=== PATIENT | female | born 1960 | race African-American/Black ===

== ENCOUNTER 2016-08-15 12:47 | Emergency (ER) | payer MEDICAID, OTHER ==
[~2016-08-15] VITALS: Ht 167.6 cm; Wt 50.0 kg
[~2016-08-15 12:47] MED LIST: ALBU0.086 INH; ALBU17I INH; AMLO10 PO; GLUCTAB PO; IBUP600T26 PO; LEVA500T PO; MEDR4PAK3 PO; MONT10TA2 PO; OMEP20TA39 PO; TRAM50 PO
[2016-08-15 12:48] VITALS: BP 141/88; PULSE 112; RESP 20; TEMP 97.9; O2SAT 97
--- NOTE | 2016-08-15 13:46 | PD ---
HPI Chief Complaint: Chest Pain Time Seen by Provider: 13:42 Travel History International Travel<30 days: No Contact w/Intl Traveler<30days: No Traveled to known affect area: No History of Present Illness HPI Patient is a 56-year-old female presenting to the emergency department for evaluation of chest pain. Patient states the pain started over the weekend, she states it's intermittent but wanted is there it is radiating across her chest and feels pressure-like. At its worst it is a 10 out of 10 currently it is a 4/10. Patient also reports nausea, vomiting, cough, a frontal headache and dysuria. Patient states that she didn't have a ride to come to the hospital over the weekend or she would have. 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)) Neurologic: Yes Psychiatric: Yes Reproductive: No Respiratory: Yes (ASTHMA) Migraines: No Radiation Therapy: No Seizures: No Sickle Cell Disease: No Sleep Apnea: No Ulcer: Yes Menopausal: Yes : 4 Para: 3 Miscarriage: 1 : 0 Tubal Ligation: Yes Past Surgical History Abdominal Surgery: No Cardiac Surgery: No Ear Surgery: No Endocrine Surgery: Yes (MASS IN NECK REMOVED ) Eye Surgery: No Genitourinary Surgery: No Gynecologic Surgery: No Thoracic Surgery: No Other Surgery: Yes (ORAL SURGERY) Social History Alcohol Use: Yes (social) Tobacco Use: Yes (1/2 PPD) Substance Use: No Allergies-Medications (Allergen,Severity, Reaction): Coded Allergies: Dilaudid (Verified Allergy, Severe, THROAT CLOSES, 08/15/16) *MDRO Multi-Drug Resistant Organism (Unverified Adverse Reaction, Unknown , 08/15/16) MRSA PCR Screen negative 12/02/14. Reported Meds & Prescriptions Reported Meds & Active Scripts Active Medrol Dosepak (Methylprednisolone) 4 Mg Oleg 4 Mg PO DIRECTED TAKE DIRECTED Levaquin 500 Mg Tab (Levofloxacin) 500 Mg Tab 500 Mg PO DAILY 9 Days Proventil Ud 0.083% (2.5 Mg/3 Ml) (Albuterol Sulfate) 2.5 Mg/3 Ml Inha 2.5 Mg INH Q6 PRN Ultram (Tramadol HCl) 50 Mg Tab 1-2 Tab PO Q6H PRN FOR PAIN Ibuprofen 600 Mg Tab 600 Mg PO Q8H PRN Reported Hm Omeprazole (Omeprazole) 20 Mg Tab 20 Mg PO DAILY Proventil Mdi (Albuterol Sulfate) 17 Gm Aero 2 Puff INH Q6HPRN Metformin (Metformin HCl) 500 Mg Tab 500 Mg PO BID Norvasc (Amlodipine Besylate) 10 Mg Tab 10 Mg PO DAILY Singulair (Montelukast Sodium) 10 Mg Tab 10 Mg PO HS Review of Systems Except as stated in HPI: all other systems reviewed are Neg General / Constitutional: Positive: Chills HENT: Positive: Headaches Cardiovascular: Positive: Chest Pain or Discomfort Respiratory: Positive: Cough Gastrointestinal: Positive: Nausea, Vomiting, No: Abdominal Pain Genitourinary: Positive: Dysuria Physical Exam Narrative GENERAL: Thin, well-developed, alert female. Resting comfortably in no acute distress. SKIN: Warm and dry. HEAD: Atraumatic. Normocephalic. EYES: Pupils equal and round. No scleral icterus. No injection or drainage. ENT: No nasal bleeding or discharge. Mucous membranes pink and moist. NECK: Trachea midline. No JVD. CARDIOVASCULAR: Regular rate and rhythm. No murmur appreciated. RESPIRATORY: No accessory muscle use. Expiratory wheezing noted throughout lung plunkett. No nasal flaring, no retractions, no increased work of breathing noted. GASTROINTESTINAL: Abdomen soft, non-tender, nondistended. Hepatic and splenic margins not palpable. MUSCULOSKELETAL: No obvious deformities. No clubbing. No cyanosis. No edema. NEUROLOGICAL: Awake and alert. No obvious cranial nerve deficits. Motor grossly within normal limits. Normal speech. PSYCHIATRIC: Appropriate mood and affect; insight and judgment normal. Data Data Last Documented VS Vital Signs Date Time Temp Pulse Resp B/P Pulse Ox O2 Delivery O2 Flow Rate FiO2 08/15/16 12:48 97.9 112 20 141/88 97 Room Air Orders Electrocardiogram (08/15/16 ) Ckmb (Isoenzyme) Profile (08/15/16 13:34) Complete Blood Count With Diff (08/15/16 13:34) Comprehensive Metabolic Panel (08/15/16 13:34) Magnesium (Mg) (08/15/16 13:34) Prothrombin Time / Inr (Pt) (08/15/16 13:34) Act Partial Throm Time (Ptt) (08/15/16 13:34) Troponin I (08/15/16 13:34) Chest, Single Ap (08/15/16 13:34) Ecg Monitoring (08/15/16 13:34) Bilateral Bp Monitoring (08/15/16 13:34) Iv Access Insert/Monitor (08/15/16 13:34) Oximetry (08/15/16 13:34) Oxygen Administration (08/15/16 13:34) Urinalysis - C+S If Indicated (08/15/16 13:46) CKMB (08/15/16 13:42) CKMB% (08/15/16 13:42) Potassium Chloride (Kcl) (08/15/16 14:45) Potassium Chlor 20 Meq Premix (Kcl 20 Me (08/15/16 14:45) Ct Brain W/O Iv Contrast(Rout) (08/15/16 14:52) Ketorolac Inj (Toradol Inj) (08/15/16 15:00) Labs Laboratory Tests Test 08/15/16 08/15/16 13:42 14:26 White Blood Count 2.1 TH/MM3 Red Blood Count 4.24 MIL/MM3 Hemoglobin 11.5 GM/DL Hematocrit 35.1 % Mean Corpuscular Volume 82.9 FL Mean Corpuscular Hemoglobin 27.2 PG Mean Corpuscular Hemoglobin 32.8 % Concent Red Cell Distribution Width 13.7 % Platelet Count 137 TH/MM3 Mean Platelet Volume 9.4 FL Neutrophils (%) (Auto) 37.1 % Lymphocytes (%) (Auto) 27.3 % Monocytes (%) (Auto) 33.5 % Eosinophils (%) (Auto) 0.5 % Basophils (%) (Auto) 1.6 % Neutrophils # (Auto) 0.8 TH/MM3 Lymphocytes # (Auto) 0.6 TH/MM3 Monocytes # (Auto) 0.7 TH/MM3 Eosinophils # (Auto) 0.0 TH/MM3 Basophils # (Auto) 0.0 TH/MM3 CBC Comment AUTO DIFF Differential Total Cells 100 Counted Neutrophils % (Manual) 39 % Band Neutrophils % 4 % Lymphocytes % 41 % Monocytes % 14 % Eosinophils % 1 % Basophils % 1 % Neutrophils # (Manual) 0.9 TH/MM3 Nucleated Red Blood Cells 1 /100 WBC Differential Comment FINAL DIFF MANUAL Platelet Estimate NORMAL Platelet Morphology Comment NORMAL Target Cells 2+ Prothrombin Time 13.2 SEC Prothromb Time International 1.2 RATIO Ratio Activated Partial 32.3 SEC Thromboplast Time Sodium Level 140 MEQ/L Potassium Level 2.6 MEQ/L Chloride Level 100 MEQ/L Carbon Dioxide Level 31.7 MEQ/L Anion Gap 8 MEQ/L Blood Urea Nitrogen 17 MG/DL Creatinine 0.88 MG/DL Estimat Glomerular Filtration 81 ML/MIN Rate Random Glucose 106 MG/DL Calcium Level 8.6 MG/DL Magnesium Level 1.4 MG/DL Total Bilirubin 1.2 MG/DL Aspartate Amino Transf 102 U/L (AST/SGOT) Alanine Aminotransferase 65 U/L (ALT/SGPT) Alkaline Phosphatase 96 U/L Total Creatine Kinase 119 U/L Creatine Kinase MB 2.5 NG/ML Troponin I LESS THAN 0.02 NG/ML Total Protein 8.1 GM/DL Albumin 3.8 GM/DL Urine Color YELLOW Urine Turbidity HAZY Urine pH 7.5 Urine Specific Shannon 1.012 Urine Protein TRACE mg/dL Urine Glucose (UA) NEG mg/dL Urine Ketones NEG mg/dL Urine Occult Blood NEG Urine Nitrite NEG Urine Bilirubin NEG Urine Urobilinogen 4.0 MG/DL Urine Leukocyte Esterase SMALL Urine RBC 1 /hpf Urine WBC 2 /hpf Urine Squamous Epithelial 7 /hpf Cells Urine Hyaline Casts 2 /lpf Urine Mucus FEW /lpf Microscopic Urinalysis Comment CULT NOT INDICATED MDM Medical Decision Making Medical Screen Exam Complete: Yes Emergency Medical Condition: Yes Interpretation(s) Vital Signs Date Time Temp Pulse Resp B/P Pulse Ox O2 Delivery O2 Flow Rate FiO2 08/15/16 12:48 97.9 112 20 141/88 97 Room Air Differential Diagnosis AMI versus unstable angina versus pneumonia versus bronchitis versus musculoskeletal pain versus viral syndrome versus other Narrative Course Patient is 56-year-old female presented to emergency for evaluation of chest pain, headache, cough, nausea, vomiting. Patient is wheezing on exam. Chest x- ray and labs ordered and pending. EKG shows sinus rhythm. Patient is resting in no acute distress. Care of patient be transferred to provider when medical bed available. Angelica Razo Aug 15, 2016 13:46
[2016-08-15 14:05] LABS: AUTOMATED NEUTROPHIL # 0.8 TH/MM3 (1.8-7.7); BASOPHIL % 1.6 % (0.0-2.0); EOSINOPHIL % 0.5 % (0.0-4.0); HEMATOCRIT 35.1 % (35.0-46.0); LYMPH % 27.3 % (9.0-44.0); LYMPHOCYTE # 0.6 TH/MM3 (1.0-4.8); MEAN CELL VOLUME 82.9 FL (80.0-100.0); MEAN CORPUSCULAR HEMOGLOBIN 27.2 PG (27.0-34.0); MEAN CORPUSCULAR HGB CONC 32.8 % (32.0-36.0); MONO % 33.5 % (0.0-8.0); NEUT % 37.1 % (16.0-70.0); PLATELET COUNT 137 TH/MM3 (150-450); RED BLOOD COUNT 4.24 MIL/MM3 (4.00-5.30); RED CELL DISTRIBUTION WIDTH 13.7 % (11.6-17.2); WHITE BLOOD COUNT 2.1 TH/MM3 (4.0-11.0)
[2016-08-15 14:07] LABS: HEMO FLAGS AUTO DIFF
--- NOTE | 2016-08-15 14:13 | RADRPT ---
EXAM DATE/TIME: 08/15/2016 13:46 [facility] COMPARISON: CHEST SINGLE AP, August 02, 2015, 19:16. INDICATIONS : Patient states chest pains. MEDICAL HISTORY : Asthma SURGICAL HISTORY : None. ENCOUNTER: Initial ACUITY: 1 day PAIN SCORE: 5/10 LOCATION: Bilateral chest FINDINGS: A single view of the chest demonstrates the lungs to be symmetrically aerated without evidence of mas s, infiltrate or effusion. The cardiomediastinal contours are unremarkable. Scoliotic curvature. CONCLUSION: No acute disease. Rodrigo Wahl Jr., MD on August 15, 2016 at 14:11 Board Certified Radiologist. This report was verified electronically.
[2016-08-15 14:19] LABS: PROTHROMBIN TIME - PATIENT 13.2 SEC (9.8-11.6)
[2016-08-15 14:20] LABS: APTT (PATIENT) 32.3 SEC (24.3-30.1); INTERNATIONAL NORMALIZED RATIO 1.2 RATIO
[2016-08-15 14:22] LABS: ALT (GPT) 65 U/L (10-53); ANION GAP 8 MEQ/L (5-15); AST (GOT) 102 U/L (15-37); BICARBONATE 31.7 MEQ/L (21.0-32.0); BLOOD UREA NITROGEN 17 MG/DL (7-18); CHLORIDE 100 MEQ/L (98-107); GLOMERULAR FILTRATION RATE 81 ML/MIN (>89); MAGNESIUM 1.4 MG/DL (1.5-2.5); SODIUM (NA) 140 MEQ/L (136-145)
[2016-08-15 14:27] LABS: ALKALINE PHOSPHATASE 96 U/L (45-117); CREATINE KINASE 119 U/L (26-192); TOTAL BILIRUBIN ADULT 1.2 MG/DL (0.2-1.0)
[2016-08-15 14:33] LABS: POTASSIUM 2.6 MEQ/L (3.5-5.1)
[2016-08-15] MEDS ORDERED: POTASSIUM CHLORIDE 20 MEQ CONTROLLED RELEASE TAB PO ONE (14:45)
[2016-08-15] MEDS ORDERED: POTASSIUM CHLOR 20 MEQ PREMIX 100 ML IV ONE (14:45)
[2016-08-15 14:48] LABS: BLOOD, URINE NEG (NEG); COMMENT (UR) CULT NOT INDICATED; CULTURE IF INDICATED CULT NOT INDICATED; GLUCOSE,URINE NEG (NEG); HYALINE CAST, URINE 2 /lpf (RARE); KETONE, URINE NEG (NEG); MUCUS URINE FEW /lpf (OCC); NITRITE,URINE NEG (NEG); PH, URINE 7.5 (5.0-8.5); SQUAMOUS EPITHELIAL CELL URINE 7 /hpf (0-5); URINE COLOR YELLOW (YELLW/STRAW)
[2016-08-15 14:50] LABS: CKMB 2.5 NG/ML (0.5-3.6)
--- NOTE | 2016-08-15 14:59 | PD ---
Physical Exam Narrative Patient was seen and examined with my pediatric medical assistant. Data Data Last Documented VS Vital Signs Date Time Temp Pulse Resp B/P Pulse Ox O2 Delivery O2 Flow Rate FiO2 08/15/16 12:48 97.9 112 20 141/88 97 Room Air Orders Electrocardiogram (08/15/16 ) Ckmb (Isoenzyme) Profile (08/15/16 13:34) Complete Blood Count With Diff (08/15/16 13:34) Comprehensive Metabolic Panel (08/15/16 13:34) Magnesium (Mg) (08/15/16 13:34) Prothrombin Time / Inr (Pt) (08/15/16 13:34) Act Partial Throm Time (Ptt) (08/15/16 13:34) Troponin I (08/15/16 13:34) Chest, Single Ap (08/15/16 13:34) Ecg Monitoring (08/15/16 13:34) Bilateral Bp Monitoring (08/15/16 13:34) Iv Access Insert/Monitor (08/15/16 13:34) Oximetry (08/15/16 13:34) Oxygen Administration (08/15/16 13:34) Urinalysis - C+S If Indicated (08/15/16 13:46) CKMB (08/15/16 13:42) CKMB% (08/15/16 13:42) Potassium Chloride (Kcl) (08/15/16 14:45) Potassium Chlor 20 Meq Premix (Kcl 20 Me (08/15/16 14:45) Ct Brain W/O Iv Contrast(Rout) (08/15/16 14:52) Ketorolac Inj (Toradol Inj) (08/15/16 15:00) Labs Laboratory Tests Test 08/15/16 08/15/16 13:42 14:26 White Blood Count 2.1 TH/MM3 Red Blood Count 4.24 MIL/MM3 Hemoglobin 11.5 GM/DL Hematocrit 35.1 % Mean Corpuscular Volume 82.9 FL Mean Corpuscular Hemoglobin 27.2 PG Mean Corpuscular Hemoglobin 32.8 % Concent Red Cell Distribution Width 13.7 % Platelet Count 137 TH/MM3 Mean Platelet Volume 9.4 FL Neutrophils (%) (Auto) 37.1 % Lymphocytes (%) (Auto) 27.3 % Monocytes (%) (Auto) 33.5 % Eosinophils (%) (Auto) 0.5 % Basophils (%) (Auto) 1.6 % Neutrophils # (Auto) 0.8 TH/MM3 Lymphocytes # (Auto) 0.6 TH/MM3 Monocytes # (Auto) 0.7 TH/MM3 Eosinophils # (Auto) 0.0 TH/MM3 Basophils # (Auto) 0.0 TH/MM3 CBC Comment AUTO DIFF Differential Total Cells 100 Counted Neutrophils % (Manual) 39 % Band Neutrophils % 4 % Lymphocytes % 41 % Monocytes % 14 % Eosinophils % 1 % Basophils % 1 % Neutrophils # (Manual) 0.9 TH/MM3 Nucleated Red Blood Cells 1 /100 WBC Differential Comment FINAL DIFF MANUAL Platelet Estimate NORMAL Platelet Morphology Comment NORMAL Target Cells 2+ Prothrombin Time 13.2 SEC Prothromb Time International 1.2 RATIO Ratio Activated Partial 32.3 SEC Thromboplast Time Sodium Level 140 MEQ/L Potassium Level 2.6 MEQ/L Chloride Level 100 MEQ/L Carbon Dioxide Level 31.7 MEQ/L Anion Gap 8 MEQ/L Blood Urea Nitrogen 17 MG/DL Creatinine 0.88 MG/DL Estimat Glomerular Filtration 81 ML/MIN Rate Random Glucose 106 MG/DL Calcium Level 8.6 MG/DL Magnesium Level 1.4 MG/DL Total Bilirubin 1.2 MG/DL Aspartate Amino Transf 102 U/L (AST/SGOT) Alanine Aminotransferase 65 U/L (ALT/SGPT) Alkaline Phosphatase 96 U/L Total Creatine Kinase 119 U/L Creatine Kinase MB 2.5 NG/ML Troponin I LESS THAN 0.02 NG/ML Total Protein 8.1 GM/DL Albumin 3.8 GM/DL Urine Color YELLOW Urine Turbidity HAZY Urine pH 7.5 Urine Specific Saline 1.012 Urine Protein TRACE mg/dL Urine Glucose (UA) NEG mg/dL Urine Ketones NEG mg/dL Urine Occult Blood NEG Urine Nitrite NEG Urine Bilirubin NEG Urine Urobilinogen 4.0 MG/DL Urine Leukocyte Esterase SMALL Urine RBC 1 /hpf Urine WBC 2 /hpf Urine Squamous Epithelial 7 /hpf Cells Urine Hyaline Casts 2 /lpf Urine Mucus FEW /lpf Microscopic Urinalysis Comment CULT NOT INDICATED [facility] Supervised Visit with [place]: Yes Interpretation(s) Last Impressions Chest X-Ray 08/15/16 1334 Signed Impressions: Service Date/Time: Monday, August 15, 2016 13:46 - CONCLUSION: No acute disease. Rodrigo Wahl Jr., MD 1456 PM. CBC WBC 2.1. Platelet 137. 33 mono. Potassium 2.6. Magnesium 1.4. Her bili 1.2. AST 102. ALT 65. Enzymes are normal. UA is negative. [address] scan of brain negative acute pathology. Narrative Course 56-year-old female with headache, sharp stabbing chest pain, abdominal cramping , nausea vomiting, fever chills. Toradol 30 mg IV. Diagnosis Primary Impression: Atypical chest pain Additional Impressions: Cephalgia Qualified Code: R51 - Acute nonintractable headache, unspecified headache type Gastroenteritis Patient Instructions: General Instructions Additional Instruction: Take medication as directed. Follow-up with personal physician. Return if persistent problem or worse. Med/Other Pt SpecificInfo: Prescription(s) given Scripts Ondansetron Odt (Zofran Odt)4 Mg Tab4 Mg SL Q6HR PRN (Nausea/Vomiting) #10 TAB Ref 0 Prov:Phan Coronado MD 08/15/16 Tramadol (Ultram)50 Mg Tab50 Mg PO Q6H PRN (PAIN) #20 TAB Ref 0 Prov:Phan Coronado MD 08/15/16 Potassium Chloride ER 10 Meq Cap10 Meq PO BID #14 CAP Ref 0 Prov:Phan Coronado MD 08/15/16 Disposition: 01 DISCHARGE HOME Condition: Stable Phan Coronado MD Aug 15, 2016 14:59
[2016-08-15 15:00] LABS: BANDS 4 % (0-6); BASOPHILS 1 % (0-2); CORRECTED NUCLEATED RBC 1 /100 WBC (0-0); EOSINOPHILS 1 % (0-4); NEUTROPHIL # MANUAL DIFF 0.9 TH/MM3 (1.8-7.7); POLYS (SEG NEUTROPHILS) 39 % (16-70); SCAN/DIFF FINAL DIFF MANUAL; TARGET CELLS 2+ (NORMAL); WBC DIFF SAMPLE 100
[2016-08-15] MEDS ORDERED: KETOROLAC TROMETHAMINE 30 MG/ML (IVP) VIAL IV PUSH ONE (15:00)
[2016-08-15 15:01] LABS: PLATELET ESTIMATE SMEAR NORMAL (NORMAL); PLATELET MORPHOLOGY NORMAL (NORMAL)
--- NOTE | 2016-08-15 15:13 | RADRPT ---
EXAM DATE/TIME: 08/15/2016 15:07 [facility] COMPARISON: No previous studies available for comparison. INDICATIONS : Cephalgia. RADIATION DOSE: 33.12 CTDIvol (mGy) MEDICAL HISTORY : Hypertension. Cardiovascular disease SURGICAL HISTORY : Tubal ligation. ENCOUNTER: Initial ACUITY: 1 day PAIN SCALE: 4/10 LOCATION: cranial TECHNIQUE: Multiple contiguous axial images were obtained of the head. Using automated exposure control and adj ustment of the mA and/or kV according to patient size, radiation dose was kept as low as reasonably a chievable to obtain optimal diagnostic quality images. FINDINGS: CEREBRUM: The ventricles are normal for age. No evidence of midline shift, mass lesion, hemorrhage or acute in farction. No extra-axial fluid collections are seen. POSTERIOR FOSSA: The cerebellum and brainstem are intact. The 4th ventricle is midline. The cerebellopontine angle i s unremarkable. EXTRACRANIAL: The visualized portion of the orbits is intact. SKULL: The calvaria is intact. No evidence of skull fracture. CONCLUSION: Normal examination. Flynn Durán MD on August 15, 2016 at 15:11 Board Certified Radiologist. This report was verified electronically.
[2016-08-15] MEDS ORDERED: ULTR50TA5 PO (15:29)
[2016-08-15] MEDS ORDERED: POTA10CA PO (15:29)
[2016-08-15] MEDS ORDERED: ZOFR4TAB3 SL (15:29)
--- NOTE | 2016-08-16 17:06 | EKG ---
Date Performed: 08/15/2016 Time Performed: 13:20:51 PTAGE: 56 years EKG: Sinus rhythm NONSPECIFIC T-WAVE ABNORMALITY Since previous tracing, no significant change noted BORDERLINE ECG PREVIOUS TRACING : 04/20/2016 01.16 DOCTOR: Jacob Kumari Interpretating Date/Time 08/16/2016 17:05:51
== END 2016-08-15 16:56 | disposition home or self-care (01) ==
LOC: NEPC 12:47
DX: R07.89 Other chest pain (principal); K52.9 Noninfective gastroenteritis and colitis, unspecified; R51 Headache; R30.0 Dysuria; R05 Cough; R11.2 Nausea with vomiting, unspecified; F17.200 Nicotine dependence, unspecified, uncomplicated; I10 Essential (primary) hypertension; E11.9 Type 2 diabetes mellitus without complications; Z79.84 Long term (current) use of oral hypoglycemic drugs
CPT/HCPCS: 70450; 71010; 80053; 81001; 82550; 82552; 83735; 84484; 85007; 85027; 85610; 85730; 93005; 96374; 96375; 99285; J1885; J3480

== ENCOUNTER 2016-09-13 17:38 | Inpatient (IN) | payer MEDICAID ==
[~2016-09-13] VITALS: Ht 167.6 cm; Wt 52.0 kg
[~2016-09-13 17:38] MED LIST changes: -ALBU0.086 INH; -ALBU17I INH; -AMLO10 PO; -GLUCTAB PO; -IBUP600T26 PO; -LEVA500T PO; -MEDR4PAK3 PO; -MONT10TA2 PO; -OMEP20TA39 PO; +POTA10CA PO; -TRAM50 PO; +ULTR50TA5 PO; +ZOFR4TAB3 SL
[2016-09-13 17:43] VITALS: BP 145/73; PULSE 92; RESP 26; TEMP 98.4; O2SAT 100
[2016-09-13 17:59] VITALS: O2SAT 99
[2016-09-13] MEDS ORDERED: methylPREDNISolone SOD SUCC 125 MG/2 ML VIAL IVP ONE (18:00)
[2016-09-13] MEDS: RESP: ALBUTEROL 2.5 MG/IPRATROPIUM 0.5 MG NEB (SCH) INH ×2 (18:00→18:14)
[2016-09-13] MEDS ORDERED: SODIUM CHLORIDE 0.9% FLUSH 10 ML FLUSH IVF PRN (18:00)
[2016-09-13 18:13] LABS: BLOOD GAS BASE EXCESS 5.9 mmol/L (-2-2); BLOOD GAS CARBOXYHEMOGLOBIN 0.9 % (0-4); BLOOD GAS HCO3 30 mmol/L (22-26); BLOOD GAS METHEMOGLOBIN 0.3 % (0-2); BLOOD GAS O2 HGB SATURATION 98 % (90-100); BLOOD GAS OXYGEN CONTENT 15.3 Vol % (12.0-20.0); BLOOD GAS PCO2 43 mmHg (38-42); BLOOD GAS PO2 158 mmHG (61-120); BLOOD GAS TOTAL HGB 10.9 G/DL (12.0-16.0); CRITICAL VALUE NO; DRAW SITE RT RADIAL; LITER FLOW 2 L/M; NUMBER OF ARTERIAL PUNCTURES 1; OXYGEN DEVICE NASAL CANNULA; STAT YES; TEMP CORR TO 98.6; ULNAR PULSE PRESENT
[2016-09-13 18:28] LABS: AUTOMATED NEUTROPHIL # 1.6 TH/MM3 (1.8-7.7); BASOPHIL % 0.9 % (0.0-2.0); EOSINOPHIL % 1.3 % (0.0-4.0); LYMPH % 17.4 % (9.0-44.0); LYMPHOCYTE # 0.4 TH/MM3 (1.0-4.8); MEAN CELL VOLUME 82.9 FL (80.0-100.0); MEAN CORPUSCULAR HEMOGLOBIN 27.2 PG (27.0-34.0); MEAN CORPUSCULAR HGB CONC 32.8 % (32.0-36.0); MONO % 11.4 % (0.0-8.0); PLATELET COUNT 137 TH/MM3 (150-450); RED CELL DISTRIBUTION WIDTH 13.9 % (11.6-17.2); WHITE BLOOD COUNT 2.3 TH/MM3 (4.0-11.0)
[2016-09-13 18:40] LABS: HEMO FLAGS AUTO DIFF
--- NOTE | 2016-09-13 18:48 | RADRPT ---
EXAM DATE/TIME: 09/13/2016 18:18 [facility] COMPARISON: CHEST SINGLE AP, August 15, 2016, 13:46. INDICATIONS : Short of breath. MEDICAL HISTORY : None. SURGICAL HISTORY : None. ENCOUNTER: Initial ACUITY: 3 days PAIN SCORE: 0/10 LOCATION: Bilateral chest FINDINGS: The lungs are clear without infiltrate, nodule, or mass. There is no appreciable pleural effusion fo r technique. Heart and mediastinum are unremarkable. CONCLUSION: No acute cardiopulmonary disease. Amadeo Glover MD on September 13, 2016 at 18:46 Board Certified Radiologist. This report was verified electronically.
[2016-09-13 19:10] LABS: ANION GAP 13 MEQ/L (5-15); BICARBONATE 30.1 MEQ/L (21.0-32.0); BLOOD UREA NITROGEN 8 MG/DL (7-18); CHLORIDE 95 MEQ/L (98-107); CREATINE KINASE 401 U/L (26-192); GLOMERULAR FILTRATION RATE 128 ML/MIN (>89); SODIUM (NA) 138 MEQ/L (136-145)
--- NOTE | 2016-09-13 19:12 | PD ---
HPI Chief Complaint: Respiratory Distress Time Seen by Provider: 17:54 Travel History International Travel<30 days: No Contact w/Intl Traveler<30days: No Traveled to known affect area: No History of Present Illness HPI 56yo F with PMH of COPD presents to the ED with c/o sob for 1 week, worst today. Pt was given nebs x2 by [facility]. They heard wheezing but she was not wheezing on my exam. Pt is saturating well on room air. Pt states she has right sided chest pain that goes up her neck to her head as well for 1 month. Denies any oxygen use at home. Denies any fever, abdominal pain, focal weakness or numbness. PFSH Past Medical History Arthritis: Yes Asthma: Yes Blood Disorders: No Anxiety: Yes Depression: Yes Heart Rhythm Problems: Yes Cancer: No Cardiac Catheterization: No Cardiovascular Problems: Yes High Cholesterol: No Chemotherapy: No Chest Pain: Yes Congestive Heart Failure: No COPD: Yes Cerebrovascular Accident: No Coronary Artery Disease: No Diabetes: Yes (TYPE II ) Patient Takes Glucophage: Yes (METFORMIN ) Diminished Hearing: No Endocrine: Yes Gastrointestinal Disorders: Yes GERD: No Genitourinary: No Headaches: No Hiatal Hernia: No Hypertension: Yes Musculoskeletal: Yes (LOWER SPINAL DEFECT (USES CANE)) Neurologic: Yes Psychiatric: Yes Reproductive: No Respiratory: Yes (COPD) Migraines: No Radiation Therapy: No Seizures: No Sickle Cell Disease: No Sleep Apnea: No Ulcer: Yes ?: Not Menopausal: Yes : 4 Para: 3 Miscarriage: 1 : 0 Tubal Ligation: Yes Past Surgical History Abdominal Surgery: No Cardiac Surgery: No Ear Surgery: No Endocrine Surgery: Yes (MASS IN NECK REMOVED ) Eye Surgery: No Genitourinary Surgery: No Gynecologic Surgery: No Thoracic Surgery: No Other Surgery: Yes (ORAL SURGERY) Social History Alcohol Use: Yes (social) Tobacco Use: Yes (1/2 PPD) Substance Use: No Allergies-Medications (Allergen,Severity, Reaction): Coded Allergies: Dilaudid (Verified Allergy, Severe, ANAPHYLAXIS, 09/13/16) *MDRO Multi-Drug Resistant Organism (Verified Adverse Reaction, Unknown, ) MRSA PCR Screen negative 12/02/14. Reported Meds & Prescriptions Reported Meds & Active Scripts Active Review of Systems Except as stated in HPI: all other systems reviewed are Neg Physical Exam Narrative GENERAL: 56yo F in moderate distress. SKIN: Warm and dry. HEAD: Atraumatic. Normocephalic. EYES: Pupils equal and round at 3mm bilaterally. EOMI. No scleral icterus. No injection or drainage. ENT: No nasal bleeding or discharge. Mucous membranes pink and moist. NECK: Trachea midline. No JVD. CARDIOVASCULAR: Regular rate and rhythm. No murmur appreciated. RESPIRATORY: + accessory muscle use. Clear to auscultation. Breath sounds equal bilaterally. GASTROINTESTINAL: Abdomen soft, non-tender, nondistended. Pt is breathing heavily with abdominal retractions. MUSCULOSKELETAL: No obvious deformities. No clubbing. No cyanosis. No edema. NEUROLOGICAL: Awake and alert. No obvious cranial nerve deficits. Motor grossly within normal limits. Normal speech. Data Data Last Documented VS Vital Signs Date Time Temp Pulse Resp B/P Pulse Ox O2 Delivery O2 Flow Rate FiO2 09/13/16 20:46 104 22 161/89 100 Nasal Cannula 2 09/13/16 17:43 98.4 Orders Complete Blood Count With Diff (09/13/16 17:54) Basic Metabolic Panel (Bmp) (09/13/16 17:54) Ckmb (Isoenzyme) Profile (09/13/16 17:54) Troponin I (09/13/16 17:54) Influenzae A/B Antigen (09/13/16 17:54) Blood Culture (09/13/16 17:54) Iv Access Insert/Monitor (09/13/16 17:54) Electrocardiogram (09/13/16 17:54) Ecg Monitoring (09/13/16 17:54) Oximetry (09/13/16 17:54) Oxygen Administration (09/13/16 17:54) Chest, Single Ap (09/13/16 17:54) Sodium Chloride 0.9% Flush (Ns Flush) (09/13/16 18:00) Arterial Blood Gas (Abg) (09/13/16 17:54) Methylprednisolone So Succ Inj (Solumedr (09/13/16 18:00) Albuterol-Ipratropium Neb (Duoneb Neb) (09/13/16 18:00) Lactic Acid Sepsis Protocol (09/13/16 17:54) Sodium Chlor 0.9% 1000 Ml Inj (Ns 1000 M (09/13/16 19:15) Morphine Inj (Morphine Inj) (09/13/16 19:15) Ct Brain W/O Iv Contrast(Rout) (09/13/16 ) CKMB (09/13/16 18:00) CKMB% (09/13/16 18:00) Potassium Chlor 20 Meq Premix (Kcl 20 Me (09/13/16 20:45) Potassium Chloride (Kcl) (09/13/16 20:45) Magnesium Sulfate 1 Gm Premix (Magnesium (09/13/16 20:45) Admit Order (Ed Use Only) (09/13/16 21:00) Abdomen, Single View (09/13/16 ) Labs Laboratory Tests Test 09/13/16 09/13/16 09/13/16 09/13/16 08:36 18:00 18:04 20:50 White Blood Count 2.3 TH/MM3 Red Blood Count 4.10 MIL/MM3 Hemoglobin 11.2 GM/DL Hematocrit 34.0 % Mean Corpuscular Volume 82.9 FL Mean Corpuscular Hemoglobin 27.2 PG Mean Corpuscular Hemoglobin 32.8 % Concent Red Cell Distribution Width 13.9 % Platelet Count 137 TH/MM3 Mean Platelet Volume 9.3 FL Neutrophils (%) (Auto) 69.0 % Lymphocytes (%) (Auto) 17.4 % Monocytes (%) (Auto) 11.4 % Eosinophils (%) (Auto) 1.3 % Basophils (%) (Auto) 0.9 % Neutrophils # (Auto) 1.6 TH/MM3 Lymphocytes # (Auto) 0.4 TH/MM3 Monocytes # (Auto) 0.3 TH/MM3 Eosinophils # (Auto) 0.0 TH/MM3 Basophils # (Auto) 0.0 TH/MM3 CBC Comment AUTO DIFF Differential Comment AUTO DIFF CONFIRMED Platelet Estimate LOW Platelet Morphology Comment ENLARGED Target Cells 1+ Sodium Level 138 MEQ/L Potassium Level 2.6 MEQ/L Chloride Level 95 MEQ/L Carbon Dioxide Level 30.1 MEQ/L Anion Gap 13 MEQ/L Blood Urea Nitrogen 8 MG/DL Creatinine 0.59 MG/DL Estimat Glomerular Filtration 128 ML/MIN Rate Random Glucose 107 MG/DL Lactic Acid Level 3.4 mmol/L 9.3 mmol/L Calcium Level 8.0 MG/DL Total Creatine Kinase 401 U/L Creatine Kinase MB 7.3 NG/ML Creatine Kinase MB % 1.8 % Troponin I LESS THAN 0.02 NG/ML Blood Gas Puncture Site RT RADIAL Blood Gas Patient Temperature 98.6 Blood Gas HCO3 30 mmol/L Blood Gas Base Excess 5.9 mmol/L Blood Gas Oxygen Saturation 98 % Arterial Blood pH 7.45 Arterial Blood Partial 43 mmHg Pressure CO2 Arterial Blood Partial 158 mmHG Pressure O2 Arterial Blood Oxygen Content 15.3 Vol % Arterial Blood 0.9 % Carboxyhemoglobin Arterial Blood Methemoglobin 0.3 % Blood Gas Hemoglobin 10.9 G/DL Oxygen Delivery Device NASAL CANNULA Blood Gas Liter Flow 2 L/M MDM Medical Decision Making Medical Screen Exam Complete: Yes Emergency Medical Condition: Yes Interpretation(s) EKG: Poor baseline. NSR 92bpm. TWI V2, V3. Differential Diagnosis Influenza vs. COPD exacerbation vs. migraine headache vs. anxiety Narrative Course 56yo F with COPD here with c/o sob for 1 week, worst today. Pt is tachypneic, anxious appearing but saturating well at 100% on 2L NC. Pt given nebs, methylprednisolone and reevaluated at bedside. Pt was then complaining of right sided chest pain along with right head, shoulder and neck pain. States the headache has been there for a month but intermittent. Pt given morphine 4mg IV and CT brain was ordered. No focal neurologic deficits. Labs reviewed, WBC is low at 2.3, similar to 08/15/16. H/H at baseline. K is low at 2.6, replace with 20mEq KCl IV, 60mEq KCl PO. Pt states she has been vomiting and not eating well for last few days. Abdomen is soft, pt does grimace and states she has lower abdominal pain. No rebound tenderness or guarding. Pt is passing gas. Will do xray abdomen to r/o obstruction. Xray abdomen is nonspecific. Lactic acid is elevated at 3.4. Troponin negative. Pt given NS IVF. Discussed with [facility] hospitalist Dr. Arellano and accepted to his service. Repeat lactic acid is 9.3. Pt given NS IVF x2 and covered with empiric antibiotics vancomycin and zosyn. I discussed with Dr. Arellano the possibility of mesenteric ischemia with elevated lactic acid and now some abdominal pain and he agreed with CTA abdomen/pelvis. CT did not show mesenteric ischemia but abnormal gallbladder with possibility of acute cholecystitis. I discussed with Dr. Peña who states to keep pt NPO and likely taking her to OR tomorrow. Informed Dr. Arellano. Critical Care Narrative Aggregate critical care time was 60 minutes. Time to perform other separately billable procedures was not included in the critical care time. My time did not include minutes spent treating any other patients simultaneously or on activities that did not directly contribute to the patient's treatment. The services I provided to this patient were to treat and/or prevent clinically significant deterioration that could result in: cardiovascular collapse or . I provided critical care services requiring my management, as noted below: Chart data review, documentation time, medication orders and management, vital sign assessments/reviewing monitor data, ordering and reviewing lab tests, ordering and interpreting/reviewing x-rays and diagnostic studies, care of the patient and discussion of the patient with the admitting physicians. Diagnosis Primary Impression: Sepsis Qualified Code: A41.9 - Sepsis, due to unspecified organism Additional Impressions: Acute cholecystitis Hypokalemia Admitting Information Admitting Physician Requests: Juany Carter DO Sep 13, 2016 19:12
[2016-09-13] MEDS ORDERED: SODIUM CHLOR 0.9% 1000 ML INJ 1,000 ML IV ONE ×3 (19:15→22:00)
[2016-09-13] MEDS ORDERED: MORPHINE SULFATE 4 MG/ML INJ IV PUSH ONE (19:15)
[2016-09-13 19:17] LABS: POTASSIUM 2.6 MEQ/L (3.5-5.1)
[2016-09-13 19:39] LABS: PLATELET ESTIMATE SMEAR LOW (NORMAL); PLATELET MORPHOLOGY ENLARGED (NORMAL); SCAN/DIFF AUTO DIFF CONFIRMED; TARGET CELLS 1+ (NORMAL)
--- NOTE | 2016-09-13 20:00 | RADRPT ---
EXAM DATE/TIME: 09/13/2016 19:40 [facility] COMPARISON: CT BRAIN W/O CONTRAST, August 15, 2016, 15:07. INDICATIONS : Shortness of breath with headache today. RADIATION DOSE: 33.79 CTDIvol (mGy) MEDICAL HISTORY : Cardiovascular disease. Hypertension. Diabetes SURGICAL HISTORY : Tubal ligation. ENCOUNTER: Initial ACUITY: 1 day PAIN SCALE: 10/10 LOCATION: cranial TECHNIQUE: Multiple contiguous axial images were obtained of the head. Using automated exposure control and adjustment of the mA and/or kV according to patient size, radiation dose was kept as low as reasonably achievable to obtain optimal diagnostic quality images. FINDINGS: There is no evidence for intracranial hemorrhage, mass effect, mass lesions, edema, or extra-axial fl uid collections. The visualized bony structures appear intact. The ventricles are normal size for t he patient's age. There are no signs of acute infarction for technique. CONCLUSION: Unremarkable study. Amadeo Glover MD on September 13, 2016 at 19:58 Board Certified Radiologist. This report was verified electronically.
[2016-09-13 20:20] LABS: CKMB 7.3 NG/ML (0.5-3.6)
[2016-09-13 20:34] LABS: LACTIC ACID GHOST NOT REPORTABLE
[2016-09-13] MEDS ORDERED: POTASSIUM CHLORIDE 20 MEQ CONTROLLED RELEASE TAB PO ONE (20:45)
[2016-09-13] MEDS ORDERED: MAGNESIUM SULFATE 1 GM PREMIX 100 ML IV ONE (20:45)
[2016-09-13] MEDS ORDERED: POTASSIUM CHLOR 20 MEQ PREMIX 100 ML IV ONE (20:45)
[2016-09-13 20:46] VITALS: BP 161/89; PULSE 104; RESP 22; O2SAT 100
[2016-09-13] MEDS ORDERED: PIPERACIL-TAZO 3.375 GM PREMIX 50 ML IV ONE (22:00)
[2016-09-13] MEDS ORDERED: VANCOMYCIN INJ 1,000 MG in SODIUM CHLOR 0.9% 250 ML INJ 250 ML IV ONE (22:00)
--- NOTE | 2016-09-13 22:01 | RADRPT ---
EXAM DATE/TIME: 09/13/2016 21:45 [facility] COMPARISON: No previous studies available for comparison. INDICATIONS : Abdominal pain. Evaluate for obstruction. MEDICAL HISTORY : Cardiovascular disease. Hypertension. Diabetes. SURGICAL HISTORY : Tubal ligation. ENCOUNTER: Initial ACUITY: 2 days PAIN SCORE: 6/10 LOCATION: Abdomen, all quadrants. FINDINGS: The bowel gas is nonspecific. There are no signs of obstruction or free air for technique. No defini te calcified stones are identified for technique. There is evidence for prior fallopian tube ligation . CONCLUSION: Nonspecific abdomen. Amadeo Glover MD on September 13, 2016 at 21:59 Board Certified Radiologist. This report was verified electronically.
[2016-09-13] MEDS ORDERED: ONDANSETRON HCL 4 MG/2 ML VIAL IVP PRN (22:45)
[2016-09-13] MEDS ORDERED: ACETAMINOPHEN 325 MG TAB PO PRN (22:45)
[2016-09-13] MEDS ORDERED: SODIUM CHLORIDE 0.9% FLUSH 10 ML FLUSH IV FLUSH PRN (22:45)
[2016-09-13] MEDS ORDERED: NALOXONE HCL 0.4 MG/ML AMP IV PRN (22:45)
[2016-09-13] MEDS ORDERED: Vancomycin Consult Pharmacy 1 EA OTHER SCH (23:15)
[2016-09-13 23:20] VITALS: BP 145/93; PULSE 73; RESP 18; O2SAT 95
[2016-09-13 23:43] LABS: BLOOD, URINE NEG (NEG); COMMENT (UR) CULT NOT INDICATED; CULTURE IF INDICATED CULT NOT INDICATED; GLUCOSE,URINE TRACE mg/dL (NEG); KETONE, URINE NEG (NEG); NITRITE,URINE NEG (NEG); SQUAMOUS EPITHELIAL CELL URINE 2 /hpf (0-5); URINE COLOR YELLOW (YELLW/STRAW)
[2016-09-14] VITALS (9 sets, daily range): BP systolic 118–147; BP diastolic 66–83; PULSE 73–93; RESP 16–23; TEMP 97.1–98.4; O2SAT 95–100
[2016-09-14] MEDS ORDERED: IOHEXOL 350 MG/ML 10 ML VIAL (for RAD DIAG) IV ONE (00:45)
--- NOTE | 2016-09-14 01:13 | RADRPT ---
EXAM DATE/TIME: 09/14/2016 00:44 [facility] COMPARISON: No previous studies available for comparison. INDICATIONS : Lactic acidosis,evaluate for possible occlusion. IV CONTRAST: 71 cc Omnipaque 350 (iohexol) IV ORAL CONTRAST: No oral contrast ingested. RADIATION DOSE: 8.51 CTDIvol (mGy) MEDICAL HISTORY : Diabetes mellitus type 2. Chronic obstructive pulmonary disease. Cardiovascular diseaseEmphysema SURGICAL HISTORY : Tubal ligation. ENCOUNTER: Initial ACUITY: 1 week PAIN SCALE: 4/10 LOCATION: Abdomen TECHNIQUE: Volumetric scanning was performed using a multi-row detector CT scanner. The data was post processed with a variety of visualization algorithms including full volume maximum intensity projection, multi -planar sliding thin slab reformation, curved planar reformation, and surface rendering techniques. Using automated exposure control and adjustment of the mA and/or kV according to patient size, radiat ion dose was kept as low as reasonably achievable to obtain optimal diagnostic quality images. FINDINGS: ABDOMINAL AORTA: There is scattered atherosclerotic calcifications of the aorta identified. No evidence for stenosis. There is moderate calcific plaque of the superior mesenteric artery origin with estimated 50% luminal narrowing proximally. The celiac artery origin is widely patent. Inferior mesenteric artery is widel y patent. A solitary left renal artery is noted. There is mild calcific plaquing at the origin of the right main renal artery and an accessory renal artery at the lower pole on the right with moderate s tenosis at the origin. BIFURCATION: Mild calcific plaquing without stenosis. RIGHT PELVIS: The right common iliac, internal iliac and external iliac vessels are patent without luminal irregula rity. LEFT PELVIS: The left common iliac, internal iliac and external iliac vessels are patent. There is moderate calcif ic plaquing at the bifurcation of the left internal and external iliac arteries without significant s tenosis. OTHER: Porcelain gallbladder is noted with cholelithiasis. There is serena-cholecystic fluid identified. Small hiatal hernia is present. CONCLUSION: 1. Atherosclerotic disease is noted without hemodynamically significant stenosis or occlusion. 2. Abnormal gallbladder as described above with pericholecystic fluid and cholelithiasis, porcelain g allbladder. The possibility of acute cholecystitis should be entertained given the imaging findings. Aleks Rock MD on September 14, 2016 at 1:06 Board Certified Radiologist. This report was verified electronically.
[2016-09-14] MEDS: NS + KCL 20 MEQ INJ 1,000 ML IV SCH ×2 (01:35→06:51)
[2016-09-14] MEDS: HEPARIN SODIUM - SQ 10,000 UNITS/ML VIAL SQ SCH ×2 (01:35→12:07)
[2016-09-14] MEDS: methylPREDNISolone SOD SUCC 40 MG/1 ML VIAL IV PUSH SCH ×4 (01:35→16:53)
[2016-09-14 03:37] LABS: AUTOMATED NEUTROPHIL # 0.9 TH/MM3 (1.8-7.7); EOSINOPHIL % 0.1 % (0.0-4.0); HEMATOCRIT 28.8 % (35.0-46.0); LYMPH % 15.9 % (9.0-44.0); LYMPHOCYTE # 0.2 TH/MM3 (1.0-4.8); MEAN CORPUSCULAR HEMOGLOBIN 27.9 PG (27.0-34.0); MONO % 3.4 % (0.0-8.0); NEUT % 79.6 % (16.0-70.0); PLATELET COUNT 125 TH/MM3 (150-450); RED BLOOD COUNT 3.51 MIL/MM3 (4.00-5.30); RED CELL DISTRIBUTION WIDTH 13.8 % (11.6-17.2); WHITE BLOOD COUNT 1.2 TH/MM3 (4.0-11.0)
[2016-09-14 04:26] LABS: ALKALINE PHOSPHATASE 100 U/L (45-117); ALT (GPT) 65 U/L (10-53); ANION GAP 11 MEQ/L (5-15); AST (GOT) 94 U/L (15-37); BICARBONATE 27.2 MEQ/L (21.0-32.0); BLOOD UREA NITROGEN 6 MG/DL (7-18); CHLORIDE 101 MEQ/L (98-107); CREATINE KINASE 310 U/L (26-192); GLOMERULAR FILTRATION RATE 113 ML/MIN (>89); SODIUM (NA) 139 MEQ/L (136-145)
[2016-09-14 04:30] LABS: CALCIUM-PROTEIN CORRECTED 6.9 MG/DL (8.5-10.1); POTASSIUM 2.4 MEQ/L (3.5-5.1)
[2016-09-14 04:47] LABS: HEMO FLAGS AUTO DIFF
[2016-09-14 04:48] LABS: OVALOCYTES 1+ (NORMAL); PLATELET ESTIMATE SMEAR LOW (NORMAL); PLATELET MORPHOLOGY NORMAL (NORMAL); SCAN/DIFF AUTO DIFF CONFIRMED
[2016-09-14 04:51] LABS: CKMB 5.8 NG/ML (0.5-3.6)
[2016-09-14 04:53] LABS: TARGET CELLS 1+ (NORMAL)
[2016-09-14] MEDS: PIPERACIL-TAZO 3.375 GM PREMIX 50 ML IV SCH ×3 (05:09→16:53)
[2016-09-14] MEDS ORDERED: MORPHINE SULFATE 4 MG/ML INJ IV PRN (06:30)
[2016-09-14] MEDS: MORPHINE SULFATE 4 MG/ML INJ IV PRN ×5 (06:50→20:52)
[2016-09-14] MEDS: POTASSIUM CHLOR 20 MEQ PREMIX 100 ML IV SCH ×3 (07:43→16:53)
[2016-09-14] MEDS ORDERED: CALCIUM GLUCONATE INJ 1 GM in SODIUM CHLORIDE 0.9% INJ 100 ML IV ONE (08:00)
[2016-09-14] MEDS: SODIUM CHLORIDE 0.9% FLUSH 10 ML FLUSH IV FLUSH SCH ×2 (09:00→20:53)
--- NOTE | 2016-09-14 10:23 | EKG ---
Date Performed: 09/13/2016 Time Performed: 17:53:39 PTAGE: 56 years EKG: Sinus rhythm NONSPECIFIC T-WAVE ABNORMALITY BORDERLINE ECG NO PREVIOUS TRACING DOCTOR: Speedy Orozco Interpretating Date/Time 09/14/2016 10:21:52
--- NOTE | 2016-09-14 10:29 | HHI.HP ---
[facility] Jamshid Braxton M.D. Admission Diagnosis Hypokalemia, lactic acidosis Diagnoses: Chief Complaint: abdominal pain, sob, cough, n/v (Aleida Coker) Travel History International Travel<30 Days: No Contact w/Intl Traveler <30 Da: No Traveled to Known Affected Are: No (Aleida Coker) History of Present Illness This is a pleasantly 56-year-old female with past medical history of COPD, diabetes, tobacco abuse. Patient presented to the emergency room complaining of shortness of breath for a week that was worse yesterday. She endorses increased wheezing with sputum that was white and yellow, associated with chills. Indicates she is a smoker, but has not smoked in the last 2-3 days because of the shortness of breath. Patient also complaining of right-sided chest wall pain radiating to the head and neck. She was evaluated in the emergency room, CT of the head was negative. Chest x-ray did not reveal any acute findings. Laboratory workup revealed leukopenia, WBC 2.3. She was noted severely hypokalemic with potassium of 2.6. Patient endorsed she has been having increased nausea and vomiting for the last 3 days, she hasn't been able to eat very much. Indicates vomitus is bile colored. She went to see her primary care physician was prescribed potassium pills. She complained of diffuse abdominal pain, indicates that it starts on the left abdomen and radiates to the right side. States she has not had a bowel movement in the last 3 days but is passing gas. X-ray of the abdomen did not show any significant findings. Patient was found with significant lactic acidosis of 3.4. It was repeated and it was 9.3. She was given 2 L of IV fluid and goal cover with empiric antibiotics. A CT of the abdomen was then completed showing abnormal gallbladder with pericholecystic fluid and cholelithiasis, porcelain gallbladder. With the possibility of acute cholecystitis. General surgery was consulted from the emergency room and notified of findings. At this time, patient is examined in her room. She is very restless continues to complain of pain. Patient is admitted for further evaluation and treatment. 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 Active Ordered Medications Inpatient Medications Acetaminophen (Tylenol) 650 mg Q4H PRN PO TEMP > 100.4 Last administered on 05:25; Start 09/13/16 at 22:45 Albuterol Sulfate 1.25 mg 1.25 mg Q2HR NEB PRN NEB sob; Start 09/13/16 at 23:15 Albuterol/ Ipratropium (Duoneb Neb) 1 ampule QID NEB NEB ; Start 09/14/16 at 08 :00 Albuterol/ Ipratropium 1 ampule 1 ampule Q15M INH Last administered on 18:14; Start 09/13/16 at 18:00; Stop 09/13/16 at 18:31; Status DC Calcium Gluconate 1 gm/Sodium Chloride 110 ml @ 110 mls/hr ONCE ONCE IV ; Start 09/14/16 at 08:00; Stop 09/14/16 at 08:59; Status DC Heparin Sodium (Porcine) (Heparin Inj) 5,000 units Q12H SQ Last administered on 09/14/16 01:35; Start 09/13/16 at 23:00 Magnesium Sulfate/ Dextrose 100 ml @ 100 mls/hr ONCE ONCE IV Last administered on 09/13/16 21:23; Start 09/13/16 at 20:45; Stop 09/13/16 at 21:44 ; Status DC Methylprednisolone Sodium Succinate (SoluMEDROL INJ) 40 mg Q6HR IV PUSH Last administered on 09/14/16 05:09; Start 09/14/16 at 00:00 Miscellaneous Information SPECIFIC LAB TO BE DRAWN:VANCOMYCIN TROUGH DATE TO... ONCE ONCE XX ; Start 09/15/16 at 11:45; Stop 09/15/16 at 11:46 Morphine Sulfate (Morphine Inj) 4 mg Q3H PRN IV PAIN 6-10 Last administered on 09/14/16 09:30; Start 09/14/16 at 06:30 Morphine Sulfate 2 mg 2 mg Q3H PRN IV PAIN 1-5; Start 09/14/16 at 06:30 Naloxone HCl 0.4 mg 0.4 mg UNSCH PRN IV SEE LABEL COMMENTS; Start 09/13/16 at 22:45 Ondansetron HCl (Zofran Inj) 4 mg Q6H PRN IVP NAUSEA OR VOMITING; Start at 22:45 Pharmacy Profile Note (Vancomycin Consult Pharmacy) 0 ml @ 0 mls/hr UNSCH OTHER ; Start 09/13/16 at 23:15 Piperacillin Sod/ Tazobactam Sod 50 ml @ 100 mls/hr Q6H IV Last administered on 09/14/16 05:09; Start 09/14/16 at 05:00 Piperacillin Sod/ Tazobactam Sod (Zosyn 3.375 Gm Premix) 50 ml @ 100 mls/hr ONCE ONCE IV Last administered on 09/13/16 22:50; Start 09/13/16 at 22:00; Stop 09/13/16 at 22:29; Status DC Potassium Chloride 60 meq 60 meq ONCE ONCE PO ; Start 09/13/16 at 20:45; Stop 09/13/16 at 20:46; Status DC Potassium Chloride/Sodium Chloride 1,000 ml @ 75 mls/hr [id number] IV Last administered on 09/14/16 06:51; Start 09/14/16 at 00:06 Potassium Chloride (KCl 20 Meq Premix Inj) 100 ml @ 50 mls/hr Q2H IV Last administered on 09/14/16 07:43; Start 09/14/16 at 07:00; Stop 09/14/16 at 12:59 Sennosides (Senokot) 17.2 mg Q12H PRN PO CONSTIPATION; Start 09/13/16 at 22:45 Sodium Chloride (NS 1000 ml Inj) 1,000 ml @ 999 mls/hr BOLUS ONCE IV Last administered on 09/13/16 19:35; Start 09/13/16 at 19:15; Stop 09/13/16 at 20:15 ; Status DC Sodium Chloride (NS Flush) 2 ml BID IV FLUSH Last administered on 09/14/16 09: 00; Start 09/14/16 at 09:00 Vancomycin HCl 1000 mg/Sodium Chloride 250 ml @ 250 mls/hr ONCE ONCE IV Last administered on 09/13/16 23:23; Start 09/13/16 at 22:00; Stop 09/13/16 at 22:59 ; Status DC Vancomycin HCl/ Sodium Chloride (Vancomycin Inj/ NS 250 ml Inj) 250 ml @ 250 mls/hr Q12H IV ; Start 09/14/16 at 12:00 Family History Mother and father relatively healthy. Sister has history of cardiovascular disease and diabetes. Social History Patient smokes about half a pack every 2-3 days for the last couple months, used to smoke 2 packs a day for many years. Occasionally drinks 1 beer a day. Denies any illegal drug use. Patient is disabled, has a grown son. (Aleida Coker) Physical Exam Vital Signs Vital Signs Date Time Temp Pulse Resp B/P Pulse Ox O2 Delivery O2 Flow Rate FiO2 09/14/16 08:00 98.2 83 18 147/83 100 09/14/16 06:41 97.7 93 19 135/70 95 09/14/16 04:52 90 16 118/68 97 Nasal Cannula 2 09/14/16 02:06 89 18 120/66 96 Nasal Cannula 2 09/13/16 23:20 73 18 145/93 95 Nasal Cannula 2 09/13/16 21:25 18 09/13/16 20:46 104 22 161/89 100 Nasal Cannula 2 09/13/16 17:59 99 Nasal Cannula 2.00 09/13/16 17:59 99 Nasal Cannula 2 09/13/16 17:59 99 Nasal Cannula 2 09/13/16 17:55 26 99 Nasal Cannula 2 09/13/16 17:43 98.4 92 26 145/73 100 Physical Exam GENERAL: This is a thin built female, very anxious, grimacing in pain SKIN: No rashes, ecchymoses or lesions. Cool and dry. HEAD: Atraumatic. Normocephalic. No temporal or scalp tenderness. EYES: Pupils equal round and reactive. Extraocular motions intact. No scleral icterus. No injection or drainage. ENT: Nose without bleeding, purulent drainage or septal hematoma. Throat without erythema, tonsillar hypertrophy or exudate. Uvula midline. Airway patent. NECK: Trachea midline. No JVD or lymphadenopathy. Supple, nontender, no meningeal signs. CARDIOVASCULAR: Regular rate and rhythm without murmurs, gallops, or rubs. RESPIRATORY: Diffuse expiratory wheezes GASTROINTESTINAL: Abdomen slightly distended, tenderness to left abdomen, unable to detect any organomegaly. Bowel sounds normoactive 4. MUSCULOSKELETAL: Extremities without clubbing, cyanosis, or edema. No joint tenderness, effusion, or edema noted. No calf tenderness. Negative Homans sign bilaterally. NEUROLOGICAL: Awake, alert oriented 3. No focal deficit. Anxious, restless. Laboratory Laboratory Tests Test 09/13/16 09/13/16 09/13/16 09/13/16 18:00 18:04 20:50 22:55 Sodium Level 138 Potassium Level 2.6 Chloride Level 95 Carbon Dioxide Level 30.1 Anion Gap 13 Blood Urea Nitrogen 8 Creatinine 0.59 Estimat Glomerular Filtration 128 Rate Random Glucose 107 Lactic Acid Level 3.4 9.3 Calcium Level 8.0 Total Creatine Kinase 401 Creatine Kinase MB 7.3 Creatine Kinase MB % 1.8 Troponin I LESS THAN 0.02 Blood Gas Puncture Site RT RADIAL Blood Gas Patient Temperature 98.6 Blood Gas HCO3 30 Blood Gas Base Excess 5.9 Blood Gas Oxygen Saturation 98 Arterial Blood pH 7.45 Arterial Blood Partial 43 Pressure CO2 Arterial Blood Partial 158 Pressure O2 Arterial Blood Oxygen Content 15.3 Arterial Blood 0.9 Carboxyhemoglobin Arterial Blood Methemoglobin 0.3 Blood Gas Hemoglobin 10.9 Oxygen Delivery Device NASAL CANNULA Blood Gas Liter Flow 2 Urine Color YELLOW Urine Turbidity CLEAR Urine pH 7.0 Urine Specific [place] 1.010 Urine Protein 30 Urine Glucose (UA) TRACE Urine Ketones NEG Urine Occult Blood NEG Urine Nitrite NEG Urine Bilirubin NEG Urine Urobilinogen LESS THAN 2.0 Urine Leukocyte Esterase NEG Urine RBC LESS THAN 1 Urine WBC 1 Urine Squamous Epithelial 2 Cells Microscopic Urinalysis Comment CULT NOT INDICATED Test 09/14/16 09/14/16 01:00 03:15 Lactic Acid Level 6.6 White Blood Count 1.2 Red Blood Count 3.51 Hemoglobin 9.8 Hematocrit 28.8 Mean Corpuscular Volume 82.0 Mean Corpuscular Hemoglobin 27.9 Mean Corpuscular Hemoglobin 34.0 Concent Red Cell Distribution Width 13.8 Platelet Count 125 Mean Platelet Volume 9.7 Neutrophils (%) (Auto) 79.6 Lymphocytes (%) (Auto) 15.9 Monocytes (%) (Auto) 3.4 Eosinophils (%) (Auto) 0.1 Basophils (%) (Auto) 1.0 Neutrophils # (Auto) 0.9 Lymphocytes # (Auto) 0.2 Monocytes # (Auto) 0.0 Eosinophils # (Auto) 0.0 Basophils # (Auto) 0.0 CBC Comment AUTO DIFF Differential Comment AUTO DIFF CONFIRMED Platelet Estimate LOW Platelet Morphology Comment NORMAL Target Cells 1+ Ovalocytes 1+ Sodium Level 139 Potassium Level 2.4 Chloride Level 101 Carbon Dioxide Level 27.2 Anion Gap 11 Blood Urea Nitrogen 6 Creatinine 0.66 Estimat Glomerular Filtration 113 Rate Random Glucose 185 Calcium Level 6.7 Protein Corrected Calcium 6.9 Total Bilirubin 1.0 Aspartate Amino Transf 94 (AST/SGOT) Alanine Aminotransferase 65 (ALT/SGPT) Alkaline Phosphatase 100 Total Creatine Kinase 310 Creatine Kinase MB 5.8 Creatine Kinase MB % 1.9 Troponin I LESS THAN 0.02 Total Protein 6.7 Albumin 3.1 Date/Time Procedure Status Source Growth 09/13/16 18:05 Aerobic Blood Culture Received Blood Peripheral Pending 09/13/16 18:05 Anaerobic Blood Culture Received Blood Peripheral Pending (Aleida Coker [facility]) Result Diagram: 09/14/16 0315 09/14/16 0315 Imaging Last Impressions Abdomen/Pelvis CT 09/14/16 0000 Signed Impressions: Service Date/Time: Wednesday, September 14, 2016 00:44 - CONCLUSION: 1. Atherosclerotic disease is noted without hemodynamically significant stenosis or occlusion. 2. Abnormal gallbladder as described above with pericholecystic fluid and cholelithiasis, porcelain gallbladder. The possibility of acute cholecystitis should be entertained given the imaging findings. Aleks Rock MD Chest X-Ray 09/13/16 2804 Signed Impressions: Service Date/Time: Tuesday, September 13, 2016 18:18 - CONCLUSION: No acute cardiopulmonary disease. Amadeo Glover MD Head CT 09/13/16 0000 Signed Impressions: Service Date/Time: Tuesday, September 13, 2016 19:40 - CONCLUSION: Unremarkable study. Amadeo Glover MD Abdomen X-Ray 09/13/16 0000 Signed Impressions: Service Date/Time: Tuesday, September 13, 2016 21:45 - CONCLUSION: Nonspecific abdomen. Amadeo Glover MD (Aleida Coker) Assessment and Plan Problem List: (1) Sepsis (2) Acute cholecystitis (3) Abdominal pain (4) Porcelain gallbladder (5) Hypokalemia (6) Hepatitis C (7) COPD with exacerbation (8) Pancytopenia Assessment and Plan Admit to Dr. Olsen 56-year-old female presented to the emergency room complaining of shortness of breath, abdominal pain. Emergency room, patient was examined found septic with lactic acidosis, severely hypokalemic. Complaint of abdominal pain, x-ray of the abdomen was nonspecific. CT of the abdomen completed showed abnormal gallbladder with possibility of acute cholecystitis. -Continue with IV fluids -Continue with empiric antibiotic We will change patient to NPO status Consult general surgery for evaluation -HIDA scan now -We will order appropriate pain management Hypokalemia -Replace electrolytes as needed -Follow BMP daily COPD exacerbation Duo nebs as needed Continue with oxygen at 2 L to keep sats greater than 92 Pancytopenia, etiology unclear, possibly secondary to sepsis Follow CBC daily SCDs for DVT prophylaxis Protonix for GI prophylaxis Home medications reviewed, initiated as indicated Plan of care has been discussed with the patient, attending and registered nurse. Further management of the patient will be dependent on the hospital course Patient requires inpatient admission for sepsis, acute cholecystitis, severely hypokalemic and hypomagnesemic. Patient is at risk for complications from sepsis, such as shock, possibly . Patient requires evaluation by surgery, IV antibiotics, IV fluid resuscitation. Anticipated discharge back to home with home health care when stable Patient's condition is guarded. Patient was seen by myself and Dr. Olsen, this H&P is written on his behalf ( Aleida Coker) Assessment and Plan PT IS SEEN & EXAMINED D/W PT D/W ALEIDA POSSIBLE ACUTE CHOLECYSTITIS PORCELAIN GALL BLADDER LACTIC ACIDOSIS COPD EXACERBATION SEVERE HYPOKALEMIA SEVERE HYPOMAGNESEMIA HYPOCALCEMIA LEUKOPENIA/ANEMIA / MILD THROMBOCYTOPENIA HX HEP C CH SMOKER DM2 HTN D/W RN REPLACE KCL/MAG REPLACE CALCIUM IV FLUID IV ABX ZOSYN/VANCO STEROIDS AEROSOL TX GEN SURGERY CONSULT SEE ORDERS WILL F/U (Matthew Olsen MD) Physician Certification 2 Midnight Certification Type: Admission for Inpatient Services Order for Inpatient Services The services are ordered in accordance with Medicare regulations or non- Medicare payer requirements, as applicable. In the case of services not specified as inpatient-only, they are appropriately provided as inpatient services in accordance with the 2-midnight benchmark. Estimated LOS (days): 2 2 days is the estimated time the patient will need to remain in the hospital, assuming treatment plan goals are met and no additional complications. Post-Hospital Plan: Home Health (Aleida Coker) Problem Qualifiers (1) Sepsis: Qualified Code: A41.9 - Sepsis, due to unspecified organism (2) Abdominal pain: Qualified Code: R10.9 - Abdominal pain, unspecified location (3) Hepatitis C: Qualified Code: B18.2 - Chronic hepatitis C without hepatic coma Aleida Coker Sep 14, 2016 10:29 Matthew Olsen MD Sep 14, 2016 12:05
[2016-09-14] MEDS: RESP: ALBUTEROL 2.5 MG/IPRATROPIUM 0.5 MG NEB (SCH) NEB ×3 (10:54→19:13)
[2016-09-14 11:27] LABS: ANION GAP 9 MEQ/L (5-15); BICARBONATE 31.6 MEQ/L (21.0-32.0); BLOOD UREA NITROGEN 6 MG/DL (7-18); CHLORIDE 100 MEQ/L (98-107); CREATINE KINASE 288 U/L (26-192); GLOMERULAR FILTRATION RATE 180 ML/MIN (>89); MAGNESIUM 1.2 MG/DL (1.5-2.5); SODIUM (NA) 141 MEQ/L (136-145)
[2016-09-14 11:43] LABS: CKMB 4.9 NG/ML (0.5-3.6)
[2016-09-14 11:49] LABS: POTASSIUM 2.3 MEQ/L (3.5-5.1)
[2016-09-14] MEDS ORDERED: POTASSIUM CHLOR 20 MEQ PREMIX 100 ML IV ONE (12:00)
[2016-09-14] MEDS ORDERED: POTASSIUM CHLORIDE 10 MEQ CONTROLLED RELEASE TAB PO ONE (12:00)
[2016-09-14] MEDS: VANCOMYCIN 1,000 MG/NS 250 ML IV SCH ×2 (12:07)
[2016-09-14] MEDS: MAGNESIUM SULFATE 1 GM PREMIX 100 ML IV SCH ×2 (12:56→13:00)
[2016-09-14] MEDS ORDERED: GLUCAGON 1 MG/ML VIAL OTHER PRN (17:45)
[2016-09-14] MEDS ORDERED: DEXTROSE 50% IN WATER 50 ML VIAL(D50) IV PUSH PRN (17:45)
[2016-09-14] MEDS: PANTOPRAZOLE SODIUM 40 MG VIAL IV PUSH SCH (18:00)
[2016-09-14 18:48] LABS: MAGNESIUM 1.3 MG/DL (1.5-2.5)
[2016-09-14 18:52] LABS: POTASSIUM 2.5 MEQ/L (3.5-5.1)
--- NOTE | 2016-09-14 19:44 | MB ---
cc: TIFFANY PARHAM DATE OF CONSULTATION 09/14/2016 REASON FOR CONSULTATION Acute cholecystitis. REQUESTING PHYSICIAN Matthew Olsen MD HISTORY OF PRESENT ILLNESS The patient is a 56-year-old female who presented to [facility] Emergency Department with 7 days of increasing migratory abdominal pain. The patient states she has had pain in the right upper quadrant, her left lower quadrant as well as a right shoulder for approximately one week. It has increased in severity. The patient states she has no aggravating or relieving factors and never had pain like this before. The patient denies any other associated symptoms other than some nausea and vomiting. The patient does deny any chest pain, shortness of breath, neurologic symptoms. Denies any diarrhea, constipation, recent travel or any other sick contacts. REVIEW OF SYSTEMS A 12 point review of systems was conducted with the patient and is negative except for the pertinent positives mentioned above in the history of present illness. PAST MEDICAL HISTORY 1. Asthma. 2. Anxiety. 3. Depression. 4. Chronic obstructive pulmonary disease. 5. Diabetes type 2. 6. Hypertension. PAST SURGICAL HISTORY Mass removed from her neck. ALLERGIES DILAUDID. SOCIAL HISTORY The patient admits to drinking alcohol, last three days ago last time used. Smoking one-half pack of cigarettes a day. Denies illicit drug use. FAMILY HISTORY Noncontributory. PHYSICAL EXAMINATION VITAL SIGNS: Blood pressure 134/81, heart rate 87, temperature 98.4 degrees. GENERAL: Patient is a thin, chronically ill appearing -Martiniquais female in no acute distress, she appears uncomfortable and painful. HEAD: Normocephalic, atraumatic. Pupils round and reactive to light and accommodation. Sclerae is anicteric. Mucous membranes are moist. NECK: Supple. No JVD. LUNGS: Clear to auscultation bilaterally. Nonlabored breathing pattern. HEART: Regular rate and rhythm. No murmurs. ABDOMEN: Soft. She is subjectively tender on the left side of the abdomen. No Pagan sign. No ascites. No hernias. No masses. No organomegaly. BACK: No CVA tenderness. EXTREMITIES: No clubbing, cyanosis or edema. NEUROLOGICAL: The patient is alert and oriented x4. MATOS equally, nonfocally. Cranial nerves II-XII are grossly intact. The chest wall and it was in the for this. LABORATORY DATA Significant for white blood cell count of 1.2. Sodium 141, potassium 2.3, calcium 6.9. IMAGING STUDIES A CT scan of the abdomen and pelvis shows acute cholecystitis. ASSESSMENT AND PLAN A 56-year-old female with abdominal pain likely acute cholecystitis with vomiting and metabolic acidosis. I agree with current management with IV fluid rehydration as well as electrolyte replacement. Once the patient has electrolytes repleted, we will proceed to the operating room urgently for laparoscopic cholecystectomy. I discussed risks, benefits, alternatives to laparoscopic cholecystectomy as treatment for acute cholecystitis with the patient and she agrees to undergo the procedure. We will also schedule the patient based on operating room availability. Thank you very much for this consultation. Tiffany Parham MD AWG/KK /5:04 PM /7:19 PM [id number]
[2016-09-14] MEDS: INSULIN ASPART SUPPLEMENTAL SCALE SQ SCH (20:57)
[2016-09-14] MEDS ORDERED: POTASSIUM CHLORIDE 25 MEQ EFFERVESCENT TAB PO ONE ×2 (21:30→23:30)
[2016-09-14] MEDS ORDERED: POTASSIUM CHLOR 20 MEQ PREMIX 100 ML IV SCH (21:30)
[2016-09-15] VITALS (7 sets, daily range): BP systolic 107–134; BP diastolic 63–82; PULSE 75–99; RESP 20–23; TEMP 95.3–98; O2SAT 99–100
[2016-09-15] MEDS: HEPARIN SODIUM - SQ 10,000 UNITS/ML VIAL SQ SCH ×3 (00:05→21:46)
[2016-09-15] MEDS: PIPERACIL-TAZO 3.375 GM PREMIX 50 ML IV SCH ×5 (00:06→21:46)
[2016-09-15] MEDS: methylPREDNISolone SOD SUCC 40 MG/1 ML VIAL IV PUSH SCH ×3 (00:06→21:33)
[2016-09-15] MEDS: VANCOMYCIN 1,000 MG/NS 250 ML IV SCH ×6 (00:07→21:34)
[2016-09-15] MEDS: TEMAZEPAM 15 MG CAP PO PRN ×2 (00:07→21:49)
[2016-09-15] MEDS: POTASSIUM CHLOR 20 MEQ PREMIX 100 ML IV SCH ×2 (00:07→03:15)
[2016-09-15] MEDS: MORPHINE SULFATE 4 MG/ML INJ IV PRN ×3 (00:35→18:03)
[2016-09-15] MEDS: NS + KCL 20 MEQ INJ 1,000 ML IV SCH ×2 (02:46→21:31)
[2016-09-15] MEDS ORDERED: BUPIVACAINE/EPINEPHRINE 0.25% 50 ML VIAL ONE (06:19)
[2016-09-15] MEDS ORDERED: ceFAZolin INJ 1,000 MG VIAL ONE (06:44)
[2016-09-15] MEDS ORDERED: methylPREDNISolone SOD SUCC 125 MG/2 ML VIAL ONE (06:44)
[2016-09-15] MEDS ORDERED: MIDAZOLAM HCL 2 MG/2 ML VIAL ONE (06:44)
[2016-09-15] MEDS ORDERED: ceFAZolin 2 GM PREMIX 50 ML ONE (06:44)
[2016-09-15] MEDS: INSULIN ASPART SUPPLEMENTAL SCALE SQ SCH ×4 (07:00→21:46)
[2016-09-15] MEDS ORDERED: ACETAMINOPHEN 1000 MG/100 ML VIAL IV ONE (07:02)
[2016-09-15] MEDS: RESP: ALBUTEROL 2.5 MG/IPRATROPIUM 0.5 MG NEB (SCH) NEB ×4 (08:00→20:08)
--- NOTE | 2016-09-15 08:05 | HHI.PR ---
Immediate Post Op Note Procedure Date: Sep 15, 2016 Pre Op Diagnosis: (1) Acute cholecystitis Post Op Diagnosis: (1) Acute cholecystitis Surgeon: Johnie Peña Tool Machine Setup Operator(s): staff Procedure: Laparoscopic Cholecystectomy Findings: acute cholecystitis Complications: none Specimen(s) removed: GB Estimated blood loss: 10ml Anesthesia: General, Local Drains: None IVF Patient to: PACU Patient Condition: Good Johnie Peña MD Sep 15, 2016 08:05
[2016-09-15] MEDS ORDERED: fentaNYL CITRATE 250 MCG/5 ML AMP ONE (08:20)
[2016-09-15] MEDS ORDERED: *RESP: ALBUTEROL 2.5 MG/3 ML NEB (PRN) PERIprocedural Use ONLY NEB ONE (08:30)
[2016-09-15] MEDS ORDERED: *morphine SULFATE 8 MG/ML PERIprocedure ONLY ONE (08:31)
[2016-09-15] MEDS: SODIUM CHLORIDE 0.9% FLUSH 10 ML FLUSH IV FLUSH SCH ×2 (09:00→21:00)
[2016-09-15] MEDS: ACETAMINOPHEN/HYDROcodone 325 MG/5 MG TAB PO PRN ×3 (09:33→21:41)
[2016-09-15] MEDS ORDERED: DO NOT ADM ANY ANTICOAGULANT DRUGS XX PRN (09:45)
[2016-09-15] MEDS ORDERED: POTASSIUM CHLORIDE 25 MEQ EFFERVESCENT TAB PO ONE (11:15)
--- NOTE | 2016-09-15 11:17 | HHI.PR ---
Subjective Subjective Remarks Laparoscopic Cholecystectomy 09/14 tolerated procedure well not passing gas abd. tender no n/v less sob and wheezing tolerating clears okay Review of Systems Constitutional Constitutional Remarks 12 point ROS completed, neg. except as noted above Vitals/Results Intake & Output 09/14/16 09/14/16 09/15/16 15:00 23:00 07:00 Intake Total 600 ml 800 ml Balance 600 ml 800 ml Intake Oral 600 ml 800 ml # Voids 6 1 3 # Bowel Movements 0 0 0 Vital Signs Vital Signs Date Time Temp Pulse Resp B/P Pulse Ox O2 Delivery O2 Flow Rate FiO2 09/15/16 09:09 98.4 86 20 126/82 94 Nasal Cannula 3 09/15/16 09:00 86 20 126/82 94 Nasal Cannula 3 09/15/16 08:45 93 20 141/80 94 Nasal Cannula 3 09/15/16 08:30 93 20 141/75 95 Nasal Cannula 2 09/15/16 08:13 98.4 89 20 135/82 94 Nasal Cannula 2 09/15/16 05:00 97.7 80 23 107/70 100 09/15/16 00:15 97.9 85 20 109/63 100 09/14/16 20:45 97.1 88 23 121/73 100 09/14/16 18:54 09/14/16 16:14 09/14/16 16:00 97.1 73 17 133/71 99 09/14/16 15:09 100 Nasal Cannula 2.00 09/14/16 12:00 98.4 87 17 134/81 100 09/14/16 11:25 CBC/BMP: 09/14/16 0315 09/15/16 0658 Lab Results Laboratory Tests Test 09/14/16 09/14/16 09/15/16 12:30 18:14 06:58 Lactic Acid Level 1.4 mmol/L Potassium Level 2.5 MEQ/L 3.4 MEQ/L Magnesium Level 1.3 MG/DL Physical Exam General General Appearance: Well Developed, No Acute Distress, Painful, Malnourished Eyes Eye Exam: Pupils Equal, Pupils Reactive Ears & Nose Ears & Nose Exam: Nasal Mucosa [place] Throat Throat Exam: Oral Mucosa [place] & Moist Neck Neck Exam: Neck Supple, Trachea Midline Pulmonary Resp Exam: Decreased Bases Resp Remarks exp. wheeze improved Cardiology CV Exam: Regular Gastrointestinal/Abdomen GI Exam: Bowel Sounds Hypoactive GI Remarks abd. incisions intact s/p lap joana diffuse tenderness Musculoskeletal MS Exam: Joints Intact Integumentary Skin Exam: Warm, Dry Extremeties Extremities Exam: No Edema, Pedal Pulses Palpable Neurologic Neuro Exam: Alert, Awake, Oriented, Speech Clear, Moving All Extremities, No Focal Deficits Psychiatric Psych Exam: Appropriate Responses VTE Prophylaxis VTE Prophylaxis Device: SCDs PUD Prophylasis PUD Prophylaxis: Protonix Assessment/Plan Problem List: (1) Abdominal pain (2) Porcelain gallbladder (3) Acute cholecystitis (4) Hypokalemia (5) Pancytopenia (6) Sepsis (7) COPD with exacerbation (8) Hepatitis C Assessment/Plan 56-year-old female presented to the emergency room complaining of shortness of breath, abdominal pain. Emergency room, patient was examined found septic with lactic acidosis, severely hypokalemic. Complaint of abdominal pain, x-ray of the abdomen was nonspecific. CT of the abdomen completed showed abnormal gallbladder with possibility of acute cholecystitis. S/P lab joana 09/14 -post op care -Continue with IV fluids -Continue with empiric antibiotic appreciate surgery input -Pain management -adv to heart healthy per surgery Hypokalemia -Replace electrolytes as needed -Follow BMP daily COPD exacerbation-improved -wean down steroids Duo nebs as needed Continue with oxygen at 2 L to keep sats greater than 92 Pancytopenia, etiology unclear, possibly secondary to sepsis labs pending SCDs for DVT prophylaxis Protonix for GI prophylaxis labs for today pending replace electrolytes as needed inc mobility IS Labs in am hopefully home in 1-2 days D/W RN D/W Dr. Moya D/W pt Patient was seen by myself and Dr. Moya, this note is written on his behalf Problem Qualifiers (1) Abdominal pain: Qualified Code: R10.9 - Abdominal pain, unspecified location (2) Sepsis: Qualified Code: A41.9 - Sepsis, due to unspecified organism (3) Hepatitis C: Qualified Code: B18.2 - Chronic hepatitis C without hepatic coma Aleida Coker Sep 15, 2016 11:17
[2016-09-15] MEDS ORDERED: PHARMACY ORDERED LAB XX ONE (11:45)
[2016-09-15] MEDS ORDERED: LACTATED RINGER'S 1000 ML INJ 1,000 ML IV ONE (12:00)
[2016-09-15] MEDS ORDERED: NEOSTIGMINE 3 MG/3 ML SYR IV ONE (12:00)
[2016-09-15] MEDS ORDERED: ONDANSETRON HCL 4 MG/2 ML VIAL IV PUSH ONE (12:00)
[2016-09-15] MEDS ORDERED: PROPOFOL 200 MG/20 ML AMP IV ONE (12:00)
[2016-09-15 13:23] LABS: BICARBONATE 27.8 MEQ/L (21.0-32.0); TOTAL BILIRUBIN ADULT 0.9 MG/DL (0.2-1.0)
[2016-09-15 13:30] LABS: CALCIUM-PROTEIN CORRECTED 6.9 MG/DL (8.5-10.1)
[2016-09-15 15:02] LABS: MEAN CELL VOLUME 83.5 FL (80.0-100.0); MEAN CORPUSCULAR HEMOGLOBIN 27.9 PG (27.0-34.0); MEAN CORPUSCULAR HGB CONC 33.4 % (32.0-36.0); PLATELET COUNT 142 TH/MM3 (150-450); RED BLOOD COUNT 3.59 MIL/MM3 (4.00-5.30); RED CELL DISTRIBUTION WIDTH 14.3 % (11.6-17.2); REVIEW FLAG FINAL
[2016-09-15] MEDS: SENNOSIDES 8.6 MG TAB PO PRN (16:04)
[2016-09-15] MEDS: PANTOPRAZOLE SODIUM 40 MG VIAL IV PUSH SCH (18:04)
[2016-09-16] VITALS (8 sets, daily range): BP systolic 118–151; BP diastolic 60–81; PULSE 77–89; RESP 16–19; TEMP 96.3–99.1; O2SAT 93–100
[2016-09-16] MEDS: VANCOMYCIN 1,000 MG/NS 250 ML IV SCH ×6 (03:27→20:44)
[2016-09-16] MEDS: ACETAMINOPHEN/HYDROcodone 325 MG/5 MG TAB PO PRN ×4 (03:27→20:37)
[2016-09-16] MEDS: PIPERACIL-TAZO 3.375 GM PREMIX 50 ML IV SCH ×4 (03:28→22:56)
[2016-09-16] MEDS: MORPHINE SULFATE 4 MG/ML INJ IV PRN ×4 (04:30→22:56)
[2016-09-16] MEDS: NS + KCL 20 MEQ INJ 1,000 ML IV SCH ×2 (05:26→17:28)
[2016-09-16] MEDS: INSULIN ASPART SUPPLEMENTAL SCALE SQ SCH ×4 (06:00→20:36)
[2016-09-16 07:15] LABS: HEMATOCRIT 30.2 % (35.0-46.0); MEAN CELL VOLUME 84.9 FL (80.0-100.0); MEAN CORPUSCULAR HEMOGLOBIN 27.4 PG (27.0-34.0); MEAN CORPUSCULAR HGB CONC 32.3 % (32.0-36.0); PLATELET COUNT 131 TH/MM3 (150-450); RED BLOOD COUNT 3.56 MIL/MM3 (4.00-5.30); RED CELL DISTRIBUTION WIDTH 14.1 % (11.6-17.2); REVIEW FLAG FINAL; WHITE BLOOD COUNT 8.2 TH/MM3 (4.0-11.0)
[2016-09-16 07:59] LABS: BICARBONATE 24.7 MEQ/L (21.0-32.0)
[2016-09-16] MEDS: RESP: ALBUTEROL 2.5 MG/IPRATROPIUM 0.5 MG NEB (SCH) NEB ×4 (08:02→19:31)
[2016-09-16 08:24] LABS: CALCIUM-PROTEIN CORRECTED 6.7 MG/DL (8.5-10.1); POTASSIUM 2.9 MEQ/L (3.5-5.1)
[2016-09-16] MEDS: SODIUM CHLORIDE 0.9% FLUSH 10 ML FLUSH IV FLUSH SCH ×2 (09:00→20:37)
[2016-09-16] MEDS: SENNOSIDES 8.6 MG TAB PO PRN (10:14)
[2016-09-16] MEDS: methylPREDNISolone SOD SUCC 40 MG/1 ML VIAL IV PUSH SCH ×2 (10:15→20:35)
[2016-09-16] MEDS ORDERED: POTASSIUM CHLORIDE 10 MEQ CONTROLLED RELEASE TAB PO ONE (10:30)
[2016-09-16] MEDS ORDERED: CALCIUM GLUCONATE INJ 1 GM in SODIUM CHLORIDE 0.9% INJ 100 ML IV ONE (11:00)
[2016-09-16] MEDS: POTASSIUM CHLOR 10 MEQ PREMIX 100 ML IV SCH ×3 (11:07→15:33)
--- NOTE | 2016-09-16 11:24 | HHI.PR ---
Subjective Subjective Notes Resting in bed Feeling good today Objective Vitals/I&O Vital Signs Date Time Temp Pulse Resp B/P Pulse Ox O2 Delivery O2 Flow Rate FiO2 09/16/16 08:03 96 Nasal Cannula 21 09/16/16 08:00 98.4 77 16 131/78 09/15/16 12:14 2.00 Labs Laboratory Tests Test 09/15/16 09/15/16 09/16/16 12:00 14:32 06:43 Sodium Level 141 139 Potassium Level 3.0 2.9 Chloride Level 103 104 Carbon Dioxide Level 27.8 24.7 Anion Gap 10 10 Blood Urea Nitrogen 9 10 Creatinine 0.52 0.64 Estimat Glomerular Filtration 148 117 Rate Random Glucose 149 142 Calcium Level 6.6 6.4 Protein Corrected Calcium 6.9 6.7 Total Bilirubin 0.9 Aspartate Amino Transf 103 (AST/SGOT) Alanine Aminotransferase 63 (ALT/SGPT) Alkaline Phosphatase 85 Total Protein 6.4 6.4 Albumin 3.0 Vancomycin Level Trough 8.4 White Blood Count 7.0 8.2 Red Blood Count 3.59 3.56 Hemoglobin 10.0 9.8 Hematocrit 30.0 30.2 Mean Corpuscular Volume 83.5 84.9 Mean Corpuscular Hemoglobin 27.9 27.4 Mean Corpuscular Hemoglobin 33.4 32.3 Concent Red Cell Distribution Width 14.3 14.1 Platelet Count 142 131 Mean Platelet Volume 9.6 9.6 Magnesium Level 1.0 Date/Time Procedure Status Source Growth 09/13/16 18:05 Aerobic Blood Culture - Preliminary Resulted Blood Peripheral NO GROWTH IN 3 DAYS 09/13/16 18:05 Anaerobic Blood Culture - Preliminary Resulted Blood Peripheral NO GROWTH IN 3 DAYS Cardiovascular: Regular Lungs: Clear Abdomen: Other (lap sites c/d/i; abdomen soft ) Extremities: No edema A/P Assessment and Plan 56 year old female POD1 lap joana -Tolerating heart healthy diet -Pain controlled -GS clear for DC -Follow up with Dr. Peña in about 10-14 days Attending Statement The exam, history, and the medical decision-making described in the above note were completed with the assistance of the mid-level provider. I reviewed and agree with the findings presented. I attest that I had a [id number] encounter with the patient on the same day, and personally performed and documented my assessment and findings in the medical record. abdominal exam stable, laparoscopic incisions clean, intact, no signs of postoperative complications Skylar Bryson Sep 16, 2016 11:24 Johnie Peña MD Sep 22, 2016 20:25
[2016-09-16] MEDS: HEPARIN SODIUM - SQ 10,000 UNITS/ML VIAL SQ SCH ×2 (12:36→22:21)
--- NOTE | 2016-09-16 13:11 | HHI.PR ---
Subjective Subjective Remarks Resting in bed Awake Generalized fatigue, status post laparoscopic cholecystectomy no BM X 5 days patient states (Ivory Wharton) Review of Systems Constitutional Constitutional: Fatigue (generalized), Weakness Constitutional Remarks 10 point ROS done noted some generalized weakness and fatigue, leg cramps, constipation, otherwise systems negative or unremarkable (Ivory Wharton) GI/Abdomen GI/Abdominal Exam: Constipation (patient states no BM in 5 days) (Ivory Wharton) Musculoskeletal MS: Weakness (leg cramps bilateral), Discomfort/Pain (Ivory Wharton) Psychiatric Psychiatric: Normal Mood (Ivory Wharton) Vitals/Results Intake & Output 09/15/16 09/15/16 09/16/16 15:00 23:00 07:00 Intake Total 1250 ml 900 ml 900 ml Output Total 20 ml Balance 1230 ml 900 ml 900 ml Intake Oral 900 ml 900 ml IV Total 50 ml Other 1200 ml Estimated Blood Loss 20 ml # Voids 1 2 # Bowel Movements 0 0 Vital Signs Vital Signs Date Time Temp Pulse Resp B/P Pulse Ox O2 Delivery O2 Flow Rate FiO2 09/16/16 08:03 96 Nasal Cannula 21 09/16/16 08:00 98.4 77 16 131/78 100 09/16/16 04:15 97.1 85 19 120/77 99 09/16/16 00:00 97.7 89 19 118/60 98 09/15/16 21:30 98.0 99 21 120/69 99 09/15/16 20:11 99 21 09/15/16 16:00 95.3 96 20 126/82 100 (Ivory Wharton) CBC/BMP: 09/16/16 0643 09/16/16 0643 Lab Results Laboratory Tests Test 09/15/16 09/16/16 14:32 06:43 White Blood Count 7.0 TH/MM3 8.2 TH/MM3 Red Blood Count 3.59 MIL/MM3 3.56 MIL/MM3 Hemoglobin 10.0 GM/DL 9.8 GM/DL Hematocrit 30.0 % 30.2 % Mean Corpuscular Volume 83.5 FL 84.9 FL Mean Corpuscular Hemoglobin 27.9 PG 27.4 PG Mean Corpuscular Hemoglobin 33.4 % 32.3 % Concent Red Cell Distribution Width 14.3 % 14.1 % Platelet Count 142 TH/MM3 131 TH/MM3 Mean Platelet Volume 9.6 FL 9.6 FL Sodium Level 139 MEQ/L Potassium Level 2.9 MEQ/L Chloride Level 104 MEQ/L Carbon Dioxide Level 24.7 MEQ/L Anion Gap 10 MEQ/L Blood Urea Nitrogen 10 MG/DL Creatinine 0.64 MG/DL Estimat Glomerular Filtration 117 ML/MIN Rate Random Glucose 142 MG/DL Calcium Level 6.4 MG/DL Protein Corrected Calcium 6.7 MG/DL Magnesium Level 1.0 MG/DL Total Protein 6.4 GM/DL Imaging Remarks Last Impressions Abdomen/Pelvis CT 09/14/16 0000 Signed Impressions: Service Date/Time: Wednesday, September 14, 2016 00:44 - CONCLUSION: 1. Atherosclerotic disease is noted without hemodynamically significant stenosis or occlusion. 2. Abnormal gallbladder as described above with pericholecystic fluid and cholelithiasis, porcelain gallbladder. The possibility of acute cholecystitis should be entertained given the imaging findings. Aleks Rock MD Chest X-Ray 09/13/16 1754 Signed Impressions: Service Date/Time: Tuesday, September 13, 2016 18:18 - CONCLUSION: No acute cardiopulmonary disease. Amadeo Glover MD Head CT 09/13/16 0000 Signed Impressions: Service Date/Time: Tuesday, September 13, 2016 19:40 - CONCLUSION: Unremarkable study. Amadeo Glover MD Abdomen X-Ray 09/13/16 0000 Signed Impressions: Service Date/Time: Tuesday, September 13, 2016 21:45 - CONCLUSION: Nonspecific abdomen. Amadeo Glover MD Current Medications Active Medications Calcium Gluconate/ Sodium Chloride (Calcium Gluconate Inj/NS Inj) 110 ml @ 110 mls/hr NOW ONCE IV Last administered on 09/16/16 12:37; Admin Dose 110 MLS/HR ; Start 09/16/16 at 11:00; Stop 09/16/16 at 11:59; Status DC Methylprednisolone Sodium Succinate 40 mg 40 mg BID IV PUSH Last administered on 09/16/16 10:15; Admin Dose 40 MG; Start 09/15/16 at 21:00 Miscellaneous Information SPECIFIC LAB TO BE DRAWN:VANCOMYCIN TROUGH DATE TO... ONCE ONCE XX; Start 09/17/16 at 03:45; Stop 09/17/16 at 03:46 Potassium Chloride 30 meq 30 meq NOW ONCE PO Last administered on 09/16/16 10: 33; Admin Dose 30 MEQ; Start 09/16/16 at 10:30; Stop 09/16/16 at 10:31; Status DC Potassium Chloride 100 ml @ 100 mls/hr Q1H IV Last administered on 09/16/16 11 :07; Admin Dose 100 MLS/HR; Start 09/16/16 at 10:30; Stop 09/16/16 at 13:29 Vancomycin HCl/ Sodium Chloride (Vancomycin Inj/ NS 250 ml Inj) 250 ml @ 250 mls/hr Q8H IV Last administered on 09/16/16 03:27; Admin Dose 250 MLS/HR; Start 09/15/16 at 20:00 (Ivory Wharton. EMULSIFICATION OPERATOR) Physical Exam General General Appearance: Well Developed, No Acute Distress, Painful, Malnourished ( eating small amounts of regular food this a.m., appetite fair, improving) ( Ivory Wharton. EMULSIFICATION OPERATOR) Eyes Eye Exam: Pupils Equal, Pupils Reactive (Ivory Wharton. EMULSIFICATION OPERATOR) Ears & Nose Ears & Nose Exam: Nasal Mucosa [place] (Ivory Wharton. EMULSIFICATION OPERATOR) Throat Throat Exam: Oral Mucosa [place] & Moist (Ivory Wharton M. EMULSIFICATION OPERATOR) Neck Neck Exam: Neck Supple, Trachea Midline (Ivory Wharton M. EMULSIFICATION OPERATOR) Pulmonary Resp Exam: Breath Sounds Equal, Decreased Bases, Poor Inspiratory Effort (slow improvement) (Ivory Wharton. EMULSIFICATION OPERATOR) Cardiology CV Exam: Regular (Ivory Wharton. EMULSIFICATION OPERATOR) Gastrointestinal/Abdomen GI Exam: Bowel Sounds Present, Bowel Sounds Hypoactive GI Remarks Constipation (Ivory Wharton M. EMULSIFICATION OPERATOR) Musculoskeletal MS Exam: Joints Intact (Ivory Wharton. EMULSIFICATION OPERATOR) Integumentary Skin Exam: Warm, Dry (Ivory Wharton. EMULSIFICATION OPERATOR) Extremeties Extremities Exam: No Edema, Pedal Pulses Palpable (Ivory Wharton M. EMULSIFICATION OPERATOR) Neurologic Neuro Exam: Alert, Awake, Oriented, Speech Clear, Moving All Extremities, No Focal Deficits (Ivory Wharton) Psychiatric Psych Exam: Appropriate Responses (Ivory Wharton) VTE Prophylaxis VTE Prophylaxis Device: SCDs (Ivory Wharton) PUD Prophylasis PUD Prophylaxis: Protonix (Ivory Wharton) Assessment/Plan Problem List: (1) Abdominal pain (2) Porcelain gallbladder (3) Acute cholecystitis (4) Hypokalemia (5) Pancytopenia (6) Sepsis (7) COPD with exacerbation (8) Hepatitis C Assessment/Plan /P lab joana 09/14 -post op care -Continue with IV fluids -Continue with empiric antibiotic appreciate surgery input -Pain management Diet advanced to regular food heart healthy this a.m., eating slow approximately 50%. Taking by mouth fluids well. Increased mobility PT. Will continue to eval needs for her discharge planning Hypokalemia IV and by mouth replacement today Recheck K at 1400, and a.m. Leg cramps bilateral today, improving this afternoon with potassium replaced COPD exacerbation-improved steroids taper Duo nebs as needed Continue with oxygen at 2 L to keep sats greater than 92, using when necessary today SCDs for DVT prophylaxis Protonix for GI prophylaxis Constipation, no BM 5 days according to patient. Mag citrate 1 today, we will eval further needs Bowel regimen Discharge planning working with case management. Plan 1-2 days Discussed with patient Discussed with Dr. Moya, patient seen on his behalf Discussed with nurse (Ivory Wharton) Assessment/Plan Patient seen and examined as above Labs reviewed Plan for potassium magnesium and calcium replacement Discussed with patient Appreciate surgical input Discussed with RN Plan of care discussed with EMULSIFICATION OPERATOR (Stephen Moya MD) Problem Qualifiers (1) Abdominal pain: Qualified Code: R10.9 - Abdominal pain, unspecified location (2) Sepsis: Qualified Code: A41.9 - Sepsis, due to unspecified organism (3) Hepatitis C: Qualified Code: B18.2 - Chronic hepatitis C without hepatic coma Ivory Wharton Sep 16, 2016 13:11 Stephen Moya MD Sep 16, 2016 15:45
[2016-09-16] MEDS ORDERED: MAGNESIUM CITRATE SOLN 300 ML BTL PO ONE (13:30)
[2016-09-16] MEDS: MAGNESIUM SULFATE 1 GM PREMIX 100 ML IV SCH ×2 (16:10→17:22)
[2016-09-16] MEDS: PANTOPRAZOLE SODIUM 40 MG VIAL IV PUSH SCH (16:38)
[2016-09-16 16:49] LABS: CALCIUM-PROTEIN CORRECTED 7.3 MG/DL (8.5-10.1)
[2016-09-16] MEDS ORDERED: POTASSIUM CHLOR 20 MEQ PREMIX 100 ML IV SCH (20:00)
[2016-09-16] MEDS ORDERED: POTASSIUM CHLORIDE 20 MEQ CONTROLLED RELEASE TAB PO SCH (22:15)
[2016-09-16] MEDS: TEMAZEPAM 15 MG CAP PO PRN (22:36)
[2016-09-17] VITALS (8 sets, daily range): BP systolic 124–170; BP diastolic 71–91; PULSE 77–92; RESP 16–20; TEMP 93.5–98.8; O2SAT 93–100
[2016-09-17] MEDS ORDERED: CALCIUM GLUCONATE INJ 1 GM in SODIUM CHLORIDE 0.9% INJ 100 ML IV ONE ×2
[2016-09-17] MEDS: ACETAMINOPHEN/HYDROcodone 325 MG/5 MG TAB PO PRN ×3 (03:17→14:38)
[2016-09-17] MEDS ORDERED: PHARMACY ORDERED LAB XX ONE (03:45)
[2016-09-17] MEDS: MORPHINE SULFATE 4 MG/ML INJ IV PRN ×5 (05:59→23:39)
[2016-09-17] MEDS: PIPERACIL-TAZO 3.375 GM PREMIX 50 ML IV SCH ×4 (06:00→23:31)
[2016-09-17] MEDS: VANCOMYCIN 1,000 MG/NS 250 ML IV SCH ×6 (06:03→21:01)
[2016-09-17] MEDS: INSULIN ASPART SUPPLEMENTAL SCALE SQ SCH ×4 (06:04→21:00)
[2016-09-17 07:01] LABS: BICARBONATE 24.2 MEQ/L (21.0-32.0); MAGNESIUM 1.4 MG/DL (1.5-2.5); VANCOMYCIN TROUGH 15.5 MCG/ML (5.0-10.0)
[2016-09-17 07:13] LABS: POTASSIUM 3.7 MEQ/L (3.5-5.1)
[2016-09-17 07:36] LABS: CALCIUM-PROTEIN CORRECTED 7.3 MG/DL (8.5-10.1)
[2016-09-17] MEDS: methylPREDNISolone SOD SUCC 40 MG/1 ML VIAL IV PUSH SCH ×2 (08:41→21:01)
[2016-09-17] MEDS: RESP: ALBUTEROL 2.5 MG/IPRATROPIUM 0.5 MG NEB (SCH) NEB ×4 (09:14→20:41)
[2016-09-17] MEDS: MAGNESIUM SULFATE 1 GM PREMIX 100 ML IV SCH ×2 (11:21→15:11)
[2016-09-17] MEDS: HEPARIN SODIUM - SQ 10,000 UNITS/ML VIAL SQ SCH ×2 (11:23→23:31)
[2016-09-17] MEDS ORDERED: CALCIUM GLUCONATE INJ 2 GM in SODIUM CHLORIDE 0.9% INJ 100 ML IV ONE (11:30)
[2016-09-17] MEDS: POLYETHYLENE GLYCOL 17 GM PKG PO SCH (12:00)
[2016-09-17] MEDS ORDERED: BISACODYL 10 MG SUPP RECTAL ONE (12:00)
--- NOTE | 2016-09-17 12:00 | HHI.PR ---
Subjective Subjective Remarks Resting in bed, anxiety mild Awake Generalized fatigue, status post laparoscopic cholecystectomy Constipation Continued muscular cramps (Ivory Wharton) Review of Systems Constitutional Constitutional: Fatigue (generalized), Weakness Constitutional Remarks 10 point ROS done noted some generalized weakness and fatigue, leg cramps, constipation, otherwise systems negative or unremarkable (Ivory Wharton) GI/Abdomen GI/Abdominal Exam: Constipation (patient states no BM in 5 days) (Ivory Wharton) Musculoskeletal MS: Weakness (leg cramps bilateral), Stiffness, Discomfort/Pain MS Remarks Bilateral leg cramps continue off and on (Ivory Wharton) Integumentary Skin: Wounds Skin Remarks Status post laparoscopic cholecystectomy (Ivory Wharton) Psychiatric Psychiatric: Normal Mood, Anxiety (mild) (Ivory Wharton) Vitals/Results Intake & Output 09/16/16 09/16/16 09/17/16 15:00 23:00 07:00 Intake Total 440 ml 2328 ml 1122 ml Balance 440 ml 2328 ml 1122 ml Intake Oral 440 ml IV Total 2328 ml 1122 ml # Voids 3 3 # Bowel Movements 1 Vital Signs Vital Signs Date Time Temp Pulse Resp B/P Pulse Ox O2 Delivery O2 Flow Rate FiO2 09/17/16 09:15 99 Nasal Cannula 2.00 09/17/16 08:00 97.5 77 16 124/71 100 09/17/16 06:05 20 09/17/16 04:17 20 09/17/16 04:00 96.8 86 16 148/80 100 09/17/16 04:00 93.5 86 16 148/80 100 09/17/16 00:00 97.1 77 16 153/87 93 09/16/16 20:00 97.4 83 18 138/78 93 09/16/16 16:00 96.3 87 16 140/81 98 09/16/16 15:34 100 Nasal Cannula 2.00 09/16/16 12:00 99.1 81 16 151/81 100 (Ivory Wharton) CBC/BMP: 09/16/16 0643 09/17/16 0502 Lab Results Laboratory Tests Test 09/16/16 09/17/16 15:30 05:02 Potassium Level 3.0 MEQ/L 3.7 MEQ/L Calcium Level 6.9 MG/DL 6.7 MG/DL Protein Corrected Calcium 7.3 MG/DL 7.3 MG/DL Total Protein 6.4 GM/DL 5.8 GM/DL Sodium Level 138 MEQ/L Chloride Level 101 MEQ/L Carbon Dioxide Level 24.2 MEQ/L Anion Gap 13 MEQ/L Blood Urea Nitrogen 9 MG/DL Creatinine 0.73 MG/DL Estimat Glomerular Filtration 100 ML/MIN Rate Random Glucose 219 MG/DL Magnesium Level 1.4 MG/DL Vancomycin Level Trough 15.5 MCG/ML Imaging Remarks Last Impressions Abdomen/Pelvis CT 09/14/16 0000 Signed Impressions: Service Date/Time: Wednesday, September 14, 2016 00:44 - CONCLUSION: 1. Atherosclerotic disease is noted without hemodynamically significant stenosis or occlusion. 2. Abnormal gallbladder as described above with pericholecystic fluid and cholelithiasis, porcelain gallbladder. The possibility of acute cholecystitis should be entertained given the imaging findings. Aleks Rock MD Chest X-Ray 09/13/16 1754 Signed Impressions: Service Date/Time: Tuesday, September 13, 2016 18:18 - CONCLUSION: No acute cardiopulmonary disease. Amadeo Glover MD Head CT 09/13/16 0000 Signed Impressions: Service Date/Time: Tuesday, September 13, 2016 19:40 - CONCLUSION: Unremarkable study. Amadeo Glover MD Abdomen X-Ray 09/13/16 0000 Signed Impressions: Service Date/Time: Tuesday, September 13, 2016 21:45 - CONCLUSION: Nonspecific abdomen. Amadeo Glover MD Current Medications Active Medications Calcium Gluconate/ Sodium Chloride (Calcium Gluconate Inj/NS Inj) 110 ml @ 110 mls/hr ONCE ONCE IV Last administered on 09/16/16t 22:56; Admin Dose 110 MLS/HR ; Start 09/17/16 at 00:00; Stop 09/17/16 at 00:59; Status DC Calcium Gluconate/ Sodium Chloride (Calcium Gluconate Inj/NS Inj) 120 ml @ 120 mls/hr ONCE ONCE IV; Start 09/17/16 at 11:30; Stop 09/17/16 at 12:29 Magnesium Citrate 300 ml 300 ml ONCE ONCE PO Last administered on 09/16/16 13: 36; Admin Dose 300 ML; Start 09/16/16 at 13:30; Stop 09/16/16 at 13:31; Status DC Magnesium Sulfate/ Dextrose 100 ml @ 100 mls/hr Q1H IV Last administered on 16:10; Admin Dose 100 MLS/HR; Start 09/16/16 at 16:00; Stop 09/16/16 at 17:59; Status DC Magnesium Sulfate/ Dextrose 100 ml @ 100 mls/hr Q1H IV; Start 09/17/16 at 11:00 ; Stop 09/17/16 at 12:59 Miscellaneous Information SPECIFIC LAB TO BE ALONDRA... ONCE ONCE XX; Start at 11:45; Stop 09/18/16 at 11:46 Miscellaneous Information SPECIFIC LAB TO BE DRAWN:VANCOMYCIN TROUGH DATE TO... ONCE ONCE XX Last administered on 09/17/16 05:30; Admin Dose 1; Start at 03:45; Stop 09/17/16 at 03:46; Status DC Potassium Chloride 100 ml @ 50 mls/hr Q2H IV Last administered on 09/16/16 20: 36; Admin Dose 50 MLS/HR; Start 09/16/16 at 20:00; Stop 09/16/16 at 21:56; Status DC Potassium Chloride (KCl) 40 meq ONCE PO Last administered on 09/16/16 22:21; Admin Dose 40 MEQ; Start 09/16/16 at 22:15; Stop 09/17/16 at 02:00; Status DC ( Ivory Wharton) Physical Exam General General Appearance: Well Developed, No Acute Distress, Painful, Malnourished ( eating small amounts of regular food this a.m., appetite fair, improving) ( Ivory Wharton) Eyes Eye Exam: Pupils Equal, Pupils Reactive (Ivory Wharton) Ears & Nose Ears & Nose Exam: Nasal Mucosa [place] (Ivory Wharton) Throat Throat Exam: Oral Mucosa [place] & Moist (Ivory Wharton) Neck Neck Exam: Neck Supple, Trachea Midline (Timber,Ivory M. MATERIALS BRANCH CHIEF) Pulmonary Resp Exam: Breath Sounds Equal, Decreased Bases, Poor Inspiratory Effort (slow improvement) (Timber,Susan M. MATERIALS BRANCH CHIEF) Cardiology CV Exam: Regular (AkikoIvory M. MATERIALS BRANCH CHIEF) Gastrointestinal/Abdomen GI Exam: Bowel Sounds Present, Bowel Sounds Hypoactive GI Remarks Constipation (Ivory Wharton M. MATERIALS BRANCH CHIEF) Musculoskeletal MS Exam: Joints Intact (Akiko,Susan M. MATERIALS BRANCH CHIEF) Integumentary Skin Exam: Warm, Dry (AkikoIvory galarza. MATERIALS BRANCH CHIEF) Extremeties Extremities Exam: No Edema, Pedal Pulses Palpable (Timber,Susan M. MATERIALS BRANCH CHIEF) Neurologic Neuro Exam: Alert, Awake, Oriented, Speech Clear, Moving All Extremities, No Focal Deficits (Ivory Wharton M. MATERIALS BRANCH CHIEF) Psychiatric Psych Exam: Appropriate Responses (Ivory Wharton. MATERIALS BRANCH CHIEF) VTE Prophylaxis VTE Prophylaxis Device: SCDs (AkikoIvory M. MATERIALS BRANCH CHIEF) PUD Prophylasis PUD Prophylaxis: Protonix (AkikoIvory M. MATERIALS BRANCH CHIEF) Assessment/Plan Problem List: (1) Abdominal pain (2) Porcelain gallbladder (3) Acute cholecystitis (4) Hypokalemia (5) Pancytopenia (6) Sepsis (7) COPD with exacerbation (8) Hepatitis C Assessment/Plan Assessment/Plan /P lab joana 09/14 -post op care , activity up out of bed into chair. Will make sure physical therapies involved Encourage by mouth hydration, and solid food, fair appetite appreciate surgery input -Pain management Diet advanced to regular food heart healthy this a.m., eating slow approximately 50%. Taking by mouth fluids well. Increased mobility PT. Will continue to eval needs for her discharge planning Hypokalemia Resolved today 3.7 Hypocalcemia continues. Added calcium supplement Low magnesium level, added magnesium dose today Will review labs in the morning. Patient does continue to have muscle cramps, pain management mildly ineffective per patient CMP ordered for a.m. COPD exacerbation-improved steroids taper PO. Duo nebs ordered continuous every 6 hours. Patient with coarse cough and some wheezing noted Continue with oxygen at 2 L to keep sats greater than 92, using when necessary today SCDs for DVT prophylaxis Protonix for GI prophylaxis Constipation, mag citrate effective yesterday, will maintain some as needed Bowel regimen. We'll add MiraLAX daily if needed, Dulcolax suppository if needed 1 Discharge planning working with case management. Not ready yet Discussed with patient Discussed with Dr. Moya, patient seen on his behalf Discussed with nurse (Ivory Wharton) Assessment/Plan Patient seen and examined as above has less abdominal soreness Tolerating diet Had some nausea this morning no vomiting Has some bowel movement loose type Feeling tired No other complaint Plan for electrolyte replacement magnesium and calcium Plan for PTH magnesium level calcium level and 25 hydroxy vitamin D level. And phosphorous level Plan of care discussed with RN Plan of care discussed with MATERIALS BRANCH CHIEF Discussed with patient Condition guarded Total time spent in management of this patient is more than 35 minutes (Stephen Moya MD) Problem Qualifiers (1) Abdominal pain: Qualified Code: R10.9 - Abdominal pain, unspecified location (2) Sepsis: Qualified Code: A41.9 - Sepsis, due to unspecified organism (3) Hepatitis C: Qualified Code: B18.2 - Chronic hepatitis C without hepatic coma Ivory Wharton Sep 17, 2016 12:00 Stephen Moya MD Sep 17, 2016 13:57
[2016-09-17] MEDS: PANTOPRAZOLE SODIUM 40 MG VIAL IV PUSH SCH (17:22)
[2016-09-17] MEDS ORDERED: DIATRIZOATE MEGLUM/DIATRIZOATE SOD 9 ML CUP PO ONE (19:00)
[2016-09-17] MEDS: SODIUM CHLORIDE 0.9% FLUSH 10 ML FLUSH IV FLUSH SCH (21:00)
[2016-09-17] MEDS: ACETAMINOPHEN/HYDROcodone 325 MG/10 MG TAB PO PRN (21:02)
[2016-09-17] MEDS: NS + KCL 20 MEQ INJ 1,000 ML IV SCH (21:11)
[2016-09-17] MEDS ORDERED: IOHEXOL 350 MG/ML 10 ML VIAL (for RAD DIAG) IV ONE (23:16)
[2016-09-17] MEDS: TEMAZEPAM 15 MG CAP PO PRN (23:31)
--- NOTE | 2016-09-17 23:57 | RADRPT ---
EXAM DATE/TIME: 09/17/2016 22:54 [facility] COMPARISON: No previous studies available for comparison. INDICATIONS : Upper quadrant abdominal pain. Status post-cholecystectomy. IV CONTRAST: 80 cc Omnipaque 350 (iohexol) IV ORAL CONTRAST: Prescribed oral contrast ingested. RADIATION DOSE: 7.46 CTDIvol (mGy) MEDICAL HISTORY : Hypertension. Ulcers. Diabetes mellitus type 2. SURGICAL HISTORY : Cholecystectomy. Tubal ligation. ENCOUNTER: Initial ACUITY: 1 day PAIN SCALE: 4/10 LOCATION: Bilateral upper quadrant TECHNIQUE: Volumetric scanning of the abdomen and pelvis was performed. Using automated exposure control and ad justment of the mA and/or kV according to patient size, radiation dose was kept as low as reasonably achievable to obtain optimal diagnostic quality images. FINDINGS: LOWER LUNGS: The visualized lower lungs are clear. LIVER: Homogeneous low density without lesion. There is no dilation of the biliary tree. Gallbladder is katerine gically absent. No fluid collections within the gallbladder fossa. SPLEEN: Normal size without lesion. PANCREAS: Within normal limits. KIDNEYS: Normal in size and shape. There is no mass, stone or hydronephrosis. ADRENAL GLANDS: Within normal limits. VASCULAR: There is no aortic aneurysm. BOWEL/MESENTERY: The stomach, small bowel, and colon demonstrate no acute abnormality. A significant stool burden is n oted within a normal caliber colon. There is no free intraperitoneal air. A small amount of free flui d is seen deep within the pelvis. ABDOMINAL WALL: There is a trace amount of air within the anterior abdominal wall within the right upper quadrant lik conner from the prior trocar for the cholecystectomy. RETROPERITONEUM: There is no lymphadenopathy. BLADDER: No wall thickening or mass. REPRODUCTIVE: Within normal limits. INGUINAL: There is no lymphadenopathy or hernia. MUSCULOSKELETAL: Within normal limits for patient age. CONCLUSION: 1. Prior cholecystectomy with a fluid collection involving the gallbladder fossa. No hematoma. 2. Small amount of free fluid deep within the pelvis. 3. Constipation. 4. Hepatic steatosis. Rodrigo Wahl Jr., MD on September 17, 2016 at 23:48 Board Certified Radiologist. This report was verified electronically.
[2016-09-18] VITALS (7 sets, daily range): BP systolic 93–178; BP diastolic 60–93; PULSE 71–92; RESP 17–20; TEMP 96–98.8; O2SAT 94–100
[2016-09-18] MEDS: ACETAMINOPHEN/HYDROcodone 325 MG/10 MG TAB PO PRN ×4 (03:19→23:03)
[2016-09-18] MEDS: VANCOMYCIN 1,000 MG/NS 250 ML IV SCH ×4 (04:24→11:59)
[2016-09-18] MEDS: NS + KCL 20 MEQ INJ 1,000 ML IV SCH (05:29)
[2016-09-18] MEDS: PIPERACIL-TAZO 3.375 GM PREMIX 50 ML IV SCH ×3 (05:29→23:02)
[2016-09-18] MEDS: MORPHINE SULFATE 4 MG/ML INJ IV PRN ×2 (05:46→11:35)
[2016-09-18] MEDS: SENNOSIDES 8.6 MG TAB PO PRN ×2 (05:54→21:31)
[2016-09-18 06:10] LABS: ALT (GPT) 57 U/L (10-53); ANION GAP 13 MEQ/L (5-15); AST (GOT) 41 U/L (15-37); BICARBONATE 23.5 MEQ/L (21.0-32.0); BLOOD UREA NITROGEN 9 MG/DL (7-18); CHLORIDE 99 MEQ/L (98-107); GLOMERULAR FILTRATION RATE 77 ML/MIN (>89); MAGNESIUM 1.5 MG/DL (1.5-2.5); POTASSIUM 3.1 MEQ/L (3.5-5.1); SODIUM (NA) 135 MEQ/L (136-145)
[2016-09-18 06:15] LABS: ALKALINE PHOSPHATASE 109 U/L (45-117); TOTAL BILIRUBIN ADULT 0.6 MG/DL (0.2-1.0)
[2016-09-18] MEDS: INSULIN ASPART SUPPLEMENTAL SCALE SQ SCH ×4 (06:51→21:00)
[2016-09-18] MEDS: RESP: ALBUTEROL 2.5 MG/IPRATROPIUM 0.5 MG NEB (SCH) NEB (08:00)
[2016-09-18] MEDS: SODIUM CHLORIDE 0.9% FLUSH 10 ML FLUSH IV FLUSH SCH ×2 (09:00→21:00)
[2016-09-18] MEDS: POLYETHYLENE GLYCOL 17 GM PKG PO SCH (09:50)
[2016-09-18] MEDS: methylPREDNISolone SOD SUCC 40 MG/1 ML VIAL IV PUSH SCH ×2 (09:52→21:32)
[2016-09-18] MEDS: HEPARIN SODIUM - SQ 10,000 UNITS/ML VIAL SQ SCH ×2 (09:53→23:02)
--- NOTE | 2016-09-18 10:03 | MP ---
cc: TIFFANY PARHAM DATE OF SURGERY: 09/15/2016 PREOPERATIVE DIAGNOSIS: Acute cholecystitis POSTOPERATIVE DIAGNOSIS Acute cholecystitis PROCEDURE Laparoscopic cholecystectomy. ANESTHESIA General, and local anesthetic ATTENDING SURGEON: Dr. Parham. IN CLASS SPECIAL EDUCATION TEACHER: Staff. COMPLICATIONS: None. BLOOD LOSS: Less than 10 cc FINDINGS: Acute cholecystitis with acute edema and gallstones. INDICATIONS FOR PROCEDURE: Patient is a 56-year-old female who had 1 week of severe abdominal pain. She presented to [facility]. Workup showed gallstones and acute gallbladder edema as well as calcification of the gallbladder. Risks, benefits, alternatives to laparoscopic cholecystectomy were discussed with the patient prior to the procedure. The patient agreed to undergo the procedure. Informed consent was obtained. The patient was taken to the operating room, placed in supine position, placed under general endotracheal anesthesia. The patient's abdomen was prepped and draped in sterile fashion. The abdomen was entered through a [employer] direct entry technique to the left of the umbilicus. We directly placed a 10-mm balloon trocar into the abdomen under visualization. We insufflated the abdomen and surveyed the abdomen with a 5 millimeter 30 degree camera. There was no evidence of any intra-abdominal pathology. The gallbladder initially appeared normal although enlarged. We placed a 10 millimeter port in the subxiphoid position and two 5 millimeter ports in the right upper quadrant under direct visualization with the laparoscope. Local anesthetic was used at all port sites. We were then able to grasp the gallbladder retracted upward. At this point we did notice some significant edema of the gallbladder, particularly more towards the infundibulum. We used the Cook electrocautery to take down the perineal surface over the triangle of [place]. We used the [place] dissectors to define the cystic duct and cystic artery without difficulty. We doubly clipped the cystic duct and proximal singly clipped distal and clipped the artery singly distal and proximally and divided both these with endoshears. There was a very small tiny posterior arterial branch which we also placed a clip on this as well. Critical view of safety was obtained. We removed the gallbladder from the gallbladder bed without difficulty with the hook electrocautery. The gallbladder was removed from the abdomen with the EndoCatch bag through the subxiphoid port. The abdomen was irrigated out thoroughly until all suctioning was clear as there was a small amount of blood clot in the gallbladder fossa. We had excellent hemostasis and with no bleeding or bile leak at the end of the case. We removed ports under visualization laparoscope and expressed pneumoperitoneum. We closed both 10 ports with 0 Vicryl suture at the fascia level. We closed the skin with 4-0 Monocryl and Dermabond. The patient was discontinued from anesthesia taken to the PACU in stable condition. The patient tolerated the procedure well. No apparent complications. All counts were correct. I was present and scrubbed for the entire procedure. MD BOO Lott/CHARLENE /8:10 AM /9:37 AM
--- NOTE | 2016-09-18 11:17 | HHI.PR ---
Subjective Subjective Remarks , dozing ,Resting in bed, anxiety mild Generalized fatigue, status post laparoscopic cholecystectomy bowel regimin, constipation resolved Muscular cramps better. (Ivory Wharton) Review of Systems Constitutional Constitutional: Fatigue (generalized), Weakness Constitutional Remarks 10 point ROS done noted some generalized weakness and fatigue, , constipation resolved,, otherwise systems negative or unremarkable (Ivory Wharton) GI/Abdomen GI/Abdominal Exam: Constipation (resolved) (Ivory Wharton) Musculoskeletal MS: Weakness (leg cramps bilateral), Stiffness, Discomfort/Pain MS Remarks Bilateral leg cramps continue off and on (Ivory Wharton) Integumentary Skin: Wounds Skin Remarks Status post laparoscopic cholecystectomy, No erythema (Ivory Wharton) Psychiatric Psychiatric: Normal Mood, Anxiety (mild) (Ivory Wharton) Vitals/Results Intake & Output 09/17/16 09/17/16 09/18/16 15:00 23:00 07:00 Intake Total 380 ml 420 ml Output Total 3 ml 400 ml Balance 377 ml 20 ml Intake Oral 380 ml 420 ml Output Urine Total 3 ml 400 ml # Voids 3 4 # Bowel Movements 1 0 Vital Signs Vital Signs Date Time Temp Pulse Resp B/P Pulse Ox O2 Delivery O2 Flow Rate FiO2 09/18/16 08:50 99 Nasal Cannula 21 09/18/16 08:00 96.8 71 18 154/93 100 09/18/16 05:54 18 09/18/16 04:00 98.8 92 18 142/89 99 09/18/16 00:00 97.6 88 18 150/70 100 09/17/16 20:44 100 Nasal Cannula 2.00 09/17/16 20:00 97.0 79 18 170/80 100 09/17/16 16:00 98.8 92 20 162/91 98 09/17/16 12:00 97.7 80 19 150/80 100 (Ivory Wharton) CBC/BMP: 09/16/16 0643 09/18/16 0503 Lab Results Laboratory Tests Test 09/17/16 09/18/16 17:21 05:03 Calcium Level 7.8 MG/DL 7.6 MG/DL Phosphorus Level 1.7 MG/DL 25-Hydroxy Vitamin D Total 5.2 ng/ML Parathyroid Hormone (Intact) 157.1 PG/ML Sodium Level 135 MEQ/L Potassium Level 3.1 MEQ/L Chloride Level 99 MEQ/L Carbon Dioxide Level 23.5 MEQ/L Anion Gap 13 MEQ/L Blood Urea Nitrogen 9 MG/DL Creatinine 0.92 MG/DL Estimat Glomerular Filtration 77 ML/MIN Rate Random Glucose 269 MG/DL Magnesium Level 1.5 MG/DL Total Bilirubin 0.6 MG/DL Aspartate Amino Transf 41 U/L (AST/SGOT) Alanine Aminotransferase 57 U/L (ALT/SGPT) Alkaline Phosphatase 109 U/L Total Protein 6.6 GM/DL Albumin 3.0 GM/DL Imaging Remarks Last Impressions Abdomen/Pelvis CT 09/17/16 0000 Signed Impressions: Service Date/Time: Saturday, September 17, 2016 22:54 - CONCLUSION: 1. Prior cholecystectomy with a fluid collection involving the gallbladder fossa. No hematoma. 2. Small amount of free fluid deep within the pelvis. 3. Constipation. 4. Hepatic steatosis. Rodrigo Wahl Jr., MD Chest X-Ray 09/13/16 1754 Signed Impressions: Service Date/Time: Tuesday, September 13, 2016 18:18 - CONCLUSION: No acute cardiopulmonary disease. Amadeo Glover MD Head CT 09/13/16 0000 Signed Impressions: Service Date/Time: Tuesday, September 13, 2016 19:40 - CONCLUSION: Unremarkable study. Amadeo Glover MD Abdomen X-Ray 09/13/16 0000 Signed Impressions: Service Date/Time: Tuesday, September 13, 2016 21:45 - CONCLUSION: Nonspecific abdomen. Amadeo Glover MD Current Medications Active Medications Acetaminophen/ Hydrocodone Bitart ([place] 10-325 Mg) 2 tab Q4H PRN PO Last administered on 09/18/16 09:50; Admin Dose 2 TAB; Start 09/17/16 at 18:30 Diatrizoate Meglum/ Diatrizoate Sod ( Gastroview Liq) 18 ml ONCE ONCE PO Last administered on 09/17/16 19:00; Admin Dose 18 ML; Start 09/17/16 at 19:00 ; Stop 09/17/16 at 19:01; Status DC Iohexol (Omnipaque 350 Inj) 80 ml STK-MED ONCE IV Last administered on 23:16; Admin Dose 80 ML; Start 09/17/16 at 23:16; Stop 09/17/16 at 23:17; Status DC Miscellaneous Information SPECIFIC LAB TO BE ALONDRA... ONCE ONCE XX Last administered on 09/18/16 11:45; Admin Dose 1; Start 09/18/16 at 11:45; Stop at 11:46; Status DC Potassium Chloride 40 meq 40 meq ONCE ONCE PO Last administered on 09/18/16 11 :35; Admin Dose 40 MEQ; Start 09/18/16 at 12:00; Stop 09/18/16 at 12:01; Status DC Sodium Phosphate/ Sodium Chloride (Sodium Phosphate Inj/NS 250 ml Inj) 260 ml @ 43.333 mls/ hr ONCE ONCE IV Last administered on 09/18/16 14:42; Admin Dose 43.333 MLS/HR; Start 09/18/16 at 15:00; Stop 09/18/16 at 20:59 (Ivory Wharton) Physical Exam General General Appearance: Well Developed, No Acute Distress (mild facial grimmace at times), Painful, Malnourished (eating small amounts of regular food this a.m., appetite fair, improving) (Ivory WhartonP) Eyes Eye Exam: Pupils Equal, Pupils Reactive (Ivory WhartonP) Ears & Nose Ears & Nose Exam: Nasal Mucosa [place] (Ivory WhartonP) Throat Throat Exam: Oral Mucosa [place] & Moist (Ivory WhartonP) Neck Neck Exam: Neck Supple, Trachea Midline (Ivory WhartonP) Pulmonary Resp Exam: Breath Sounds Equal, Decreased Bases, Poor Inspiratory Effort (slow improvement) (Ivory WhartonP) Cardiology CV Exam: Regular (Ivory WhartonP) Gastrointestinal/Abdomen GI Exam: Bowel Sounds Present, Bowel Sounds Hypoactive GI Remarks Constipation (Ivory WhartonP) Musculoskeletal MS Exam: Joints Intact, Atrophy (mild ) (Ivory WhartonP) Integumentary Skin Exam: Warm, Dry (Ivory Wharton. BENCH LATHE OPERATOR) Extremeties Extremities Exam: No Edema, Pedal Pulses Palpable (Akiko,Susan M. BENCH LATHE OPERATOR) Neurologic Neuro Exam: Alert, Awake, Oriented, Speech Clear (weak), Moving All Extremities , No Focal Deficits (Ivory Wharton M. BENCH LATHE OPERATOR) Psychiatric Psych Exam: Appropriate Responses (Ivory Wharton M. BENCH LATHE OPERATOR) VTE Prophylaxis VTE Prophylaxis Device: SCDs ([place] M. BENCH LATHE OPERATOR) PUD Prophylasis PUD Prophylaxis: Protonix (AkikoIvory M. BENCH LATHE OPERATOR) Assessment/Plan Problem List: (1) Abdominal pain (2) Porcelain gallbladder (3) Acute cholecystitis (4) Hypokalemia (5) Pancytopenia (6) Sepsis (7) COPD with exacerbation (8) Hepatitis C Assessment/Plan Patient seen and examined as above has less abdominal soreness Assessment/Plan /P lab joana 09/14 -post op care , activity up out of bed into chair. Will make sure physical therapies involved. Encouraging again for patient to be out of bed, in chair and in room. Encourage by mouth hydration, and solid food, fair appetite appreciate surgery input -Pain management Diet advanced to regular food heart healthy this a.m., eating slow approximately 50%. Taking by mouth fluids well. Increased mobility PT. Will continue to eval needs for her discharge planning Hypokalemia Back down again, 3.1, 40meQ K given X 1 dose Hypocalcemia resolved today. labs reviewed, Low magnesium level, resolved today. No further c/o muscular cramps. Nephrology consult per Dr. Moya , abnormal chemistry labs. CMP am. COPD exacerbation-improved steroids taper PO. Duo nebs ordered continuous every 6 hours. Patient with coarse cough and some wheezing noted randomly, low air volumes. Continue with oxygen at 2 L to keep sats greater than 92, using when necessary today SCDs for DVT prophylaxis Protonix for GI prophylaxis Constipation, resolved, continue to monitor We'll add MiraLAX daily if needed, Dulcolax suppository if needed 1 Discharge planning working with case management. Not ready yet (Ivory Wharton M. BENCH LATHE OPERATOR) Assessment/Plan Patient seen and examined as above CT report explained to the patient in detail Discussed with patient in detail about pain medication. Will discontinue morphine she is agreeing with it. Encourage ambulation Plan for nephrology consult Phosphorous replacement Discussed with RN. Patient was seen and examined with RN at bedside Plan of care discussed with BENCH LATHE OPERATOR (Stephen Moya MD) Problem Qualifiers (1) Abdominal pain: Qualified Code: R10.9 - Abdominal pain, unspecified location (2) Sepsis: Qualified Code: A41.9 - Sepsis, due to unspecified organism (3) Hepatitis C: Qualified Code: B18.2 - Chronic hepatitis C without hepatic coma Ivory Wharton Sep 18, 2016 11:17 Stephen Moya MD Sep 18, 2016 13:41
[2016-09-18] MEDS ORDERED: PHARMACY ORDERED LAB XX ONE (11:45)
[2016-09-18] MEDS ORDERED: POTASSIUM CHLORIDE 20 MEQ CONTROLLED RELEASE TAB PO ONE (12:00)
[2016-09-18] MEDS ORDERED: SODIUM PHOSPHATE INJ 30 MMOL in SODIUM CHLOR 0.9% 250 ML INJ 250 ML IV ONE (15:00)
[2016-09-18] MEDS ORDERED: MAGNESIUM SULFATE 1 GM PREMIX 100 ML IV ONE (16:30)
--- NOTE | 2016-09-18 16:45 | PD.CONS ---
HPI Service Nephrology Consult Requested By Dr. Moya Reason for Consult Hypocalcemia Primary Care Physician Jamshid Braxton M.D. History of Present Illness Patient is a 56-year-old female with history of type 2 diabetes , hypertension, who came in with the abdominal pain and some chest pain as well and doing investigation found to have cholelithiasis. She is being admitted, it was discovered that her calcium is low for this investigation revealed low vitamin D 25 levels and high PTH, patient admits to drinking alcohol and the smoking in the past, she denies any kidney stones or kidney issues in the past. She underwent cholecystectomy. Review of Systems Constitutional: COMPLAINS OF: Fatigue Gastrointestinal: COMPLAINS OF: Abdominal pain Past Family Social History Allergies: Coded Allergies: Dilaudid (Verified Allergy, Severe, ANAPHYLAXIS, 09/13/16) *MDRO Multi-Drug Resistant Organism (Verified Adverse Reaction, Unknown, ) MRSA PCR Screen negative 12/02/14. Past Medical History Bronchial asthma Hypertension Type 2 diabetes Depression Past Surgical History Tubal ligation Throat surgery benign growth Reported Medications Reported Meds & Active Scripts Active Active Ordered Medications Current Medications Medications (Trade) Dose Ordered Sig/Delia Route Start Time Stop Time Status Last Admin (NS Flush) 2 ml UNSCH PRN IV FLUSH 09/13/16 22:45 (NS Flush) 2 ml BID IV FLUSH 09/14/16 09:00 09/18/16 09:00 (Tylenol) 650 mg Q4H PRN PO 09/13/16 22:45 09/14/16 05:25 (Zofran Inj) 4 mg Q6H PRN IVP 09/13/16 22:45 (Senokot) 17.2 mg Q12H PRN PO 09/13/16 22:45 09/18/16 05:54 (Heparin Inj) 5,000 units Q12H SQ 09/13/16 23:00 09/18/16 09:53 Naloxone HCl 0.4 mg 0.4 mg UNSCH PRN IV 09/13/16 22:45 Piperacillin Sod/ Tazobactam Sod 50 ml @ 100 mls/hr Q6H IV 09/14/16 05:00 09/18/16 09:52 Pharmacy Profile Note 0 ml @ 0 mls/hr UNSCH OTHER 09/13/16 23:15 (NS + KCl 20 Meq Inj) 1,000 ml @ 75 mls/hr [id number] IV 09/14/16 00:06 09/18/16 05:29 (Protonix Inj) 40 mg Q24H IV PUSH 09/14/16 18:00 09/17/16 17:22 (D50w (Vial) Inj) 25 ml UNSCH PRN IV PUSH 09/14/16 17:45 (Glucagon Inj) 1 mg UNSCH PRN OTHER 09/14/16 17:45 (Restoril) 15 mg HS PRN PO 09/14/16 21:30 09/17/16 23:31 (SoluMEDROL INJ) 40 mg BID IV PUSH 09/15/16 21:00 09/18/16 09:52 (Miralax) 17 gm DAILY PO 09/17/16 12:00 09/18/16 09:50 Acetaminophen/ Hydrocodone Bitart 2 tab 2 tab Q4H PRN PO 09/17/16 18:30 09/18/16 09:50 (Sodium Phosphate Inj/NS 250 ml Inj) 260 ml @ 43.333 mls/ hr ONCE ONCE IV 09/18/16 15:00 09/18/16 20:59 09/18/16 14:42 Family History Noncontributory Social History Smoke cigarettes and use or drink alcohol Physical Exam Vital Signs Vital Signs Date Time Temp Pulse Resp B/P Pulse Ox O2 Delivery O2 Flow Rate FiO2 09/18/16 12:00 97.7 80 17 152/86 97 09/18/16 08:50 99 Nasal Cannula 21 09/18/16 08:00 96.8 71 18 154/93 100 09/18/16 05:54 18 09/18/16 04:00 98.8 92 18 142/89 99 09/18/16 00:00 97.6 88 18 150/70 100 09/17/16 20:44 100 Nasal Cannula 2.00 09/17/16 20:00 97.0 79 18 170/80 100 Physical Exam GENERAL: Malnourished, well-developed patient. SKIN: Warm and dry. HEAD: Normocephalic. EYES: No scleral icterus. No injection or drainage. NECK: Supple, trachea midline. No JVD or lymphadenopathy. CARDIOVASCULAR: Regular rate and rhythm without murmurs, gallops, or rubs. RESPIRATORY: Breath sounds equal bilaterally. No accessory muscle use. GASTROINTESTINAL: Abdomen soft, non-tender, nondistended. EXTREMITIES: No cyanosis, or edema. NEUROLOGICAL: Awake, alert, and oriented x 3. Non-focal. Laboratory Laboratory Tests Test 09/17/16 09/18/16 09/18/16 17:21 05:03 11:28 Calcium Level 7.8 7.6 Phosphorus Level 1.7 25-Hydroxy Vitamin D Total 5.2 Parathyroid Hormone (Intact) 157.1 Sodium Level 135 Potassium Level 3.1 Chloride Level 99 Carbon Dioxide Level 23.5 Anion Gap 13 Blood Urea Nitrogen 9 Creatinine 0.92 Estimat Glomerular Filtration 77 Rate Random Glucose 269 Magnesium Level 1.5 Total Bilirubin 0.6 Aspartate Amino Transf 41 (AST/SGOT) Alanine Aminotransferase 57 (ALT/SGPT) Alkaline Phosphatase 109 Total Protein 6.6 Albumin 3.0 Vancomycin Level Trough 30.8 Date/Time Procedure Status Source Growth 09/13/16 18:05 Aerobic Blood Culture - Final Complete Blood Peripheral NO GROWTH IN 5 DAYS 09/13/16 18:05 Anaerobic Blood Culture - Final Complete Blood Peripheral NO GROWTH IN 5 DAYS Result Diagram: 09/16/16 0643 09/18/16 0503 Imaging Last Impressions Abdomen/Pelvis CT 09/17/16 0000 Signed Impressions: Service Date/Time: Saturday, September 17, 2016 22:54 - CONCLUSION: 1. Prior cholecystectomy with a fluid collection involving the gallbladder fossa. No hematoma. 2. Small amount of free fluid deep within the pelvis. 3. Constipation. 4. Hepatic steatosis. Rodrigo Wahl Jr., MD Chest X-Ray 09/13/16 4654 Signed Impressions: Service Date/Time: Tuesday, September 13, 2016 18:18 - CONCLUSION: No acute cardiopulmonary disease. Amadeo Glover MD Head CT 09/13/16 0000 Signed Impressions: Service Date/Time: Tuesday, September 13, 2016 19:40 - CONCLUSION: Unremarkable study. Amadeo Glover MD Abdomen X-Ray 09/13/16 0000 Signed Impressions: Service Date/Time: Tuesday, September 13, 2016 21:45 - CONCLUSION: Nonspecific abdomen. Amadeo Glover MD Assessment and Plan Problem List: (1) Hypocalcemia Plan: Likely due to severe vitamin D 25 deficiency I will check a active vitamin D levels 1,25 She will be placed on vitamin D supplements continue to monitor calcium levels Primary hyperparathyroidism causes hypercalcemia in her situation calcium is low ruling out this possibility This leads to secondary hyperparathyroidism due to total deficiency of vitamin D Also hypomagnesemia cause hypocalcemia this needs to be corrected Multiple electrolyte abnormalities appears to be due to malnutrition (2) Hypokalemia Plan: This is corrected given potassium supplement (3) Hyperparathyroidism , secondary, non-renal Plan: Likely due to very low vitamin D levels indicating total body deficiency Ordered supplements K-Phos 500 mg twice a day added Abdirahman Sung MD Sep 18, 2016 16:45
[2016-09-18] MEDS: RESP: ALBUTEROL 1.25 MG/3 ML NEB (PRN) NEB (17:09)
[2016-09-18] MEDS: PANTOPRAZOLE SODIUM 40 MG VIAL IV PUSH SCH (17:18)
[2016-09-18] MEDS: POTASSIUM PHOSPHATE MONOBASIC 500 MG TAB PO SCH (21:31)
[2016-09-18] MEDS: CHOLECALCIFEROL (VIT D3) 5000 UNIT CAP PO SCH (21:31)
[2016-09-18] MEDS: TEMAZEPAM 15 MG CAP PO PRN (21:31)
[2016-09-19] VITALS (10 sets, daily range): BP systolic 120–172; BP diastolic 68–90; PULSE 64–77; RESP 17–20; TEMP 95.6–97.8; O2SAT 97–100
[2016-09-19] MEDS: NS + KCL 20 MEQ INJ 1,000 ML IV SCH ×2 (00:31→13:44)
[2016-09-19] MEDS: cloNIDine HCL 0.1 MG TAB PO PRN (01:08)
[2016-09-19] MEDS: ACETAMINOPHEN/HYDROcodone 325 MG/10 MG TAB PO PRN ×5 (03:32→22:07)
[2016-09-19] MEDS: PIPERACIL-TAZO 3.375 GM PREMIX 50 ML IV SCH ×4 (06:05→22:16)
[2016-09-19] MEDS: INSULIN ASPART SUPPLEMENTAL SCALE SQ SCH ×4 (06:27→21:00)
[2016-09-19 08:38] LABS: BICARBONATE 26.9 MEQ/L (21.0-32.0); CALCIUM-PROTEIN CORRECTED 7.7 MG/DL (8.5-10.1); MAGNESIUM 1.4 MG/DL (1.5-2.5); TOTAL BILIRUBIN ADULT 0.6 MG/DL (0.2-1.0)
[2016-09-19 08:46] LABS: POTASSIUM 2.9 MEQ/L (3.5-5.1)
[2016-09-19] MEDS: CHOLECALCIFEROL (VIT D3) 5000 UNIT CAP PO SCH ×2 (09:00→22:16)
[2016-09-19] MEDS: methylPREDNISolone SOD SUCC 40 MG/1 ML VIAL IV PUSH SCH (09:00)
[2016-09-19] MEDS: POLYETHYLENE GLYCOL 17 GM PKG PO SCH (09:00)
[2016-09-19] MEDS: SODIUM CHLORIDE 0.9% FLUSH 10 ML FLUSH IV FLUSH SCH ×2 (09:00→21:00)
[2016-09-19] MEDS: POTASSIUM PHOSPHATE MONOBASIC 500 MG TAB PO SCH ×2 (09:01→22:07)
[2016-09-19] MEDS ORDERED: POTASSIUM CHLOR 20 MEQ PREMIX 100 ML IV ONE (10:00)
[2016-09-19] MEDS ORDERED: POTASSIUM CHLORIDE 25 MEQ EFFERVESCENT TAB PO ONE (10:00)
[2016-09-19] MEDS ORDERED: CALCIUM GLUCONATE INJ 1 GM in SODIUM CHLORIDE 0.9% INJ 100 ML IV ONE (10:30)
--- NOTE | 2016-09-19 10:59 | HHI.PR ---
Subjective Subjective Remarks Laparoscopic Cholecystectomy 09/14 Back pain, has not been out of bed very much Abdominal pain stable No nausea, no vomiting Tolerating diet well Had bowel movement yesterday No fever BP 170s (Aleida Coker) Review of Systems Constitutional Constitutional Remarks 12 point ROS completed, neg. except as noted above (Aleida Coker) Integumentary Skin: Wounds (Aleida Coker) Vitals/Results Intake & Output 09/18/16 09/18/16 09/19/16 15:00 23:00 07:00 Intake Total 580 ml 400 ml 1700 ml Balance 580 ml 400 ml 1700 ml Intake Oral 580 ml 400 ml 600 ml IV Total 1100 ml # Voids 3 1 5 # Bowel Movements 0 3 Vital Signs Vital Signs Date Time Temp Pulse Resp B/P Pulse Ox O2 Delivery O2 Flow Rate FiO2 09/19/16 08:47 97 Nasal Cannula 1.00 09/19/16 08:00 97.5 70 18 100 09/19/16 04:00 95.8 64 20 172/88 100 09/19/16 00:00 95.6 77 18 162/90 100 09/18/16 20:00 96.0 74 18 178/90 100 09/18/16 16:00 97.0 84 18 149/86 96 09/18/16 12:00 97.7 80 17 152/86 97 (Aleida Coker) CBC/BMP: 09/16/16 0643 09/19/16 0736 Lab Results Laboratory Tests Test 09/18/16 09/19/16 11:28 07:36 Vancomycin Level Trough 30.8 MCG/ML Sodium Level 137 MEQ/L Potassium Level 2.9 MEQ/L Chloride Level 98 MEQ/L Carbon Dioxide Level 26.9 MEQ/L Anion Gap 12 MEQ/L Blood Urea Nitrogen 11 MG/DL Creatinine 0.76 MG/DL Estimat Glomerular Filtration 96 ML/MIN Rate Random Glucose 187 MG/DL Calcium Level 7.2 MG/DL Protein Corrected Calcium 7.7 MG/DL Phosphorus Level 3.0 MG/DL Magnesium Level 1.4 MG/DL Total Bilirubin 0.6 MG/DL Aspartate Amino Transf 38 U/L (AST/SGOT) Alanine Aminotransferase 53 U/L (ALT/SGPT) Alkaline Phosphatase 80 U/L Total Protein 6.2 GM/DL Albumin 2.8 GM/DL (Gross,Aleida G. BAGGAGE AND MAIL AGENT) Physical Exam General General Appearance: Well Developed, No Acute Distress (mild facial grimmace at times), Malnourished (GrossAleida G. BAGGAGE AND MAIL AGENT) Eyes Eye Exam: Pupils Equal, Pupils Reactive (Gross,Aleida G. BAGGAGE AND MAIL AGENT) Ears & Nose Ears & Nose Exam: Nasal Mucosa [place] (Gross,Aleida G. BAGGAGE AND MAIL AGENT) Throat Throat Exam: Oral Mucosa [place] & Moist (Gross,Aleida G. BAGGAGE AND MAIL AGENT) Neck Neck Exam: Neck Supple, Trachea Midline (Gross,Aleida G. BAGGAGE AND MAIL AGENT) Pulmonary Resp Exam: Breath Sounds Equal, Decreased Bases (Gross,Aleida G. BAGGAGE AND MAIL AGENT) Cardiology CV Exam: Regular (Gross,Aleida G. BAGGAGE AND MAIL AGENT) Gastrointestinal/Abdomen GI Exam: Soft, Bowel Sounds Present, Non-Distended GI Remarks abd. incisions intact s/p lap joana (Gross,Aleida G. BAGGAGE AND MAIL AGENT) Musculoskeletal MS Exam: Joints Intact (GrossAleida G. BAGGAGE AND MAIL AGENT) Integumentary Skin Exam: Warm, Dry (GrossAleida G. BAGGAGE AND MAIL AGENT) Extremeties Extremities Exam: No Edema, Pedal Pulses Palpable (Gross,Aleida G. BAGGAGE AND MAIL AGENT) Neurologic Neuro Exam: Alert, Awake, Oriented, Speech Clear, Moving All Extremities, No Focal Deficits (Gross,Aleida G. BAGGAGE AND MAIL AGENT) Psychiatric Psych Exam: Appropriate Responses (GrossAleida G. BAGGAGE AND MAIL AGENT) VTE Prophylaxis VTE Prophylaxis Device: SCDs (Gross,Aleida G. BAGGAGE AND MAIL AGENT) PUD Prophylasis PUD Prophylaxis: Protonix (GrossAleida G. BAGGAGE AND MAIL AGENT) Assessment/Plan Problem List: (1) Abdominal pain (2) Porcelain gallbladder (3) Acute cholecystitis (4) Hypokalemia (5) Pancytopenia (6) Sepsis (7) COPD with exacerbation (8) Hepatitis C Assessment/Plan Patient seen and examined as above has less abdominal soreness 56-year-old female presented to the emergency room complaining of shortness of breath, abdominal pain. Emergency room, patient was examined found septic with lactic acidosis, severely hypokalemic. Complaint of abdominal pain, x-ray of the abdomen was nonspecific. CT of the abdomen completed showed abnormal gallbladder with possibility of acute cholecystitis. S/P lab joana 09/14 -post op care -Continue her present diet, tolerating well -Continue with empiric antibiotic appreciate surgery input -Pain management -Stable from postoperative status Hypokalemia and hypomagnesemia -Replace electrolytes as needed -Follow BMP daily Hypoglycemia -Add Tums daily Calcium gluconate 1 g IV 1 -Appreciate nephrology input, notes reviewed. Vitamin D level pending COPD exacerbation-improved -Discontinue steroids Duo nebs as needed -Continue with oxygen as needed Pancytopenia, etiology unclear, possibly secondary to sepsis -Platelets stable Elevated blood pressure, not on medications at home Continue with clonidine when necessary We will add Norvasc milligrams by mouth daily SCDs for DVT prophylaxis Protonix for GI prophylaxis Physical therapy for evaluation, patient needs out of bed to ambulate, Discussed with patient and nurse Overall clinically improving Replace electrolytes as noted above Possible discharge tomorrow if stable. D/W RN D/W Dr. Moya D/W pt D/W CM Patient was seen by myself and Dr. Moya, this note is written on his behalf ( Aleida Coker) Assessment/Plan Patient seen and examined and is unable Labs reviewed Radiological data reviewed Medications reviewed Some previous notes reviewed Discussed with RN Discussed with BAGGAGE AND MAIL AGENT about plan of care Discussed with patient (Stephen Moya MD) Problem Qualifiers (1) Abdominal pain: Qualified Code: R10.9 - Abdominal pain, unspecified location (2) Sepsis: Qualified Code: A41.9 - Sepsis, due to unspecified organism (3) Hepatitis C: Qualified Code: B18.2 - Chronic hepatitis C without hepatic coma Aleida Coker Sep 19, 2016 10:59 Stephen Moya MD Sep 19, 2016 15:33
[2016-09-19] MEDS ORDERED: amLODIPine BESYLATE 5 MG TAB PO ONE (11:00)
[2016-09-19] MEDS: CALCIUM CARBONATE 500 MG CHEWABLE TAB CHEW SCH ×2 (11:25→22:07)
[2016-09-19] MEDS: MAGNESIUM SULFATE 1 GM PREMIX 100 ML IV SCH ×2 (11:26→12:33)
[2016-09-19] MEDS: HEPARIN SODIUM - SQ 10,000 UNITS/ML VIAL SQ SCH ×2 (11:27→22:16)
[2016-09-19] MEDS ORDERED: RESP: ALBUTEROL 2.5 MG/IPRATROPIUM 0.5 MG NEB (PRN) NEB (15:45)
[2016-09-19] MEDS: PANTOPRAZOLE SODIUM 40 MG VIAL IV PUSH SCH (17:13)
[2016-09-19] MEDS: RESP: ALBUTEROL 1.25 MG/3 ML NEB (PRN) NEB (17:39)
[2016-09-19] MEDS: TEMAZEPAM 15 MG CAP PO PRN (22:16)
[2016-09-20 00:36] VITALS: BP 132/86; PULSE 63; RESP 17; TEMP 98; O2SAT 100
[2016-09-20] MEDS: NS + KCL 20 MEQ INJ 1,000 ML IV SCH (02:46)
[2016-09-20] MEDS: PIPERACIL-TAZO 3.375 GM PREMIX 50 ML IV SCH ×2 (03:53→13:10)
[2016-09-20] MEDS: ACETAMINOPHEN/HYDROcodone 325 MG/10 MG TAB PO PRN ×3 (03:53→13:20)
[2016-09-20 04:00] VITALS: BP 128/62; PULSE 60; RESP 20; TEMP 98.2; O2SAT 100
[2016-09-20] MEDS: INSULIN ASPART SUPPLEMENTAL SCALE SQ SCH ×2 (07:00→11:00)
[2016-09-20 07:48] LABS: ALKALINE PHOSPHATASE 95 U/L (45-117); ALT (GPT) 53 U/L (10-53); ANION GAP 11 MEQ/L (5-15); AST (GOT) 46 U/L (15-37); BICARBONATE 28.9 MEQ/L (21.0-32.0); BLOOD UREA NITROGEN 12 MG/DL (7-18); CHLORIDE 100 MEQ/L (98-107); GLOMERULAR FILTRATION RATE 93 ML/MIN (>89); SODIUM (NA) 140 MEQ/L (136-145); TOTAL BILIRUBIN ADULT 0.5 MG/DL (0.2-1.0)
[2016-09-20 08:28] VITALS: BP 191/100; PULSE 70; RESP 20; TEMP 97.7; O2SAT 99
[2016-09-20] MEDS ORDERED: amLODIPine BESYLATE 5 MG TAB PO SCH (09:00)
[2016-09-20] MEDS: SODIUM CHLORIDE 0.9% FLUSH 10 ML FLUSH IV FLUSH SCH (09:00)
[2016-09-20] MEDS: POLYETHYLENE GLYCOL 17 GM PKG PO SCH (09:00)
[2016-09-20] MEDS: cloNIDine HCL 0.1 MG TAB PO PRN (09:30)
[2016-09-20] MEDS: CHOLECALCIFEROL (VIT D3) 5000 UNIT CAP PO SCH (09:30)
[2016-09-20] MEDS: POTASSIUM PHOSPHATE MONOBASIC 500 MG TAB PO SCH (09:30)
[2016-09-20] MEDS: CALCIUM CARBONATE 500 MG CHEWABLE TAB CHEW SCH (09:30)
[2016-09-20 09:32] VITALS: O2SAT 97
[2016-09-20] MEDS ORDERED: VANCOMYCIN 1,000 MG/NS 250 ML IV SCH ×2 (10:00)
[2016-09-20] MEDS: HEPARIN SODIUM - SQ 10,000 UNITS/ML VIAL SQ SCH (11:00)
--- NOTE | 2016-09-20 11:43 | HHI.FF ---
Face to Face Verification Diagnosis: (1) Hyperparathyroidism , secondary, non-renal (2) Hypocalcemia (3) COPD with exacerbation (4) Porcelain gallbladder (5) Hepatitis C (6) Abdominal pain (7) Sepsis (8) Hypokalemia (9) Pancytopenia (10) Acute cholecystitis Physical Therapy Order: Evaluate and Treat Home Health Nursing Order: Medical education Nursing assessment with vital signs I have seen patient Gertrudis Griggs on 09/20/16. My clinical findings support the need for the requested home health care services because: Deconditioned w/ increased weakness Limited ability to care for self Need for psychosocial assistance I certify that my clinical findings support that this patient is homebound because: Post-op weakness Need for psychosocial assistance Aleida Coker Sep 20, 2016 11:43
--- NOTE | 2016-09-20 11:44 | HHI.PR ---
Subjective Subjective Remarks Laparoscopic Cholecystectomy 09/14 feels better today was out of bed, ambulated no cp sob improved, no wheezing no fever eating okay no n/v minimal abd pain wants to go home, has 2 friends who will help Review of Systems Constitutional Constitutional Remarks 12 point ROS completed, neg. except as noted above Integumentary Skin: Wounds Vitals/Results Intake & Output 09/19/16 09/19/16 09/20/16 15:00 23:00 07:00 Intake Total 1040 ml Balance 1040 ml Intake Oral 1040 ml # Voids 2 4 # Bowel Movements 5 1 Vital Signs Vital Signs Date Time Temp Pulse Resp B/P Pulse Ox O2 Delivery O2 Flow Rate FiO2 09/20/16 09:32 97 Nasal Cannula 1.00 09/20/16 08:28 97.7 70 20 191/100 99 09/20/16 04:00 98.2 60 20 128/62 100 09/20/16 00:36 98.0 63 17 132/86 100 09/19/16 21:18 97.4 72 17 120/68 100 09/19/16 20:55 97 Nasal Cannula 1.00 09/19/16 18:45 140/74 09/19/16 16:13 97.2 76 18 100 09/19/16 13:45 140/70 09/19/16 12:19 97.8 73 18 97 CBC/BMP: 09/16/16 0643 09/20/16 0653 Lab Results Laboratory Tests Test 09/20/16 06:53 Sodium Level 140 MEQ/L Potassium Level 3.0 MEQ/L Chloride Level 100 MEQ/L Carbon Dioxide Level 28.9 MEQ/L Anion Gap 11 MEQ/L Blood Urea Nitrogen 12 MG/DL Creatinine 0.78 MG/DL Estimat Glomerular Filtration 93 ML/MIN Rate Random Glucose 106 MG/DL Calcium Level 7.5 MG/DL Total Bilirubin 0.5 MG/DL Aspartate Amino Transf 46 U/L (AST/SGOT) Alanine Aminotransferase 53 U/L (ALT/SGPT) Alkaline Phosphatase 95 U/L Total Protein 5.9 GM/DL Albumin 2.6 GM/DL Random Vancomycin Level 7.7 COMMENT Physical Exam General General Appearance: Well Developed, No Acute Distress, Malnourished Eyes Eye Exam: Pupils Equal, Pupils Reactive Ears & Nose Ears & Nose Exam: Nasal Mucosa [place] Throat Throat Exam: Oral Mucosa [place] & Moist Neck Neck Exam: Neck Supple, Trachea Midline Pulmonary Resp Exam: Breath Sounds Equal, Decreased Bases Cardiology CV Exam: Regular Gastrointestinal/Abdomen GI Exam: Soft, Bowel Sounds Present, Non-Distended GI Remarks abd. incisions intact s/p lap joana Musculoskeletal MS Exam: Joints Intact Integumentary Skin Exam: Warm, Dry Extremeties Extremities Exam: No Edema, Pedal Pulses Palpable Neurologic Neuro Exam: Alert, Awake, Oriented, Speech Clear, Moving All Extremities, No Focal Deficits Psychiatric Psych Exam: Appropriate Responses VTE Prophylaxis VTE Prophylaxis Device: SCDs PUD Prophylasis PUD Prophylaxis: Protonix Assessment/Plan Problem List: (1) Abdominal pain (2) Porcelain gallbladder (3) Acute cholecystitis (4) Hypokalemia (5) Pancytopenia (6) Sepsis (7) COPD with exacerbation (8) Hepatitis C Assessment/Plan 56-year-old female presented to the emergency room complaining of shortness of breath, abdominal pain. Emergency room, patient was examined found septic with lactic acidosis, severely hypokalemic. Complaint of abdominal pain, x-ray of the abdomen was nonspecific. CT of the abdomen completed showed abnormal gallbladder with possibility of acute cholecystitis. S/P lab joana 09/14 -post op care -Continue her present diet, tolerating well -Continue with empiric antibiotic appreciate surgery input -Pain management -Stable from postoperative status Hypokalemia and hypomagnesemia -Replace electrolytes as needed Hypocalcemia -continue Tums daily -Appreciate nephrology input, notes reviewed. Vitamin D level pending COPD exacerbation-improved Duo nebs as needed -dc oxygen, check sats on RA Pancytopenia, etiology unclear, possibly secondary to sepsis -Platelets stable Elevated blood pressure, not on medications at home Continue with clonidine when necessary Continue Norvasc milligrams by mouth daily SCDs for DVT prophylaxis Protonix for GI prophylaxis Physical therapy for evaluation, ambulated okay CM for HHC if her insurance can cover plan to discharge today, 2 friends will be helping if HHC not able to be arranged. F/U Dr. Peña 10 days F/U Dr. Sung 10 days Diet-heart healthy Stop smoking Activity-no heavy lifting, pushing, avoid straining. D/W RN D/W Dr. Moya D/W pt D/W CM Patient was seen by myself and Dr. Moya, this note is written on his behalf Discharge Minutes: 45 Problem Qualifiers (1) Abdominal pain: Qualified Code: R10.9 - Abdominal pain, unspecified location (2) Sepsis: Qualified Code: A41.9 - Sepsis, due to unspecified organism (3) Hepatitis C: Qualified Code: B18.2 - Chronic hepatitis C without hepatic coma Aleida Coker Sep 20, 2016 11:44
[2016-09-20] MEDS ORDERED: POTASSIUM CHLORIDE 25 MEQ EFFERVESCENT TAB PO ONE (11:45)
[2016-09-20] MEDS ORDERED: CALC500C16 CHEW (11:46)
[2016-09-20] MEDS ORDERED: CHOL5000 PO (11:46)
[2016-09-20] MEDS ORDERED: ALBUAER3 INH (11:46)
[2016-09-20] MEDS ORDERED: AMLO5 PO (11:46)
--- NOTE | 2016-09-20 11:47 | HHI.DCPOC ---
Discharge Care Plan Diagnosis: (1) Sepsis (2) Abdominal pain (3) Hepatitis C (4) Porcelain gallbladder (5) COPD with exacerbation (6) Hypocalcemia (7) Hyperparathyroidism , secondary, non-renal Your Health Problems Are: Irregular Bowel Function Chest Pain Cough Shortness of Breath Goals to Promote Your Health * To prevent worsening of your condition and complications * To maintain your health at the optimal level Directions to Meet Your Goals Take your medications as prescribed Follow your dietary instruction Follow activity as directed Keep your appointments as scheduled Take your immunizations and boosters as scheduled If your symptoms worsen call your PCP, if no PCP go to Urgent Care Center or Emergency Room Smoking is Dangerous to Your Health. Avoid second hand smoke Call the 24-hour hour crisis hotline for domestic abuse at Aleida Coker [facility] Sep 20, 2016 11:47
[2016-09-20 12:46] VITALS: BP 121/68; PULSE 69; RESP 20; TEMP 97.1; O2SAT 100
[2016-09-20] MEDS ORDERED: K-PHTAB PO (12:55)
[2016-09-20] MEDS ORDERED: HYDR-3583 PO (13:15)
--- NOTE | 2016-09-20 13:18 | HHI.DS ---
Discharge Summary Admission Date Sep 13, 2016 at 21:03 Discharge Date: Sep 20, 2016 Admitting Diagnosis Hypokalemia, lactic acidosis (1) Sepsis (2) Acute cholecystitis (3) Abdominal pain (4) Porcelain gallbladder (5) Hypokalemia (6) Hepatitis C (7) COPD with exacerbation (8) Pancytopenia (9) Hypocalcemia (10) Hyperparathyroidism , secondary, non-renal Procedures S/P lab joana 09/14 CBC/BMP: 09/16/16 0643 09/20/16 0653 Significant Findings Laboratory Tests Test 09/17/16 09/18/16 09/18/16 09/19/16 17:21 05:03 11:28 07:36 Calcium Level 7.8 MG/DL 7.6 MG/DL 7.2 MG/DL (8.5-10.1) (8.5-10.1) (8.5-10.1) Phosphorus Level 1.7 MG/DL (2.5-4.9) 25-Hydroxy Vitamin D Total 5.2 ng/ML (30-100) Parathyroid Hormone (Intact) 157.1 PG/ML (12.4-76.8) Sodium Level 135 MEQ/L (136-145) Potassium Level 3.1 MEQ/L 2.9 MEQ/L (3.5-5.1) (3.5-5.1) Estimat Glomerular Filtration 77 ML/MIN (>89) Rate Random Glucose 269 MG/DL 187 MG/DL (74-106) (74-106) Aspartate Amino Transf 41 U/L (15-37) 38 U/L (15-37) (AST/SGOT) Alanine Aminotransferase 57 U/L (10-53) (ALT/SGPT) Albumin 3.0 GM/DL 2.8 GM/DL (3.4-5.0) (3.4-5.0) Vancomycin Level Trough 30.8 MCG/ML (5.0-10.0) Protein Corrected Calcium 7.7 MG/DL (8.5-10.1) Magnesium Level 1.4 MG/DL (1.5-2.5) Total Protein 6.2 GM/DL (6.4-8.2) Test 09/20/16 06:53 Potassium Level 3.0 MEQ/L (3.5-5.1) Calcium Level 7.5 MG/DL (8.5-10.1) Aspartate Amino Transf 46 U/L (15-37) (AST/SGOT) Total Protein 5.9 GM/DL (6.4-8.2) Albumin 2.6 GM/DL (3.4-5.0) Imaging Last Impressions Abdomen/Pelvis CT 09/17/16 0000 Signed Impressions: Service Date/Time: Saturday, September 17, 2016 22:54 - CONCLUSION: 1. Prior cholecystectomy with a fluid collection involving the gallbladder fossa. No hematoma. 2. Small amount of free fluid deep within the pelvis. 3. Constipation. 4. Hepatic steatosis. Rodrigo Wahl Jr., MD Chest X-Ray 09/13/16 1754 Signed Impressions: Service Date/Time: Tuesday, September 13, 2016 18:18 - CONCLUSION: No acute cardiopulmonary disease. Amadeo Glover MD Head CT 09/13/16 0000 Signed Impressions: Service Date/Time: Tuesday, September 13, 2016 19:40 - CONCLUSION: Unremarkable study. Amadeo Glover MD Abdomen X-Ray 09/13/16 0000 Signed Impressions: Service Date/Time: Tuesday, September 13, 2016 21:45 - CONCLUSION: Nonspecific abdomen. Amadeo Glover MD Hospital Course This is a pleasantly 56-year-old female with past medical history of COPD, diabetes, tobacco abuse. Patient presented to the emergency room complaining of shortness of breath for a week that was worse yesterday. She endorses increased wheezing with sputum that was white and yellow, associated with chills. Indicates she is a smoker, but has not smoked in the last 2-3 days because of the shortness of breath. Patient also complaining of right-sided chest wall pain radiating to the head and neck. She was evaluated in the emergency room, CT of the head was negative. Chest x-ray did not reveal any acute findings. Laboratory workup revealed leukopenia, WBC 2.3. She was noted severely hypokalemic with potassium of 2.6. Patient endorsed she has been having increased nausea and vomiting for the last 3 days, she hadn't been able to eat very much. Indicated vomitus is bile colored. She went to see her primary care physician was prescribed potassium pills. She complained of diffuse abdominal pain, indicated that it starts on the left abdomen and radiates to the right side. Stated she has not had a bowel movement in the last 3 days but was passing gas. X-ray of the abdomen did not show any significant findings. Patient was found with significant lactic acidosis of 3.4. It was repeated and it was 9.3. She was given 2 L of IV fluid and covered with empiric antibiotics. A CT of the abdomen was then completed showing abnormal gallbladder with pericholecystic fluid and cholelithiasis, porcelain gallbladder. With the possibility of acute cholecystitis. General surgery was consulted from the emergency room and notified of findings. Patient was admitted for further evaluation and treatment for: (1) Abdominal pain (2) Porcelain gallbladder (3) Acute cholecystitis (4) Hypokalemia (5) Pancytopenia (6) Sepsis (7) COPD with exacerbation (8) Hepatitis C (9) Elevated blood pressure During the course of the hospitalization, the following took place: 56-year-old female presented to the emergency room complaining of shortness of breath, abdominal pain. Emergency room, patient was examined found septic with lactic acidosis, severely hypokalemic. Complaint of abdominal pain, x-ray of the abdomen was nonspecific. CT of the abdomen completed showed abnormal gallbladder with possibility of acute cholecystitis. Patient admitted with acute cholecystitis and sepsis. -Patient put on IV fluids, empiric antibiotics, surgery consulted. -S/P lab joana 09/14. -post op care instituted. -Diet advanced slowly, tolerated well. Patient had bowel movements. -Pain management was ordered. -Stable from postoperative status, cleared for discharge. During hospitalization, patient developed electrolyte imbalance. Was found with Hypokalemia and hypomagnesemia -Replaced electrolytes as needed -Followed BMP daily Hypocalcemia, was evaluated by nephrology. -Patient was started on Tums daily -Required calcium gluconate when necessary. -Add Tums daily Nephrology was consulted for evaluation. Per their recommendation, hypocalcemia likely due to severe vitamin D 25 deficiency. Checke a active vitamin D levels 1 ,25 (was pending). She was placed on vitamin D supplements, continued to monitor calcium levels Primary hyperparathyroidism causes hypercalcemia in her situation calcium is low ruling out this possibility This leads to secondary hyperparathyroidism due to total deficiency of vitamin D Also hypomagnesemia cause hypocalcemia this needs to be corrected and it was completed. Multiple electrolyte abnormalities appears to be due to malnutrition Also found with hyperparathyroidism , secondary, non-renal. Per renal, likely due to very low vitamin D levels indicating total body deficiency. Ordered supplements. K-Phos 500 mg twice a day added COPD exacerbation-improved -Initially put on IV steroids, which were weaned off. Duo nebs as needed -Weaned off oxygen, sats on room air 96%. -Tobacco abuse counseling completed Pancytopenia, etiology unclear, possibly secondary to sepsis -Platelets stable, no active bleeding Elevated blood pressure, not on medications at home Continued with clonidine when necessary Added Norvasc 5 milligrams by mouth daily, BP improved. Instructed to continue at home Was put on appropriate SCDs for DVT prophylaxis and Protonix for GI prophylaxis Physical therapy for evaluation, pt. encouraged and assisted out of bed Case management consulted to arrange home health care. It was unclear whether her insurance will cover home health, patient indicated she had friends who will help out Patient clinically improved, was having bowel movements and tolerating diet. COPD exacerbation symptoms improved. There was no hypoxia. Electrolytes were corrected. Patient was clinically stable for discharge. Discharged home in stable condition with instructions to: F/U Dr. Peña 10 days F/U Dr. Sung 10 days Diet-heart healthy Stop smoking Activity-no heavy lifting, pushing, avoid straining. Pt Condition on Discharge: Good Discharge Disposition: Discharge Home Discharge Instructions DIET: Follow Instructions for: As Tolerated, No Restrictions Activities you can perform: Weight Bearing as Melissa Follow up Referrals: Nephrology - 2 Weeks with DIANA PCP Follow-up - 1 Week Surgical - 10 Days with Johnie Peña MD New Medications: Albuterol 8.5 GM Inh (Proair Hfa 8.5 GM Inh) 90 Mcg/Act Aer 2 PUFF INH Q4-6H 108 mcg/actuation PRN SHORTNESS OF BREATH #1 Ref 0 INHALER Amlodipine (Norvasc) 5 Mg Tab 5 MG PO DAILY Blood Pressure Management #30 Ref 1 TAB Calcium Carbonate (Antacid) (Calcium Carbonate (Antacid)) 500 Mg Chew 500 MG CHEW Q12HR HYPOCALCEMIA #60 EA Cholecalciferol (Vitamin D3) 5,000 Unit Cap 5000 UNITS PO BID HYPOCALCEMIA #60 Ref 0 CAP Hydrocodone-Acetaminophen (Hydrocodone-Acetaminophen) 10-325 mg Tab 1 TAB PO Q4H PRN PAIN 5-7 IF TAKING PO #25 TAB Potassium Phosphate Monobasic (K-Phos) 500 Mg Tab 500 MG PO Q12HR electrolyte replacement #60 Ref 0 TAB Aleida Coker Sep 20, 2016 13:18
[2016-09-23] MEDS ORDERED: PHARMACY ORDERED LAB XX ONE (09:45)
== END 2016-09-20 14:40 | disposition home health service (06) | DRG 854 ==
LOC: NEPA 17:38 → NEDA 21:03 → N05A 09-14 06:14
PROVIDERS: ADMIT Specialist; ATTEND Specialist
PROC: 0FT44ZZ Resection of Gallbladder, Percutaneous Endoscopic Approach (ICD-10-PCS; principal; 2016-09-15 07:06)
DX: A41.9 Sepsis, unspecified organism (principal); D61.818 Other pancytopenia; E87.2 Acidosis; K80.00 Calculus of gallbladder with acute cholecystitis without obstruction; E11.649 Type 2 diabetes mellitus with hypoglycemia without coma; J44.1 Chronic obstructive pulmonary disease with (acute) exacerbation; I10 Essential (primary) hypertension; E87.6 Hypokalemia; K82.8 Other specified diseases of gallbladder; M54.9 Dorsalgia, unspecified; G89.29 Other chronic pain; K21.9 Gastro-esophageal reflux disease without esophagitis; E83.42 Hypomagnesemia; E83.51 Hypocalcemia; B18.2 Chronic viral hepatitis C; E55.9 Vitamin D deficiency, unspecified; K59.00 Constipation, unspecified; J45.909 Unspecified asthma, uncomplicated; M19.90 Unspecified osteoarthritis, unspecified site; F32.9 Major depressive disorder, single episode, unspecified; F17.210 Nicotine dependence, cigarettes, uncomplicated; F41.9 Anxiety disorder, unspecified; Z79.84 Long term (current) use of oral hypoglycemic drugs; Z88.5 Allergy status to narcotic agent
CPT/HCPCS: 36600; 70450; 71010; 74000; 74174; 74177; 80048; 80053; 80202; 81001; 82306; 82310; 82550; 82552; 82652; 82805; 82948; 83605; 83735; 83970; 84100; 84132; 84155; 84484; 85025; 85027; 87040; 88304; 93005; 94640; 94664; 96361; 96374; 96375; C9113; J0131; J0610; J0690; J1644; J1815; J2250; J2270; J2405; J2543; J2710; J2920; J2930; J3010; J3370; J3475; J3480; J7030; J7050; J7120; J7613; Q9963; Q9967

== ENCOUNTER 2017-04-20 14:17 | Emergency (ER) | payer MEDICAID ==
[~2017-04-20] VITALS: Ht 167.6 cm; Wt 44.5 kg
[~2017-04-20 14:17] MED LIST changes: +ALBUAER3 INH; +AMLO5 PO; +CALC500C16 CHEW; +CHOL5000 PO; +HYDR-3583 PO; +K-PHTAB PO; -POTA10CA PO; -ULTR50TA5 PO; -ZOFR4TAB3 SL
[2017-04-20 14:23] VITALS: BP 146/91; PULSE 108; RESP 16; TEMP 98.5; O2SAT 98
[2017-04-20] MEDS ORDERED: OMEP10CA PO ×2 (14:45)
--- NOTE | 2017-04-20 15:11 | PD ---
HPI Chief Complaint: Injury Time Seen by Provider: 14:53 Travel History International Travel<30 days: No Contact w/Intl Traveler<30days: No Traveled to known affect area: No History of Present Illness HPI The patient was seen and examined in the presence of the nurse. Yesterday this patient was engaged in some horseplay and was pushed forward and fell and hit her head and face on the pavement. No LOC. She does complain of right sided headache and right sided facial pain. Her dentures punctured her upper lip and it is swollen and painful. No fever or active drainage. Severity is moderate. Duration 24 hours. No alleviating factors. There are no exacerbating factors. PFSH Past Medical History Arthritis: Yes Asthma: Yes Blood Disorders: No Anxiety: Yes Depression: Yes Heart Rhythm Problems: Yes Cancer: No Cardiac Catheterization: No Cardiovascular Problems: Yes High Cholesterol: No Chemotherapy: No Chest Pain: Yes Congestive Heart Failure: No COPD: Yes Cerebrovascular Accident: No Coronary Artery Disease: No Diabetes: Yes Patient Takes Glucophage: Yes Diminished Hearing: No Endocrine: Yes Gastrointestinal Disorders: Yes GERD: No Genitourinary: No Headaches: No Hiatal Hernia: No Hypertension: Yes Immune Disorder: No Musculoskeletal: Yes Neurologic: No Psychiatric: No Reproductive: No Respiratory: Yes Migraines: No Radiation Therapy: No Seizures: No Sickle Cell Disease: No Sleep Apnea: No Ulcer: Yes ?: Not Menopausal: Yes : 4 Para: 3 Miscarriage: 1 : 0 Tubal Ligation: Yes Past Surgical History Abdominal Surgery: No Cardiac Surgery: No Ear Surgery: No Endocrine Surgery: Yes (removed mass from throat) Eye Surgery: No Genitourinary Surgery: No Gynecologic Surgery: No Thoracic Surgery: No Other Surgery: Yes (ORAL SURGERY) Social History Alcohol Use: Yes (social) Tobacco Use: Yes (/2 PPD) Substance Use: Yes (crack cocaine, seven years ago THC CURRENTLY) Allergies-Medications (Allergen,Severity, Reaction): Coded Allergies: hydromorphone (Unverified Allergy, Severe, ANAPHYLAXIS, 04/20/17) *MDRO Multi-Drug Resistant Organism (Verified Adverse Reaction, Unknown, ) MRSA PCR Screen negative 12/02/14. Reported Meds & Prescriptions Reported Meds & Active Scripts Active K-Phos (Potassium Phosphate Monobasic) 500 Mg Tab 500 Mg PO Q12HR Proair Hfa 8.5 GM Inh (Albuterol Sulfate) 90 Mcg/Act Aer 2 Puff INH Q4-6H PRN 108 mcg/actuation Calcium Carbonate (Antacid) 500 Mg Chew 500 Mg CHEW Q12HR Norvasc (Amlodipine Besylate) 5 Mg Tab 5 Mg PO DAILY Reported Omeprazole 10 Mg Cap 10 Mg PO DAILY Review of Systems General / Constitutional: No: Fever Eyes: No: Visual changes HENT: Positive: Headaches Cardiovascular: No: Chest Pain or Discomfort Respiratory: No: Shortness of Breath Gastrointestinal: No: Abdominal Pain Genitourinary: No: Dysuria Musculoskeletal: Positive: Pain Skin: No Rash Neurologic: Positive: Headache, No: Weakness Psychiatric: No: Depression Endocrine: No: Polydipsia Hematologic/Lymphatic: No: Easy Bruising Physical Exam Narrative GENERAL: Well-nourished, well-developed patient in no apparent distress. SKIN: Focused skin assessment reveals no rash and nodules. Skin is Warm and dry. HEAD: Has tenderness and abrasion of the right forehead. Normocephalic. EYES: Pupils equal and round. No scleral icterus. No injection or drainage. Extraocular muscles are intact. Reports baseline vision. ENT: No nasal bleeding or discharge. Mucous membranes pink and moist. Has tender right orbit with some swelling. Upper lip is significantly swollen with a puncture wound in it. No laceration. The puncture wound is essentially scabbed over already. NECK: Trachea midline. No JVD. No midline tenderness CARDIOVASCULAR: Regular rate and rhythm. No murmur appreciated. RESPIRATORY: No accessory muscle use. Clear to auscultation. Breath sounds equal bilaterally. GASTROINTESTINAL: Abdomen soft, non-tender, nondistended. Hepatic and splenic margins not palpable. MUSCULOSKELETAL: No obvious deformities. No clubbing. No cyanosis. No edema. NEUROLOGICAL: Awake and alert. No obvious cranial nerve deficits. Motor grossly within normal limits. Normal speech. PSYCHIATRIC: Appropriate mood and affect; insight and judgment normal. Data Data Last Documented VS Vital Signs Date Time Temp Pulse Resp B/P (MAP) Pulse Ox O2 Delivery O2 Flow Rate FiO2 04/20/17 14:23 98.5 108 16 146/91 (109) [address] Brain W/O Iv Contrast(Rout) (04/20/17 ) Ct Facial Bones W/O Iv Cont (04/20/17 ) Oxycodone-Acetamin 5-325 Mg (Percocet (04/20/17 16:30) MDM Medical Decision Making Medical Screen Exam Complete: Yes Emergency Medical Condition: Yes Medical Record Reviewed: Yes Differential Diagnosis Intracranial hemorrhage, skull fracture, concussion, orbit fracture, lip infection Narrative Course I have reviewed the patient's electronic medical record. Patient is neurologically intact. Brain CT is normal Facial bone CT is negative for fracture, some soft tissue swelling is noted around the lip Patient in our he has starting infection in her upper lip from puncture wound. I prescribed her a course of Augmentin and something for discomfort. Diagnosis Primary Impression: Head injury due to trauma Qualified Codes: S09.90XA - Unspecified injury of head, initial encounter Additional Impressions: Facial contusion Qualified Codes: S00.83XA - Contusion of other part of head, initial encounter Infection of lip Additional Instructions: The patient was warned about potential sedation for the medications they will receive on prescription. The patient was advised to follow up with their physician and return if they worsen. Med/Other Pt SpecificInfo: Prescription(s) given Disposition: 01 DISCHARGE HOME Condition: Stable Stevan Mariano MD Apr 20, 2017 15:11
--- NOTE | 2017-04-20 15:56 | RADRPT ---
EXAM DATE/TIME: 04/20/2017 15:33 [facility] COMPARISON: CT ABDOMEN & PELVIS W CONTRAST, September 17, 2016, 22:54. INDICATIONS : Fall yesterday. Lip swelling and abrasion. RADIATION DOSE: 31.57 CTDIvol (mGy) MEDICAL HISTORY : Myocardial infarction. Cardiovascular disease Chronic obstructive pulmonary disease.Hypertension. Felicitas betes. SURGICAL HISTORY : Tubal ligation. ENCOUNTER: Initial ACUITY: 1 day PAIN SCALE: 4/10 LOCATION: cranial TECHNIQUE: Multiple contiguous axial images were obtained of the head. Using automated exposure control and adj ustment of the mA and/or kV according to patient size, radiation dose was kept as low as reasonably a chievable to obtain optimal diagnostic quality images. DICOM format image data is available electro nically for review and comparison. FINDINGS: CEREBRUM: The ventricles are normal for age. No evidence of midline shift, mass lesion, hemorrhage or acute in farction. No extra-axial fluid collections are seen. POSTERIOR FOSSA: The cerebellum and brainstem are intact. The 4th ventricle is midline. The cerebellopontine angle i s unremarkable. EXTRACRANIAL: The visualized portion of the orbits is intact. SKULL: The calvaria is intact. No evidence of skull fracture. CONCLUSION: 1. No acute intracranial abnormality identified. Miah Bolton MD on April 20, 2017 at 15:51 Board Certified Radiologist. This report was verified electronically.
--- NOTE | 2017-04-20 16:05 | RADRPT ---
EXAM DATE/TIME: 04/20/2017 15:37 [facility] COMPARISON: CT BRAIN W/O CONTRAST, April 20, 2017, 15:33. INDICATIONS : Fall yesterday. Lip swelling and abrasion. RADIATION DOSE: 40.53 CTDIvol (mGy) MEDICAL HISTORY : Myocardial infarction. Chronic obstructive pulmonary disease. Cardiovascular diseaseHyperension. Diab etes. SURGICAL HISTORY : Tubal ligation. ENCOUNTER: Initial ACUITY: 1 day PAIN SCORE: 4/10 LOCATION: Left facial TECHNIQUE: Volumetric scanning of the facial bones was performed. Using automated exposure control and adjustme nt of the mA and/or kV according to patient size, radiation dose was kept as low as reasonably achiev able to obtain optimal diagnostic quality images. DICOM format image data is available [email or web address] y for review and comparison. FINDINGS: ORBITS: The orbital and infraorbital osseous structures are intact. The retroconal structures have a normal configuration. No radiopaque foreign bodies are seen. NASAL BONE: The nasal bone and maxillary spine are intact ZYGOMATIC ARCHES: Symmetric without evidence of fracture. SINUSES: The maxillary, ethmoid and frontal sinuses are intact. No air-fluid levels seen. NASAL CAVITY: The nasal septum is intact and midline. The lacrimal ducts are intact. SOFT TISSUES: No radiopaque foreign bodies seen. The examination demonstrates soft tissue swelling of the lower lip centrally. INTRACRANIAL: No intracranial air seen. CRIBIFORM PLATE: Grossly intact. CONCLUSION: 1. There is soft tissue swelling of the lower lip. The teeth appear to have been previously removed. There is a small tooth fragment just to the left of midline centrally. There is no evidence of mandib ular fracture. The osseous structures are otherwise intact. Miah Bolton MD on April 20, 2017 at 16:00 Board Certified Radiologist. This report was verified electronically.
[2017-04-20] MEDS ORDERED: AUGM875T3 PO ×2 (16:25)
[2017-04-20] MEDS ORDERED: TRAM50TA PO ×2 (16:25)
[2017-04-20] MEDS ORDERED: oxyCODONE/ACETAMINOPHEN 5 MG/325 MG TAB PO ONE ×2 (16:30)
== END 2017-04-20 16:53 | disposition home or self-care (01) ==
LOC: NEPD 14:17
DX: S00.83XA Contusion of other part of head, initial encounter (principal); S01.531A Puncture wound without foreign body of lip, initial encounter; L08.9 Local infection of the skin and subcutaneous tissue, unspecified; W03.XXXA Other fall on same level due to collision with another person, initial encounter; Y93.83 Activity, rough housing and horseplay
CPT/HCPCS: 70450; 70486; 99285

== ENCOUNTER 2017-07-31 07:21 | Inpatient (IN) | payer MEDICAID ==
[2017-07-31] VITALS (13 sets, daily range): BP systolic 114–145; BP diastolic 63–81; PULSE 96–117; RESP 23–37; TEMP 98.4–98.6; O2SAT 45–100
[~2017-07-31] VITALS: Ht 157.5 cm; Wt 49.8 kg
[~2017-07-31 07:21] MED LIST changes: +AUGM875T3 PO; -CHOL5000 PO; -HYDR-3583 PO; +OMEP10CA PO; +TRAM50TA PO
[2017-07-31] MEDS ORDERED: SODIUM CHLOR 0.9% 1000 ML INJ 1,000 ML IV SCH (07:28)
[2017-07-31] MEDS ORDERED: SODIUM CHLORIDE 0.9% FLUSH 10 ML FLUSH IVF PRN (07:30)
[2017-07-31] MEDS ORDERED: MAGNESIUM SULFATE 1 GM PREMIX 100 ML IV ONE (07:30)
[2017-07-31] MEDS ORDERED: methylPREDNISolone SOD SUCC 125 MG/2 ML VIAL IV PUSH ONE (07:30)
--- NOTE | 2017-07-31 07:39 | PD ---
HPI Chief Complaint: Respiratory Distress Time Seen by Provider: 07:27 Travel History International Travel<30 days: No Contact w/Intl Traveler<30days: No Traveled to known affect area: No History of Present Illness HPI LOCATION:sob QUALITY:pressure, trouble breathing SEVERITY:severe TIMING: onset since last night, worsened this am about 1 hr ago DURATION:1 day CONTACTS:denies sick contacts MODIFYING FACTORS:was improving with her albuterol but she ran out of ASSOCIATED TIME AND SYMPTOMS:currently denies fever/cough/cp/backpain/abdpain/n/ v/d/runny nose pcp is dr reyes [facility] Social History Tobacco Use: Yes Allergies-Medications (Allergen,Severity, Reaction): Coded Allergies: No Known Allergies (Unverified , 07/31/17) Reported Meds & Prescriptions Reported Meds & Active Scripts Active Reported Albuterol Neb (Albuterol Sulfate) 2.5 Mg/3 Ml Neb 2.5 Mg NEB Q4HR NEB PRN Ventolin Hfa 18 GM Inh (Albuterol Sulfate) 90 Mcg/Act Aer 2 Puff INH Q4-6H PRN Metformin (Metformin HCl) 500 Mg Tab 500 Mg PO BIDPC Review of Systems General / Constitutional: No: Fever Eyes: No: Visual changes HENT: No: Headaches Cardiovascular: No: Chest Pain or Discomfort Respiratory: Positive: Shortness of Breath, Wheezing Gastrointestinal: No: Abdominal Pain Genitourinary: No: Dysuria Musculoskeletal: No: Pain Skin: No Rash Neurologic: No: Weakness Psychiatric: No: Depression Endocrine: No: Polydipsia Hematologic/Lymphatic: No: Easy Bruising Physical Exam Narrative GENERAL: thin female in moderate to severe resp distress SKIN: Warm and dry. HEAD: Atraumatic. Normocephalic. EYES: Pupils equal and round. No scleral icterus. No injection or drainage. ENT: No nasal bleeding or discharge. Mucous membranes pink and moist. NECK: Trachea midline. No JVD. CARDIOVASCULAR: tachycardic rate and regular rhythm. RESPIRATORY: suprasternal accessory muscle use. diffuse wheezing and severe decrease in tidal volume.... GASTROINTESTINAL: Abdomen soft, non-tender, nondistended. Hepatic and splenic margins not palpable. MUSCULOSKELETAL: Extremities without clubbing, cyanosis, or edema. No obvious deformities. NEUROLOGICAL: Awake and alert. No obvious cranial nerve deficits. Motor grossly within normal limits. Five out of 5 muscle strength in the arms and legs. Normal speech. PSYCHIATRIC: Appropriate mood and affect; insight and judgment normal. Data Data Last Documented VS Vital Signs Date Time Temp Pulse Resp B/P (MAP) Pulse Ox O2 Delivery O2 Flow Rate FiO2 07/31/17 10:21 105 30 129/69 (89) 99 Non-Rebreather 15.00 07/31/17 07:22 98.6 Orders Orders Complete Blood Count With Diff (07/31/17 07:28) Comprehensive Metabolic Panel (07/31/17 07:28) B-Type Natriuretic Peptide (07/31/17 07:28) D-Dimer (07/31/17 07:28) Act Partial Throm Time (Ptt) (07/31/17:28) Prothrombin Time / Inr (Pt) (07/31/17:28) Ckmb (Isoenzyme) Profile (07/31/17 07:28) Troponin I (07/31/17 07:28) Influenzae A/B Antigen (07/31/17 07:28) Iv Access Insert/Monitor (07/31/17 07:28) Electrocardiogram (07/31/17 07:28) Ecg Monitoring (07/31/17 07:28) Oximetry (07/31/17 07:28) Oxygen Administration (07/31/17 07:28) Chest, Single Ap (07/31/17 07:28) Sodium Chloride 0.9% Flush (Ns Flush) (07/31/17 07:30) Methylprednisolone So Succ Inj (Solumedr (07/31/17 07:30) Albuterol Neb (Albuterol Neb) (07/31/17 07:30) Magnesium Sulfate 1 Gm Premix (Magnesium (07/31/17 07:30) Sodium Chlor 0.9% 1000 Ml Inj (Ns 1000 M (07/31/17 07:28) Arterial Blood Gas (Abg) (07/31/17 07:28) CKMB (07/31/17 07:30) CKMB% (07/31/17 07:30) Ct Pulmonary Angiogram (07/31/17 08:35) Ketorolac Inj (Toradol Inj) (07/31/17 08:45) Iohexol 350 Inj (Omnipaque 350 Inj) (07/31/17 09:48) Admit Order (Ed Use Only) (07/31/17 10:27) Labs Laboratory Tests Test 07/31/17 07:30 07/31/17 07:35 07/31/17 08:45 White Blood Count 8.2 TH/MM3 Red Blood Count 4.20 MIL/MM3 Hemoglobin 12.1 GM/DL Hematocrit 35.7 % Mean Corpuscular Volume 85.1 FL Mean Corpuscular Hemoglobin 28.8 PG Mean Corpuscular Hemoglobin Concent 33.8 % Red Cell Distribution Width 12.6 % Platelet Count 177 TH/MM3 Mean Platelet Volume 9.5 FL Neutrophils (%) (Auto) 76.7 % Lymphocytes (%) (Auto) 8.4 % Monocytes (%) (Auto) 13.9 % Eosinophils (%) (Auto) 0.4 % Basophils (%) (Auto) 0.6 % Neutrophils # (Auto) 6.3 TH/MM3 Lymphocytes # (Auto) 0.7 TH/MM3 Monocytes # (Auto) 1.1 TH/MM3 Eosinophils # (Auto) 0.0 TH/MM3 Basophils # (Auto) 0.1 TH/MM3 CBC Comment DIFF FINAL Differential Comment Prothrombin Time 11.9 SEC Prothromb Time International Ratio 1.2 RATIO Activated Partial Thromboplast Time 27.9 SEC D-Dimer Quantitative (PE/DVT) 0.89 MG/L FEU Blood Urea Nitrogen 9 MG/DL Creatinine 0.88 MG/DL Random Glucose 107 MG/DL Total Protein 8.7 GM/DL Albumin 3.2 GM/DL Calcium Level 8.1 MG/DL Alkaline Phosphatase 104 U/L Aspartate Amino Transf (AST/SGOT) 150 U/L Alanine Aminotransferase (ALT/SGPT) 81 U/L Total Bilirubin 1.4 MG/DL Sodium Level 135 MEQ/L Potassium Level 3.9 MEQ/L Chloride Level 103 MEQ/L Carbon Dioxide Level 22.1 MEQ/L Anion Gap 10 MEQ/L Estimat Glomerular Filtration Rate 80 ML/MIN Total Creatine Kinase 342 U/L Creatine Kinase MB 3.2 NG/ML Creatine Kinase MB % 0.9 % Troponin I LESS THAN 0.02 NG/ML B-Type Natriuretic Peptide 38 PG/ML Blood Gas Puncture Site RT RADIAL Blood Gas Patient Temperature 98.6 Blood Gas HCO3 22 mmol/L Blood Gas Base Excess -1.4 mmol/L Blood Gas Oxygen Saturation 86 % Arterial Blood pH 7.48 Arterial Blood Partial Pressure CO2 29 mmHg Arterial Blood Partial Pressure O2 52 mmHG Arterial Blood Oxygen Content 13.6 Vol % Arterial Blood Carboxyhemoglobin 1.7 % Arterial Blood Methemoglobin 0.7 % Blood Gas Hemoglobin 11.2 G/DL Oxygen Delivery Device MASK Blood Gas Liter Flow 8 L/M Urine Color YELLOW Urine Turbidity CLEAR Urine pH 7.0 Urine Specific Tal[place] 1.019 Urine Protein 30 mg/dL Urine Glucose (UA) NEG mg/dL Urine Ketones NEG mg/dL Urine Occult Blood NEG Urine Nitrite NEG Urine Bilirubin NEG Urine Urobilinogen GREATER THAN 12.0 MG/DL Urine Leukocyte Esterase NEG Urine RBC LESS THAN 1 /hpf Urine WBC LESS THAN 1 /hpf Urine Squamous Epithelial Cells <1 /hpf Microscopic Urinalysis Comment CULT NOT INDICATED Urine Opiates Screen NEG Urine Barbiturates Screen NEG Urine Amphetamines Screen NEG Urine Benzodiazepines Screen NEG Urine Cocaine Screen NEG Urine Cannabinoids Screen POS MDM Medical Decision Making Medical Screen Exam Complete: Yes Emergency Medical Condition: Yes Medical Record Reviewed: Yes Interpretation(s) EKG: Sinus tachycardia, 108 bpm, normal intervals, nonspecific ST-T wave changes , no STEMI pattern. pulse ox: excellent pleth wave, reading 52 on ra which severely hypoxemic and abnormal ABG interpretation: Mild respiratory alkalosis with pH of 7.48, PCO2 29.1, PaO2 51.9, and this was during breathing treatment on 8 L of oxygen. This patient is showing signs of hypoxemic respiratory failure Differential Diagnosis asthma exac v pna v pe v atypical stemi v nonstemi v pulm edema Narrative Course Initial CBC did not show any evidence of anemia or leukocytosis. Electrolytes minor changes no major signs kidney failure., Mild elevation of LFTs. Negative first set of troponin. UA negative for any evidence of UTI. Due to the severe hypoxemia CT chest performed to rule out PE, the results as per radiologist no evidence of PE but some groundglass findings on CAT scan. Of note the patient's beta natruretic peptide was negative so this groundglass finding is not consistent with pulmonary edema, however may still be related to ARDS. patient has severe hypoxemia initially on nasal cannula improved when changed to a nonrebreather, patient did not show any signs of fatigue or ventilatory failure at this time with any evidence of hypercarbia. Currently no evidence for emergent intubation Critical Care Narrative CRITICAL CARE NOTE: With evaluation of the patient, labs, EKG, receipt of radiologic studies, administration of medications, reevaluation the patient and discussion of the patient with the admitting physicians, the total critical care time was [60] minutes. Time to perform other separately billable procedures was not included in the critical care time. Diagnosis Primary Impression: Acute hypoxemic respiratory failure Admitting Information Admitting Physician Requests: Admit Glenn Emerson MD Jul 31, 2017 07:39
[2017-07-31 07:40] LABS: AUTOMATED NEUTROPHIL # 6.3 TH/MM3 (1.8-7.7); BASOPHIL # 0.1 TH/MM3 (0-0.2); BASOPHIL % 0.6 % (0.0-2.0); EOSINOPHIL % 0.4 % (0.0-4.0); HEMATOCRIT 35.7 % (35.0-46.0); HEMOGLOBIN 12.1 GM/DL (11.6-15.3); LYMPH % 8.4 % (9.0-44.0); LYMPHOCYTE # 0.7 TH/MM3 (1.0-4.8); MEAN CELL VOLUME 85.1 FL (80.0-100.0); MEAN CORPUSCULAR HEMOGLOBIN 28.8 PG (27.0-34.0); MEAN CORPUSCULAR HGB CONC 33.8 % (32.0-36.0); MEAN PLATELET VOLUME 9.5 FL (7.0-11.0); MONO % 13.9 % (0.0-8.0); MONOCYTE # 1.1 TH/MM3 (0-0.9); NEUT % 76.7 % (16.0-70.0); PLATELET COUNT 177 TH/MM3 (150-450); RED CELL DISTRIBUTION WIDTH 12.6 % (11.6-17.2); WHITE BLOOD COUNT 8.2 TH/MM3 (4.0-11.0)
[2017-07-31] MEDS ORDERED: VENTAER INH (07:46)
[2017-07-31] MEDS ORDERED: ALBU0.08 NEB (07:46)
[2017-07-31] MEDS ORDERED: METF500T PO (07:46)
--- NOTE | 2017-07-31 07:49 | RADRPT ---
EXAM DATE/TIME: 07/31/2017 07:33 [facility] COMPARISON: No previous studies available for comparison. INDICATIONS : Shortness of breath and chest pain for 3 days. MEDICAL HISTORY : Chronic obstructive pulmonary disease. Diabetes mellitus type II. Asthma. SURGICAL HISTORY : Cholecystectomy. ENCOUNTER: Initial ACUITY: 3 days PAIN SCORE: 10/10 LOCATION: Bilateral chest FINDINGS: A single view of the chest demonstrates the lungs to be symmetrically aerated without evidence of mas s, infiltrate or effusion. The cardiomediastinal contours are unremarkable. Osseous structures are intact. CONCLUSION: No acute disease. Tramaine Do MD on July 31, 2017 at 7:47 Board Certified Radiologist. This report was verified electronically.
[2017-07-31 07:55] LABS: D-DIMER 0.89 MG/L FEU (0.00-0.50); INTERNATIONAL NORMALIZED RATIO 1.2 RATIO; PROTHROMBIN TIME - PATIENT 11.9 SEC (9.8-11.6)
[2017-07-31] MEDS: RESP: ALBUTEROL 2.5 MG/3 ML NEB (SCH) INH (07:58)
[2017-07-31 08:12] LABS: ALBUMIN 3.2 GM/DL (3.4-5.0); ALKALINE PHOSPHATASE 104 U/L (45-117); ALT (GPT) 81 U/L (10-53); AST (GOT) 150 U/L (15-37); BICARBONATE 22.1 MEQ/L (21.0-32.0); BLOOD UREA NITROGEN 9 MG/DL (7-18); CALCIUM 8.1 MG/DL (8.5-10.1); CHLORIDE 103 MEQ/L (98-107); CREATININE 0.88 MG/DL (0.50-1.00); GLOMERULAR FILTRATION RATE 80 ML/MIN (>89); GLUCOSE,RANDOM 107 MG/DL (74-106); SODIUM (NA) 135 MEQ/L (136-145); TOTAL BILIRUBIN ADULT 1.4 MG/DL (0.2-1.0); TOTAL PROTEIN 8.7 GM/DL (6.4-8.2); TROPONIN I LESS THAN 0.02 NG/ML (0.02-0.05)
[2017-07-31] MEDS ORDERED: KETOROLAC TROMETHAMINE 30 MG/ML (IVP) VIAL IV PUSH ONE (08:45)
[2017-07-31] MEDS ORDERED: IOHEXOL 350 MG/ML 10 ML VIAL (for RAD DIAG) IVCONTRAST ONE (09:48)
--- NOTE | 2017-07-31 09:55 | RADRPT ---
EXAM DATE/TIME: 07/31/2017 09:30 [facility] COMPARISON: No previous studies available for comparison. INDICATIONS : Dyspnea IV CONTRAST: 72 cc Omnipaque 350 (iohexol) IV RADIATION DOSE: 7.04 CTDIvol (mGy) MEDICAL HISTORY : Chronic obstructive pulmonary disease. Diabetes mellitus type 2. SURGICAL HISTORY : Cholecystectomy. ENCOUNTER: Initial ACUITY: 1 day PAIN SCALE: 0/10 LOCATION: chest TECHNIQUE: Volumetric scanning of the chest was performed using a pulmonary embolism protocol MIP images were re constructed. Using automated exposure control and adjustment of the mA and/or kV according to patien t size, radiation dose was kept as low as reasonably achievable to obtain optimal diagnostic quality images. DICOM format image data is available electronically for review and comparison. Follow-up recommendations for detected pulmonary nodules are based at a minimum on nodule size and pa tient risk factors according to Fleischner Society Guidelines. FINDINGS: PULMONARY ARTERIES: No filling defects are seen in the pulmonary arteries through the segmental level. LUNGS: There is extensive bilateral primarily basilar and peripheral ground glass parenchymal opacity. PLEURAE: There is no pleural thickening or pleural effusion. MEDIASTINUM: There is good visualization of the great vessels of the middle mediastinum. No evidence of mediastin al or hilar adenopathy/mass. Left vertebral artery arises directly from the aortic arch as a variant of normal MUSCULOSKELETAL: Within normal limits for patient age. MISCELLANEOUS: The visualized upper abdominal organs demonstrate no acute abnormality. CONCLUSION: No evidence of pulmonary embolism. Extensive bilateral groundglass infiltrates. Jamshid Means MD on July 31, 2017 at 9:49 Board Certified Radiologist. This report was verified electronically.
[2017-07-31] MEDS ORDERED: SODIUM CHLORIDE 0.9% FLUSH 10 ML FLUSH IV FLUSH PRN (10:30)
[2017-07-31] MEDS: AZITHROMYCIN INJ 500 MG in SODIUM CHLOR 0.9% 250 ML INJ 250 ML IV SCH (10:39)
[2017-07-31] MEDS: RESP: ALBUTEROL 2.5 MG/IPRATROPIUM 0.5 MG NEB (SCH) INH ×4 (11:42→23:47)
[2017-07-31] MEDS ORDERED: ENOXAPARIN SODIUM 40 MG/0.4 ML SYRINGE SQ SCH (12:00)
[2017-07-31] MEDS ORDERED: INSULIN ASPART SUPPLEMENTAL SCALE SQ SCH (12:00)
[2017-07-31] MEDS: RESP: ALBUTEROL 2.5 MG/3 ML NEB (PRN) INH (12:55)
[2017-07-31] MEDS: methylPREDNISolone SOD SUCC 125 MG/2 ML VIAL IV PUSH SCH ×2 (13:41→20:08)
--- NOTE | 2017-07-31 14:08 | HHI.HP ---
[facility] Service [facility] Primary Care Physician Jamshid Braxton M.D. Admission Diagnosis HYPOXEMIC RESPIRATORY FAILURE, COPD EXACERBATION Diagnoses: Travel History International Travel<30 Days: No Contact w/Intl Traveler <30 Da: No Traveled to Known Affected Are: No History of Present Illness 57-year-old female with a history of COPD, diabetes mellitus, chronic smoker, who presents with a three-day history of worsening shortness of breath, cough productive intermittently of green sputum. denies Chest pain. History is limited by dyspnea. She says she ran out of her albuterol inhaler several days ago. She denies any fevers or chills. She does report nausea but no vomiting. Denies any abdominal pain. She reports chronic back pain, for which she takes [place] as needed, and is requesting here. Denies any dysuria. Review of Systems Except as stated in HPI: all other systems reviewed are Neg Past Family Social History Past Medical History COPD Asthma Diabetes mellitus Past Surgical History Cholecystectomy Bilateral tubal ligation Bilateral leg surgeries. Reported Medications Reported Meds & Active Scripts Active Reported Albuterol Neb (Albuterol Sulfate) 2.5 Mg/3 Ml Neb 2.5 Mg NEB Q4HR NEB PRN Ventolin Hfa 18 GM Inh (Albuterol Sulfate) 90 Mcg/Act Aer 2 Puff INH Q4-6H PRN Metformin (Metformin HCl) 500 Mg Tab 500 Mg PO BIDPC Allergies: Coded Allergies: No Known Allergies (Unverified , 07/31/17) Family History Mother is estranged. Father with hypertension. Social History Patient is smoked one pack per day for past 20 years. She says she quit one week ago. Drinks alcohol occasionally. Denies any illicit drugs. Physical Exam Vital Signs Vital Signs Date Time Temp Pulse Resp B/P (MAP) Pulse Ox O2 Delivery O2 Flow Rate FiO2 07/31/17 12:34 106 24 136/67 (90) 99 Non-Rebreather 15.00 07/31/17 12:34 07/31/17 10:21 105 30 129/69 (89) 99 Non-Rebreather 15.00 07/31/17 07:58 100 Non-Rebreather 15.00 07/31/17 07:33 95 Aerosol Mask 8.00 07/31/17 07:27 109 32 91 Nasal Cannula 8.00 07/31/17 07:25 110 33 145/81 (102) 45 07/31/17 07:22 98.6 117 23 114/65 (81) 73 Physical Exam GENERAL: This is a well-nourished, well-developed patient, appears dyspneic. She answers questions appropriately, however refuses to answer orientation questions. SKIN: No rashes, ecchymoses or lesions. Cool and dry. HEAD: Atraumatic. Normocephalic. No temporal or scalp tenderness. EYES: Pupils equal round and reactive. Extraocular motions intact. No scleral icterus. No injection or drainage. ENT: Nose without bleeding, purulent drainage or septal hematoma. Throat without erythema, tonsillar hypertrophy or exudate. Uvula midline. Airway patent. NECK: Trachea midline. No JVD or lymphadenopathy. Supple, nontender, no meningeal signs. CARDIOVASCULAR: Regular rate and rhythm without murmurs, gallops, or rubs. RESPIRATORY: Dry crackles bilaterally. Patient is dyspneic. Wheezes bilaterally. No rhonchi. GASTROINTESTINAL: Abdomen soft, non-tender, nondistended. No hepato-splenomegaly , or palpable masses. No guarding. MUSCULOSKELETAL: Extremities without clubbing, cyanosis, or edema. No joint tenderness, effusion, or edema noted. No calf tenderness. Negative Homans sign bilaterally. NEUROLOGICAL: Awake and alert. Cranial nerves II through XII intact. Motor and sensory grossly within normal limits. Five out of 5 muscle strength in all muscle groups. Normal speech. Laboratory Laboratory Tests Test 07/31/17 07:30 07/31/17 07:35 White Blood Count 8.2 Red Blood Count 4.20 Hemoglobin 12.1 Hematocrit 35.7 Mean Corpuscular Volume 85.1 Mean Corpuscular Hemoglobin 28.8 Mean Corpuscular Hemoglobin Concent 33.8 Red Cell Distribution Width 12.6 Platelet Count 177 Mean Platelet Volume 9.5 Neutrophils (%) (Auto) 76.7 Lymphocytes (%) (Auto) 8.4 Monocytes (%) (Auto) 13.9 Eosinophils (%) (Auto) 0.4 Basophils (%) (Auto) 0.6 Neutrophils # (Auto) 6.3 Lymphocytes # (Auto) 0.7 Monocytes # (Auto) 1.1 Eosinophils # (Auto) 0.0 Basophils # (Auto) 0.1 CBC Comment DIFF FINAL Differential Comment Prothrombin Time 11.9 Prothromb Time International Ratio 1.2 Activated Partial Thromboplast Time 27.9 D-Dimer Quantitative (PE/DVT) 0.89 Blood Urea Nitrogen 9 Creatinine 0.88 Random Glucose 107 Total Protein 8.7 Albumin 3.2 Calcium Level 8.1 Alkaline Phosphatase 104 Aspartate Amino Transf (AST/SGOT) 150 Alanine Aminotransferase (ALT/SGPT) 81 Total Bilirubin 1.4 Sodium Level 135 Potassium Level 3.9 Chloride Level 103 Carbon Dioxide Level 22.1 Anion Gap 10 Estimat Glomerular Filtration Rate 80 Total Creatine Kinase 342 Creatine Kinase MB 3.2 Creatine Kinase MB % 0.9 Troponin I LESS THAN 0.02 B-Type Natriuretic Peptide 38 Blood Gas Puncture Site RT RADIAL Blood Gas Patient Temperature 98.6 Blood Gas HCO3 22 Blood Gas Base Excess -1.4 Blood Gas Oxygen Saturation 86 Arterial Blood pH 7.48 Arterial Blood Partial Pressure CO2 29 Arterial Blood Partial Pressure O2 52 Arterial Blood Oxygen Content 13.6 Arterial Blood Carboxyhemoglobin 1.7 Arterial Blood Methemoglobin 0.7 Blood Gas Hemoglobin 11.2 Oxygen Delivery Device MASK Blood Gas Liter Flow 8 Date/Time Source Procedure Growth Status 07/31/17 07:45 Nasal Washing Influenza Types A,B Antigen (SHAWN) - Final NEGATIVE FOR FLU A AND B ANTIGEN.... Complete Result Diagram: 07/31/1772907/31/[address] Angiography 07/31/17 0835 Signed Impressions: Service Date/Time: Monday, July 31, 2017 09:30 - CONCLUSION: No evidence of pulmonary embolism. Extensive bilateral groundglass infiltrates. Jamshid Means MD Chest X-Ray 07/31/17727 Signed Impressions: Service Date/Time: Monday, July 31, 2017 07:33 - CONCLUSION: No acute disease. MD Kristine Heard VTE Risk Assessment Kristine VTE Risk Assessment: No/Low Risk (score <= 1) Montyrini Risk Assessment Model Point Value = 1 Point Value = 2 Point Value = 3 Point Value = 5 Age 41-60 Minor surgery BMI > 25 kg/m2 Swollen legs Varicose veins or History of unexplained or recurrent spontaneous Oral contraceptives or hormone replacement Sepsis (< 1 month) Serious lung disease, including pneumonia (< 1 month) Abnormal pulmonary function Acute myocardial infarction Congestive heart failure (< 1 month) History of inflammatory bowel disease Medical patient at bed rest Age 61-74 Arthroscopic surgery Major open surgery (> 45 min) Laparoscopic surgery (> 45 min) Malignancy Confined to bed (> 72 hours) Immobilizing plaster cast Central venous access Age >= 75 History of VTE Family history of VTE Factor V Leiden Prothrombin [id number] Lupus anticoagulant Anticardiolipin antibodies Elevated serum homocysteine Heparin-induced thrombocytopenia Other congenital or acquired thrombophilia Stroke (< 1 month) Elective arthroplasty Hip, pelvis, or leg fracture Acute spinal cord injury (< 1 month) Prophylaxis Regimen Total Risk Factor Score Risk Level Prophylaxis Regimen 0-1 Low Early ambulation 2 Moderate Order ONE of the following: *Sequential Compression Device (SCD) *Heparin 5000 units SQ BID 3-4 Higher Order ONE of the following medications: *Heparin 5000 units SQ TID *Enoxaparin/Lovenox 40 mg SQ daily (WT < 150 kg, CrCl > 30 mL/min) *Enoxaparin/Lovenox 30 mg SQ daily (WT < 150 kg, CrCl > 10-29 mL/min) *Enoxaparin/Lovenox 30 mg SQ BID (WT < 150 kg, CrCl > 30 mL/min) AND/OR *Sequential Compression Device (SCD) 5 or more Highest Order ONE of the following medications: *Heparin 5000 units SQ TID (Preferred with Epidurals) *Enoxaparin/Lovenox 40 mg SQ daily (WT < 150 kg, CrCl > 30 mL/min) *Enoxaparin/Lovenox 30 mg SQ daily (WT < 150 kg, CrCl > 10-29 mL/min) *Enoxaparin/Lovenox 30 mg SQ BID (WT < 150 kg, CrCl > 30 mL/min) AND *Sequential Compression Device (SCD) Assessment and Plan Assessment and Plan //COPD exacerbation //Hypoxemic respiratory failure -ABG reviewed with po2 52 on 8 L oxygen mask. -CT pulmonary angiogram without pulmonary embolism. Ground glass opacities bilaterally. -IV steroids, azithromycin, duo nebs. Consult pulmonology. //Diabetes mellitus. -Diabetic diet. Insulin sliding scale. Continue to monitor closely on steroids. //Transaminitis //Hyperbilirubinemia. = Bilirubin elevated 1.4. AST 150, ALT 81. Liver ultrasound, hepatitis profile ordered and pending. //Tobacco abuse. Cessation counseling provided //Chronic narcotic use. Patient uses [place] at home. We'll continue oxycodone as needed here. Prophylaxis scd Discussed Condition With Patient, nurse, ED physician. Physician Certification 2 Midnight Certification Type: Admission for Inpatient Services Order for Inpatient Services The services are ordered in accordance with Medicare regulations or non- Medicare payer requirements, as applicable. In the case of services not specified as inpatient-only, they are appropriately provided as inpatient services in accordance with the 2-midnight benchmark. Estimated LOS (days): 3 days is the estimated time the patient will need to remain in the hospital, assuming treatment plan goals are met and no additional complications. Post-Hospital Plan: [place] Pedro Bahena MD Jul 31, 2017 14:08
[2017-07-31 15:32] LABS: DIRECT BILIRUBIN ADULT 0.6 MG/DL (0.0-0.2); INDIRECT BILIRUBIN 0.3 MG/DL (0.0-0.8); TOTAL BILIRUBIN ADULT 0.9 MG/DL (0.2-1.0)
[2017-07-31 16:14] LABS: BLOOD, URINE NEG (NEG); GLUCOSE,URINE NEG (NEG); KETONE, URINE NEG (NEG); NITRITE,URINE NEG (NEG); SQUAMOUS EPITHELIAL CELL URINE <1 /hpf (0-5); URINE COLOR YELLOW (YELLW/STRAW); URINE LEUKOCYTE ESTERASE NEG (NEG)
[2017-07-31] MEDS ORDERED: DEXTROSE 50% IN WATER 50 ML VIAL(D50) IV PUSH PRN (16:15)
[2017-07-31] MEDS: RESP: BUDESONIDE 0.25 MG/2 ML NEB NEB SCH ×2 (16:15→19:58)
[2017-07-31] MEDS ORDERED: GLUCAGON 1 MG/ML VIAL OTHER PRN (16:15)
[2017-07-31 16:23] LABS: BILIRUBIN, URINE NEG (NEG)
[2017-07-31] MEDS: SODIUM CHLOR 0.9% 1000 ML INJ 1,000 ML IV SCH (16:39)
[2017-07-31] MEDS: VANCOMYCIN INJ 1,000 MG in SODIUM CHLOR 0.9% 250 ML INJ 250 ML IV SCH (16:39)
[2017-07-31] MEDS: PIPERACIL-TAZO 4.5 GM PREMIX 100 ML IV SCH ×2 (16:40→23:37)
[2017-07-31] MEDS: FAMOTIDINE 20 MG/2 ML VIAL IV PUSH SCH (16:40)
[2017-07-31] MEDS: INSULIN NovoLIN REGULAR SUPPLEMENTAL SCALE SQ SCH ×2 (16:43→23:00)
[2017-07-31 18:13] LABS: AUTOMATED NEUTROPHIL # 7.7 TH/MM3 (1.8-7.7); BASOPHIL % 0.1 % (0.0-2.0); HEMATOCRIT 29.5 % (35.0-46.0); HEMOGLOBIN 9.8 GM/DL (11.6-15.3); LYMPHOCYTE # 0.2 TH/MM3 (1.0-4.8); MEAN CELL VOLUME 86.8 FL (80.0-100.0); MEAN CORPUSCULAR HEMOGLOBIN 28.8 PG (27.0-34.0); MEAN CORPUSCULAR HGB CONC 33.1 % (32.0-36.0); MEAN PLATELET VOLUME 9.2 FL (7.0-11.0); MONO % 2.4 % (0.0-8.0); MONOCYTE # 0.2 TH/MM3 (0-0.9); NEUT % 95.5 % (16.0-70.0); PLATELET COUNT 128 TH/MM3 (150-450); RED CELL DISTRIBUTION WIDTH 12.7 % (11.6-17.2); WHITE BLOOD COUNT 8.1 TH/MM3 (4.0-11.0)
--- NOTE | 2017-07-31 18:40 | RADRPT ---
EXAM DATE/TIME: 07/31/2017 17:48 [facility] COMPARISON: No previous studies available for comparison. INDICATIONS : Increased lab values. MEDICAL HISTORY : Chronic obstructive pulmonary disease. Asthma. Diabetes. Tobacco use. SURGICAL HISTORY : Cholecystectomy. ENCOUNTER: Initial ACUITY: 1 day PAIN SCORE: 5/10 LOCATION: Bilateral upper quadrant MEASUREMENTS: LIVER: 15.6 cm length COMMON DUCT: 9 mm RIGHT KIDNEY: 10.7 x 4.0 x 4.0 cm SPLEEN: 7.6 cm length FINDINGS: LIVER: Normal echotexture without focal lesion or ductal dilatation. The portal system is Patent. There is n o ascites. COMMON DUCT: No intraluminal mass or stone visualized. GALLBLADDER: Surgically removed. PANCREAS: The visualized portions are within normal limits. The pancreatic duct measures approximately 2-3 mm. RIGHT KIDNEY: No hydronephrosis. A few tiny calcifications are seen associated with the right kidney. The largest m easures 3 mm in the midpole. SPLEEN: No focal lesion. CONCLUSION: 1. Cholecystectomy. 2. A few tiny calcifications are seen a cyst of the right kidney. The largest measures 3 mm in the mi dpole suggestive of nonobstructing stone. Wayne Harkins MD on July 31, 2017 at 18:35 Board Certified Radiologist. This report was verified electronically.
[2017-07-31 18:43] LABS: BICARBONATE 18.4 MEQ/L (21.0-32.0); CALCIUM 7.5 MG/DL (8.5-10.1); CREATININE 0.83 MG/DL (0.50-1.00); MAGNESIUM 1.6 MG/DL (1.5-2.5); PHOSPHORUS 2.2 MG/DL (2.5-4.9)
[2017-07-31] MEDS: HEPARIN SODIUM - SQ 10,000 UNITS/ML VIAL SQ SCH (20:08)
[2017-07-31] MEDS: SODIUM CHLORIDE 0.9% FLUSH 10 ML FLUSH IV FLUSH SCH (20:09)
[2017-07-31] MEDS ORDERED: POTASSIUM PHOSPHATE MONOBASIC 500 MG TAB PO/TUBE PRN (21:00)
[2017-07-31] MEDS ORDERED: SODIUM PHOSPHATE INJ 30 MMOL in SODIUM CHLOR 0.9% 250 ML INJ 240 ML IV PRN (21:00)
[2017-07-31] MEDS ORDERED: POTASSIUM CHLORIDE 25 MEQ EFFERVESCENT TAB PO PRN (21:00)
[2017-07-31] MEDS ORDERED: MAGNESIUM OXIDE 400 MG TAB PO PRN (21:00)
[2017-07-31] MEDS ORDERED: POTASSIUM PHOSPHATE MONOBASIC 500 MG TAB PO PRN (21:00)
[2017-07-31] MEDS ORDERED: POTASSIUM CHLOR 40 MEQ PREMIX 100 ML IV PRN ×2 (21:00)
[2017-07-31] MEDS ORDERED: MAGNESIUM SULFATE INJ 4 GM in SODIUM CHLORIDE 0.9% INJ 92 ML IV PRN (21:00)
[2017-07-31] MEDS ORDERED: MAGNESIUM SULFATE INJ 2 GM in SODIUM CHLORIDE 0.9% INJ 96 ML IV PRN (21:00)
[2017-07-31] MEDS ORDERED: POTASSIUM CHLOR 20 MEQ PREMIX 100 ML IV PRN (21:00)
--- NOTE | 2017-07-31 22:00 | EKG ---
Date Performed: 07/31/2017 Time Performed: 07:29:24 PTAGE: 57 years EKG: SINUS TACHYCARDIA NONSPECIFIC T-WAVE ABNORMALITY ABNORMAL RHYTHM ECG NO PREVIOUS TRACING DOCTOR: Sulaiman Menon Interpretating Date/Time 07/31/2017 21:57:05
[2017-07-31] MEDS: POTASSIUM PHOSPHATE INJ 30 MMOL in SODIUM CHLOR 0.9% 250 ML INJ 250 ML IV PRN (22:52)
[2017-08-01] VITALS (21 sets, daily range): BP systolic 92–175; BP diastolic 60–99; PULSE 60–144; RESP 18–39; TEMP 97.4–98.7; O2SAT 92–100
[2017-08-01] MEDS: methylPREDNISolone SOD SUCC 125 MG/2 ML VIAL IV PUSH SCH ×4 (01:02→20:46)
[2017-08-01] MEDS: RESP: ALBUTEROL 2.5 MG/IPRATROPIUM 0.5 MG NEB (SCH) INH ×6 (03:15→23:11)
[2017-08-01] MEDS: VANCOMYCIN INJ 1,000 MG in SODIUM CHLOR 0.9% 250 ML INJ 250 ML IV SCH ×2 (04:01→17:38)
[2017-08-01] MEDS: INSULIN NovoLIN REGULAR SUPPLEMENTAL SCALE SQ SCH ×4 (05:00→22:36)
--- NOTE | 2017-08-01 05:19 | MB ---
cc: JACQUELYN CM M.D. DATE OF CONSULTATION 07/31/2017 DATE OF 1960 HISTORY OF PRESENT ILLNESS The patient is a 57-year-old female with past medical history of bronchial asthma, active smoker, diabetes mellitus, who presented to [facility] ED with a three day history of worsening shortness of breath. She also reports a productive cough with green, thick phlegm and subjective fever and chills. She denies any exposure to sick contacts. In addition she denies any hemoptysis. On arrival to the ED she was tachypneic, tachycardiac and placed on a non-rebreather mask. ABGs on 8 liters simple mask from early this morning showed a pH of 7.48, CO2 29, pAO2 52, bicarb 22 and sats of 86%. Chest x-ray in the ED showed no acute disease. The patient subsequently underwent CT angiogram of the chest which showed no evidence of pulmonary embolism; however, it showed extensive bilateral ground-glass infiltrates. Her laboratory data is significant for elevated liver enzymes. No history of any fever or leukocytosis. She was initially admitted to [facility] under Dr. Bahena. The patient had worsening respiratory distress and Critical Care medicine was consulted for critical care management. She remains on a non-rebreather mask with a saturation of 95%. Repeat ABGs showed a pH of 7.40, CO2 25, pAO2 79, bicarb 16 and saturation of 94%. The patient was given bronchodilators and steroids. PAST MEDICAL HISTORY 1. Bronchial asthma. 2. Diabetes mellitus. PAST SURGICAL HISTORY 1. Previous cholecystectomy. 2. Previous bilateral leg surgeries. 3. Bilateral tubal ligation. ALLERGIES DILAUDID. SOCIAL HISTORY Active smoker, occasional drinker. FAMILY HISTORY Coronary artery disease runs in the family. MEDICATIONS 1. Ventolin. 2. Metformin. 3. Albuterol nebs. REVIEW OF SYSTEMS As per HPI. The rest of review of systems unremarkable. PHYSICAL EXAMINATION GENERAL: On physical exam a 57-year-old female lying in bed in mild to moderate respiratory distress. VITAL SIGNS: Temperature 98.4, pulse of 106, blood pressure 142/75, sats 92-94% on a non-rebreather. HEENT: Atraumatic, normocephalic. Pupils equal, round, reactive to light and accommodation. Extraocular muscles intact. Conjunctivae pink. Nonicteric sclerae. Oral mucosa within normal. NECK: Supple. No JVD, adenopathy or thyromegaly. Trachea in the midline. CARDIOVASCULAR EXAM: Tachycardiac. Normal S1-S2. No murmurs, rubs or gallops noted. PULMONARY EXAM: Bilateral equal air entry with coarse breath sounds and scattered wheezing. ABDOMEN: Soft, nontender, no distension. Positive bowel sounds. EXTREMITIES: No cyanosis, clubbing or edema. NEURO: No focal or sensory deficit. LABORATORY DATA WBC 8.2, hemoglobin 12, hematocrit 35, platelet count of 177. Sodium 135, potassium 3.9, chloride 103, CO2 22, BUN 9, creatinine 0.88, glucose 107, bilirubin 0.9, direct bilirubin 0.6, AST 150, ALT 81, total CK 342. Troponin less than 0.02, BNP 38, INR 1.2, PT 11.9, PTT 27.9. Urinalysis pending. Urine drug screen is pending. RADIOGRAPHIC STUDIES CT angiogram of the chest showed no evidence of PE; however, extensive bilateral ground-glass infiltrates. IMPRESSION 1. Acute hypoxemic respiratory failure. 2. Bilateral extensive ground-glass infiltrates. Differential diagnosis infectious process versus inflammatory process, fluid overload doubt. 3. Bronchial asthma exacerbation. 4. Elevated liver enzymes. 5. Diabetes mellitus. RECOMMENDATIONS 1. Monitor neuro status closely and avoid any sedatives. 2. Her urine drug screen in the ED was positive for cannabinoids. 3. Continue with oxygen. Maintain sats above 92%. 4. Bronchodilators in the form of DuoNeb q. 4 + q. 2 p.r.n. for shortness of breath. In addition will place on Pulmicort nebs 0.25 mg q. 12 and agree with IV steroids. She is on Solu-Medrol 60 mg IV q. 6 hours. 5. If there is any worsening in respiratory status or clinical condition, we will proceed with intubation and mechanical ventilation. In addition the patient might benefit from fiberoptic bronchoscopy with bronchial washing if gets intubated. However she is at high risk for bronchoscopy at this time. 6. Monitor heart rate and blood pressure closely and maintain MAP greater 65 mmHg. 7. Monitor renal function, I's and O's and electrolyte replacement per protocol. We will place on IV fluids in the form of NS 5 ml/hour. 8. Keep n.p.o. for now until respiratory status improves and place on Pepcid 20 mg q. 12 for GI prophylaxis. 9. Place on broad-spectrum antibiotics in the form of vancomycin, Zosyn and will continue with azithromycin. Monitor for signs infections which include fever and WBC. Her nasal washing is negative for influenza in the ED. We will obtain a sputum culture with Gram's stain. In addition we will check Strep pneumoniae and Legionella urinary antigen. 10. We will place on sliding scale insulin with Accu-Cheks for glycemic control as the patient is on IV steroids. 11. Monitor CBC. 12. Monitor liver enzymes and we will obtain an ultrasound of the liver. Follow up on hepatitis profile. 13. GI prophylaxis with Pepcid and DVT prophylaxis with SCDs and heparin subcu. 14. Further recommendations will be based on hospital course. MD NURIA Hu/DOUGLAS /4:20 PM /4:58 AM
[2017-08-01 06:23] LABS: AUTOMATED NEUTROPHIL # 12.3 TH/MM3 (1.8-7.7); BASOPHIL % 0.1 % (0.0-2.0); HEMATOCRIT 30.7 % (35.0-46.0); HEMOGLOBIN 10.1 GM/DL (11.6-15.3); LYMPH % 2.4 % (9.0-44.0); LYMPHOCYTE # 0.3 TH/MM3 (1.0-4.8); MEAN CELL VOLUME 86.6 FL (80.0-100.0); MEAN CORPUSCULAR HEMOGLOBIN 28.4 PG (27.0-34.0); MEAN CORPUSCULAR HGB CONC 32.8 % (32.0-36.0); MONO % 4.7 % (0.0-8.0); MONOCYTE # 0.6 TH/MM3 (0-0.9); NEUT % 92.8 % (16.0-70.0); PLATELET COUNT 139 TH/MM3 (150-450); RED BLOOD COUNT 3.55 MIL/MM3 (4.00-5.30); RED CELL DISTRIBUTION WIDTH 12.6 % (11.6-17.2); WHITE BLOOD COUNT 13.3 TH/MM3 (4.0-11.0)
[2017-08-01] MEDS: FAMOTIDINE 20 MG/2 ML VIAL IV PUSH SCH ×2 (06:23→17:40)
[2017-08-01] MEDS: SODIUM CHLOR 0.9% 1000 ML INJ 1,000 ML IV SCH (06:24)
[2017-08-01] MEDS: PIPERACIL-TAZO 4.5 GM PREMIX 100 ML IV SCH ×4 (06:24→23:08)
[2017-08-01 07:05] LABS: BICARBONATE 19.5 MEQ/L (21.0-32.0); CALCIUM 7.5 MG/DL (8.5-10.1); CREATININE 0.65 MG/DL (0.50-1.00)
[2017-08-01] MEDS: RESP: BUDESONIDE 0.25 MG/2 ML NEB NEB SCH ×2 (07:29→19:35)
[2017-08-01] MEDS ORDERED: ETOMIDATE 40 MG/20 ML VIAL ONE (07:42)
--- NOTE | 2017-08-01 08:03 | HHI.CCPN ---
Subjective Remarks/Hospital Course Patient is a 57-year-old female with past medical history of bronchial asthma, active smoker, diabetes mellitus, who presented to [facility] ED with a three day history of worsening shortness of breath. She also reports a productive cough with green, thick phlegm and subjective fever and chills. She denies any exposure to sick contacts. In addition she denies any hemoptysis. On arrival to the ED she was tachypneic, tachycardiac and placed on a non- rebreather mask. ABGs on 8 liters simple mask from early this morning showed a pH of 7.48, CO2 29, pAO2 52, bicarb 22 and sats of 86%. Chest x-ray in the ED showed no acute disease. The patient subsequently underwent CT angiogram of the chest which showed no evidence of pulmonary embolism; however, it showed extensive bilateral ground-glass infiltrates. Her laboratory data is significant for elevated liver enzymes. No history of any fever or leukocytosis. She was initially admitted to [facility] under Dr. Bahena. The patient had worsening respiratory distress and Critical Care medicine was consulted for critical care management. She remains on a non-rebreather mask with a saturation of 95%. Repeat ABGs showed a pH of 7.40, CO2 25, pAO2 79, bicarb 16 and saturation of 94%. The patient was given bronchodilators and steroids. 08/01 Patient was intubated this morning by myself for worsening resp status. Now intubated and sedated. Afebrile. Objective Vital Signs Date Time Temp Pulse Resp B/P (MAP) Pulse Ox O2 Delivery O2 Flow Rate FiO2 08/01/17 07:29 99 Non-Rebreather 15.00 08/01/17 06:00 101 08/01/17 04:00 98.3 37 145/71 (95) 07/31/17 20:00 100 Intake and Output 08/01/17 08/01/17 08/02/17 08:00 16:00 00:00 Intake Total 1612 ml Output Total 900 ml Balance 712 ml Result Diagram: 08/01/17 0523 08/01/17 0523 Other Results Laboratory Tests Test 07/31/17 08:45 07/31/17 13:00 07/31/17 14:42 07/31/17 15:55 Urine Color YELLOW Urine Turbidity CLEAR Urine pH 7.0 Urine Specific [place] 1.019 Urine Protein 30 mg/dL Urine Glucose (UA) NEG mg/dL Urine Ketones NEG mg/dL Urine Occult Blood NEG Urine Nitrite NEG Urine Bilirubin NEG Urine Urobilinogen GREATER THAN 12.0 MG/DL Urine Leukocyte Esterase NEG Urine RBC LESS THAN 1 /hpf Urine WBC LESS THAN 1 /hpf Urine Squamous Epithelial Cells <1 /hpf Microscopic Urinalysis Comment CULT NOT INDICATED Urine Opiates Screen NEG Urine Barbiturates Screen NEG Urine Amphetamines Screen NEG Urine Benzodiazepines Screen NEG Urine Cocaine Screen NEG Urine Cannabinoids Screen POS Nasal Screen MRSA (PCR) MRSA NOT DETECTED Total Bilirubin 0.9 MG/DL Direct Bilirubin 0.6 MG/DL Indirect Bilirubin 0.3 MG/DL Blood Gas Puncture Site LT RADIAL Blood Gas Patient Temperature 98.6 Blood Gas HCO3 16 mmol/L Blood Gas Base Excess -8.0 mmol/L Blood Gas Oxygen Saturation 94 % Arterial Blood pH 7.41 Arterial Blood Partial Pressure CO2 26 mmHg Arterial Blood Partial Pressure O2 80 mmHg Arterial Blood Oxygen Content 13.6 Vol % Arterial Blood Carboxyhemoglobin 0.7 % Arterial Blood Methemoglobin 1.1 % Blood Gas Hemoglobin 10.2 G/DL Oxygen Delivery Device Non-Rebreathing Mask Blood Gas Inspired Oxygen 100 % Test 07/31/17 17:35 07/31/17 17:46 08/01/17 05:23 Blood Urea Nitrogen 9 MG/DL 11 MG/DL Creatinine 0.83 MG/DL 0.65 MG/DL Random Glucose 159 MG/DL 111 MG/DL Calcium Level 7.5 MG/DL 7.5 MG/DL Phosphorus Level 2.2 MG/DL Magnesium Level 1.6 MG/DL Sodium Level 141 MEQ/L 140 MEQ/L Potassium Level 2.4 MEQ/L 2.8 MEQ/L Chloride Level 107 MEQ/L 108 MEQ/L Carbon Dioxide Level 18.4 MEQ/L 19.5 MEQ/L Anion Gap 16 MEQ/L 13 MEQ/L Estimat Glomerular Filtration Rate 86 ML/MIN 114 ML/MIN White Blood Count 8.1 TH/MM3 13.3 TH/MM3 Red Blood Count 3.40 MIL/MM3 3.55 MIL/MM3 Hemoglobin 9.8 GM/DL 10.1 GM/DL Hematocrit 29.5 % 30.7 % Mean Corpuscular Volume 86.8 FL 86.6 FL Mean Corpuscular Hemoglobin 28.8 PG 28.4 PG Mean Corpuscular Hemoglobin Concent 33.1 % 32.8 % Red Cell Distribution Width 12.7 % 12.6 % Platelet Count 128 TH/MM3 139 TH/MM3 Mean Platelet Volume 9.2 FL 9.0 FL Neutrophils (%) (Auto) 95.5 % 92.8 % Lymphocytes (%) (Auto) 2.0 % 2.4 % Monocytes (%) (Auto) 2.4 % 4.7 % Eosinophils (%) (Auto) 0.0 % 0.0 % Basophils (%) (Auto) 0.1 % 0.1 % Neutrophils # (Auto) 7.7 TH/MM3 12.3 TH/MM3 Lymphocytes # (Auto) 0.2 TH/MM3 0.3 TH/MM3 Monocytes # (Auto) 0.2 TH/MM3 0.6 TH/MM3 Eosinophils # (Auto) 0.0 TH/MM3 0.0 TH/MM3 Basophils # (Auto) 0.0 TH/MM3 0.0 TH/MM3 CBC Comment DIFF FINAL DIFF FINAL Differential Comment Imaging Last Impressions CT Angiography 07/31/17 0835 Signed Impressions: Service Date/Time: Monday, July 31, 2017 09:30 - CONCLUSION: No evidence of pulmonary embolism. Extensive bilateral groundglass infiltrates. Jamshid Means MD Chest X-Ray 07/31/17 0728 Signed Impressions: Service Date/Time: Monday, July 31, 2017 07:33 - CONCLUSION: No acute disease. Tramaine Do MD Liver Ultrasound 07/31/17 0000 Signed Impressions: Service Date/Time: Monday, July 31, 2017 17:48 - CONCLUSION: 1. Cholecystectomy. 2. A few tiny calcifications are seen a cyst of the right kidney. The largest measures 3 mm in the midpole suggestive of nonobstructing stone. Wayne Harkins MD Objective Remarks GENERAL: Patient is 57 yo intubated for resp failure SKIN: Warm and dry. HEAD: Normocephalic. EYES: No scleral icterus. No injection or drainage. NECK: Supple, trachea midline. No JVD or lymphadenopathy. CARDIOVASCULAR: Regular rate and rhythm without murmurs, gallops, or rubs. RESPIRATORY: Breath sounds equal bilaterally. No accessory muscle use. GASTROINTESTINAL: Abdomen soft, non-tender, nondistended. MUSCULOSKELETAL: No cyanosis, or edema. Neuro: sedated, intubated A/P Assessment and Plan 1. Acute hypoxemic respiratory failure... intubated 08/01 2. Bilateral extensive ground-glass infiltrates. Differential diagnosis infectious process versus inflammatory process, fluid overload doubt. 3. Bronchial asthma exacerbation. 4. Elevated liver enzymes. 5. Diabetes mellitus. Plan Neuro: Diprivan and Fentnayl infusion for sedation and vent synchrony. Monitor neuro status . Daily sedation vacation when appropriate. UDS in ED positive for cannabinoids. Pulm: Continue with vent support keep sat> 92%. Bronchodilators- DuoNeb, Pulmicort nebs Solu-Medrol 125 mg IV q. 6 hours. Pulm is following Will likely need bronch with BAL when stable. Check CXR/ABG post intubation. CV: Monitor HR and BP and maintain MAP> 65mmHg. Check echo to eval LV function GI: On Pepcid 20 mg q. 12 for GI prophylaxis. Start tube feeds- Glucerna 1.5 with goal rate 45ml/hr Monitor LFT's, US liver: Cholecystectomy. A few tiny calcifications are seen a cyst of the right kidney. The largest measures 3 mm in the midpole suggestive of nonobstructing stone Follow up on Hepatitis profile : Monitor renal function, electrolytes replacement per protocol. Will need K replacement today. d/c IVF ID: Continue with abx (vancomycin, Zosyn and azithromycin) Monitor for signs infection( fever and WBC). nasal washing is negative for influenza in the ED. Strep pneumoniae and Legionella urinary antigen pendin Check sputum cx. Follow up on HIV test . Endo:SSI with Accu-Cheks for glycemic Heme: Monitor CBC. Check EVAN GI prophylaxis with Pepcid and DVT prophylaxis with SCDs and heparin subcu. Level 3 Kristen Knowles MD Aug 01, 2017 08:03
--- NOTE | 2017-08-01 08:31 | MB ---
cc: SEBASTIAN FLEMING DATE OF CONSULTATION 07/31/[address] Bahena REASON FOR CONSULTATION Shortness of breath. HISTORY OF PRESENT ILLNESS Ms. Griggs is a 57-year-old female with a longstanding history of asthma. She has a history of smoking and continues to smoke until recently. She has not been feeling well for the last three days or so. She has an increasing shortness of breath, had low grade fever and had nausea. She complains of chronic back pain. She does not have any fevers or chills. Does not have any headache. With these symptoms, she came to the hospital. She was found to be hypoxic. She had a blood gas done which showed a pH 7.41, pCO2 26, pO2 80 on 100% non-rebreather. CBC showed a WBC count of 8.1, hemoglobin 9.8, hematocrit 29.5, MCV 36.8, platelet count 128. Sodium 141, potassium 2.4, chloride 107, CO2 18, BUN 9, creatinine 0.83. She had a CT of the chest that shows no pulmonary embolism, but shows extensive bilateral ground-glass infiltrate. PAST MEDICAL HISTORY Significant for a history of: 1. Bronchial asthma and COPD 2. Hypertension 3. Diabetes mellitus 4. Cholecystectomy 5. Tubal ligation MEDICATIONS She is currently takin. Heparin 5000 q.12 h. 2. Zosyn IV 3. Vancomycin IV 4. Famotidine 20 mg x89-cfyp 5. Solu-Medrol 60 mg q6 6. Albuterol nebulizer treatment 7. Atrovent nebulizer treatment 8. Zithromax 500 mg a day ALLERGIES NO KNOWN DRUG ALLERGIES. SOCIAL HISTORY She is single. She has a history of smoking and used to drink socially. She is disabled. FAMILY HISTORY She has no children. She lives alone. REVIEW OF SYSTEMS The patient says normally she is up, around and active. No history of DVT or pulmonary embolism. No seizure or epilepsy. PHYSICAL EXAM This is a thinly built female mild to moderately short of breath. VITAL SIGNS: Blood pressure 141/68, heart rate 102, respirations 13, temperature 98.6. HEENT: Pupils are equal and reactive to light. Oral mucosa and nasal mucosa normal. NECK: Supple. JVP not raised. CHEST: He has expiratory rhonchi. CARDIOVASCULAR: S1 and S2 normal. ABDOMEN: Soft, nondistended, nontender. Bowel sounds present. EXTREMITIES: No edema. IMPRESSION 1. COPD with exacerbation 2. Hypoxia, no pulmonary embolism. 3. Bilateral extensive ground-glass infiltrate possible Infection, possibility of hypoxia due to infectious or inflammatory process. 4. Hypertension 5. Diabetes mellitus PLAN We will give her Solu-Medrol 125 mg q. 6-hour. Supplement her oxygen. Continue antibiotic Zosyn, vancomycin and Zithromax. He is on subcu heparin. Supplement oxygen to keep the saturation greater than 90%. If she is not able to maintain saturation, she will need a BiPap or even intubation which she agrees at this point. Further treatment will depend upon the course in the hospital. Thank you, Dr. Bahena for this consult. MD JAYNE Mohan/CLARICE /8:17 PM /8:10 AM VANDANA
[2017-08-01] MEDS: POTASSIUM CHLOR 20 MEQ PREMIX 100 ML IV PRN ×4 (08:34→14:40)
[2017-08-01] MEDS: SODIUM CHLORIDE 0.9% FLUSH 10 ML FLUSH IV FLUSH SCH ×2 (08:35→20:47)
[2017-08-01 08:37] LABS: ALBUMIN 2.8 GM/DL (3.4-5.0); DIRECT BILIRUBIN ADULT 0.4 MG/DL (0.0-0.2); MAGNESIUM 1.4 MG/DL (1.5-2.5)
[2017-08-01 08:40] LABS: INDIRECT BILIRUBIN 0.3 MG/DL (0.0-0.8); TOTAL BILIRUBIN ADULT 0.7 MG/DL (0.2-1.0); TOTAL PROTEIN 7.2 GM/DL (6.4-8.2)
[2017-08-01] MEDS: HEPARIN SODIUM - SQ 10,000 UNITS/ML VIAL SQ SCH ×2 (08:43→20:47)
[2017-08-01] MEDS: CHLORHEXIDINE 0.12% (ORAL KIT) 15 ML CUP MT SCH ×2 (08:44→20:47)
[2017-08-01] MEDS ORDERED: NICOTINE 21 MG/24 HR PATCH TD SCH (09:00)
--- NOTE | 2017-08-01 09:00 | RADRPT ---
EXAM DATE/TIME: 08/01/2017 08:07 [place] COMPARISON: CT PULMONARY ANGIOGRAM, July 31, 2017, 9:30. CHEST SINGLE AP, July 31, 2017, 7:33. INDICATIONS : Post intubation. MEDICAL HISTORY : Chronic obstructive pulmonary disease. Asthma. Diabetes. Tobacco use. SURGICAL HISTORY : Cholecystectomy. ENCOUNTER: Subsequent ACUITY: 1 day PAIN SCORE: Non-responsive. LOCATION: Bilateral chest FINDINGS: There is an ETT with tip approximately 1 sinus above the jeromy. NGT courses beyond the GE junction w ith tip omitted from the image. Diffuse interstitial and bibasilar opacities in the mid to lower lung zones. Cardiomediastinal contours are stable. Remainder of the exam is unchanged. CONCLUSION: 1. ETT 1 cm is above the jeromy. NGT beyond the GE junction. 2. Diffuse interstitial and ground glass opacities in the mid to lower lung zones bilaterally. Differ ential considerations include pulmonary edema versus developing ARDS versus atypical infection. Moose Armijo MD on August 01, 2017 at 8:54 Board Certified Radiologist. This report was verified electronically.
--- NOTE | 2017-08-01 09:01 | PD.ID.CON ---
History of Present Illness Service ID Consult Requested By Reason for Consult Evaluation and management of pneumonia with ground glass of opacities possible PCP Primary Care Physician Jamshid Braxton M.D. Diagnoses: History of Present Illness Most of the history was obtained by review of medical records. Ms. Griggs is a 57-year-old female with history significant for asthma was also an active smoker, diabetes mellitus. With this background patient presents to [facility] emergency department with a three-day history of shortness of breath that was reportedly worsening. She also reported a productive cough with green thick phlegm and subjective fever and chills. No reported history of hemoptysis prior to admission. On arrival to the ED she was tachypneic, tachycardiac and placed on a non- rebreather mask. ABGs on 8 liters simple mask showed a pH of 7.48, CO2 29, pAO2 52, bicarb 22 and sats of 86%. Chest x-ray in the ED showed no acute disease. The patient subsequently underwent CT angiogram of the chest which showed no evidence of pulmonary embolism but showed extensive bilateral ground- glass infiltrates. WBC on admission was normal and she had no fevers so far during this admission. Influenza antigen test was done which is negative. Legionella and pneumococcal antigen is negative. No blood cultures in [facility]. She was initially admitted to [facility] under Dr. Bahena. The patient had worsening respiratory distress and Critical Care medicine was consulted for critical care management. She was on a non-rebreather mask with a saturation of 95%. Repeat ABGs showed a pH of 7.40, CO2 25, pAO2 79, bicarb 16 and saturation of 94%. The patient was given bronchodilators and steroids. Due to worsening respiratory status patient was intubated this am. At the time of my evaluation patient is in the ICU currently intubated on 75% FiO2 with PEEP of 5, secretions not much is reported to me by nurse taking care of the patient. Currently not on any pressors has not received any fluid boluses. Urine output is good. No rash no diarrhea. Infectious disease is consulted for evaluation and management of pneumonia in patient groundglass opacities possible PCP pneumonia Review of Systems ROS Limitations: Intubated Past Family Social History Allergies: Coded Allergies: No Known Allergies (Unverified , 07/31/17) Past Medical History COPD Asthma Diabetes mellitus Past Surgical History Cholecystectomy Bilateral tubal ligation Bilateral leg surgeries. Reported Medications Reported Meds & Active Scripts Active Reported Albuterol Neb (Albuterol Sulfate) 2.5 Mg/3 Ml Neb 2.5 Mg NEB Q4HR NEB PRN Ventolin Hfa 18 GM Inh (Albuterol Sulfate) 90 Mcg/Act Aer 2 Puff INH Q4-6H PRN Metformin (Metformin HCl) 500 Mg Tab 500 Mg PO BIDPC Active Ordered Medications Current Medications Medications (Trade) Dose Ordered Sig/Delia Route Start Time Stop Time Status Last Admin (NS Flush) 2 ml UNSCH PRN IVF 07/31/17 07:30 Azithromycin 500 mg/Sodium Chloride 250 ml @ 250 mls/hr Q24H IV 07/31/17 11:00 07/31/17 10:39 (NS Flush) 2 ml BID IV FLUSH 07/31/17 21:00 08/01/17 08:35 (NS Flush) 2 ml UNSCH PRN IV FLUSH 07/31/17 10:30 (Duoneb Neb) 1 ampule Q4HR NEB INH 07/31/17 12:00 08/01/17 07:29 (Albuterol Neb) 2.5 mg Q2HR NEB PRN INH 07/31/17 10:30 07/31/17 12:55 (Roxicodone) 5 mg Q6H PRN PO 07/31/17 13:45 08/01/17 07:03 Piperacillin Sod/ Tazobactam Sod 100 ml @ 200 mls/hr Q6H IV 07/31/17 18:00 08/01/17 06:24 Vancomycin HCl 1000 mg/Sodium Chloride 250 ml @ 250 mls/hr Q12H IV 07/31/17 17:00 08/01/17 04:01 (Pepcid Inj) 20 mg Q12H IV PUSH 07/31/17 18:00 08/01/17 06:23 (Heparin Inj) 5,000 units Q12HR SQ 07/31/17 21:00 08/01/17 08:43 (D50w (Vial) Inj) 50 ml UNSCH PRN IV PUSH 07/31/17 16:15 (Glucagon Inj) 1 mg UNSCH PRN OTHER 07/31/17 16:15 (NovoLIN R SUPPLEMENTAL SCALE) 1 Q6H SQ 07/31/17 17:00 07/31/17 23:00 (Pulmicort Respule Neb) 0.25 mg Q12HR NEB NEB 07/31/17 16:15 08/01/17 07:29 (SoluMEDROL INJ) 125 mg Q6H IV PUSH 08/01/17 02:00 08/01/17 07:27 Potassium Chloride 100 ml @ 50 mls/hr Q2H PRN IV 07/31/17 21:00 Potassium Chloride 100 ml @ 50 mls/hr Q2H PRN IV 07/31/17 21:00 08/01/17 08:34 (K-Lyte Cl Eff) 50 meq UNSCH PRN PO 07/31/17 21:00 Potassium Chloride 100 ml @ 25 mls/hr UNSCH PRN IV 07/31/17 21:00 Potassium Chloride 100 ml @ 50 mls/hr Q2H PRN IV 07/31/17 21:00 Magnesium Sulfate 4 gm/Sodium Chloride 100 ml @ 50 mls/hr UNSCH PRN IV 07/31/17 21:00 (Mag-Ox) 800 mg UNSCH PRN PO 07/31/17 21:00 Magnesium Sulfate 2 gm/Sodium Chloride 100 ml @ 50 mls/hr UNSCH PRN IV 07/31/17 21:00 (K-Phos) 2,000 mg Q4H PRN PO 07/31/17 21:00 Sodium Phosphate 30 mmol/Sodium Chloride 250 ml @ 42 mls/hr UNSCH PRN IV 07/31/17 21:00 (K-Phos) 2,000 mg UNSCH PRN PO/TUBE 07/31/17 21:00 Potassium Phosphate 30 mmol/ Sodium Chloride 260 ml @ 42 mls/hr UNSCH PRN IV 07/31/17 21:00 07/31/17 22:52 (Zofran Inj) 4 mg Q6HR PRN IV PUSH 08/01/17 05:30 (Peridex 0.12% Liq) 15 ml BID@08,20 MT 08/01/17 08:00 08/01/17 08:44 Propofol 100 ml @ 1.5 mls/hr TITRATE PRN IV 08/01/17 08:00 Fentanyl Citrate 250 ml @ 5 mls/hr TITRATE PRN IV 08/01/17 08:00 Pharmacy Profile Note 0 ml @ 0 mls/hr UNSCH OTHER 08/01/17 09:15 Family History Could not be obtained. Social History Per review of notes: Patient smoked one pack per day for past 20 years. She says she quit one week ago. Drinks alcohol occasionally. Denies any illicit drugs. Lives alone. Niece as next of kin on file. Physical Exam Vital Signs Vital Signs Date Time Temp Pulse Resp B/P (MAP) Pulse Ox O2 Delivery O2 Flow Rate FiO2 08/01/17 08:45 75 08/01/17 07:29 99 Non-Rebreather 15.00 08/01/17 06:00 101 08/01/17 04:00 98.3 109 37 145/71 (95) 93 08/01/17 04:00 109 08/01/17 02:02 29 08/01/17 02:00 98 08/01/17 00:00 103 08/01/17 00:00 97.7 103 39 134/71 (92) 95 07/31/17 22:00 98 07/31/17 20:00 99 Non-Rebreather 15.00 100 07/31/17 20:00 97 07/31/17 20:00 98.4 97 34 141/72 (95) 94 07/31/17 19:58 96 Non-Rebreather 07/31/17 18:00 96 07/31/17 16:00 98.6 102 37 141/68 (92) 94 07/31/17 16:00 102 07/31/17 14:00 107 07/31/17 12:52 98.4 106 34 136/63 (87) 98 07/31/17 12:51 106 07/31/17 12:51 98 Non-Rebreather 15.00 100 07/31/17 12:34 106 24 136/67 (90) 99 Non-Rebreather 15.00 07/31/17 12:34 07/31/17 10:21 105 30 129/69 (89) 99 Non-Rebreather 15.00 Physical Exam GENERAL: Thin built poorly nourished patient, in no apparent distress. SKIN: No rashes. Old track landin noted. HEAD: Atraumatic. Normocephalic. No temporal or scalp tenderness. EYES: Pupils equal round and reactive. Extraocular motions intact. No scleral icterus. No injection or drainage. ENT: Intubated. NECK: Trachea midline. Supple, nontender, no meningeal signs. CARDIOVASCULAR: HS audible. RESPIRATORY: Clear to auscultation. Breath sounds equal bilaterally. GASTROINTESTINAL: Abdomen soft, non-tender, nondistended. MUSCULOSKELETAL: Extremities without clubbing, cyanosis, or edema. No joint tenderness, effusion, or edema noted. NEUROLOGICAL: Sedated. Non focal exam. Psych cooperative IV line sites with no e.o infection. Laboratory Laboratory Tests Test 07/31/17 13:00 07/31/17 14:42 07/31/17 15:55 07/31/17 17:35 Nasal Screen MRSA (PCR) MRSA NOT DETECTED Total Bilirubin 0.9 Direct Bilirubin 0.6 Indirect Bilirubin 0.3 Blood Gas Puncture Site LT RADIAL Blood Gas Patient Temperature 98.6 Blood Gas HCO3 16 Blood Gas Base Excess -8.0 Blood Gas Oxygen Saturation 94 Arterial Blood pH 7.41 Arterial Blood Partial Pressure CO2 26 Arterial Blood Partial Pressure O2 80 Arterial Blood Oxygen Content 13.6 Arterial Blood Carboxyhemoglobin 0.7 Arterial Blood Methemoglobin 1.1 Blood Gas Hemoglobin 10.2 Oxygen Delivery Device Non-Rebreathing Mask Blood Gas Inspired Oxygen 100 Blood Urea Nitrogen 9 Creatinine 0.83 Random Glucose 159 Calcium Level 7.5 Phosphorus Level 2.2 Magnesium Level 1.6 Sodium Level 141 Potassium Level 2.4 Chloride Level 107 Carbon Dioxide Level 18.4 Anion Gap 16 Estimat Glomerular Filtration Rate 86 Test 07/31/17 17:46 08/01/17 05:23 White Blood Count 8.1 13.3 Red Blood Count 3.40 3.55 Hemoglobin 9.8 10.1 Hematocrit 29.5 30.7 Mean Corpuscular Volume 86.8 86.6 Mean Corpuscular Hemoglobin 28.8 28.4 Mean Corpuscular Hemoglobin Concent 33.1 32.8 Red Cell Distribution Width 12.7 12.6 Platelet Count 128 139 Mean Platelet Volume 9.2 9.0 Neutrophils (%) (Auto) 95.5 92.8 Lymphocytes (%) (Auto) 2.0 2.4 Monocytes (%) (Auto) 2.4 4.7 Eosinophils (%) (Auto) 0.0 0.0 Basophils (%) (Auto) 0.1 0.1 Neutrophils # (Auto) 7.7 12.3 Lymphocytes # (Auto) 0.2 0.3 Monocytes # (Auto) 0.2 0.6 Eosinophils # (Auto) 0.0 0.0 Basophils # (Auto) 0.0 0.0 CBC Comment DIFF FINAL DIFF FINAL Differential Comment Blood Urea Nitrogen 11 Creatinine 0.65 Random Glucose 111 Calcium Level 7.5 Sodium Level 140 Potassium Level 2.8 Chloride Level 108 Carbon Dioxide Level 19.5 Anion Gap 13 Estimat Glomerular Filtration Rate 114 Phosphorus Level 4.0 Magnesium Level 1.4 Total Bilirubin 0.7 Direct Bilirubin 0.4 Indirect Bilirubin 0.3 Aspartate Amino Transf (AST/SGOT) 77 Alanine Aminotransferase (ALT/SGPT) 61 Alkaline Phosphatase 88 Total Protein 7.2 Albumin 2.8 Date/Time Source Procedure Growth Status 07/31/17 07:45 Nasal Washing Influenza Types A,B Antigen (SHAWN) - Final NEGATIVE FOR FLU A AND B ANTIGEN.... Complete 07/31/17 08:45 Urine Catheterized Urine Legionella Antigen - Final PRESUMPTIVE NEGATIVE FOR LEGIONELLA P... Complete 07/31/17 08:45 Urine Catheterized Urine Streptococcus pneumoniae Antigen (M - Final PRESUMPTIVE NEGATIVE FOR STREPTOCOCCU... Complete Result Diagram: 08/01/17 0523 08/01/17 0523 Imaging Last Impressions Chest X-Ray 08/01/17 0000 Signed Impressions: Service Date/Time: Tuesday, August 01, 2017 08:07 - CONCLUSION: 1. ETT 1 cm is above the jeromy. NGT beyond the GE junction. 2. Diffuse interstitial and ground glass opacities in the mid to lower lung zones bilaterally. Differential considerations include pulmonary edema versus developing ARDS versus atypical infection. Moose Armijo MD CT Angiography 07/31/17 0835 Signed Impressions: Service Date/Time: Monday, July 31, 2017 09:30 - CONCLUSION: No evidence of pulmonary embolism. Extensive bilateral groundglass infiltrates. Jamshid Means MD Liver Ultrasound 07/31/17 0000 Signed Impressions: Service Date/Time: Monday, July 31, 2017 17:48 - CONCLUSION: 1. Cholecystectomy. 2. A few tiny calcifications are seen a cyst of the right kidney. The largest measures 3 mm in the midpole suggestive of nonobstructing stone. Wayne Harkins MD Assessment and Plan Assessment and Plan Pneumonia with Ground glass opacities DDX: Atypical pneumonia, PCP, Fungal, Hypersensitivity pneumonitis( Aspergillus) Acute resp failure on vent. Asthma acute exacerbation. Abnormal liver function tests: sepsis, r/o Hepatitis C DM2 uncontrolled. Recs: Continue Zosyn IV Continue Vanco IV (changed target 15-20) Continue Azithro IV Sputum cultures and gram stain Sputum Fungal culture and stain Check Resp panel adult (includes influenza PCR) Blood cultures x 2 Bronchoscopy when stable. Please send routine cultures for bacterial, fungal and AFB cultures. In addition please send virus culture and GMS stain. For GMS stain please place an order on paper chart "GMS stain for PCP" and have community health advisor fax to pathology issues. Check LDH. Check Cryptococcal antigen Check Fungal Abs. Check CD4 count. Follow HIV antigen. Follow cultures Follow clinically. Critically ill. Sherry Begum MD Aug 01, 2017 09:01
[2017-08-01] MEDS ORDERED: Vancomycin Consult Pharmacy 1 EA OTHER SCH (09:15)
[2017-08-01] MEDS: PROPOFOL 1000 MG/100 ML INJ 100 ML IV PRN ×3 (10:26→23:08)
[2017-08-01] MEDS: AZITHROMYCIN INJ 500 MG in SODIUM CHLOR 0.9% 250 ML INJ 250 ML IV SCH (10:43)
[2017-08-01] MEDS: fentaNYL DRIP 250 ML IV PRN ×2 (12:00→18:12)
[2017-08-01] MEDS ORDERED: RASS Change Order XX ONE (12:15)
[2017-08-01 12:52] LABS: HEPATITIS A AB IGM NEGATIVE (NEGATIVE); HEPATITIS B CORE AB IGM NEGATIVE (NEGATIVE); HEPATITIS B SURFACE ANTIGEN NEGATIVE (NEGATIVE); HEPATITIS C AB IgG REACTIVE (NEGATIVE)
[2017-08-01] MEDS: MIDAZOLAM 100 MG/NS 100 ML DRIP Premix IV PRN (13:00)
--- NOTE | 2017-08-01 19:39 | HHI.PR ---
Subjective Remarks 57 YOAA female with VDRF, Bilat infilt, DM Intubated today Sedated no fever No pressors Objective Vital Signs Vital Signs Date Time Temp Pulse Resp B/P (MAP) Pulse Ox O2 Delivery O2 Flow Rate FiO2 08/01/17 18:00 68 08/01/17 16:48 96 65 08/01/17 16:00 65 08/01/17 16:00 98.7 75 18 96/66 (76) 08/01/17 16:00 75 08/01/17 14:48 100 55 08/01/17 14:00 75 08/01/17 13:12 95 65 08/01/17 12:00 65 08/01/17 12:00 98.6 83 18 92/60 (71) 92 08/01/17 12:00 83 08/01/17 11:24 93 50 08/01/17 10:00 109 08/01/17 09:44 100 50 08/01/17 08:45 75 08/01/17 08:06 100 75 08/01/17 08:00 144 08/01/17 08:00 98.4 144 23 175/99 (124) 99 08/01/17 07:29 99 Non-Rebreather 15.00 08/01/17 07:00 Mechanical Ventilator 75 08/01/17 06:00 101 08/01/17 04:00 98.3 109 37 145/71 (95) 93 08/01/17 04:00 109 08/01/17 02:02 29 08/01/17 02:00 98 08/01/17 00:00 103 08/01/17 00:00 97.7 103 39 134/71 (92) 95 07/31/17 22:00 98 07/31/17 20:00 99 Non-Rebreather 15.00 100 07/31/17 20:00 97 07/31/17 20:00 98.4 97 34 141/72 (95) 94 07/31/17 19:58 96 Non-Rebreather I/O 07/31/17 07/31/17 07/31/17 08/01/17 08/01/17 08/01/17 07:00 15:00 23:00 07:00 15:00 23:00 Intake Total 1350 ml 468 ml 1512 ml 100 ml 0 ml Output Total 100 ml 900 ml 400 ml Balance 1250 ml 468 ml 612 ml 100 ml -400 ml Intake Oral 50 ml 0 ml IV Total 1350 ml 418 ml 1512 ml 100 ml Output Urine Total 100 ml 900 ml 400 ml # Voids 1 2 # Bowel Movements 0 Result Diagram: 08/01/1752208/01/17522 Objective Remarks GENERAL: MBMN AA female, on vent, sedated SKIN: Warm and dry. HEAD: Normocephalic. EYES: No scleral icterus. No injection or drainage. NECK: Supple, trachea midline. No JVD or lymphadenopathy. CARDIOVASCULAR: Regular rate and rhythm without murmurs, gallops, or rubs. RESPIRATORY: Breath sounds equal bilaterally. No accessory muscle use. GASTROINTESTINAL: Abdomen soft, non-tender, nondistended. MUSCULOSKELETAL: No cyanosis, or edema. BACK: Nontender without obvious deformity. No CVA tenderness. A/P Assessment and Plan VDRF Bilat Ground glass infilt, inf, hypersensitivity or fungal pn COPD DM PLAN: Cont vent support Abx vanco, Zithro, Zosyn Aerosol fatoumata johnson, Halle following, bronch in AM Miguel,Alex Gonsalves MD Aug 01, 2017 19:39
[2017-08-01] MEDS ORDERED: REMOVE OLD NICODERM (NICOTINE) PATCH T-DERMAL SCH (21:00)
[2017-08-02] VITALS (36 sets, daily range): BP systolic 102–149; BP diastolic 63–80; PULSE 55–101; RESP 19–46; TEMP 97.5–99.4; O2SAT 88–100
[2017-08-02] MEDS: methylPREDNISolone SOD SUCC 125 MG/2 ML VIAL IV PUSH SCH ×4 (02:19→20:25)
[2017-08-02] MEDS: RESP: ALBUTEROL 2.5 MG/IPRATROPIUM 0.5 MG NEB (SCH) INH ×6 (03:14→23:16)
[2017-08-02] MEDS: fentaNYL DRIP 250 ML IV PRN ×2 (04:41→17:59)
[2017-08-02] MEDS: VANCOMYCIN INJ 1,000 MG in SODIUM CHLOR 0.9% 250 ML INJ 250 ML IV SCH ×2 (04:44→16:20)
[2017-08-02] MEDS ORDERED: PHARMACY ORDERED LAB ONE (04:45)
[2017-08-02] MEDS: PIPERACIL-TAZO 4.5 GM PREMIX 100 ML IV SCH ×4 (04:58→23:19)
[2017-08-02] MEDS: FAMOTIDINE 20 MG/2 ML VIAL IV PUSH SCH ×2 (04:58→17:19)
[2017-08-02] MEDS: INSULIN NovoLIN REGULAR SUPPLEMENTAL SCALE SQ SCH ×4 (05:00→23:00)
[2017-08-02 05:21] LABS: AUTOMATED NEUTROPHIL # 11.8 TH/MM3 (1.8-7.7); BASOPHIL % 0.2 % (0.0-2.0); HEMATOCRIT 29.9 % (35.0-46.0); HEMOGLOBIN 9.9 GM/DL (11.6-15.3); LYMPH % 1.6 % (9.0-44.0); LYMPHOCYTE # 0.2 TH/MM3 (1.0-4.8); MEAN CELL VOLUME 87.1 FL (80.0-100.0); MEAN CORPUSCULAR HEMOGLOBIN 28.9 PG (27.0-34.0); MEAN CORPUSCULAR HGB CONC 33.2 % (32.0-36.0); MEAN PLATELET VOLUME 9.2 FL (7.0-11.0); MONO % 4.4 % (0.0-8.0); MONOCYTE # 0.5 TH/MM3 (0-0.9); NEUT % 93.8 % (16.0-70.0); PLATELET COUNT 153 TH/MM3 (150-450); RED BLOOD COUNT 3.43 MIL/MM3 (4.00-5.30); RED CELL DISTRIBUTION WIDTH 12.7 % (11.6-17.2); WHITE BLOOD COUNT 12.6 TH/MM3 (4.0-11.0)
[2017-08-02 05:48] LABS: ALBUMIN 2.5 GM/DL (3.4-5.0); BICARBONATE 20.3 MEQ/L (21.0-32.0); CALCIUM 7.4 MG/DL (8.5-10.1); CALCIUM-PROTEIN CORRECTED 7.7 MG/DL (8.5-10.1); CREATININE 0.7 MG/DL (0.50-1.00); TOTAL BILIRUBIN ADULT 0.9 MG/DL (0.2-1.0); TOTAL PROTEIN 6.5 GM/DL (6.4-8.2)
[2017-08-02] MEDS: RESP: BUDESONIDE 0.25 MG/2 ML NEB NEB SCH ×2 (07:47→20:08)
[2017-08-02] MEDS: CHLORHEXIDINE 0.12% (ORAL KIT) 15 ML CUP MT SCH ×2 (08:00→20:25)
--- NOTE | 2017-08-02 08:57 | HHI.CCPN ---
Subjective Remarks/Hospital Course Patient is a 57-year-old female with past medical history of bronchial asthma, active smoker, diabetes mellitus, who presented to [facility] ED with a three day history of worsening shortness of breath. She also reports a productive cough with green, thick phlegm and subjective fever and chills. She denies any exposure to sick contacts. In addition she denies any hemoptysis. On arrival to the ED she was tachypneic, tachycardiac and placed on a non- rebreather mask. ABGs on 8 liters simple mask from early this morning showed a pH of 7.48, CO2 29, pAO2 52, bicarb 22 and sats of 86%. Chest x-ray in the ED showed no acute disease. The patient subsequently underwent CT angiogram of the chest which showed no evidence of pulmonary embolism; however, it showed extensive bilateral ground-glass infiltrates. Her laboratory data is significant for elevated liver enzymes. No history of any fever or leukocytosis. She was initially admitted to [facility] under Dr. Bahena. The patient had worsening respiratory distress and Critical Care medicine was consulted for critical care management. She remains on a non-rebreather mask with a saturation of 95%. Repeat ABGs showed a pH of 7.40, CO2 25, pAO2 79, bicarb 16 and saturation of 94%. The patient was given bronchodilators and steroids. 08/01 Patient was intubated this morning by myself for worsening resp status. Now intubated and sedated. Afebrile. 08/02 No events overnight. Sedated and intubated. Afebrile. Objective Vital Signs Date Time Temp Pulse Resp B/P (MAP) Pulse Ox O2 Delivery O2 Flow Rate FiO2 08/02/17 07:40 94 40 08/02/17 06:00 65 08/02/17 04:00 97.6 20 102/63 (76) 08/01/17 20:00 Mechanical Ventilator 08/01/17 07:29 15.00 Intake and Output 08/02/17 08/02/17 08/03/17 08:00 16:00 00:00 Intake Total 929 ml Output Total 200 ml Balance 729 ml Result Diagram: 08/02/17 0425 08/02/17 0425 Other Results Laboratory Tests Test 08/01/17 09:30 08/01/17 11:25 08/01/17 12:57 08/01/17 20:40 Blood Gas Puncture Site RT RADIAL LT RADIAL Blood Gas Patient Temperature 98.6 98.6 Blood Gas HCO3 21 mmol/L 20 mmol/L Blood Gas Base Excess -6.7 mmol/L -6.4 mmol/L Blood Gas Oxygen Saturation 97 % 85 % Arterial Blood pH 7.17 7.25 Arterial Blood Partial Pressure CO2 58 mmHg 47 mmHg Arterial Blood Partial Pressure O2 190 mmHg 65 mmHg Arterial Blood Oxygen Content 16.0 Vol % 11.7 Vol % Arterial Blood Carboxyhemoglobin 0.1 % 0.6 % Arterial Blood Methemoglobin 1.2 % 1.4 % Blood Gas Hemoglobin 11.4 G/DL 9.8 G/DL Oxygen Delivery Device VENTILATOR VENTILATOR Blood Gas Ventilator Setting PRVC/AC PRVC/AC Blood Gas Inspired Oxygen 75 % 50 % Lactate Dehydrogenase 523 U/L Potassium Level 3.8 MEQ/L Test 08/02/17 04:25 White Blood Count 12.6 TH/MM3 Red Blood Count 3.43 MIL/MM3 Hemoglobin 9.9 GM/DL Hematocrit 29.9 % Mean Corpuscular Volume 87.1 FL Mean Corpuscular Hemoglobin 28.9 PG Mean Corpuscular Hemoglobin Concent 33.2 % Red Cell Distribution Width 12.7 % Platelet Count 153 TH/MM3 Mean Platelet Volume 9.2 FL Neutrophils (%) (Auto) 93.8 % Lymphocytes (%) (Auto) 1.6 % Monocytes (%) (Auto) 4.4 % Eosinophils (%) (Auto) 0.0 % Basophils (%) (Auto) 0.2 % Neutrophils # (Auto) 11.8 TH/MM3 Lymphocytes # (Auto) 0.2 TH/MM3 Monocytes # (Auto) 0.5 TH/MM3 Eosinophils # (Auto) 0.0 TH/MM3 Basophils # (Auto) 0.0 TH/MM3 CBC Comment DIFF FINAL Differential Comment Blood Urea Nitrogen 18 MG/DL Creatinine 0.70 MG/DL Random Glucose 149 MG/DL Total Protein 6.5 GM/DL Albumin 2.5 GM/DL Calcium Level 7.4 MG/DL Alkaline Phosphatase 99 U/L Aspartate Amino Transf (AST/SGOT) 153 U/L Alanine Aminotransferase (ALT/SGPT) 85 U/L Total Bilirubin 0.9 MG/DL Sodium Level 142 MEQ/L Potassium Level 3.8 MEQ/L Chloride Level 112 MEQ/L Carbon Dioxide Level 20.3 MEQ/L Anion Gap 10 MEQ/L Estimat Glomerular Filtration Rate 105 ML/MIN Protein Corrected Calcium 7.7 MG/DL Vancomycin Level Trough 15.0 MCG/ML Imaging Last Impressions Chest X-Ray 08/01/17 0000 Signed Impressions: Service Date/Time: Tuesday, August 01, 2017 08:07 - CONCLUSION: 1. ETT 1 cm is above the jeromy. NGT beyond the GE junction. 2. Diffuse interstitial and ground glass opacities in the mid to lower lung zones bilaterally. Differential considerations include pulmonary edema versus developing ARDS versus atypical infection. Moose Armijo MD CT Angiography 07/31/17 0835 Signed Impressions: Service Date/Time: Monday, July 31, 2017 09:30 - CONCLUSION: No evidence of pulmonary embolism. Extensive bilateral groundglass infiltrates. Jamshid Means MD Liver Ultrasound 07/31/17 0000 Signed Impressions: Service Date/Time: Monday, July 31, 2017 17:48 - CONCLUSION: 1. Cholecystectomy. 2. A few tiny calcifications are seen a cyst of the right kidney. The largest measures 3 mm in the midpole suggestive of nonobstructing stone. Wayne Harkins MD Objective Remarks GENERAL: Patient is 57 yo intubated for resp failure SKIN: Warm and dry. HEAD: Normocephalic. EYES: No scleral icterus. No injection or drainage. NECK: Supple, trachea midline. No JVD or lymphadenopathy. CARDIOVASCULAR: Regular rate and rhythm without murmurs, gallops, or rubs. RESPIRATORY: Breath sounds equal bilaterally. No accessory muscle use. GASTROINTESTINAL: Abdomen soft, non-tender, nondistended. MUSCULOSKELETAL: No cyanosis, or edema. Neuro: sedated, intubated A/P Assessment and Plan 1. Acute hypoxemic respiratory failure... intubated 08/01 2. Bilateral extensive ground-glass infiltrates. Differential diagnosis infectious process versus inflammatory process, fluid overload doubt. 3. Bronchial asthma exacerbation. 4. Elevated liver enzymes. 5. Diabetes mellitus. Plan Neuro: On Diprivan, versed and Fentanyl infusion for sedation and vent synchrony. Monitor neuro status . Daily sedation vacation when appropriate. UDS in ED positive for cannabinoids. Pulm: Continue with vent support keep sat> 92%. Bronchodilators- DuoNeb, Pulmicort nebs Solu-Medrol 125 mg IV q. 6 hours. Pulm is following s/p bronch today showed minimal secretions b/l suctioned to clear. No evidence of EBL or bleeding. Bronch washing performed RLL. BAL specimen sent for culture, fungal, viral, AFB, cell count and GMS stain for PCP. CV: Monitor HR and BP and maintain MAP> 65mmHg. Check echo to eval LV function GI: On Pepcid 20 mg q. 12 for GI prophylaxis. Keep NPO for bronch today (Glucerna 1.5 with goal rate 45ml/hr) Monitor LFT's, US liver: Cholecystectomy. A few tiny calcifications are seen a cyst of the right kidney. The largest measures 3 mm in the midpole suggestive of nonobstructing stone. Hepatitis profile- Hep C ab reactive : Monitor renal function, electrolytes replacement per protocol. Diurese with Lasix 40mg iv x1 ID: Continue with abx (vancomycin, Zosyn and azithromycin) Monitor for signs infection( fever and WBC). nasal washing is negative for influenza in the ED. Strep pneumoniae and Legionella urinary antigen negative Check sputum cx. HIV test negative . Endo:SSI with Accu-Cheks for glycemic Heme: Monitor CBC. follow up EVAN GI prophylaxis with Pepcid and DVT prophylaxis with SCDs and heparin subcu. Level 3 Kristen Knowles MD Aug 02, 2017 08:57
[2017-08-02] MEDS ORDERED: FUROSEMIDE 40 MG/4 ML VIAL IV PUSH ONE (09:00)
[2017-08-02] MEDS: HEPARIN SODIUM - SQ 10,000 UNITS/ML VIAL SQ SCH ×2 (09:44→20:25)
[2017-08-02] MEDS: SODIUM CHLORIDE 0.9% FLUSH 10 ML FLUSH IV FLUSH SCH ×2 (09:52→20:25)
[2017-08-02 10:10] LABS: RPR SCREEN FOR REFLEX NON-REACTIVE (NON-REACTVE)
[2017-08-02] MEDS: AZITHROMYCIN INJ 500 MG in SODIUM CHLOR 0.9% 250 ML INJ 250 ML IV SCH (11:06)
[2017-08-02] MEDS: PROPOFOL 1000 MG/100 ML INJ 100 ML IV PRN ×3 (11:11→23:20)
--- NOTE | 2017-08-02 11:16 | HHI.IDPN ---
Subjective Subjective Remarks Ms. Griggs is a 57-year-old female with history significant for asthma was also an active smoker, diabetes mellitus. With this background patient presents to [facility] emergency department with a three-day history of shortness of breath that was reportedly worsening. She also reported a productive cough with green thick phlegm and subjective fever and chills. No reported history of hemoptysis prior to admission. On arrival to the ED she was tachypneic, tachycardiac and placed on a non- rebreather mask. ABGs on 8 liters simple mask showed a pH of 7.48, CO2 29, pAO2 52, bicarb 22 and sats of 86%. Chest x-ray in the ED showed no acute disease. The patient subsequently underwent CT angiogram of the chest which showed no evidence of pulmonary embolism but showed extensive bilateral ground- glass infiltrates. WBC on admission was normal and she had no fevers so far during this admission. Influenza antigen test was done which is negative. Legionella and pneumococcal antigen is negative. No blood cultures in [facility]. She was initially admitted to [facility] under Dr. Bahena. The patient had worsening respiratory distress and Critical Care medicine was consulted for critical care management. She was on a non-rebreather mask with a saturation of 95%. Repeat ABGs showed a pH of 7.40, CO2 25, pAO2 79, bicarb 16 and saturation of 94%. The patient was given bronchodilators and steroids. Due to worsening respiratory status patient was intubated this am. At the time of my evaluation patient is in the ICU currently intubated on 75% FiO2 with PEEP of 5, secretions not much is reported to me by nurse taking care of the patient. Currently not on any pressors has not received any fluid boluses. Urine output is good. No rash no diarrhea. Infectious disease is consulted for evaluation and management of pneumonia in patient groundglass opacities possible PCP pneumonia Overnight events reviewed. Remains intubated Not much respiratory secretions thin and clear Not on any pressors No fevers No rash No diarrhea Antibiotics Azithromycin IV Zosyn IV Vancomycin IV Lines Line sites with no evidence of infection. Past Medical History Reviewed. Allergies: Coded Allergies: No Known Allergies (Unverified , 07/31/17) Objective . Vital Signs Date Time Temp Pulse Resp B/P (MAP) Pulse Ox O2 Delivery O2 Flow Rate FiO2 08/02/17 09:00 40 08/02/17 08:00 40 08/02/17 07:40 94 40 08/02/17 06:00 65 08/02/17 04:43 100 40 08/02/17 04:00 57 08/02/17 04:00 97.6 57 20 102/63 (76) 99 08/02/17 04:00 40 08/02/17 02:00 55 08/02/17 01:12 99 40 08/02/17 00:00 45 08/02/17 00:00 55 08/02/17 00:00 97.5 55 20 105/68 (80) 100 08/01/17 22:15 100 45 08/01/17 22:00 60 08/01/17 20:00 45 08/01/17 20:00 97.4 63 20 111/68 (82) 100 08/01/17 20:00 100 Mechanical Ventilator 45 08/01/17 20:00 63 08/01/17 19:30 100 45 08/01/17 18:00 68 08/01/17 16:48 96 65 08/01/17 16:00 65 08/01/17 16:00 98.7 75 18 96/66 (76) 08/01/17 16:00 75 08/01/17 14:48 100 55 08/01/17 14:00 75 08/01/17 13:12 95 65 08/01/17 12:00 65 08/01/17 12:00 98.6 83 18 92/60 (71) 92 08/01/17 12:00 83 08/01/17 11:24 93 50 . Laboratory Tests Test 07/31/17 17:46 08/01/17 05:23 08/02/17 04:25 White Blood Count 8.1 TH/MM3 13.3 TH/MM3 12.6 TH/MM3 Red Blood Count 3.40 MIL/MM3 3.55 MIL/MM3 3.43 MIL/MM3 Hemoglobin 9.8 GM/DL 10.1 GM/DL 9.9 GM/DL Hematocrit 29.5 % 30.7 % 29.9 % Mean Corpuscular Volume 86.8 FL 86.6 FL 87.1 FL Mean Corpuscular Hemoglobin 28.8 PG 28.4 PG 28.9 PG Mean Corpuscular Hemoglobin Concent 33.1 % 32.8 % 33.2 % Red Cell Distribution Width 12.7 % 12.6 % 12.7 % Platelet Count 128 TH/MM3 139 TH/MM3 153 TH/MM3 Mean Platelet Volume 9.2 FL 9.0 FL 9.2 FL Neutrophils (%) (Auto) 95.5 % 92.8 % 93.8 % Lymphocytes (%) (Auto) 2.0 % 2.4 % 1.6 % Monocytes (%) (Auto) 2.4 % 4.7 % 4.4 % Eosinophils (%) (Auto) 0.0 % 0.0 % 0.0 % Basophils (%) (Auto) 0.1 % 0.1 % 0.2 % Neutrophils # (Auto) 7.7 TH/MM3 12.3 TH/MM3 11.8 TH/MM3 Lymphocytes # (Auto) 0.2 TH/MM3 0.3 TH/MM3 0.2 TH/MM3 Monocytes # (Auto) 0.2 TH/MM3 0.6 TH/MM3 0.5 TH/MM3 Eosinophils # (Auto) 0.0 TH/MM3 0.0 TH/MM3 0.0 TH/MM3 Basophils # (Auto) 0.0 TH/MM3 0.0 TH/MM3 0.0 TH/MM3 CBC Comment DIFF FINAL DIFF FINAL DIFF FINAL Differential Comment Laboratory Tests Test 07/31/17 14:42 07/31/17 17:35 08/01/17 05:23 08/01/17 11:25 Total Bilirubin 0.9 MG/DL 0.7 MG/DL Direct Bilirubin 0.6 MG/DL 0.4 MG/DL Indirect Bilirubin 0.3 MG/DL 0.3 MG/DL Blood Urea Nitrogen 9 MG/DL 11 MG/DL Creatinine 0.83 MG/DL 0.65 MG/DL Random Glucose 159 MG/DL 111 MG/DL Calcium Level 7.5 MG/DL 7.5 MG/DL Phosphorus Level 2.2 MG/DL 4.0 MG/DL Magnesium Level 1.6 MG/DL 1.4 MG/DL Sodium Level 141 MEQ/L 140 MEQ/L Potassium Level 2.4 MEQ/L 2.8 MEQ/L Chloride Level 107 MEQ/L 108 MEQ/L Carbon Dioxide Level 18.4 MEQ/L 19.5 MEQ/L Anion Gap 16 MEQ/L 13 MEQ/L Estimat Glomerular Filtration Rate 86 ML/MIN 114 ML/MIN Aspartate Amino Transf (AST/SGOT) 77 U/L Alanine Aminotransferase (ALT/SGPT) 61 U/L Alkaline Phosphatase 88 U/L Total Protein 7.2 GM/DL Albumin 2.8 GM/DL Lactate Dehydrogenase 523 U/L Test 08/01/17 20:40 08/02/17 04:25 Potassium Level 3.8 MEQ/L 3.8 MEQ/L Blood Urea Nitrogen 18 MG/DL Creatinine 0.70 MG/DL Random Glucose 149 MG/DL Total Protein 6.5 GM/DL Albumin 2.5 GM/DL Calcium Level 7.4 MG/DL Alkaline Phosphatase 99 U/L Aspartate Amino Transf (AST/SGOT) 153 U/L Alanine Aminotransferase (ALT/SGPT) 85 U/L Total Bilirubin 0.9 MG/DL Sodium Level 142 MEQ/L Chloride Level 112 MEQ/L Carbon Dioxide Level 20.3 MEQ/L Anion Gap 10 MEQ/L Estimat Glomerular Filtration Rate 105 ML/MIN Protein Corrected Calcium 7.7 MG/DL Microbiology Date/Time Source Procedure Growth Status 08/01/17 11:30 Blood Peripheral Aerobic Blood Culture - Preliminary NO GROWTH IN 1 DAY Resulted 08/01/17 11:30 Blood Peripheral Anaerobic Blood Culture - Preliminary NO GROWTH IN 1 DAY Resulted 08/01/17 11:25 Blood Peripheral Aerobic Blood Culture - Preliminary NO GROWTH IN 1 DAY Resulted 08/01/17 11:25 Blood Peripheral Anaerobic Blood Culture - Preliminary NO GROWTH IN 1 DAY Resulted 08/01/17 11:00 Sputum Endotracheal Fungal Smear - Final NO FUNGAL ELEMENTS SEEN. Resulted 08/01/17 11:00 Sputum Endotracheal Fungal Culture Pending Resulted 08/01/17 11:00 Sputum Endotracheal Gram Stain - Final Resulted 08/01/17 11:00 Sputum Endotracheal Sputum Culture Pending Resulted 07/31/17 07:45 Nasal Washing Influenza Types A,B Antigen (SHAWN) - Final NEGATIVE FOR FLU A AND B ANTIGEN.... Complete 07/31/17 08:45 Urine Catheterized Urine Legionella Antigen - Final PRESUMPTIVE NEGATIVE FOR LEGIONELLA P... Complete 07/31/17 08:45 Urine Catheterized Urine Streptococcus pneumoniae Antigen (M - Final PRESUMPTIVE NEGATIVE FOR STREPTOCOCCU... Complete Imaging Last Impressions Chest X-Ray 08/01/17 0000 Signed Impressions: Service Date/Time: Tuesday, August 01, 2017 08:07 - CONCLUSION: 1. ETT 1 cm is above the jeromy. NGT beyond the GE junction. 2. Diffuse interstitial and ground glass opacities in the mid to lower lung zones bilaterally. Differential considerations include pulmonary edema versus developing ARDS versus atypical infection. Moose Armijo MD CT Angiography 07/31/17 0835 Signed Impressions: Service Date/Time: Monday, July 31, 2017 09:30 - CONCLUSION: No evidence of pulmonary embolism. Extensive bilateral groundglass infiltrates. Jamshid Means MD Liver Ultrasound 07/31/17 0000 Signed Impressions: Service Date/Time: Monday, July 31, 2017 17:48 - CONCLUSION: 1. Cholecystectomy. 2. A few tiny calcifications are seen a cyst of the right kidney. The largest measures 3 mm in the midpole suggestive of nonobstructing stone. Wayne Harkins MD Physical Exam GENERAL: Thin built poorly nourished patient, in no apparent distress. SKIN: No rashes. Old track landin noted. HEAD: Atraumatic. Normocephalic. No temporal or scalp tenderness. EYES: Pupils equal round and reactive. Extraocular motions intact. No scleral icterus. No injection or drainage. ENT: Intubated. NECK: Trachea midline. Supple, nontender, no meningeal signs. CARDIOVASCULAR: HS audible. RESPIRATORY: Clear to auscultation. Breath sounds equal bilaterally. GASTROINTESTINAL: Abdomen soft, non-tender, nondistended. MUSCULOSKELETAL: Extremities without clubbing, cyanosis, or edema. No joint tenderness, effusion, or edema noted. NEUROLOGICAL: Sedated. Non focal exam. Psych cooperative IV line sites with no e.o infection. Assessment & Plan Remarks Pneumonia with Ground glass opacities DDX: Atypical pneumonia, PCP, Fungal, Hypersensitivity pneumonitis( Aspergillus) Acute resp failure on vent. Asthma acute exacerbation. Abnormal liver function tests: sepsis, Hepatitis C Hepatitis C positive DM2 uncontrolled. Recs: Continue Zosyn IV Continue Vanco IV (changed target 15-20) Continue Azithro IV Follow cultures Check Resp panel adult (includes influenza PCR) Plan for bronchoscopy today. Orders entered for routine cultures for bacterial, fungal and AFB cultures. In addition please send a viral respiratory panel and GMS stain. For GMS stain placed an order on paper chart "GMS stain for PCP". Check LDH. Check Cryptococcal antigen Check Fungal Abs. Check CD4 count. HIV negative Hepatitis C positive Follow cultures Follow clinically. Critically ill. Sherry Begum MD Aug 02, 2017 11:16
--- NOTE | 2017-08-02 20:35 | HHI.PR ---
Subjective Remarks 57 YOAA female with VDRF, Bilat infilt, DM Intubated today Sedated no fever No pressors Had bronch, minimal secretions Objective Vital Signs Vital Signs Date Time Temp Pulse Resp B/P (MAP) Pulse Ox O2 Delivery O2 Flow Rate FiO2 08/02/17 18:00 68 08/02/17 17:00 69 20 122/73 (89) 95 08/02/17 16:30 68 20 120/73 (89) 94 08/02/17 16:15 50 08/02/17 16:04 95 50 08/02/17 16:00 66 08/02/17 16:00 100 08/02/17 16:00 99.4 66 20 124/73 (90) 95 08/02/17 15:30 68 20 127/76 (93) 100 08/02/17 15:00 64 20 122/76 (91) 100 08/02/17 14:30 63 20 116/70 (85) 100 08/02/17 14:00 67 20 116/71 (86) 100 08/02/17 14:00 67 08/02/17 13:30 74 20 111/68 (82) 100 08/02/17 13:00 101 46 149/80 (103) 99 08/02/17 12:30 100 100 08/02/17 12:00 40 08/02/17 12:00 85 08/02/17 12:00 99.3 85 20 108/68 (81) 94 08/02/17 11:30 84 20 106/68 (81) 92 08/02/17 11:21 92 40 08/02/17 11:00 78 20 109/67 (81) 89 08/02/17 10:30 85 20 106/63 (77) 92 08/02/17 10:00 72 08/02/17 10:00 72 19 110/67 (81) 88 08/02/17 09:30 72 20 107/69 (82) 90 08/02/17 09:00 72 20 109/66 (80) 94 08/02/17 09:00 40 08/02/17 08:30 72 20 105/68 (80) 96 08/02/17 08:00 98.9 65 20 107/67 (80) 97 08/02/17 08:00 40 08/02/17 08:00 65 08/02/17 07:40 94 40 08/02/17 07:30 65 20 106/67 (80) 94 08/02/17 07:00 95 Mechanical Ventilator 40 08/02/17 07:00 66 20 103/66 (78) 95 08/02/17 06:00 65 08/02/17 04:43 100 40 08/02/17 04:00 57 08/02/17 04:00 97.6 57 20 102/63 (76) 99 08/02/17 04:00 40 08/02/17 02:00 55 08/02/17 01:12 99 40 08/02/17 00:00 45 08/02/17 00:00 55 08/02/17 00:00 97.5 55 20 105/68 (80) 100 08/01/17 22:15 100 45 08/01/17 22:00 60 I/O 08/01/17 08/01/17 08/01/17 08/02/17 08/02/17 08/02/17 07:00 15:00 23:00 07:00 15:00 23:00 Intake Total 1512 ml 100 ml 900 ml 1117 ml 450 ml 1102 ml Output Total 900 ml 400 ml 200 ml 900 ml Balance 612 ml 100 ml 500 ml 917 ml 450 ml 202 ml Intake Oral 0 ml IV Total 1512 ml 100 ml 900 ml 806 ml 450 ml 745 ml Tube Feeding 311 ml 297 ml Tube Irrigant 60 ml Output Urine Total 900 ml 400 ml 200 ml 900 ml Result Diagram: 08/02/175 08/02/17424 Objective Remarks GENERAL: MBMN AA female, on vent, sedated SKIN: Warm and dry. HEAD: Normocephalic. EYES: No scleral icterus. No injection or drainage. NECK: Supple, trachea midline. No JVD or lymphadenopathy. CARDIOVASCULAR: Regular rate and rhythm without murmurs, gallops, or rubs. RESPIRATORY: Breath sounds equal bilaterally. No accessory muscle use. GASTROINTESTINAL: Abdomen soft, non-tender, nondistended. MUSCULOSKELETAL: No cyanosis, or edema. BACK: Nontender without obvious deformity. No CVA tenderness. A/P Assessment and Plan VDRF Bilat Ground glass infilt, inf, hypersensitivity or fungal pn COPD DM PLAN: Cont vent support Abx vanco, Zithro, Zosyn Aerosol nebs Check bronch results Aneja,Alex Dev MD Aug 02, 2017 20:35
[2017-08-02] MEDS: MIDAZOLAM 100 MG/NS 100 ML DRIP Premix IV PRN (23:20)
[2017-08-03] VITALS (19 sets, daily range): BP systolic 140–174; BP diastolic 77–101; PULSE 57–117; RESP 16–38; TEMP 97.9–99.9; O2SAT 87–100
[2017-08-03] MEDS: methylPREDNISolone SOD SUCC 125 MG/2 ML VIAL IV PUSH SCH ×4 (02:06→20:59)
[2017-08-03] MEDS: RESP: ALBUTEROL 2.5 MG/IPRATROPIUM 0.5 MG NEB (SCH) INH ×6 (03:43→23:07)
[2017-08-03 03:51] LABS: CD3-/CD16+CD56+ PERCENT 2 % (4-25); CD3-CD16+CD56+ (ABSOLUTE) LESS THAN 20 (70-760); LYMPHOCYTES, ABSOLUTE 292 (850-3900)
[2017-08-03] MEDS: INSULIN NovoLIN REGULAR SUPPLEMENTAL SCALE SQ SCH ×4 (04:21→23:00)
[2017-08-03] MEDS: VANCOMYCIN INJ 1,000 MG in SODIUM CHLOR 0.9% 250 ML INJ 250 ML IV SCH ×2 (04:21→17:24)
[2017-08-03] MEDS: PROPOFOL 1000 MG/100 ML INJ 100 ML IV PRN (04:26)
[2017-08-03] MEDS: PIPERACIL-TAZO 4.5 GM PREMIX 100 ML IV SCH ×3 (05:20→17:26)
[2017-08-03] MEDS: FAMOTIDINE 20 MG/2 ML VIAL IV PUSH SCH ×2 (05:20→17:26)
[2017-08-03] MEDS: fentaNYL DRIP 250 ML IV PRN ×2 (05:22→21:00)
[2017-08-03 05:37] LABS: AUTOMATED NEUTROPHIL # 13.5 TH/MM3 (1.8-7.7); BASOPHIL % 0.1 % (0.0-2.0); HEMATOCRIT 32.4 % (35.0-46.0); HEMOGLOBIN 10.5 GM/DL (11.6-15.3); LYMPH % 1.4 % (9.0-44.0); LYMPHOCYTE # 0.2 TH/MM3 (1.0-4.8); MEAN CELL VOLUME 86.3 FL (80.0-100.0); MEAN CORPUSCULAR HEMOGLOBIN 27.9 PG (27.0-34.0); MEAN CORPUSCULAR HGB CONC 32.3 % (32.0-36.0); MEAN PLATELET VOLUME 9.2 FL (7.0-11.0); MONO % 5.7 % (0.0-8.0); MONOCYTE # 0.8 TH/MM3 (0-0.9); NEUT % 92.8 % (16.0-70.0); PLATELET COUNT 185 TH/MM3 (150-450); RED BLOOD COUNT 3.75 MIL/MM3 (4.00-5.30); RED CELL DISTRIBUTION WIDTH 12.5 % (11.6-17.2); WHITE BLOOD COUNT 14.6 TH/MM3 (4.0-11.0)
[2017-08-03 05:44] LABS: ALBUMIN 2.5 GM/DL (3.4-5.0); BICARBONATE 21.5 MEQ/L (21.0-32.0); CALCIUM 7.4 MG/DL (8.5-10.1); CALCIUM-PROTEIN CORRECTED 7.7 MG/DL (8.5-10.1); CREATININE 0.96 MG/DL (0.50-1.00); TOTAL BILIRUBIN ADULT 0.6 MG/DL (0.2-1.0); TOTAL PROTEIN 6.6 GM/DL (6.4-8.2)
--- NOTE | 2017-08-03 07:55 | HHI.CCPN ---
Subjective Remarks/Hospital Course Patient is a 57-year-old female with past medical history of bronchial asthma, active smoker, diabetes mellitus, who presented to [facility] ED with a three day history of worsening shortness of breath. She also reports a productive cough with green, thick phlegm and subjective fever and chills. She denies any exposure to sick contacts. In addition she denies any hemoptysis. On arrival to the ED she was tachypneic, tachycardiac and placed on a non- rebreather mask. ABGs on 8 liters simple mask from early this morning showed a pH of 7.48, CO2 29, pAO2 52, bicarb 22 and sats of 86%. Chest x-ray in the ED showed no acute disease. The patient subsequently underwent CT angiogram of the chest which showed no evidence of pulmonary embolism; however, it showed extensive bilateral ground-glass infiltrates. Her laboratory data is significant for elevated liver enzymes. No history of any fever or leukocytosis. She was initially admitted to [facility] under Dr. Bahena. The patient had worsening respiratory distress and Critical Care medicine was consulted for critical care management. She remains on a non-rebreather mask with a saturation of 95%. Repeat ABGs showed a pH of 7.40, CO2 25, pAO2 79, bicarb 16 and saturation of 94%. The patient was given bronchodilators and steroids. 08/01 Patient was intubated this morning by myself for worsening resp status. Now intubated and sedated. Afebrile. 08/02 No events overnight. Sedated and intubated. Afebrile. 08/03 Patient remains intubated and sedated. s/p bronch with BAL yesterday. T: 99.9 last night. Sputum x + MRSA Objective Vital Signs Date Time Temp Pulse Resp B/P (MAP) Pulse Ox O2 Delivery O2 Flow Rate FiO2 08/03/17 06:00 60 08/03/17 04:34 98 Ventilator 45 08/03/17 04:00 99.9 20 148/78 (101) 08/01/17 07:29 15.00 Intake and Output 08/03/17 08/03/17 08/04/17 08:00 16:00 00:00 Intake Total 1079 ml Output Total 1100 ml Balance -21 ml Result Diagram: 2/8/18 0440 2/8/18 0440 Other Results Laboratory Tests Test 08/02/17 13:20 08/03/17 04:40 Bronchoalveolar Lavage WBC 90 /MM3 Bronchoalveolar Lavage RBC 879 /MM3 Bronchoalveolar Lavage Neutrophils 25 % Bronchoalveolar Lavage Lymphocytes 65 % Bronchoalveolar Lavage Plasma Cells 2 % Bronchoalveolar Lavage Histiocytes 8 % Bronchoalveolar Lavage Diff Comment Lavage Fluid Total Volume 21.0 ML Lavage Fluid Total WBC Count 1.890 MILLION White Blood Count 14.6 TH/MM3 Red Blood Count 3.75 MIL/MM3 Hemoglobin 10.5 GM/DL Hematocrit 32.4 % Mean Corpuscular Volume 86.3 FL Mean Corpuscular Hemoglobin 27.9 PG Mean Corpuscular Hemoglobin Concent 32.3 % Red Cell Distribution Width 12.5 % Platelet Count 185 TH/MM3 Mean Platelet Volume 9.2 FL Neutrophils (%) (Auto) 92.8 % Lymphocytes (%) (Auto) 1.4 % Monocytes (%) (Auto) 5.7 % Eosinophils (%) (Auto) 0.0 % Basophils (%) (Auto) 0.1 % Neutrophils # (Auto) 13.5 TH/MM3 Lymphocytes # (Auto) 0.2 TH/MM3 Monocytes # (Auto) 0.8 TH/MM3 Eosinophils # (Auto) 0.0 TH/MM3 Basophils # (Auto) 0.0 TH/MM3 CBC Comment DIFF FINAL Differential Comment Blood Urea Nitrogen 26 MG/DL Creatinine 0.96 MG/DL Random Glucose 125 MG/DL Total Protein 6.6 GM/DL Albumin 2.5 GM/DL Calcium Level 7.4 MG/DL Alkaline Phosphatase 128 U/L Aspartate Amino Transf (AST/SGOT) 109 U/L Alanine Aminotransferase (ALT/SGPT) 96 U/L Total Bilirubin 0.6 MG/DL Sodium Level 147 MEQ/L Potassium Level 3.4 MEQ/L Chloride Level 117 MEQ/L Carbon Dioxide Level 21.5 MEQ/L Anion Gap 9 MEQ/L Estimat Glomerular Filtration Rate 73 ML/MIN Protein Corrected Calcium 7.7 MG/DL Imaging Last Impressions Chest X-Ray 08/01/17 0000 Signed Impressions: Service Date/Time: Tuesday, August 01, 2017 08:07 - CONCLUSION: 1. ETT 1 cm is above the jeromy. NGT beyond the GE junction. 2. Diffuse interstitial and ground glass opacities in the mid to lower lung zones bilaterally. Differential considerations include pulmonary edema versus developing ARDS versus atypical infection. Moose Armijo MD CT Angiography 07/31/17 0835 Signed Impressions: Service Date/Time: Monday, July 31, 2017 09:30 - CONCLUSION: No evidence of pulmonary embolism. Extensive bilateral groundglass infiltrates. Jamshid Means MD Liver Ultrasound 07/31/17 0000 Signed Impressions: Service Date/Time: Monday, July 31, 2017 17:48 - CONCLUSION: 1. Cholecystectomy. 2. A few tiny calcifications are seen a cyst of the right kidney. The largest measures 3 mm in the midpole suggestive of nonobstructing stone. Wayne Harkins MD Objective Remarks GENERAL: Patient is 57 yo intubated for resp failure SKIN: Warm and dry. HEAD: Normocephalic. EYES: No scleral icterus. No injection or drainage. NECK: Supple, trachea midline. No JVD or lymphadenopathy. CARDIOVASCULAR: Regular rate and rhythm without murmurs, gallops, or rubs. RESPIRATORY: Breath sounds equal bilaterally. No accessory muscle use. GASTROINTESTINAL: Abdomen soft, non-tender, nondistended. MUSCULOSKELETAL: No cyanosis, or edema. Neuro: sedated, intubated A/P Assessment and Plan 1. Acute hypoxemic respiratory failure... intubated 08/01 2. Bilateral extensive ground-glass infiltrates. Differential diagnosis infectious process versus inflammatory process, fluid overload doubt. 3. Bronchial asthma exacerbation. 4. Elevated liver enzymes. 5. Diabetes mellitus. Plan Neuro: On Diprivan, versed and Fentanyl infusion for sedation and vent synchrony. Monitor neuro status . Daily sedation vacation when appropriate. UDS in ED positive for cannabinoids. Pulm: Continue with vent support keep sat> 92%. Bronchodilators- DuoNeb, Pulmicort nebs Solu-Medrol 125 mg IV q. 6 hours. Pulm is following start SBT daily as javier s/p bronch 08/02 showed minimal secretions b/l suctioned to clear. No evidence of EBL or bleeding. Bronch washing performed RLL. BAL specimen sent for culture, fungal, viral, AFB, cell count and GMS stain for PCP- follow up on BAL results CV: Monitor HR and BP and maintain MAP> 65mmHg. Check echo to eval LV function GI: On Pepcid 20 mg q. 12 for GI prophylaxis. On Glucerna 1.5 with goal rate 45ml/hr Monitor LFT's, US liver: Cholecystectomy. A few tiny calcifications are seen a cyst of the right kidney. The largest measures 3 mm in the midpole suggestive of nonobstructing stone. Hepatitis profile- Hep C ab reactive : Monitor renal function, electrolytes replacement per protocol. Diurese with Lasix 40mg iv x1 ID: Continue with abx (vancomycin, Zosyn and azithromycin) Monitor for signs infection( fever and WBC). nasal washing is negative for influenza in the ED. Strep pneumoniae and Legionella urinary antigen negative HIV test negative. Abs CD4 count 179. ID is following 2/6 sputum cx: MRSA . Endo:SSI with Accu-Cheks for glycemic Heme: Monitor CBC. follow up EVAN GI prophylaxis with Pepcid and DVT prophylaxis with SCDs and heparin subcu. Level 3 Kristen Knowles MD Aug 03, 2017 07:54
[2017-08-03] MEDS: FREE WATER G-TUBE SCH ×2 (08:00→16:00)
[2017-08-03] MEDS: RESP: BUDESONIDE 0.25 MG/2 ML NEB NEB SCH ×2 (08:07→19:39)
[2017-08-03] MEDS ORDERED: FUROSEMIDE 40 MG/4 ML VIAL IV PUSH ONE (09:00)
[2017-08-03 09:33] LABS: PHOSPHORUS 1.8 MG/DL (2.5-4.9)
[2017-08-03] MEDS: SODIUM CHLORIDE 0.9% FLUSH 10 ML FLUSH IV FLUSH SCH ×2 (10:00→20:59)
[2017-08-03] MEDS: HEPARIN SODIUM - SQ 10,000 UNITS/ML VIAL SQ SCH ×2 (10:02→20:59)
--- NOTE | 2017-08-03 10:04 | HHI.IDPN ---
Subjective Subjective Remarks Ms. Griggs is a 57-year-old female with history significant for asthma was also an active smoker, diabetes mellitus. With this background patient presents to [facility] emergency department with a three-day history of shortness of breath that was reportedly worsening. She also reported a productive cough with green thick phlegm and subjective fever and chills. No reported history of hemoptysis prior to admission. On arrival to the ED she was tachypneic, tachycardiac and placed on a non- rebreather mask. ABGs on 8 liters simple mask showed a pH of 7.48, CO2 29, pAO2 52, bicarb 22 and sats of 86%. Chest x-ray in the ED showed no acute disease. The patient subsequently underwent CT angiogram of the chest which showed no evidence of pulmonary embolism but showed extensive bilateral ground- glass infiltrates. WBC on admission was normal and she had no fevers so far during this admission. Influenza antigen test was done which is negative. Legionella and pneumococcal antigen is negative. No blood cultures in [facility]. She was initially admitted to [facility] under Dr. Bahena. The patient had worsening respiratory distress and Critical Care medicine was consulted for critical care management. She was on a non-rebreather mask with a saturation of 95%. Repeat ABGs showed a pH of 7.40, CO2 25, pAO2 79, bicarb 16 and saturation of 94%. The patient was given bronchodilators and steroids. Due to worsening respiratory status patient was intubated this am. At the time of my evaluation patient is in the ICU currently intubated on 75% FiO2 with PEEP of 5, secretions not much is reported to me by nurse taking care of the patient. Currently not on any pressors has not received any fluid boluses. Urine output is good. No rash no diarrhea. Infectious disease is consulted for evaluation and management of pneumonia in patient groundglass opacities possible PCP pneumonia Overnight events reviewed. Remains intubated Not much respiratory secretions thin and clear Not on any pressors No fevers No rash No diarrhea Antibiotics Azithromycin IV Zosyn IV Vancomycin IV Lines Line sites with no evidence of infection. Past Medical History Reviewed. Allergies: Coded Allergies: No Known Allergies (Unverified , 07/31/17) Objective . Vital Signs Date Time Temp Pulse Resp B/P (MAP) Pulse Ox O2 Delivery O2 Flow Rate FiO2 08/03/17 08:10 97 40 08/03/17 08:10 98 Ventilator 40 08/03/17 06:00 60 08/03/17 04:34 98 Ventilator 45 08/03/17 04:34 98 45 08/03/17 04:00 99.9 66 20 148/78 (101) 99 08/03/17 04:00 66 08/03/17 04:00 45 08/03/17 02:41 98 45 08/03/17 02:00 69 08/03/17 00:00 45 08/03/17 00:00 71 08/03/17 00:00 99.3 71 20 141/77 (98) 97 08/02/17 23:41 97 45 08/02/17 22:04 97 45 08/02/17 22:00 68 08/02/17 20:07 94 50 08/02/17 20:00 50 08/02/17 20:00 99.4 69 20 130/78 (95) 93 08/02/17 20:00 67 08/02/17 18:00 68 08/02/17 17:00 69 20 122/73 (89) 95 08/02/17 16:30 68 20 120/73 (89) 94 08/02/17 16:15 50 08/02/17 16:04 95 50 08/02/17 16:00 66 08/02/17 16:00 100 08/02/17 16:00 99.4 66 20 124/73 (90) 95 08/02/17 15:30 68 20 127/76 (93) 100 08/02/17 15:00 64 20 122/76 (91) 100 08/02/17 14:30 63 20 116/70 (85) 100 08/02/17 14:00 67 20 116/71 (86) 100 08/02/17 14:00 67 08/02/17 13:30 74 20 111/68 (82) 100 08/02/17 13:00 101 46 149/80 (103) 99 08/02/17 12:30 100 100 08/02/17 12:00 40 08/02/17 12:00 85 08/02/17 12:00 99.3 85 20 108/68 (81) 94 08/02/17 11:30 84 20 106/68 (81) 92 2/7/18 11:21 92 40 08/02/17 11:00 78 20 109/67 (81) 89 08/02/17 10:30 85 20 106/63 (77) 92 . Laboratory Tests Test 08/02/17 04:25 08/03/17 04:40 White Blood Count 12.6 TH/MM3 14.6 TH/MM3 Red Blood Count 3.43 MIL/MM3 3.75 MIL/MM3 Hemoglobin 9.9 GM/DL 10.5 GM/DL Hematocrit 29.9 % 32.4 % Mean Corpuscular Volume 87.1 FL 86.3 FL Mean Corpuscular Hemoglobin 28.9 PG 27.9 PG Mean Corpuscular Hemoglobin Concent 33.2 % 32.3 % Red Cell Distribution Width 12.7 % 12.5 % Platelet Count 153 TH/MM3 185 TH/MM3 Mean Platelet Volume 9.2 FL 9.2 FL Neutrophils (%) (Auto) 93.8 % 92.8 % Lymphocytes (%) (Auto) 1.6 % 1.4 % Monocytes (%) (Auto) 4.4 % 5.7 % Eosinophils (%) (Auto) 0.0 % 0.0 % Basophils (%) (Auto) 0.2 % 0.1 % Neutrophils # (Auto) 11.8 TH/MM3 13.5 TH/MM3 Lymphocytes # (Auto) 0.2 TH/MM3 0.2 TH/MM3 Monocytes # (Auto) 0.5 TH/MM3 0.8 TH/MM3 Eosinophils # (Auto) 0.0 TH/MM3 0.0 TH/MM3 Basophils # (Auto) 0.0 TH/MM3 0.0 TH/MM3 CBC Comment DIFF FINAL DIFF FINAL Differential Comment Laboratory Tests Test 08/01/17 11:25 08/01/17 20:40 08/02/17 04:25 08/03/17 04:40 Lactate Dehydrogenase 523 U/L Potassium Level 3.8 MEQ/L 3.8 MEQ/L 3.4 MEQ/L Blood Urea Nitrogen 18 MG/DL 26 MG/DL Creatinine 0.70 MG/DL 0.96 MG/DL Random Glucose 149 MG/DL 125 MG/DL Total Protein 6.5 GM/DL 6.6 GM/DL Albumin 2.5 GM/DL 2.5 GM/DL Calcium Level 7.4 MG/DL 7.4 MG/DL Alkaline Phosphatase 99 U/L 128 U/L Aspartate Amino Transf (AST/SGOT) 153 U/L 109 U/L Alanine Aminotransferase (ALT/SGPT) 85 U/L 96 U/L Total Bilirubin 0.9 MG/DL 0.6 MG/DL Sodium Level 142 MEQ/L 147 MEQ/L Chloride Level 112 MEQ/L 117 MEQ/L Carbon Dioxide Level 20.3 MEQ/L 21.5 MEQ/L Anion Gap 10 MEQ/L 9 MEQ/L Estimat Glomerular Filtration Rate 105 ML/MIN 73 ML/MIN Protein Corrected Calcium 7.7 MG/DL 7.7 MG/DL Test 08/03/17 08:42 Phosphorus Level 1.8 MG/DL Magnesium Level 2.0 MG/DL Microbiology Date/Time Source Procedure Growth Status 08/01/17 11:30 Blood Peripheral Aerobic Blood Culture - Preliminary NO GROWTH IN 1 DAY Resulted 08/01/17 11:30 Blood Peripheral Anaerobic Blood Culture - Preliminary NO GROWTH IN 1 DAY Resulted 08/01/17 11:25 Blood Peripheral Aerobic Blood Culture - Preliminary NO GROWTH IN 1 DAY Resulted 08/01/17 11:25 Blood Peripheral Anaerobic Blood Culture - Preliminary NO GROWTH IN 1 DAY Resulted 08/02/17 13:20 Bronchial Washings Right Lower Lobe Fungal Smear Pending Received 08/02/17 13:20 Bronchial Washings Right Lower Lobe Fungal Culture Pending Received 08/02/17 13:20 Bronchial Washings Right Lower Lobe Acid Fast Stain Pending Received 08/02/17 13:20 Bronchial Washings Right Lower Lobe Mycobacterial Culture Pending Received 08/01/17 11:00 Sputum Endotracheal Fungal Smear - Final NO FUNGAL ELEMENTS SEEN. Resulted 08/01/17 11:00 Sputum Endotracheal Fungal Culture Pending Resulted 08/01/17 11:00 Sputum Endotracheal Gram Stain - Final Resulted 08/01/17 11:00 Sputum Culture - Preliminary S. Aureus Mrsa Resulted Imaging Last Impressions Chest X-Ray 08/01/17 0000 Signed Impressions: Service Date/Time: Tuesday, August 01, 2017 08:07 - CONCLUSION: 1. ETT 1 cm is above the jeromy. NGT beyond the GE junction. 2. Diffuse interstitial and ground glass opacities in the mid to lower lung zones bilaterally. Differential considerations include pulmonary edema versus developing ARDS versus atypical infection. Moose Armijo MD CT Angiography 07/31/17 0835 Signed Impressions: Service Date/Time: Monday, July 31, 2017 09:30 - CONCLUSION: No evidence of pulmonary embolism. Extensive bilateral groundglass infiltrates. Jamshid Means MD Liver Ultrasound 07/31/17 0000 Signed Impressions: Service Date/Time: Monday, July 31, 2017 17:48 - CONCLUSION: 1. Cholecystectomy. 2. A few tiny calcifications are seen a cyst of the right kidney. The largest measures 3 mm in the midpole suggestive of nonobstructing stone. Wayne Harkins MD Physical Exam GENERAL: Thin built poorly nourished patient, in no apparent distress. SKIN: No rashes. Old track landin noted. HEAD: Atraumatic. Normocephalic. No temporal or scalp tenderness. EYES: Pupils equal round and reactive. Extraocular motions intact. No scleral icterus. No injection or drainage. ENT: Intubated. NECK: Trachea midline. Supple, nontender, no meningeal signs. CARDIOVASCULAR: HS audible. RESPIRATORY: Clear to auscultation. Breath sounds equal bilaterally. GASTROINTESTINAL: Abdomen soft, non-tender, nondistended. MUSCULOSKELETAL: Extremities without clubbing, cyanosis, or edema. No joint tenderness, effusion, or edema noted. NEUROLOGICAL: Sedated. Non focal exam. Psych cooperative IV line sites with no e.o infection. Assessment & Plan Remarks Pneumonia with Ground glass opacities DDX: Atypical pneumonia, PCP, Fungal, Hypersensitivity pneumonitis( Aspergillus) MRSA pneumonia CD4 lymphocytopenia: ? HIV/acute retroviral vs Isolated CD4 Lymphocytopenia. Acute resp failure on vent. Asthma acute exacerbation. Abnormal liver function tests: sepsis, Hepatitis C Hepatitis C positive DM2 uncontrolled. Recs: Continue Zosyn IV Continue Vanco IV (changed target 15-20) Continue Azithro IV Low CD4 count r.o acute HIV/retroviral syndrome. Follow cultures Negative Cryptococcal antigen Follow Aspergillus studies. Hepatitis C positive Follow cultures Follow clinically. Critically ill. Sherry Begum MD Aug 03, 2017 10:04
[2017-08-03] MEDS: CHLORHEXIDINE 0.12% (ORAL KIT) 15 ML CUP MT SCH ×2 (12:26→20:59)
[2017-08-03] MEDS: AZITHROMYCIN INJ 500 MG in SODIUM CHLOR 0.9% 250 ML INJ 250 ML IV SCH (12:26)
--- NOTE | 2017-08-03 17:41 | ECHRPT ---
Indication: CONCLUSIONS The left ventricular systolic function is normal with an estimated ejection fraction in the range of 55-60%. Normal left ventricular size. Wall thickness is normal. The aortic root and proximal ascending aorta are not well visualized. Trace mitral valve regurgitation. The aortic valve is not well visualized. No aortic valve regurgitation. There is trace tricuspid valve regurgitation. The pulmonary valve is not well visualized. BP: / HR: Rhythm: MEASUREMENTS (Male / Female) Normal Values Technical Quality:Technically difficult study 2D ECHO LV Diastolic Diameter PLAX 3.6 cm 4.2 - 5.9 / 3.9 - 5.3 cm LV Systolic Diameter PLAX 2.7 cm IVS Diastolic Thickness 1.3 cm 0.6 - 1.0 / 0.6 - 0.9 cm LVPW Diastolic Thickness 1.1 cm 0.6 - 1.0 / 0.6 - 0.9 cm LV Relative Wall Thickness 0.7 M-MODE Aortic Root Diameter MM 2.9 cm LA Systolic Diameter MM 3.6 cm LA Ao Ratio MM 1.2 AV Cusp Separation MM 1.3 cm FINDINGS LEFT VENTRICLE The left ventricular systolic function is normal with an estimated ejection fraction in the range of 55-60%. Normal left ventricular size. Wall thickness is normal. RIGHT VENTRICLE Normal right ventricular size and systolic function. LEFT ATRIUM The left atrial size is normal. RIGHT ATRIUM The right atrial size is normal. ATRIAL SEPTUM Normal atrial septal thickness without atrial level shunting by limited color doppler interrogation. AORTA The aortic root and proximal ascending aorta are not well visualized. MITRAL VALVE Structurally normal mitral valve. Trace mitral valve regurgitation. AORTIC VALVE The aortic valve is not well visualized. No aortic valve regurgitation. TRICUSPID VALVE There is trace tricuspid valve regurgitation. PULMONARY VALVE The pulmonary valve is not well visualized. No pulmonary valve regurgitation or stenosis. VESSELS The inferior vena cava is normal in size. PERICARDIUM No pericardial effusion. Speedy Orozco MD, FACC (Electronically Signed) Final Date:03 August 2017 17:40
[2017-08-03 18:21] LABS: HISTOPLASMA ANTIGEN UR RESULT Negative (Negative)
--- NOTE | 2017-08-03 20:03 | HHI.PR ---
Subjective Remarks 57 YOAA female with VDRF, Bilat infilt, DM Intubated today Sedated no fever No pressors Had bronch, minimal secretions Weaned to CPAP Objective Vital Signs Vital Signs Date Time Temp Pulse Resp B/P (MAP) Pulse Ox O2 Delivery O2 Flow Rate FiO2 08/03/17 18:00 57 08/03/17 16:00 99.2 88 20 174/101 (125) 100 08/03/17 16:00 69 08/03/17 16:00 40 08/03/17 15:55 99 40 08/03/17 15:55 40 08/03/17 14:00 65 08/03/17 12:00 45 08/03/17 12:00 69 08/03/17 12:00 98.9 69 20 140/79 (99) 96 08/03/17 11:25 97 40 08/03/17 10:00 117 08/03/17 08:10 97 40 08/03/17 08:10 98 Ventilator 40 08/03/17 08:00 117 08/03/17 08:00 99.1 117 38 170/95 (120) 87 08/03/17 08:00 45 08/03/17 06:00 60 08/03/17 04:34 98 Ventilator 45 08/03/17 04:34 98 45 08/03/17 04:00 99.9 66 20 148/78 (101) 99 08/03/17 04:00 66 08/03/17 04:00 45 08/03/17 02:41 98 45 08/03/17 02:00 69 08/03/17 00:00 45 08/03/17 00:00 71 08/03/17 00:00 99.3 71 20 141/77 (98) 97 08/02/17 23:41 97 45 08/02/17 22:04 97 45 08/02/17 22:00 68 08/02/17 20:07 94 50 I/O 08/02/17 08/02/17 08/02/17 08/03/17 08/03/17 08/03/17 07:00 15:00 23:00 07:00 15:00 23:00 Intake Total 1117 ml 450 ml 1102 ml 1311 ml 679 ml Output Total 200 ml 900 ml 1100 ml 1000 ml Balance 917 ml 450 ml 202 ml 211 ml -321 ml IV Total 806 ml 450 ml 745 ml 621 ml Tube Feeding 311 ml 297 ml 540 ml 479 ml Tube Irrigant 60 ml 150 ml Other 200 ml Output Urine Total 200 ml 900 ml 1100 ml 1000 ml Result Diagram: 08/03/1743908/03/17439 Objective Remarks GENERAL: MBMN AA female, on vent, sedated SKIN: Warm and dry. HEAD: Normocephalic. EYES: No scleral icterus. No injection or drainage. NECK: Supple, trachea midline. No JVD or lymphadenopathy. CARDIOVASCULAR: Regular rate and rhythm without murmurs, gallops, or rubs. RESPIRATORY: Breath sounds equal bilaterally. No accessory muscle use. GASTROINTESTINAL: Abdomen soft, non-tender, nondistended. MUSCULOSKELETAL: No cyanosis, or edema. BACK: Nontender without obvious deformity. No CVA tenderness. A/P Assessment and Plan VDRF Bilat Ground glass infilt, inf, hypersensitivity or fungal pn COPD DM PLAN: Cont vent support Abx vanco, Zithro, Zosyn Aerosol nebs Check bronch results CPAP trial Alex Rivera MD Aug 03, 2017 20:03
[2017-08-04] VITALS (19 sets, daily range): BP systolic 154–203; BP diastolic 77–97; PULSE 61–81; RESP 17–21; TEMP 97.9–99.4; O2SAT 95–100
[2017-08-04] MEDS: PIPERACIL-TAZO 4.5 GM PREMIX 100 ML IV SCH ×2 (00:21→05:09)
[2017-08-04] MEDS: methylPREDNISolone SOD SUCC 125 MG/2 ML VIAL IV PUSH SCH ×4 (00:22→21:09)
[2017-08-04] MEDS: PROPOFOL 1000 MG/100 ML INJ 100 ML IV PRN ×2 (02:35→10:33)
[2017-08-04] MEDS: RESP: ALBUTEROL 2.5 MG/IPRATROPIUM 0.5 MG NEB (SCH) INH ×4 (03:35→10:47)
[2017-08-04 03:59] LABS: AUTOMATED NEUTROPHIL # 13.1 TH/MM3 (1.8-7.7); BASOPHIL # 0.1 TH/MM3 (0-0.2); HEMATOCRIT 34.3 % (35.0-46.0); HEMOGLOBIN 11.4 GM/DL (11.6-15.3); LYMPH % 2.1 % (9.0-44.0); LYMPHOCYTE # 0.3 TH/MM3 (1.0-4.8); MEAN CELL VOLUME 86.2 FL (80.0-100.0); MEAN CORPUSCULAR HEMOGLOBIN 28.6 PG (27.0-34.0); MEAN CORPUSCULAR HGB CONC 33.2 % (32.0-36.0); MEAN PLATELET VOLUME 9.2 FL (7.0-11.0); MONOCYTE # 0.6 TH/MM3 (0-0.9); NEUT % 92.9 % (16.0-70.0); PLATELET COUNT 207 TH/MM3 (150-450); RED BLOOD COUNT 3.97 MIL/MM3 (4.00-5.30); RED CELL DISTRIBUTION WIDTH 12.9 % (11.6-17.2); WHITE BLOOD COUNT 14.1 TH/MM3 (4.0-11.0)
[2017-08-04] MEDS: MIDAZOLAM 100 MG/NS 100 ML DRIP Premix IV PRN (04:11)
[2017-08-04] MEDS: VANCOMYCIN INJ 1,000 MG in SODIUM CHLOR 0.9% 250 ML INJ 250 ML IV SCH (04:11)
[2017-08-04 04:25] LABS: ALBUMIN 2.5 GM/DL (3.4-5.0); BICARBONATE 21.9 MEQ/L (21.0-32.0); CALCIUM 7.2 MG/DL (8.5-10.1); CREATININE 0.85 MG/DL (0.50-1.00); MAGNESIUM 1.8 MG/DL (1.5-2.5); PHOSPHORUS 1.9 MG/DL (2.5-4.9); TOTAL BILIRUBIN ADULT 0.7 MG/DL (0.2-1.0); TOTAL PROTEIN 6.9 GM/DL (6.4-8.2)
[2017-08-04 04:28] LABS: CALCIUM-PROTEIN CORRECTED 7.3 MG/DL (8.5-10.1)
[2017-08-04] MEDS ORDERED: PHARMACY ORDERED LAB ONE (04:45)
[2017-08-04] MEDS: INSULIN NovoLIN REGULAR SUPPLEMENTAL SCALE SQ SCH ×4 (05:00→22:23)
[2017-08-04] MEDS: FAMOTIDINE 20 MG/2 ML VIAL IV PUSH SCH ×2 (05:09→17:31)
[2017-08-04] MEDS: POTASSIUM PHOSPHATE INJ 30 MMOL in SODIUM CHLOR 0.9% 250 ML INJ 250 ML IV PRN (05:13)
[2017-08-04] MEDS: RESP: BUDESONIDE 0.25 MG/2 ML NEB NEB SCH ×2 (07:38→19:43)
[2017-08-04] MEDS: FREE WATER G-TUBE SCH ×4 (08:00→23:50)
[2017-08-04] MEDS: SODIUM CHLORIDE 0.9% FLUSH 10 ML FLUSH IV FLUSH SCH ×2 (08:17→21:00)
[2017-08-04] MEDS: CHLORHEXIDINE 0.12% (ORAL KIT) 15 ML CUP MT SCH ×2 (08:17→21:09)
[2017-08-04] MEDS: HEPARIN SODIUM - SQ 10,000 UNITS/ML VIAL SQ SCH ×2 (08:17→21:08)
--- NOTE | 2017-08-04 09:10 | HHI.IDPN ---
Subjective Subjective Remarks Ms. Griggs is a 57-year-old female with history significant for asthma was also an active smoker, diabetes mellitus. With this background patient presents to [facility] emergency department with a three-day history of shortness of breath that was reportedly worsening. She also reported a productive cough with green thick phlegm and subjective fever and chills. No reported history of hemoptysis prior to admission. On arrival to the ED she was tachypneic, tachycardiac and placed on a non- rebreather mask. ABGs on 8 liters simple mask showed a pH of 7.48, CO2 29, pAO2 52, bicarb 22 and sats of 86%. Chest x-ray in the ED showed no acute disease. The patient subsequently underwent CT angiogram of the chest which showed no evidence of pulmonary embolism but showed extensive bilateral ground- glass infiltrates. WBC on admission was normal and she had no fevers so far during this admission. Influenza antigen test was done which is negative. Legionella and pneumococcal antigen is negative. No blood cultures in [facility]. She was initially admitted to [facility] under Dr. Bahena. The patient had worsening respiratory distress and Critical Care medicine was consulted for critical care management. She was on a non-rebreather mask with a saturation of 95%. Repeat ABGs showed a pH of 7.40, CO2 25, pAO2 79, bicarb 16 and saturation of 94%. The patient was given bronchodilators and steroids. Due to worsening respiratory status patient was intubated this am. At the time of my evaluation patient is in the ICU currently intubated on 75% FiO2 with PEEP of 5, secretions not much is reported to me by nurse taking care of the patient. Currently not on any pressors has not received any fluid boluses. Urine output is good. No rash no diarrhea. Infectious disease is consulted for evaluation and management of pneumonia in patient groundglass opacities possible PCP pneumonia Overnight events reviewed. Remains intubated Not much respiratory secretions thin and clear Not on any pressors No fevers No rash No diarrhea Antibiotics Azithromycin IV Zosyn IV Vancomycin IV Lines Line sites with no evidence of infection. Past Medical History Reviewed. Allergies: Coded Allergies: No Known Allergies (Unverified , 07/31/17) Objective . Vital Signs Date Time Temp Pulse Resp B/P (MAP) Pulse Ox O2 Delivery O2 Flow Rate FiO2 08/04/17 07:33 100 35 08/04/17 06:00 66 08/04/17 04:42 98 40 08/04/17 04:00 97.9 63 20 167/80 (109) 98 08/04/17 04:00 40 08/04/17 04:00 63 08/04/17 02:00 67 08/04/17 01:35 100 40 08/04/17 00:00 97.9 67 20 203/91 (128) 98 08/04/17 00:00 67 08/04/17 00:00 40 08/03/17 22:18 40 08/03/17 22:06 99 40 08/03/17 22:00 98 08/03/17 20:00 40 08/03/17 20:00 97.9 79 16 164/84 (110) 97 08/03/17 20:00 79 08/03/17 19:43 100 40 08/03/17 18:00 57 08/03/17 16:00 99.2 88 20 174/101 (125) 100 08/03/17 16:00 69 08/03/17 16:00 40 08/03/17 15:55 99 40 08/03/17 15:55 40 08/03/17 14:00 65 08/03/17 12:00 45 08/03/17 12:00 69 08/03/17 12:00 98.9 69 20 140/79 (99) 96 08/03/17 11:25 97 40 08/03/17 10:00 117 08/04/17 08/04/17 08/05/17 15:00 23:00 07:00 Intake Total 316 ml Balance 316 ml IV Total 316 ml . Laboratory Tests Test 08/03/17 04:40 08/04/17 03:33 White Blood Count 14.6 TH/MM3 14.1 TH/MM3 Red Blood Count 3.75 MIL/MM3 3.97 MIL/MM3 Hemoglobin 10.5 GM/DL 11.4 GM/DL Hematocrit 32.4 % 34.3 % Mean Corpuscular Volume 86.3 FL 86.2 FL Mean Corpuscular Hemoglobin 27.9 PG 28.6 PG Mean Corpuscular Hemoglobin Concent 32.3 % 33.2 % Red Cell Distribution Width 12.5 % 12.9 % Platelet Count 185 TH/MM3 207 TH/MM3 Mean Platelet Volume 9.2 FL 9.2 FL Neutrophils (%) (Auto) 92.8 % 92.9 % Lymphocytes (%) (Auto) 1.4 % 2.1 % Monocytes (%) (Auto) 5.7 % 4.0 % Eosinophils (%) (Auto) 0.0 % 0.0 % Basophils (%) (Auto) 0.1 % 1.0 % Neutrophils # (Auto) 13.5 TH/MM3 13.1 TH/MM3 Lymphocytes # (Auto) 0.2 TH/MM3 0.3 TH/MM3 Monocytes # (Auto) 0.8 TH/MM3 0.6 TH/MM3 Eosinophils # (Auto) 0.0 TH/MM3 0.0 TH/MM3 Basophils # (Auto) 0.0 TH/MM3 0.1 TH/MM3 CBC Comment DIFF FINAL AUTO DIFF Differential Comment AUTO DIFF CONFIRMED Laboratory Tests Test 08/03/17 04:40 08/03/17 08:42 08/04/17 03:33 Blood Urea Nitrogen 26 MG/DL 25 MG/DL Creatinine 0.96 MG/DL 0.85 MG/DL Random Glucose 125 MG/DL 225 MG/DL Total Protein 6.6 GM/DL 6.9 GM/DL Albumin 2.5 GM/DL 2.5 GM/DL Calcium Level 7.4 MG/DL 7.2 MG/DL Alkaline Phosphatase 128 U/L 138 U/L Aspartate Amino Transf (AST/SGOT) 109 U/L 86 U/L Alanine Aminotransferase (ALT/SGPT) 96 U/L 100 U/L Total Bilirubin 0.6 MG/DL 0.7 MG/DL Sodium Level 147 MEQ/L 145 MEQ/L Potassium Level 3.4 MEQ/L 3.1 MEQ/L Chloride Level 117 MEQ/L 111 MEQ/L Carbon Dioxide Level 21.5 MEQ/L 21.9 MEQ/L Anion Gap 9 MEQ/L 12 MEQ/L Estimat Glomerular Filtration Rate 73 ML/MIN 84 ML/MIN Protein Corrected Calcium 7.7 MG/DL 7.3 MG/DL Phosphorus Level 1.8 MG/DL 1.9 MG/DL Magnesium Level 2.0 MG/DL 1.8 MG/DL Microbiology Date/Time Source Procedure Growth Status 08/01/17 11:30 Blood Peripheral Aerobic Blood Culture - Preliminary NO GROWTH IN 2 DAYS Resulted 08/01/17 11:30 Blood Peripheral Anaerobic Blood Culture - Preliminary NO GROWTH IN 2 DAYS Resulted 08/01/17 11:25 Blood Peripheral Aerobic Blood Culture - Preliminary NO GROWTH IN 2 DAYS Resulted 08/01/17 11:25 Blood Peripheral Anaerobic Blood Culture - Preliminary NO GROWTH IN 2 DAYS Resulted 08/02/17 13:20 Bronchial Washings Right Lower Lobe Acid Fast Stain - Final NO ACID FAST BACILLI SEEN Resulted 08/02/17 13:20 Bronchial Washings Right Lower Lobe Mycobacterial Culture Pending Resulted 08/01/17 11:00 Sputum Endotracheal Fungal Smear - Final NO FUNGAL ELEMENTS SEEN. Resulted 08/01/17 11:00 Sputum Endotracheal Fungal Culture Pending Resulted 08/01/17 11:00 Sputum Endotracheal Gram Stain - Final Complete 08/01/17 11:00 Sputum Culture - Final S. Aureus Mrsa Complete Imaging Last Impressions Chest X-Ray 08/01/17 0000 Signed Impressions: Service Date/Time: Tuesday, August 01, 2017 08:07 - CONCLUSION: 1. ETT 1 cm is above the jeromy. NGT beyond the GE junction. 2. Diffuse interstitial and ground glass opacities in the mid to lower lung zones bilaterally. Differential considerations include pulmonary edema versus developing ARDS versus atypical infection. Moose Armijo MD CT Angiography 07/31/17 0835 Signed Impressions: Service Date/Time: Monday, July 31, 2017 09:30 - CONCLUSION: No evidence of pulmonary embolism. Extensive bilateral groundglass infiltrates. Jamshid Means MD Liver Ultrasound 07/31/17 0000 Signed Impressions: Service Date/Time: Monday, July 31, 2017 17:48 - CONCLUSION: 1. Cholecystectomy. 2. A few tiny calcifications are seen a cyst of the right kidney. The largest measures 3 mm in the midpole suggestive of nonobstructing stone. Wayne Harkins MD Physical Exam GENERAL: Thin built poorly nourished patient, in no apparent distress. SKIN: No rashes. Old track landin noted. HEAD: Atraumatic. Normocephalic. No temporal or scalp tenderness. EYES: Pupils equal round and reactive. Extraocular motions intact. No scleral icterus. No injection or drainage. ENT: Intubated. NECK: Trachea midline. Supple, nontender, no meningeal signs. CARDIOVASCULAR: HS audible. RESPIRATORY: Clear to auscultation. Breath sounds equal bilaterally. GASTROINTESTINAL: Abdomen soft, non-tender, nondistended. MUSCULOSKELETAL: Extremities without clubbing, cyanosis, or edema. No joint tenderness, effusion, or edema noted. NEUROLOGICAL: Sedated. Non focal exam. Psych cooperative IV line sites with no e.o infection. Assessment & Plan Remarks Pneumonia with Ground glass opacities DDX: Atypical pneumonia, PCP, Fungal, Hypersensitivity pneumonitis( Aspergillus) MRSA pneumonia CD4 lymphocytopenia: ? HIV/acute retroviral vs Isolated CD4 Lymphocytopenia. Acute resp failure on vent. Asthma acute exacerbation. Abnormal liver function tests: sepsis, Hepatitis C Hepatitis C positive DM2 uncontrolled. Recs: DC Zosyn IV DC Vanco IV (changed target 15-20) DC Azithro IV Start Augmentin oral. Start Zyvox oral. Low CD4 count r.o acute HIV/retroviral syndrome. Follow cultures Negative Cryptococcal antigen Follow Aspergillus studies. Hepatitis C positive Follow cultures Follow clinically. Critically ill. jones Calles: concern for fluid positive status s/p lasix today. Sherry Begum MD Aug 04, 2017 09:10
--- NOTE | 2017-08-04 09:36 | HHI.CCPN ---
Subjective Remarks/Hospital Course Patient is a 57-year-old female with past medical history of bronchial asthma, active smoker, diabetes mellitus, who presented to [facility] ED with a three day history of worsening shortness of breath. She also reports a productive cough with green, thick phlegm and subjective fever and chills. She denies any exposure to sick contacts. In addition she denies any hemoptysis. On arrival to the ED she was tachypneic, tachycardiac and placed on a non- rebreather mask. ABGs on 8 liters simple mask from early this morning showed a pH of 7.48, CO2 29, pAO2 52, bicarb 22 and sats of 86%. Chest x-ray in the ED showed no acute disease. The patient subsequently underwent CT angiogram of the chest which showed no evidence of pulmonary embolism; however, it showed extensive bilateral ground-glass infiltrates. Her laboratory data is significant for elevated liver enzymes. No history of any fever or leukocytosis. She was initially admitted to [facility] under Dr. Bahena. The patient had worsening respiratory distress and Critical Care medicine was consulted for critical care management. She remains on a non-rebreather mask with a saturation of 95%. Repeat ABGs showed a pH of 7.40, CO2 25, pAO2 79, bicarb 16 and saturation of 94%. The patient was given bronchodilators and steroids. 08/01 Patient was intubated this morning by myself for worsening resp status. Now intubated and sedated. Afebrile. 08/02 No events overnight. Sedated and intubated. Afebrile. 08/03 Patient remains intubated and sedated. s/p bronch with BAL yesterday. T: 99.9 last night. Sputum x + MRSA 08/04 No events overnight. Remains intubated and sedated. Tolerated CPAP for several hrs yesterday. Afebrile. Objective Vital Signs Date Time Temp Pulse Resp B/P (MAP) Pulse Ox O2 Delivery O2 Flow Rate FiO2 08/04/17 07:33 100 35 08/04/17 06:00 66 08/04/17 04:00 97.9 20 167/80 (109) 08/03/17 08:10 Ventilator 08/01/17 07:29 15.00 Intake and Output 08/04/17 08/04/17 08/05/17 08:00 16:00 00:00 Intake Total 1529 ml 316 ml Output Total 1100 ml Balance 429 ml 316 ml Result Diagram: 08/04/17 0333 08/04/17 0333 Other Results Laboratory Tests Test 08/03/17 12:05 08/04/17 03:33 White Blood Count 14.1 TH/MM3 Red Blood Count 3.97 MIL/MM3 Hemoglobin 11.4 GM/DL Hematocrit 34.3 % Mean Corpuscular Volume 86.2 FL Mean Corpuscular Hemoglobin 28.6 PG Mean Corpuscular Hemoglobin Concent 33.2 % Red Cell Distribution Width 12.9 % Platelet Count 207 TH/MM3 Mean Platelet Volume 9.2 FL Neutrophils (%) (Auto) 92.9 % Lymphocytes (%) (Auto) 2.1 % Monocytes (%) (Auto) 4.0 % Eosinophils (%) (Auto) 0.0 % Basophils (%) (Auto) 1.0 % Neutrophils # (Auto) 13.1 TH/MM3 Lymphocytes # (Auto) 0.3 TH/MM3 Monocytes # (Auto) 0.6 TH/MM3 Eosinophils # (Auto) 0.0 TH/MM3 Basophils # (Auto) 0.1 TH/MM3 CBC Comment AUTO DIFF Differential Comment AUTO DIFF CONFIRMED Blood Urea Nitrogen 25 MG/DL Creatinine 0.85 MG/DL Random Glucose 225 MG/DL Total Protein 6.9 GM/DL Albumin 2.5 GM/DL Calcium Level 7.2 MG/DL Phosphorus Level 1.9 MG/DL Magnesium Level 1.8 MG/DL Alkaline Phosphatase 138 U/L Aspartate Amino Transf (AST/SGOT) 86 U/L Alanine Aminotransferase (ALT/SGPT) 100 U/L Total Bilirubin 0.7 MG/DL Sodium Level 145 MEQ/L Potassium Level 3.1 MEQ/L Chloride Level 111 MEQ/L Carbon Dioxide Level 21.9 MEQ/L Anion Gap 12 MEQ/L Estimat Glomerular Filtration Rate 84 ML/MIN Protein Corrected Calcium 7.3 MG/DL Vancomycin Level Trough 11.5 MCG/ML Imaging Last Impressions Chest X-Ray 08/01/17 0000 Signed Impressions: Service Date/Time: Tuesday, August 01, 2017 08:07 - CONCLUSION: 1. ETT 1 cm is above the jeromy. NGT beyond the GE junction. 2. Diffuse interstitial and ground glass opacities in the mid to lower lung zones bilaterally. Differential considerations include pulmonary edema versus developing ARDS versus atypical infection. Moose Armijo MD CT Angiography 07/31/17 0835 Signed Impressions: Service Date/Time: Monday, July 31, 2017 09:30 - CONCLUSION: No evidence of pulmonary embolism. Extensive bilateral groundglass infiltrates. Jamshid Means MD Liver Ultrasound 07/31/17 0000 Signed Impressions: Service Date/Time: Monday, July 31, 2017 17:48 - CONCLUSION: 1. Cholecystectomy. 2. A few tiny calcifications are seen a cyst of the right kidney. The largest measures 3 mm in the midpole suggestive of nonobstructing stone. Wayne Harkins MD Objective Remarks GENERAL: Patient is 57 yo intubated for resp failure SKIN: Warm and dry. HEAD: Normocephalic. EYES: No scleral icterus. No injection or drainage. NECK: Supple, trachea midline. No JVD or lymphadenopathy. CARDIOVASCULAR: Regular rate and rhythm without murmurs, gallops, or rubs. RESPIRATORY: Breath sounds equal bilaterally. No accessory muscle use. GASTROINTESTINAL: Abdomen soft, non-tender, nondistended. MUSCULOSKELETAL: No cyanosis, or edema. Neuro: sedated, intubated A/P Assessment and Plan 1. Acute hypoxemic respiratory failure... intubated 08/01 2. Bilateral extensive ground-glass infiltrates. Differential diagnosis infectious process versus inflammatory process, fluid overload doubt. 3. Bronchial asthma exacerbation. 4. Elevated liver enzymes. 5. Diabetes mellitus. 6 HTN Plan Neuro: On Diprivan, versed and Fentanyl infusion for sedation and vent synchrony. Monitor neuro status . Daily sedation vacation UDS in ED positive for cannabinoids. Pulm: Continue with vent support keep sat> 92%. Bronchodilators- DuoNeb, Pulmicort nebs Decrease Solu-Medrol 80 mg IV q. 6 hours. Pulm is following SBT daily as javier s/p bronch 08/02 showed minimal secretions b/l suctioned to clear. No evidence of EBL or bleeding. Bronch washing performed RLL. BAL specimen sent for culture, fungal, viral, AFB, cell count and GMS stain for PCP- follow up on BAL results Check CXR CV: Place on Hydralazine 50mg Q8-Monitor HR and BP and maintain MAP> 65mmHg. Echo showed EF 55-60% GI: On Pepcid 20 mg q. 12 for GI prophylaxis. On Glucerna 1.5 with goal rate 45ml/hr Monitor LFT's, US liver: Cholecystectomy. A few tiny calcifications are seen a cyst of the right kidney. The largest measures 3 mm in the midpole suggestive of nonobstructing stone. Hepatitis profile- Hep C ab reactive : Monitor renal function, electrolytes replacement per protocol. Will need K, Phos replacement today On Free water 250ml Q8 ID: Continue with abx per ID (abx changed to Zyvox, Augmentin today) Monitor for signs infection( fever and WBC). nasal washing is negative for influenza in the ED. Strep pneumoniae and Legionella urinary antigen negative HIV test negative. Abs CD4 count 179. ID is following 2/6 sputum cx: MRSA Check C-diff PCR( patient is having liquid stools) . Endo:SSI with Accu-Cheks for glycemic Heme: Monitor CBC. follow up EVAN GI prophylaxis with Pepcid and DVT prophylaxis with SCDs and heparin subcu. Level 3 Kristen Knowles MD Aug 04, 2017 09:36
[2017-08-04] MEDS: fentaNYL DRIP 250 ML IV PRN (10:33)
[2017-08-04] MEDS: AMOXICILLIN/CLAVULANATE K 875 MG TAB PO SCH ×2 (10:33→21:09)
[2017-08-04] MEDS: LINEZOLID 600 MG TAB PO SCH ×2 (10:33→21:09)
[2017-08-04] MEDS: POTASSIUM CHLOR 20 MEQ PREMIX 100 ML IV PRN ×2 (10:56→12:56)
[2017-08-04] MEDS ORDERED: CALCIUM GLUCONATE INJ 1 GM in SODIUM CHLORIDE 0.9% INJ 100 ML IV ONE (11:00)
--- NOTE | 2017-08-04 11:33 | RADRPT ---
EXAM DATE/TIME: 08/04/2017 09:32 [facility] COMPARISON: CHEST SINGLE AP, August 01, 2017, 8:07. INDICATIONS : Respiratory failure. MEDICAL HISTORY : Chronic obstructive pulmonary disease. Asthma. Diabetes. Tobacco use. SURGICAL HISTORY : Cholecystectomy. ENCOUNTER: Subsequent ACUITY: 3 days PAIN SCORE: Non-responsive. LOCATION: Bilateral chest FINDINGS: Tracheal tube is present with tip just above the jeromy. Nasogastric tube coils in the stomach. There has been improvement in aeration with clearance of infiltrates. No significant effusion present. Car diac contours are satisfactory. CONCLUSION: Improved chest appearance Jamshid Means MD on August 04, 2017 at 11:30 Board Certified Radiologist. This report was verified electronically.
[2017-08-04] MEDS ORDERED: DEXMEDETOMIDINE INJ 200 MCG in SODIUM CHLORIDE 0.9% INJ 50 ML IV PRN (13:00)
[2017-08-04] MEDS: hydrALAZINE HCL 50 MG TAB PO SCH ×2 (13:09→21:07)
[2017-08-04] MEDS ORDERED: DEXMEDETOMIDINE INJ 1,000 MCG in SODIUM CHLOR 0.9% 250 ML INJ 240 ML IV PRN (15:45)
[2017-08-04] MEDS: hydrALAZINE HCL 20 MG/ML VIAL IV PUSH PRN (17:32)
--- NOTE | 2017-08-04 22:04 | HHI.PR ---
Subjective Remarks 57 YOAA female with VDRF, Bilat infilt, DM Intubated today Sedated no fever No pressors Weaned to CPAP Objective Vital Signs Vital Signs Date Time Temp Pulse Resp B/P (MAP) Pulse Ox O2 Delivery O2 Flow Rate FiO2 08/04/17 20:00 98.9 68 21 154/77 (102) 98 08/04/17 20:00 81 08/04/17 20:00 40 08/04/17 19:40 97 35 08/04/17 18:00 80 08/04/17 16:00 70 08/04/17 16:00 40 08/04/17 16:00 99.1 70 20 201/97 (131) 95 08/04/17 15:20 96 35 08/04/17 14:23 40 08/04/17 14:00 70 08/04/17 12:00 61 08/04/17 12:00 99.4 61 17 195/95 (128) 95 08/04/17 10:44 97 35 08/04/17 10:00 66 08/04/17 08:00 74 08/04/17 08:00 99.1 74 19 156/84 (108) 98 08/04/17 08:00 40 08/04/17 07:33 100 35 08/04/17 06:00 66 08/04/17 04:42 98 40 08/04/17 04:00 97.9 63 20 167/80 (109) 98 08/04/17 04:00 40 08/04/17 04:00 63 08/04/17 02:00 67 08/04/17 01:35 100 40 08/04/17 00:00 97.9 67 20 203/91 (128) 98 08/04/17 00:00 67 08/04/17 00:00 40 08/03/17 22:18 40 08/03/17 22:06 99 40 I/O 08/03/17 08/03/17 08/03/17 08/04/17 08/04/17 08/04/17 07:00 15:00 23:00 07:00 15:00 23:00 Intake Total 1311 ml 1279 ml 1529 ml 316 ml 992 ml Output Total 1100 ml 1000 ml 1100 ml 900 ml Balance 211 ml 279 ml 429 ml 316 ml 92 ml IV Total 621 ml 600 ml 679 ml 316 ml 680 ml Tube Feeding 540 ml 479 ml 500 ml 312 ml Tube Irrigant 150 ml 350 ml Other 200 ml Output Urine Total 1100 ml 1000 ml 1100 ml 900 ml # Bowel Movements 2 2 Result Diagram: 08/04/1733208/04/17332 Objective Remarks GENERAL: MBMN AA female, on vent, sedated SKIN: Warm and dry. HEAD: Normocephalic. EYES: No scleral icterus. No injection or drainage. NECK: Supple, trachea midline. No JVD or lymphadenopathy. CARDIOVASCULAR: Regular rate and rhythm without murmurs, gallops, or rubs. RESPIRATORY: Breath sounds equal bilaterally. No accessory muscle use. GASTROINTESTINAL: Abdomen soft, non-tender, nondistended. MUSCULOSKELETAL: No cyanosis, or edema. BACK: Nontender without obvious deformity. No CVA tenderness. A/P Assessment and Plan VDRF Bilat Ground glass infilt, inf, hypersensitivity or fungal pn COPD DM PLAN: Cont vent support Abx vanco, Zithro, Zosyn Aerosol nebs CPAP trial Alex Rivera MD Aug 04, 2017 22:04
[2017-08-05] VITALS (22 sets, daily range): BP systolic 108–145; BP diastolic 63–82; PULSE 65–106; RESP 14–25; TEMP 97.9–98.6; O2SAT 95–100
[2017-08-05] MEDS: hydrALAZINE HCL 20 MG/ML VIAL IV PUSH PRN ×4 (00:31→23:46)
[2017-08-05] MEDS: methylPREDNISolone SOD SUCC 125 MG/2 ML VIAL IV PUSH SCH ×4 (01:55→20:59)
[2017-08-05] MEDS: hydrALAZINE HCL 50 MG TAB PO SCH ×3 (05:46→21:00)
[2017-08-05] MEDS: FAMOTIDINE 20 MG/2 ML VIAL IV PUSH SCH ×2 (05:46→17:45)
[2017-08-05] MEDS: fentaNYL DRIP 250 ML IV PRN (05:47)
[2017-08-05] MEDS: INSULIN NovoLIN REGULAR SUPPLEMENTAL SCALE SQ SCH ×4 (05:47→23:00)
[2017-08-05 06:00] LABS: AUTOMATED NEUTROPHIL # 7.6 TH/MM3 (1.8-7.7); BASOPHIL % 0.3 % (0.0-2.0); EOSINOPHIL % 0.4 % (0.0-4.0); HEMATOCRIT 35.1 % (35.0-46.0); HEMOGLOBIN 11.9 GM/DL (11.6-15.3); LYMPH % 8.3 % (9.0-44.0); LYMPHOCYTE # 0.7 TH/MM3 (1.0-4.8); MEAN CELL VOLUME 84.7 FL (80.0-100.0); MEAN CORPUSCULAR HEMOGLOBIN 28.8 PG (27.0-34.0); MEAN PLATELET VOLUME 9.6 FL (7.0-11.0); MONO % 5.4 % (0.0-8.0); MONOCYTE # 0.5 TH/MM3 (0-0.9); NEUT % 85.6 % (16.0-70.0); PLATELET COUNT 214 TH/MM3 (150-450); RED BLOOD COUNT 4.15 MIL/MM3 (4.00-5.30); RED CELL DISTRIBUTION WIDTH 12.7 % (11.6-17.2); WHITE BLOOD COUNT 8.9 TH/MM3 (4.0-11.0)
--- NOTE | 2017-08-05 06:10 | RADRPT ---
EXAM DATE/TIME: 08/05/2017 04:18 [facility] COMPARISON: CHEST SINGLE AP, August 04, 2017, 9:32. INDICATIONS : Shortness of breath, possible pulmonary disease. MEDICAL HISTORY : Chronic obstructive pulmonary disease. Diabetes mellitus type II. Asthma SURGICAL HISTORY : Cholecystectomy. ENCOUNTER: Subsequent ACUITY: 4 - 6 days PAIN SCORE: Non-responsive. LOCATION: Bilateral chest FINDINGS: A single view of the chest demonstrates endotracheal tube in good position. NG coiled in stomach. Torsten ateral mostly basilar subsegmental air space disease. No effusion. No pneumothorax. CONCLUSION: 1. Endotracheal tube and nasogastric tube in good position. Mild bilateral mostly basilar and depende nt airspace disease in the lungs similar to August 04. Amadeo Hooks MD on August 05, 2017 at 6:08 Board Certified Radiologist. This report was verified electronically.
[2017-08-05 06:34] LABS: ALBUMIN 2.4 GM/DL (3.4-5.0); BICARBONATE 24.2 MEQ/L (21.0-32.0); CALCIUM 7.4 MG/DL (8.5-10.1); CALCIUM-PROTEIN CORRECTED 7.7 MG/DL (8.5-10.1); CREATININE 0.7 MG/DL (0.50-1.00); MAGNESIUM 1.8 MG/DL (1.5-2.5); PHOSPHORUS 2.7 MG/DL (2.5-4.9); TOTAL BILIRUBIN ADULT 0.4 MG/DL (0.2-1.0); TOTAL PROTEIN 6.6 GM/DL (6.4-8.2)
[2017-08-05] MEDS: RESP: BUDESONIDE 0.25 MG/2 ML NEB NEB SCH ×2 (07:30→19:41)
[2017-08-05] MEDS: SODIUM CHLORIDE 0.9% FLUSH 10 ML FLUSH IV FLUSH SCH ×2 (07:44→21:00)
[2017-08-05] MEDS: FREE WATER G-TUBE SCH ×2 (07:44→16:00)
[2017-08-05] MEDS: LINEZOLID 600 MG TAB PO SCH ×2 (07:44→21:00)
[2017-08-05] MEDS: CHLORHEXIDINE 0.12% (ORAL KIT) 15 ML CUP MT SCH ×2 (07:44→21:00)
[2017-08-05] MEDS: HEPARIN SODIUM - SQ 10,000 UNITS/ML VIAL SQ SCH ×2 (07:45→21:00)
[2017-08-05] MEDS: AMOXICILLIN/CLAVULANATE K 875 MG TAB PO SCH ×2 (07:45→21:00)
--- NOTE | 2017-08-05 10:54 | HHI.IDPN ---
Subjective Subjective Remarks Ms. Griggs is a 57-year-old female with history significant for asthma was also an active smoker, diabetes mellitus. With this background patient presents to [facility] emergency department with a three-day history of shortness of breath that was reportedly worsening. She also reported a productive cough with green thick phlegm and subjective fever and chills. No reported history of hemoptysis prior to admission. On arrival to the ED she was tachypneic, tachycardiac and placed on a non- rebreather mask. ABGs on 8 liters simple mask showed a pH of 7.48, CO2 29, pAO2 52, bicarb 22 and sats of 86%. Chest x-ray in the ED showed no acute disease. The patient subsequently underwent CT angiogram of the chest which showed no evidence of pulmonary embolism but showed extensive bilateral ground- glass infiltrates. WBC on admission was normal and she had no fevers so far during this admission. Influenza antigen test was done which is negative. Legionella and pneumococcal antigen is negative. No blood cultures in [facility]. She was initially admitted to [facility] under Dr. Bahena. The patient had worsening respiratory distress and Critical Care medicine was consulted for critical care management. She was on a non-rebreather mask with a saturation of 95%. Repeat ABGs showed a pH of 7.40, CO2 25, pAO2 79, bicarb 16 and saturation of 94%. The patient was given bronchodilators and steroids. Due to worsening respiratory status patient was intubated this am. At the time of my evaluation patient is in the ICU currently intubated on 75% FiO2 with PEEP of 5, secretions not much is reported to me by nurse taking care of the patient. Currently not on any pressors has not received any fluid boluses. Urine output is good. No rash no diarrhea. Infectious disease is consulted for evaluation and management of pneumonia in patient groundglass opacities possible PCP pneumonia Overnight events reviewed. Remains intubated Not much respiratory secretions thin and clear Not on any pressors No fevers No rash No diarrhea Antibiotics Zyvox oral Augmentin oral. Lines Line sites with no evidence of infection. Past Medical History Reviewed. Allergies: Coded Allergies: No Known Allergies (Unverified , 07/31/17) Objective . Vital Signs Date Time Temp Pulse Resp B/P (MAP) Pulse Ox O2 Delivery O2 Flow Rate FiO2 08/05/17 10:09 99 35 08/05/17 10:00 72 08/05/17 08:48 99 35 08/05/17 08:48 35 08/05/17 08:00 40 08/05/17 08:00 77 08/05/17 08:00 98.2 77 22 108/63 (78) 99 08/05/17 07:30 98 35 08/05/17 06:00 67 08/05/17 04:35 98 35 08/05/17 04:00 106 08/05/17 04:00 40 08/05/17 04:00 98.6 106 25 139/76 (97) 98 08/05/17 02:00 100 08/05/17 01:15 97 35 08/05/17 00:00 40 08/05/17 00:00 97.9 65 14 145/75 (98) 98 08/05/17 00:00 80 08/04/17 22:11 98 35 08/04/17 22:00 78 08/04/17 20:00 98.9 68 21 154/77 (102) 98 08/04/17 20:00 81 08/04/17 20:00 40 08/04/17 19:40 97 35 08/04/17 18:00 80 08/04/17 16:00 70 08/04/17 16:00 40 08/04/17 16:00 99.1 70 20 201/97 (131) 95 08/04/17 15:20 96 35 08/04/17 14:23 40 08/04/17 14:00 70 08/04/17 12:00 61 08/04/17 12:00 99.4 61 17 195/95 (128) 95 . Laboratory Tests Test 08/04/17 03:33 08/05/17 05:09 White Blood Count 14.1 TH/MM3 8.9 TH/MM3 Red Blood Count 3.97 MIL/MM3 4.15 MIL/MM3 Hemoglobin 11.4 GM/DL 11.9 GM/DL Hematocrit 34.3 % 35.1 % Mean Corpuscular Volume 86.2 FL 84.7 FL Mean Corpuscular Hemoglobin 28.6 PG 28.8 PG Mean Corpuscular Hemoglobin Concent 33.2 % 34.0 % Red Cell Distribution Width 12.9 % 12.7 % Platelet Count 207 TH/MM3 214 TH/MM3 Mean Platelet Volume 9.2 FL 9.6 FL Neutrophils (%) (Auto) 92.9 % 85.6 % Lymphocytes (%) (Auto) 2.1 % 8.3 % Monocytes (%) (Auto) 4.0 % 5.4 % Eosinophils (%) (Auto) 0.0 % 0.4 % Basophils (%) (Auto) 1.0 % 0.3 % Neutrophils # (Auto) 13.1 TH/MM3 7.6 TH/MM3 Lymphocytes # (Auto) 0.3 TH/MM3 0.7 TH/MM3 Monocytes # (Auto) 0.6 TH/MM3 0.5 TH/MM3 Eosinophils # (Auto) 0.0 TH/MM3 0.0 TH/MM3 Basophils # (Auto) 0.1 TH/MM3 0.0 TH/MM3 CBC Comment AUTO DIFF DIFF FINAL Differential Comment AUTO DIFF CONFIRMED Laboratory Tests Test 08/04/17 03:33 08/05/17 05:09 Blood Urea Nitrogen 25 MG/DL 28 MG/DL Creatinine 0.85 MG/DL 0.70 MG/DL Random Glucose 225 MG/DL 175 MG/DL Total Protein 6.9 GM/DL 6.6 GM/DL Albumin 2.5 GM/DL 2.4 GM/DL Calcium Level 7.2 MG/DL 7.4 MG/DL Phosphorus Level 1.9 MG/DL 2.7 MG/DL Magnesium Level 1.8 MG/DL 1.8 MG/DL Alkaline Phosphatase 138 U/L 137 U/L Aspartate Amino Transf (AST/SGOT) 86 U/L 56 U/L Alanine Aminotransferase (ALT/SGPT) 100 U/L 89 U/L Total Bilirubin 0.7 MG/DL 0.4 MG/DL Sodium Level 145 MEQ/L 145 MEQ/L Potassium Level 3.1 MEQ/L 3.6 MEQ/L Chloride Level 111 MEQ/L 111 MEQ/L Carbon Dioxide Level 21.9 MEQ/L 24.2 MEQ/L Anion Gap 12 MEQ/L 10 MEQ/L Estimat Glomerular Filtration Rate 84 ML/MIN 105 ML/MIN Protein Corrected Calcium 7.3 MG/DL 7.7 MG/DL Microbiology Date/Time Source Procedure Growth Status 08/02/17 13:20 Bronchial Washings Right Lower Lobe Acid Fast Stain - Final NO ACID FAST BACILLI SEEN Resulted 08/02/17 13:20 Bronchial Washings Right Lower Lobe Mycobacterial Culture Pending Resulted Imaging Last Impressions Chest X-Ray 08/01/17 0000 Signed Impressions: Service Date/Time: Tuesday, August 01, 2017 08:07 - CONCLUSION: 1. ETT 1 cm is above the jeromy. NGT beyond the GE junction. 2. Diffuse interstitial and ground glass opacities in the mid to lower lung zones bilaterally. Differential considerations include pulmonary edema versus developing ARDS versus atypical infection. Moose Armijo MD CT Angiography 07/31/17 0835 Signed Impressions: Service Date/Time: Monday, July 31, 2017 09:30 - CONCLUSION: No evidence of pulmonary embolism. Extensive bilateral groundglass infiltrates. Jamshid Means MD Liver Ultrasound 07/31/17 0000 Signed Impressions: Service Date/Time: Monday, July 31, 2017 17:48 - CONCLUSION: 1. Cholecystectomy. 2. A few tiny calcifications are seen a cyst of the right kidney. The largest measures 3 mm in the midpole suggestive of nonobstructing stone. Wayne Harkins MD Physical Exam GENERAL: Thin built poorly nourished patient, in no apparent distress. SKIN: No rashes. Old track landin noted. HEAD: Atraumatic. Normocephalic. No temporal or scalp tenderness. EYES: Pupils equal round and reactive. Extraocular motions intact. No scleral icterus. No injection or drainage. ENT: Intubated. NECK: Trachea midline. Supple, nontender, no meningeal signs. CARDIOVASCULAR: HS audible. RESPIRATORY: Clear to auscultation. Breath sounds equal bilaterally. GASTROINTESTINAL: Abdomen soft, non-tender, nondistended. MUSCULOSKELETAL: Extremities without clubbing, cyanosis, or edema. No joint tenderness, effusion, or edema noted. NEUROLOGICAL: Sedated. Non focal exam. Psych cooperative IV line sites with no e.o infection. Assessment & Plan Remarks Pneumonia with Ground glass opacities DDX: Atypical pneumonia, PCP, Fungal, Hypersensitivity pneumonitis( Aspergillus) MRSA pneumonia CD4 lymphocytopenia: ? HIV/acute retroviral vs Isolated CD4 Lymphocytopenia. Acute resp failure on vent. Asthma acute exacerbation. Abnormal liver function tests: sepsis, Hepatitis C Hepatitis C positive DM2 uncontrolled. Recs: Continue Augmentin oral. Continue Zyvox oral. Low CD4 count r.o acute HIV/retroviral syndrome. Follow cultures Negative Cryptococcal antigen Follow Aspergillus studies. Hepatitis C positive Follow cultures Follow clinically. Sherry Begum MD Aug 05, 2017 10:54
[2017-08-05] MEDS: RESP: ALBUTEROL 2.5 MG/IPRATROPIUM 0.5 MG NEB (SCH) INH ×2 (13:25→19:40)
[2017-08-05] MEDS ORDERED: CALCIUM GLUCONATE INJ 2 GM in SODIUM CHLORIDE 0.9% INJ 100 ML IV ONE (14:00)
--- NOTE | 2017-08-05 14:01 | HHI.CCPN ---
Subjective Remarks/Hospital Course Patient is a 57-year-old female with past medical history of bronchial asthma, active smoker, diabetes mellitus, who presented to [facility] ED with a three day history of worsening shortness of breath. She also reports a productive cough with green, thick phlegm and subjective fever and chills. She denies any exposure to sick contacts. In addition she denies any hemoptysis. On arrival to the ED she was tachypneic, tachycardiac and placed on a non- rebreather mask. ABGs on 8 liters simple mask from early this morning showed a pH of 7.48, CO2 29, pAO2 52, bicarb 22 and sats of 86%. Chest x-ray in the ED showed no acute disease. The patient subsequently underwent CT angiogram of the chest which showed no evidence of pulmonary embolism; however, it showed extensive bilateral ground-glass infiltrates. Her laboratory data is significant for elevated liver enzymes. No history of any fever or leukocytosis. She was initially admitted to [facility] under Dr. Bahena. The patient had worsening respiratory distress and Critical Care medicine was consulted for critical care management. She remains on a non-rebreather mask with a saturation of 95%. Repeat ABGs showed a pH of 7.40, CO2 25, pAO2 79, bicarb 16 and saturation of 94%. The patient was given bronchodilators and steroids. 08/01 Patient was intubated this morning by myself for worsening resp status. Now intubated and sedated. Afebrile. 08/02 No events overnight. Sedated and intubated. Afebrile. 08/03 Patient remains intubated and sedated. s/p bronch with BAL yesterday. T: 99.9 last night. Sputum x + MRSA 08/04 No events overnight. Remains intubated and sedated. Tolerated CPAP for several hrs yesterday. Afebrile. 08/05: Patient tolerated CPAP for approximately 8 hours, patient continues on CPAP trials greater than 8 hours today. Patient tolerating tube feeds. Objective Vital Signs Date Time Temp Pulse Resp B/P (MAP) Pulse Ox O2 Delivery O2 Flow Rate FiO2 08/05/17 13:25 99 35 08/05/17 12:00 74 08/05/17 12:00 98.0 25 139/76 (97) 08/03/17 08:10 Ventilator 08/01/17 07:29 15.00 Intake and Output 08/05/17 08/05/17 08/05/17 07:59 15:59 23:59 Intake Total 1043 ml Output Total 600 ml Balance 443 ml Result Diagram: 08/05/17 0509 08/05/17 0509 Other Results Laboratory Tests Test 08/04/17 14:00 Blood Gas Puncture Site RT RADIAL Blood Gas Patient Temperature 98.6 Blood Gas HCO3 22 mmol/L (22-26) Blood Gas Base Excess -2.4 mmol/L (-2-2) Blood Gas Oxygen Saturation 82 % (90-100) Arterial Blood pH 7.36 (7.380-7.420) Arterial Blood Partial Pressure CO2 40 mmHg (38-42) Arterial Blood Partial Pressure O2 56 mmHg (61-120) Arterial Blood Oxygen Content 14.0 Vol % (12.0-20.0) Arterial Blood Carboxyhemoglobin 0.5 % (0-4) Arterial Blood Methemoglobin 1.2 % (0-2) Blood Gas Hemoglobin 12.2 G/DL (12.0-16.0) Oxygen Delivery Device VENTILATOR Blood Gas Ventilator Setting CPAP/10/+11/22 Blood Gas Inspired Oxygen 30 % Imaging Last Impressions Chest X-Ray 08/05/17 0000 Signed Impressions: Service Date/Time: Saturday, August 05, 2017 04:18 - CONCLUSION: 1. Endotracheal tube and nasogastric tube in good position. Mild bilateral mostly basilar and dependent airspace disease in the lungs similar to August 04. Amadeo Hooks MD CT Angiography 07/31/17 0835 Signed Impressions: Service Date/Time: Monday, July 31, 2017 09:30 - CONCLUSION: No evidence of pulmonary embolism. Extensive bilateral groundglass infiltrates. Jamshid Means MD Liver Ultrasound 07/31/17 0000 Signed Impressions: Service Date/Time: Monday, July 31, 2017 17:48 - CONCLUSION: 1. Cholecystectomy. 2. A few tiny calcifications are seen a cyst of the right kidney. The largest measures 3 mm in the midpole suggestive of nonobstructing stone. Wayne Harkins MD Last Impressions Chest X-Ray 08/01/17 0000 Signed Impressions: Service Date/Time: Tuesday, August 01, 2017 08:07 - CONCLUSION: 1. ETT 1 cm is above the jeromy. NGT beyond the GE junction. 2. Diffuse interstitial and ground glass opacities in the mid to lower lung zones bilaterally. Differential considerations include pulmonary edema versus developing ARDS versus atypical infection. Moose Armijo MD CT Angiography 07/31/17 0835 Signed Impressions: Service Date/Time: Monday, July 31, 2017 09:30 - CONCLUSION: No evidence of pulmonary embolism. Extensive bilateral groundglass infiltrates. Jamshid Means MD Liver Ultrasound 07/31/17 0000 Signed Impressions: Service Date/Time: Monday, July 31, 2017 17:48 - CONCLUSION: 1. Cholecystectomy. 2. A few tiny calcifications are seen a cyst of the right kidney. The largest measures 3 mm in the midpole suggestive of nonobstructing stone. Wayne Harkins MD Objective Remarks GENERAL: Patient is 57 yo emaciated female intubated for resp failure SKIN: Warm and dry. HEAD: Normocephalic. EYES: No scleral icterus. No injection or drainage. NECK: Supple, trachea midline. No JVD or lymphadenopathy. CARDIOVASCULAR: Regular rate and rhythm without murmurs, gallops, or rubs. RESPIRATORY: Breath sounds equal bilaterally. No accessory muscle use. GASTROINTESTINAL: Abdomen soft, non-tender, nondistended. MUSCULOSKELETAL: No cyanosis, or edema. Neuro: RASS -2. Moves extremities 4 upon commands A/P Assessment and Plan 1. Acute hypoxemic respiratory failure... intubated 08/01 2. Bilateral extensive ground-glass infiltrates. Differential diagnosis infectious process versus inflammatory process, fluid overload doubt. 3. Bronchial asthma exacerbation. 4. Elevated liver enzymes. 5. Diabetes mellitus. 6 HTN 7 electrolyte derangement Plan Neuro: On Diprivan, versed and Fentanyl infusion for sedation and vent synchrony. Monitor neuro status . Daily sedation vacation UDS in ED positive for cannabinoids. Pulm: Continue with vent support keep sat> 92%. Bronchodilators- DuoNeb, Pulmicort nebs Decrease Solu-Medrol 80 mg IV q. 6 hours. Pulm is following SBT daily as javier s/p bronch 08/02 showed minimal secretions b/l suctioned to clear. No evidence of EBL or bleeding. Bronch washing performed RLL. BAL specimen sent for culture, fungal, viral, AFB, cell count and GMS stain for PCP- follow up on BAL results 08/05 CXR-airspace disease unchanged CV: Place on Hydralazine 50mg Q8-Monitor HR and BP and maintain MAP> 65mmHg. Echo showed EF 55-60% GI: On Pepcid 20 mg q. 12 for GI prophylaxis. On Glucerna 1.5 with goal rate 45ml/hr, minimal residuals Monitor LFT's, US liver: Cholecystectomy. A few tiny calcifications are seen a cyst of the right kidney. The largest measures 3 mm in the midpole suggestive of nonobstructing stone. Hepatitis profile- Hep C ab reactive : Monitor renal function, electrolytes replacement per protocol. On Free water 250ml Q8 Calcium gluconate 2 g IV, now ID: Continue with abx per ID (abx changed to Zyvox, Augmentin today) Monitor for signs infection( fever and WBC). nasal washing is negative for influenza in the ED. Strep pneumoniae and Legionella urinary antigen negative HIV test negative. Abs CD4 count 179. ID is following 08/01 sputum cx: MRSA C-diff PCR( patient is having liquid stools) - neg . Endo:SSI with Accu-Cheks for glycemic Heme: Monitor CBC. follow up EVAN GI prophylaxis with Pepcid and DVT prophylaxis with SCDs and heparin subcu. Level 3 Physician Romy Denney MD Aug 05, 2017 14:01
[2017-08-05] MEDS: PROPOFOL 1000 MG/100 ML IV PRN (19:30)
[2017-08-05 19:53] LABS: ASPERGILLUS FLAVUS AB NEGATIVE (NEGATIVE); ASPERGILLUS FUMIGATUS AB NEGATIVE (NEGATIVE); ASPERGILLUS NIGER AB NEGATIVE (NEGATIVE)
[2017-08-06] VITALS (21 sets, daily range): BP systolic 135–152; BP diastolic 71–85; PULSE 70–109; RESP 16–31; TEMP 97.7–98.2; O2SAT 98–100
[2017-08-06] MEDS: fentaNYL DRIP 250 ML IV PRN ×2 (01:23→17:40)
[2017-08-06] MEDS: methylPREDNISolone SOD SUCC 125 MG/2 ML VIAL IV PUSH SCH ×4 (01:24→20:00)
[2017-08-06] MEDS: PROPOFOL 1000 MG/100 ML IV PRN ×2 (02:22→12:49)
[2017-08-06 04:02] LABS: HEMATOCRIT 34.4 % (35.0-46.0); HEMOGLOBIN 11.6 GM/DL (11.6-15.3); MEAN CORPUSCULAR HEMOGLOBIN 28.3 PG (27.0-34.0); MEAN CORPUSCULAR HGB CONC 33.6 % (32.0-36.0); MEAN PLATELET VOLUME 9.7 FL (7.0-11.0); PLATELET COUNT 222 TH/MM3 (150-450); RED BLOOD COUNT 4.09 MIL/MM3 (4.00-5.30); RED CELL DISTRIBUTION WIDTH 12.8 % (11.6-17.2); WHITE BLOOD COUNT 8.1 TH/MM3 (4.0-11.0)
[2017-08-06] MEDS: RESP: ALBUTEROL 2.5 MG/3 ML NEB (PRN) INH (04:21)
[2017-08-06 04:25] LABS: BICARBONATE 21.4 MEQ/L (21.0-32.0); CREATININE 0.7 MG/DL (0.50-1.00); MAGNESIUM 1.9 MG/DL (1.5-2.5)
[2017-08-06] MEDS: INSULIN NovoLIN REGULAR SUPPLEMENTAL SCALE SQ SCH ×4 (05:00→23:00)
--- NOTE | 2017-08-06 05:24 | RADRPT ---
EXAM DATE/TIME: 08/06/2017 03:35 [place] COMPARISON: CHEST SINGLE AP, August 05, 2017, 4:18. INDICATIONS : Evaluate for pneumonia- Respiratory failure MEDICAL HISTORY : Chronic obstructive pulmonary disease. Diabetes mellitus type II. Asthma SURGICAL HISTORY : Cholecystectomy. ENCOUNTER: Subsequent ACUITY: 1 week PAIN SCORE: Non-responsive. LOCATION: Bilateral chest FINDINGS: A single view of the chest demonstrates endotracheal tube in good position. NG coiled in stomach. Mil d basilar dependent opacity in the lungs. No effusion or pneumothorax. CONCLUSION: 1. Mild basilar and dependent opacity in the lungs. No effusion. No pneumothorax. Endotracheal tube a nd nasogastric tube unchanged. Amadeo Hooks MD on August 06, 2017 at 5:20 Board Certified Radiologist. This report was verified electronically.
[2017-08-06] MEDS: FAMOTIDINE 20 MG/2 ML VIAL IV PUSH SCH ×2 (06:16→17:39)
[2017-08-06] MEDS: hydrALAZINE HCL 50 MG TAB PO SCH ×3 (06:16→22:00)
[2017-08-06] MEDS: RESP: ALBUTEROL 2.5 MG/IPRATROPIUM 0.5 MG NEB (SCH) INH ×3 (07:35→19:55)
[2017-08-06] MEDS: RESP: BUDESONIDE 0.25 MG/2 ML NEB NEB SCH ×2 (07:36→19:55)
[2017-08-06] MEDS: CHLORHEXIDINE 0.12% (ORAL KIT) 15 ML CUP MT SCH ×2 (08:24→20:00)
[2017-08-06] MEDS: SODIUM CHLORIDE 0.9% FLUSH 10 ML FLUSH IV FLUSH SCH ×2 (08:24→21:00)
[2017-08-06] MEDS: AMOXICILLIN/CLAVULANATE K 875 MG TAB PO SCH ×2 (08:25→21:00)
[2017-08-06] MEDS: LINEZOLID 600 MG TAB PO SCH ×2 (08:25→21:00)
[2017-08-06] MEDS: HEPARIN SODIUM - SQ 10,000 UNITS/ML VIAL SQ SCH ×2 (08:25→21:00)
[2017-08-06] MEDS: FREE WATER G-TUBE SCH ×3 (08:26→17:16)
--- NOTE | 2017-08-06 16:40 | HHI.CCPN ---
Subjective Remarks/Hospital Course Patient is a 57-year-old female with past medical history of bronchial asthma, active smoker, diabetes mellitus, who presented to [facility] ED with a three day history of worsening shortness of breath. She also reports a productive cough with green, thick phlegm and subjective fever and chills. She denies any exposure to sick contacts. In addition she denies any hemoptysis. On arrival to the ED she was tachypneic, tachycardiac and placed on a non- rebreather mask. ABGs on 8 liters simple mask from early this morning showed a pH of 7.48, CO2 29, pAO2 52, bicarb 22 and sats of 86%. Chest x-ray in the ED showed no acute disease. The patient subsequently underwent CT angiogram of the chest which showed no evidence of pulmonary embolism; however, it showed extensive bilateral ground-glass infiltrates. Her laboratory data is significant for elevated liver enzymes. No history of any fever or leukocytosis. She was initially admitted to [facility] under Dr. Bahena. The patient had worsening respiratory distress and Critical Care medicine was consulted for critical care management. She remains on a non-rebreather mask with a saturation of 95%. Repeat ABGs showed a pH of 7.40, CO2 25, pAO2 79, bicarb 16 and saturation of 94%. The patient was given bronchodilators and steroids. 08/01 Patient was intubated this morning by myself for worsening resp status. Now intubated and sedated. Afebrile. 08/02 No events overnight. Sedated and intubated. Afebrile. 08/03 Patient remains intubated and sedated. s/p bronch with BAL yesterday. T: 99.9 last night. Sputum x + MRSA 08/04 No events overnight. Remains intubated and sedated. Tolerated CPAP for several hrs yesterday. Afebrile. 08/05: Patient tolerated CPAP for approximately 8 hours, patient continues on CPAP trials greater than 8 hours today. Patient tolerating tube feeds. 08/06: Overnight the patient became very agitated, and combative. Propofol added to medication regimen, Precedex discontinued. Objective Vital Signs Date Time Temp Pulse Resp B/P (MAP) Pulse Ox O2 Delivery O2 Flow Rate FiO2 08/06/17 13:34 100 35 08/06/17 12:00 86 08/06/17 12:00 98.0 19 144/75 (98) 08/03/17 08:10 Ventilator Intake and Output 08/06/17 08/06/17 08/06/17 07:59 15:59 23:59 Intake Total 949 ml Output Total 750 ml Balance 199 ml Result Diagram: 08/06/17 0311 08/06/17 0311 Other Results Laboratory Tests Test 08/06/17 14:10 Blood Gas Puncture Site RT RADIAL Blood Gas Patient Temperature 98.6 Blood Gas HCO3 23 mmol/L (22-26) Blood Gas Base Excess -0.9 mmol/L (-2-2) Blood Gas Oxygen Saturation 96 % (90-100) Arterial Blood pH 7.43 (7.380-7.420) Arterial Blood Partial Pressure CO2 35 mmHg (38-42) Arterial Blood Partial Pressure O2 107 mmHg (61-120) Arterial Blood Oxygen Content 15.9 Vol % (12.0-20.0) Arterial Blood Carboxyhemoglobin 0.4 % (0-4) Arterial Blood Methemoglobin 1.3 % (0-2) Blood Gas Hemoglobin 11.7 G/DL (12.0-16.0) Oxygen Delivery Device VENTILATOR Blood Gas Ventilator Setting Blood Gas Inspired Oxygen 35 % Imaging Last Impressions Chest X-Ray 08/05/17 0000 Signed Impressions: Service Date/Time: Saturday, August 05, 2017 04:18 - CONCLUSION: 1. Endotracheal tube and nasogastric tube in good position. Mild bilateral mostly basilar and dependent airspace disease in the lungs similar to August 04. Amadeo Hooks MD CT Angiography 07/31/17 0835 Signed Impressions: Service Date/Time: Monday, July 31, 2017 09:30 - CONCLUSION: No evidence of pulmonary embolism. Extensive bilateral groundglass infiltrates. Jamshid Means MD Liver Ultrasound 07/31/17 0000 Signed Impressions: Service Date/Time: Monday, July 31, 2017 17:48 - CONCLUSION: 1. Cholecystectomy. 2. A few tiny calcifications are seen a cyst of the right kidney. The largest measures 3 mm in the midpole suggestive of nonobstructing stone. Wayne Harkins MD Last Impressions Chest X-Ray 08/01/17 0000 Signed Impressions: Service Date/Time: Tuesday, August 01, 2017 08:07 - CONCLUSION: 1. ETT 1 cm is above the jeromy. NGT beyond the GE junction. 2. Diffuse interstitial and ground glass opacities in the mid to lower lung zones bilaterally. Differential considerations include pulmonary edema versus developing ARDS versus atypical infection. Moose Armijo MD CT Angiography 07/31/17 0835 Signed Impressions: Service Date/Time: Monday, July 31, 2017 09:30 - CONCLUSION: No evidence of pulmonary embolism. Extensive bilateral groundglass infiltrates. Jamshid Means MD Liver Ultrasound 07/31/17 0000 Signed Impressions: Service Date/Time: Monday, July 31, 2017 17:48 - CONCLUSION: 1. Cholecystectomy. 2. A few tiny calcifications are seen a cyst of the right kidney. The largest measures 3 mm in the midpole suggestive of nonobstructing stone. Wayne Harkins MD Objective Remarks GENERAL: Patient is 57 yo emaciated female intubated for resp failure sedated and intubated SKIN: Warm and dry. HEAD: Normocephalic. EYES: No scleral icterus. No injection or drainage. NECK: Supple, trachea midline. No JVD or lymphadenopathy. CARDIOVASCULAR: Regular rate and rhythm without murmurs, gallops, or rubs. RESPIRATORY: Breath sounds equal bilaterally. No accessory muscle use. GASTROINTESTINAL: Abdomen soft, non-tender, nondistended. MUSCULOSKELETAL: No cyanosis, or edema. Neuro: RASS -2. Moves extremities 4 upon commands A/P Assessment and Plan 1. Acute hypoxemic respiratory failure... intubated 08/01 2. Bilateral extensive ground-glass infiltrates. Differential diagnosis infectious process versus inflammatory process, fluid overload doubt. 3. Bronchial asthma exacerbation. 4. Elevated liver enzymes. 5. Diabetes mellitus. 6 HTN 7 electrolyte derangement Plan Neuro: On Diprivan, and Fentanyl infusion for sedation and vent synchrony. Monitor neuro status . Daily sedation vacation UDS in ED positive for cannabinoids. Pulm: Continue with vent support keep sat> 92%. Bronchodilators- DuoNeb, Pulmicort nebs Decrease Solu-Medrol 80 mg IV q. 6 hours. Pulm is following SBT daily as javier s/p bronch 08/02 showed minimal secretions b/l suctioned to clear. No evidence of EBL or bleeding. Bronch washing performed RLL. BAL specimen sent for culture, fungal, viral, AFB, cell count and GMS stain for PCP- follow up on BAL results 08/05 CXR-airspace disease unchanged CPAP trials continued- approximately 6-8 hours tolerated CV: Place on Hydralazine 50mg Q8-Monitor HR and BP and maintain MAP> 65mmHg. Echo showed EF 55-60% GI: On Pepcid 20 mg q. 12 for GI prophylaxis. On Glucerna 1.5 with goal rate 45ml/hr, minimal residuals Monitor LFT's, US liver: Cholecystectomy. A few tiny calcifications are seen a cyst of the right kidney. The largest measures 3 mm in the midpole suggestive of nonobstructing stone. Hepatitis profile- Hep C ab reactive : Monitor renal function, electrolytes replacement per protocol. On Free water 250ml Q8 Calcium gluconate 2 g IV, now ID: Continue with abx per ID (abx changed to Zyvox, Augmentin today) Monitor for signs infection( fever and WBC). nasal washing is negative for influenza in the ED. Strep pneumoniae and Legionella urinary antigen negative HIV test negative. Abs CD4 count 179. ID is following / sputum cx: MRSA C-diff PCR( patient is having liquid stools) - neg . Endo:SSI with Accu-Cheks for glycemic Heme: Monitor CBC. EVAN- neg GI prophylaxis with Pepcid and DVT prophylaxis with SCDs and heparin subcu. Level 3 Physician Romy Denney MD Aug 06, 2017 16:40
[2017-08-06] MEDS ORDERED: HYOSCYAMINE 0.125 MG TAB SL PRN (23:00)
[2017-08-07] VITALS (14 sets, daily range): BP systolic 146–184; BP diastolic 68–99; PULSE 81–121; RESP 20–41; TEMP 97.2–98.2; O2SAT 90–97
[2017-08-07] MEDS: FREE WATER G-TUBE SCH
[2017-08-07] MEDS: methylPREDNISolone SOD SUCC 125 MG/2 ML VIAL IV PUSH SCH (02:00)
[2017-08-07] MEDS: INSULIN NovoLIN REGULAR SUPPLEMENTAL SCALE SQ SCH ×4 (05:00→23:00)
[2017-08-07] MEDS: hydrALAZINE HCL 50 MG TAB PO SCH ×3 (06:00→21:08)
[2017-08-07] MEDS: FAMOTIDINE 20 MG/2 ML VIAL IV PUSH SCH ×2 (06:00→18:00)
[2017-08-07] MEDS: RESP: ALBUTEROL 2.5 MG/IPRATROPIUM 0.5 MG NEB (SCH) INH ×3 (07:59→21:28)
[2017-08-07] MEDS: RESP: BUDESONIDE 0.25 MG/2 ML NEB NEB SCH ×2 (07:59→21:27)
[2017-08-07] MEDS: CHLORHEXIDINE 0.12% (ORAL KIT) 15 ML CUP MT SCH ×2 (08:00→20:00)
--- NOTE | 2017-08-07 08:35 | HHI.CCPN ---
Subjective Remarks/Hospital Course Patient is a 57-year-old female with past medical history of bronchial asthma, active smoker, diabetes mellitus, who presented to [facility] ED with a three day history of worsening shortness of breath. She also reports a productive cough with green, thick phlegm and subjective fever and chills. She denies any exposure to sick contacts. In addition she denies any hemoptysis. On arrival to the ED she was tachypneic, tachycardiac and placed on a non- rebreather mask. ABGs on 8 liters simple mask from early this morning showed a pH of 7.48, CO2 29, pAO2 52, bicarb 22 and sats of 86%. Chest x-ray in the ED showed no acute disease. The patient subsequently underwent CT angiogram of the chest which showed no evidence of pulmonary embolism; however, it showed extensive bilateral ground-glass infiltrates. Her laboratory data is significant for elevated liver enzymes. No history of any fever or leukocytosis. She was initially admitted to [facility] under Dr. Bahena. The patient had worsening respiratory distress and Critical Care medicine was consulted for critical care management. She remains on a non-rebreather mask with a saturation of 95%. Repeat ABGs showed a pH of 7.40, CO2 25, pAO2 79, bicarb 16 and saturation of 94%. The patient was given bronchodilators and steroids. 08/01 Patient was intubated this morning by myself for worsening resp status. Now intubated and sedated. Afebrile. 08/02 No events overnight. Sedated and intubated. Afebrile. 08/03 Patient remains intubated and sedated. s/p bronch with BAL yesterday. T: 99.9 last night. Sputum x + MRSA 08/04 No events overnight. Remains intubated and sedated. Tolerated CPAP for several hrs yesterday. Afebrile. 08/05: Patient tolerated CPAP for approximately 8 hours, patient continues on CPAP trials greater than 8 hours today. Patient tolerating tube feeds. 08/06: Overnight the patient became very agitated, and combative. Propofol added to medication regimen, Precedex discontinued. 08/07 Patient was extubated last night. Awake and alert on room air oxygen . Afebrile. Objective Vital Signs Date Time Temp Pulse Resp B/P (MAP) Pulse Ox O2 Delivery O2 Flow Rate FiO2 08/07/17 08:02 97 08/07/17 06:00 82 08/07/17 04:00 98.0 20 180/93 (122) 08/06/17 21:20 Nasal Cannula 2 08/06/17 20:20 35 Intake and Output 08/07/17 08/07/17 08/08/17 08:00 16:00 00:00 Output Total 1600 ml Balance -1600 ml Result Diagram: 08/06/17 0311 08/06/17 0311 Other Results Laboratory Tests Test 08/06/17 14:10 Blood Gas Puncture Site RT RADIAL Blood Gas Patient Temperature 98.6 Blood Gas HCO3 23 mmol/L Blood Gas Base Excess -0.9 mmol/L Blood Gas Oxygen Saturation 96 % Arterial Blood pH 7.43 Arterial Blood Partial Pressure CO2 35 mmHg Arterial Blood Partial Pressure O2 107 mmHg Arterial Blood Oxygen Content 15.9 Vol % Arterial Blood Carboxyhemoglobin 0.4 % Arterial Blood Methemoglobin 1.3 % Blood Gas Hemoglobin 11.7 G/DL Oxygen Delivery Device VENTILATOR Blood Gas Ventilator Setting Blood Gas Inspired Oxygen 35 % Imaging Last Impressions Chest X-Ray 08/06/17 0600 Signed Impressions: Service Date/Time: Sunday, August 06, 2017 03:35 - CONCLUSION: 1. Mild basilar and dependent opacity in the lungs. No effusion. No pneumothorax. Endotracheal tube and nasogastric tube unchanged. Amadeo Hooks MD CT Angiography 07/31/17 0835 Signed Impressions: Service Date/Time: Monday, July 31, 2017 09:30 - CONCLUSION: No evidence of pulmonary embolism. Extensive bilateral groundglass infiltrates. Jamshid Means MD Liver Ultrasound 07/31/17 0000 Signed Impressions: Service Date/Time: Monday, July 31, 2017 17:48 - CONCLUSION: 1. Cholecystectomy. 2. A few tiny calcifications are seen a cyst of the right kidney. The largest measures 3 mm in the midpole suggestive of nonobstructing stone. Wayne Harkins MD Objective Remarks GENERAL: Patient is 57 yo extubated awake and alert SKIN: Warm and dry. HEAD: Normocephalic. EYES: No scleral icterus. No injection or drainage. NECK: Supple, trachea midline. No JVD or lymphadenopathy. CARDIOVASCULAR: Regular rate and rhythm without murmurs, gallops, or rubs. RESPIRATORY: Breath sounds equal bilaterally. No accessory muscle use. GASTROINTESTINAL: Abdomen soft, non-tender, nondistended. MUSCULOSKELETAL: No cyanosis, or edema. Neuro: Awake A/P Assessment and Plan 1. Acute hypoxemic respiratory failure... intubated 08/01, extubated 08/06 2. Bilateral extensive ground-glass infiltrates. Differential diagnosis infectious process versus inflammatory process, fluid overload doubt. 3. Bronchial asthma exacerbation. 4. Elevated liver enzymes. 5. Diabetes mellitus. 6 HTN 7 electrolyte derangement Plan Neuro: Awake and alert Monitor neuro status . UDS in ED positive for cannabinoids. Pulm: Oxygen PRN keep sat> 92%. Bronchodilators- DuoNeb, Pulmicort nebs Decrease Solu-Medrol 40 mg IV q. 12 hours. Pulm is following s/p bronch 08/02 showed minimal secretions b/l suctioned to clear. No evidence of EBL or bleeding. Bronch washing performed RLL. 08/06 CXR-Mild basilar opacity CV: On Hydralazine 50mg Q8-Monitor HR and BP and maintain MAP> 65mmHg. Echo showed EF 55-60% GI: On Pepcid 20 mg q. 12 for GI prophylaxis. Speech eval, diet per speech Monitor LFT's, US liver: Cholecystectomy. A few tiny calcifications are seen a cyst of the right kidney. The largest measures 3 mm in the midpole suggestive of nonobstructing stone. Hepatitis profile- Hep C ab reactive : Monitor renal function, electrolytes replacement per protocol. ID: Continue with abx per ID (Zyvox, Augmentin ) Monitor for signs infection( fever and WBC). nasal washing is negative for influenza in the ED. Strep pneumoniae and Legionella urinary antigen negative HIV test negative. Abs CD4 count 179. ID is following. GMS stain negative for PCP 08/01 sputum cx: MRSA C-diff PCR neg, Aspergillus Ab negative . Endo:SSI with Accu-Cheks for glycemic Heme: Monitor CBC. EVAN- neg GI prophylaxis with Pepcid and DVT prophylaxis with SCDs and heparin subcu. Will sign off and transfer care to [facility] Level 2 Kristen Knowles MD Aug 07, 2017 08:35
[2017-08-07] MEDS: AMOXICILLIN/CLAVULANATE K 875 MG TAB PO SCH (09:00)
[2017-08-07] MEDS: SODIUM CHLORIDE 0.9% FLUSH 10 ML FLUSH IV FLUSH SCH ×2 (09:00→21:00)
[2017-08-07] MEDS: HEPARIN SODIUM - SQ 10,000 UNITS/ML VIAL SQ SCH ×2 (09:00→21:00)
[2017-08-07] MEDS: LINEZOLID 600 MG TAB PO SCH ×2 (09:00→21:00)
[2017-08-07 09:11] LABS: HEMATOCRIT 36.4 % (35.0-46.0); HEMOGLOBIN 11.7 GM/DL (11.6-15.3); MEAN CELL VOLUME 87.3 FL (80.0-100.0); MEAN CORPUSCULAR HEMOGLOBIN 28.2 PG (27.0-34.0); MEAN CORPUSCULAR HGB CONC 32.3 % (32.0-36.0); MEAN PLATELET VOLUME 9.9 FL (7.0-11.0); PLATELET COUNT 228 TH/MM3 (150-450); RED BLOOD COUNT 4.17 MIL/MM3 (4.00-5.30); RED CELL DISTRIBUTION WIDTH 12.8 % (11.6-17.2); WHITE BLOOD COUNT 12.1 TH/MM3 (4.0-11.0)
[2017-08-07 09:44] LABS: BICARBONATE 24.3 MEQ/L (21.0-32.0); BLOOD UREA NITROGEN 33 MG/DL (7-18); CALCIUM 8.8 MG/DL (8.5-10.1); CHLORIDE 108 MEQ/L (98-107); CREATININE 0.79 MG/DL (0.50-1.00); GLOMERULAR FILTRATION RATE 91 ML/MIN (>89); GLUCOSE,RANDOM 168 MG/DL (74-106); MAGNESIUM 2.2 MG/DL (1.5-2.5); PHOSPHORUS 3.6 MG/DL (2.5-4.9); SODIUM (NA) 142 MEQ/L (136-145)
[2017-08-07 12:09] LABS: BANDS 6 % (0-6); LYMPHOCYTES 4 % (9-44); MONOCYTES 5 % (0-8); POLYS (SEG NEUTROPHILS) 85 % (16-70); TOXIC VACUOLATION PRESENT (NONE SEEN)
[2017-08-07 12:14] LABS: ALBUMIN 2.9 GM/DL (3.4-5.0); ALKALINE PHOSPHATASE 107 U/L (45-117); ALT (GPT) 100 U/L (10-53); AST (GOT) 70 U/L (15-37); TOTAL BILIRUBIN ADULT 0.5 MG/DL (0.2-1.0); TOTAL PROTEIN 7.2 GM/DL (6.4-8.2)
--- NOTE | 2017-08-07 14:38 | HHI.IDPN ---
Subjective Subjective Remarks Ms. Griggs is a 57-year-old female with history significant for asthma was also an active smoker, diabetes mellitus. With this background patient presents to [facility] emergency department with a three-day history of shortness of breath that was reportedly worsening. She also reported a productive cough with green thick phlegm and subjective fever and chills. No reported history of hemoptysis prior to admission. On arrival to the ED she was tachypneic, tachycardiac and placed on a non- rebreather mask. ABGs on 8 liters simple mask showed a pH of 7.48, CO2 29, pAO2 52, bicarb 22 and sats of 86%. Chest x-ray in the ED showed no acute disease. The patient subsequently underwent CT angiogram of the chest which showed no evidence of pulmonary embolism but showed extensive bilateral ground- glass infiltrates. WBC on admission was normal and she had no fevers so far during this admission. Influenza antigen test was done which is negative. Legionella and pneumococcal antigen is negative. No blood cultures in [facility]. She was initially admitted to [facility] under Dr. Bahena. The patient had worsening respiratory distress and Critical Care medicine was consulted for critical care management. She was on a non-rebreather mask with a saturation of 95%. Repeat ABGs showed a pH of 7.40, CO2 25, pAO2 79, bicarb 16 and saturation of 94%. The patient was given bronchodilators and steroids. Due to worsening respiratory status patient was intubated this am. At the time of my evaluation patient is in the ICU currently intubated on 75% FiO2 with PEEP of 5, secretions not much is reported to me by nurse taking care of the patient. Currently not on any pressors has not received any fluid boluses. Urine output is good. No rash no diarrhea. Infectious disease is consulted for evaluation and management of pneumonia in patient groundglass opacities possible PCP pneumonia Overnight events reviewed. Remains intubated Not much respiratory secretions thin and clear Not on any pressors No fevers No rash No diarrhea Antibiotics Zyvox oral Augmentin oral. Lines Line sites with no evidence of infection. Past Medical History Reviewed. Allergies: Coded Allergies: No Known Allergies (Unverified , 07/31/17) Objective . Vital Signs Date Time Temp Pulse Resp B/P (MAP) Pulse Ox O2 Delivery O2 Flow Rate FiO2 08/07/17 12:00 98.2 81 25 152/77 (102) 96 08/07/17 12:00 85 08/07/17 10:00 87 08/07/17 08:02 97 08/07/17 08:00 97.9 86 26 184/99 (127) 95 08/07/17 08:00 86 08/07/17 06:00 82 08/07/17 04:00 98.0 82 20 180/93 (122) 96 08/07/17 04:00 90 08/07/17 02:00 90 08/07/17 00:00 97.8 98 27 146/68 (94) 93 08/07/17 00:00 98 08/06/17 22:00 109 08/06/17 21:20 100 Nasal Cannula 2 08/06/17 20:20 99 35 08/06/17 20:00 86 08/06/17 20:00 97.9 86 20 152/85 (107) 98 08/06/17 20:00 35 08/06/17 19:55 98 35 08/06/17 18:00 75 08/06/17 17:31 99 35 08/06/17 16:00 98.1 74 16 144/77 (99) 100 08/06/17 16:00 35 08/06/17 16:00 74 . Laboratory Tests Test 08/06/17 03:11 08/07/17 07:55 White Blood Count 8.1 TH/MM3 12.1 TH/MM3 Red Blood Count 4.09 MIL/MM3 4.17 MIL/MM3 Hemoglobin 11.6 GM/DL 11.7 GM/DL Hematocrit 34.4 % 36.4 % Mean Corpuscular Volume 84.0 FL 87.3 FL Mean Corpuscular Hemoglobin 28.3 PG 28.2 PG Mean Corpuscular Hemoglobin Concent 33.6 % 32.3 % Red Cell Distribution Width 12.8 % 12.8 % Platelet Count 222 TH/MM3 228 TH/MM3 Mean Platelet Volume 9.7 FL 9.9 FL Differential Total Cells Counted 100 Neutrophils % (Manual) 85 % Band Neutrophils % 6 % Lymphocytes % 4 % Monocytes % 5 % Neutrophils # (Manual) 11.0 TH/MM3 Differential Comment FINAL DIFF MANUAL Toxic Vacuolation PRESENT Platelet Estimate NORMAL Platelet Morphology Comment ENLARGED Laboratory Tests Test 08/06/17 03:11 08/07/17 07:55 Blood Urea Nitrogen 31 MG/DL 33 MG/DL Creatinine 0.70 MG/DL 0.79 MG/DL Random Glucose 216 MG/DL 168 MG/DL Calcium Level 8.0 MG/DL 8.8 MG/DL Phosphorus Level 3.0 MG/DL 3.6 MG/DL Magnesium Level 1.9 MG/DL 2.2 MG/DL Sodium Level 143 MEQ/L 142 MEQ/L Potassium Level 3.7 MEQ/L 3.9 MEQ/L Chloride Level 110 MEQ/L 108 MEQ/L Carbon Dioxide Level 21.4 MEQ/L 24.3 MEQ/L Anion Gap 12 MEQ/L 10 MEQ/L Estimat Glomerular Filtration Rate 105 ML/MIN 91 ML/MIN Total Protein 7.2 GM/DL Albumin 2.9 GM/DL Alkaline Phosphatase 107 U/L Aspartate Amino Transf (AST/SGOT) 70 U/L Alanine Aminotransferase (ALT/SGPT) 100 U/L Total Bilirubin 0.5 MG/DL B-Type Natriuretic Peptide 118 PG/ML Imaging Last Impressions Chest X-Ray 08/01/17 0000 Signed Impressions: Service Date/Time: Tuesday, August 01, 2017 08:07 - CONCLUSION: 1. ETT 1 cm is above the jeromy. NGT beyond the GE junction. 2. Diffuse interstitial and ground glass opacities in the mid to lower lung zones bilaterally. Differential considerations include pulmonary edema versus developing ARDS versus atypical infection. Moose Armijo MD CT Angiography 07/31/17 0835 Signed Impressions: Service Date/Time: Monday, July 31, 2017 09:30 - CONCLUSION: No evidence of pulmonary embolism. Extensive bilateral groundglass infiltrates. Jamshid Means MD Liver Ultrasound 07/31/17 0000 Signed Impressions: Service Date/Time: Monday, July 31, 2017 17:48 - CONCLUSION: 1. Cholecystectomy. 2. A few tiny calcifications are seen a cyst of the right kidney. The largest measures 3 mm in the midpole suggestive of nonobstructing stone. Wyane Harkins MD Physical Exam GENERAL: Thin built poorly nourished patient, in no apparent distress. SKIN: No rashes. Old track landin noted. HEAD: Atraumatic. Normocephalic. No temporal or scalp tenderness. EYES: Pupils equal round and reactive. Extraocular motions intact. No scleral icterus. No injection or drainage. ENT: Intubated. NECK: Trachea midline. Supple, nontender, no meningeal signs. CARDIOVASCULAR: HS audible. RESPIRATORY: Clear to auscultation. Breath sounds equal bilaterally. GASTROINTESTINAL: Abdomen soft, non-tender, nondistended. MUSCULOSKELETAL: Extremities without clubbing, cyanosis, or edema. No joint tenderness, effusion, or edema noted. NEUROLOGICAL: Sedated. Non focal exam. Psych cooperative IV line sites with no e.o infection. Assessment & Plan Remarks Pneumonia with Ground glass opacities DDX: Atypical pneumonia, PCP, Fungal, Hypersensitivity pneumonitis( Aspergillus) MRSA pneumonia CD4 lymphocytopenia: ? HIV/acute retroviral vs Isolated CD4 Lymphocytopenia. Acute resp failure on vent. Asthma acute exacerbation. Abnormal liver function tests: sepsis, Hepatitis C Hepatitis C positive DM2 uncontrolled. Recs: DC Augmentin oral. Continue Zyvox oral. Low CD4 count r.o acute HIV/retroviral syndrome. Follow cultures Negative Cryptococcal antigen Follow Aspergillus studies. Hepatitis C positive Follow cultures Follow clinically. Sherry Begum MD Aug 07, 2017 14:38
[2017-08-07 17:15] LABS: HEMOGLOBIN A1C 6.3 % (4.3-6.0)
[2017-08-07] MEDS: ONDANSETRON HCL 4 MG/2 ML VIAL IV PUSH PRN (18:07)
[2017-08-07] MEDS: hydrALAZINE HCL 20 MG/ML VIAL IV PUSH PRN (18:07)
--- NOTE | 2017-08-07 18:50 | HHI.PR ---
Subjective Remarks 57 YOAA female with VDRF, Bilat infilt, DM Extubated 08/06 no fever No pressors Weaned to NC Objective Vital Signs Vital Signs Date Time Temp Pulse Resp B/P (MAP) Pulse Ox O2 Delivery O2 Flow Rate FiO2 08/07/17 18:00 92 08/07/17 16:17 21 08/07/17 16:00 101 08/07/17 16:00 98.0 101 41 150/79 (102) 96 08/07/17 14:00 85 08/07/17 12:00 98.2 81 25 152/77 (102) 96 08/07/17 12:00 85 08/07/17 10:00 87 08/07/17 08:02 97 08/07/17 08:00 97.9 86 26 184/99 (127) 95 08/07/17 08:00 86 08/07/17 06:00 82 08/07/17 04:00 98.0 82 20 180/93 (122) 96 08/07/17 04:00 90 08/07/17 02:00 90 08/07/17 00:00 97.8 98 27 146/68 (94) 93 08/07/17 00:00 98 08/06/17 22:00 109 08/06/17 21:20 100 Nasal Cannula 2 08/06/17 20:20 99 35 08/06/17 20:00 86 08/06/17 20:00 97.9 86 20 152/85 (107) 98 08/06/17 20:00 35 08/06/17 19:55 98 35 I/O 08/06/17 08/06/17 08/06/17 08/07/17 08/07/17 08/07/17 07:00 15:00 23:00 07:00 15:00 23:00 Intake Total 949 ml 997.5 ml 480 ml Output Total 750 ml 400 ml 1600 ml Balance 199 ml 597.5 ml -1600 ml 480 ml Intake Oral 480 ml IV Total 178 ml 510.5 ml Tube Feeding 421 ml 487 ml Tube Irrigant 100 ml Other 250 ml Output Urine Total 450 ml 400 ml 1000 ml Stool Total 300 ml 600 ml # Voids 3 # Bowel Movements 0 1 1 Result Diagram: 08/07/17 0755 08/07/17 0755 Objective Remarks GENERAL: MBMN AA female, on vent, sedated SKIN: Warm and dry. HEAD: Normocephalic. EYES: No scleral icterus. No injection or drainage. NECK: Supple, trachea midline. No JVD or lymphadenopathy. CARDIOVASCULAR: Regular rate and rhythm without murmurs, gallops, or rubs. RESPIRATORY: Breath sounds equal bilaterally. No accessory muscle use. GASTROINTESTINAL: Abdomen soft, non-tender, nondistended. MUSCULOSKELETAL: No cyanosis, or edema. BACK: Nontender without obvious deformity. No CVA tenderness. A/P Assessment and Plan VDRF, s/p extubation 08/06 Bilat Ground glass infilt, inf, hypersensitivity or fungal pn COPD DM PLAN: PO Zyvox Aerosol nebs Encourage po Supplement 02 Alex Rivera MD Aug 07, 2017 18:50
[2017-08-07] MEDS: methylPREDNISolone SOD SUCC 40 MG/1 ML VIAL IV PUSH SCH (20:00)
[2017-08-08] VITALS (15 sets, daily range): BP systolic 142–171; BP diastolic 74–92; PULSE 83–106; RESP 24–43; TEMP 98.1–99.4; O2SAT 92–100
[2017-08-08] MEDS: INSULIN NovoLIN REGULAR SUPPLEMENTAL SCALE SQ SCH ×4 (05:00→23:00)
[2017-08-08] MEDS: FAMOTIDINE 20 MG/2 ML VIAL IV PUSH SCH ×2 (05:06→18:00)
[2017-08-08] MEDS: hydrALAZINE HCL 50 MG TAB PO SCH ×3 (05:07→22:00)
[2017-08-08 06:47] LABS: AUTOMATED NEUTROPHIL # 7.4 TH/MM3 (1.8-7.7); BASOPHIL % 0.4 % (0.0-2.0); HEMATOCRIT 33.1 % (35.0-46.0); HEMOGLOBIN 10.9 GM/DL (11.6-15.3); LYMPH % 6.5 % (9.0-44.0); LYMPHOCYTE # 0.6 TH/MM3 (1.0-4.8); MEAN CELL VOLUME 86.5 FL (80.0-100.0); MEAN CORPUSCULAR HEMOGLOBIN 28.4 PG (27.0-34.0); MEAN CORPUSCULAR HGB CONC 32.9 % (32.0-36.0); MONO % 7.5 % (0.0-8.0); MONOCYTE # 0.7 TH/MM3 (0-0.9); NEUT % 85.6 % (16.0-70.0); PLATELET COUNT 196 TH/MM3 (150-450); RED BLOOD COUNT 3.83 MIL/MM3 (4.00-5.30); WHITE BLOOD COUNT 8.6 TH/MM3 (4.0-11.0)
[2017-08-08 07:05] LABS: ALBUMIN 2.7 GM/DL (3.4-5.0); ALKALINE PHOSPHATASE 80 U/L (45-117); ALT (GPT) 119 U/L (10-53); AST (GOT) 90 U/L (15-37); BICARBONATE 23.3 MEQ/L (21.0-32.0); BLOOD UREA NITROGEN 21 MG/DL (7-18); CHLORIDE 108 MEQ/L (98-107); GLOMERULAR FILTRATION RATE 90 ML/MIN (>89); GLUCOSE,RANDOM 156 MG/DL (74-106); SODIUM (NA) 142 MEQ/L (136-145); TOTAL BILIRUBIN ADULT 0.4 MG/DL (0.2-1.0); TOTAL PROTEIN 6.4 GM/DL (6.4-8.2)
[2017-08-08] MEDS: CHLORHEXIDINE 0.12% (ORAL KIT) 15 ML CUP MT SCH ×2 (08:00→20:00)
[2017-08-08] MEDS: RESP: BUDESONIDE 0.25 MG/2 ML NEB NEB SCH ×2 (08:00→19:47)
[2017-08-08] MEDS: RESP: ALBUTEROL 2.5 MG/IPRATROPIUM 0.5 MG NEB (SCH) INH ×3 (08:00→19:47)
[2017-08-08] MEDS: methylPREDNISolone SOD SUCC 40 MG/1 ML VIAL IV PUSH SCH ×2 (08:00→20:27)
[2017-08-08] MEDS: LINEZOLID 600 MG TAB PO SCH ×2 (08:24→20:27)
[2017-08-08] MEDS: SODIUM CHLORIDE 0.9% FLUSH 10 ML FLUSH IV FLUSH SCH ×2 (08:24→20:27)
[2017-08-08] MEDS: HEPARIN SODIUM - SQ 10,000 UNITS/ML VIAL SQ SCH ×2 (08:24→20:27)
--- NOTE | 2017-08-08 09:52 | HHI.PR ---
Addendum to Inpatient Note Addendum Reason: Additional Documentation Additional Information CD4 normal. HIV negative. Fungal serologies coming back negative. Complete a course for Zyvox oral for 7 additional days (stop date: 08/15/2017) Will sign off please call back if any change in clinical condition or questions. Sherry Begum MD Aug 08, 2017 09:52
--- NOTE | 2017-08-08 15:38 | HHI.PR ---
Subjective Remarks Extubated 08/06 Denies cp/sob much better. Denies fevers or chills. Objective Vitals Vital Signs Date Time Temp Pulse Resp B/P (MAP) Pulse Ox O2 Delivery O2 Flow Rate FiO2 08/08/17 14:00 106 08/08/17 12:00 84 08/08/17 12:00 98.5 84 32 171/92 (118) 100 08/08/17 11:04 12 08/08/17 10:00 105 08/08/17 08:32 98 08/08/17 08:00 93 08/08/17 08:00 98.3 93 30 148/85 (106) 95 08/08/17 06:00 93 08/08/17 04:00 83 08/08/17 04:00 98.1 83 43 150/74 (99) 08/08/17 02:00 92 08/08/17 00:00 99 08/08/17 00:00 98.2 99 26 154/83 (106) 100 08/07/17 22:00 121 08/07/17 21:28 90 21 08/07/17 20:00 101 08/07/17 20:00 97.2 101 28 147/86 (106) 08/07/17 18:00 92 08/07/17 16:00 101 08/07/17 16:00 98.0 101 41 150/79 (102) 96 I/O 08/07/17 08/07/17 08/07/17 08/08/17 08/08/17 08/08/17 07:00 15:00 23:00 07:00 15:00 23:00 Intake Total 480 ml 200 ml Output Total 1600 ml 500 ml Balance -1600 ml 480 ml -300 ml Intake Oral 480 ml 200 ml Output Urine Total 1000 ml 500 ml Stool Total 600 ml 0 ml # Voids 3 1 # Bowel Movements 1 Result Diagram: 08/08/1752108/08/17521 Imaging Last Impressions Chest X-Ray 08/06/17599 Signed Impressions: Service Date/Time: Sunday, August 06, 2017 03:35 - CONCLUSION: 1. Mild basilar and dependent opacity in the lungs. No effusion. No pneumothorax. Endotracheal tube and nasogastric tube unchanged. Amadeo Hooks MD CT Angiography 07/31/17 0835 Signed Impressions: Service Date/Time: Monday, July 31, 2017 09:30 - CONCLUSION: No evidence of pulmonary embolism. Extensive bilateral groundglass infiltrates. Jamshid Means MD Liver Ultrasound 07/31/17 0000 Signed Impressions: Service Date/Time: Monday, July 31, 2017 17:48 - CONCLUSION: 1. Cholecystectomy. 2. A few tiny calcifications are seen a cyst of the right kidney. The largest measures 3 mm in the midpole suggestive of nonobstructing stone. Wayne Harkins MD Objective Remarks GENERAL: Patient is 57 yo extubated awake and alert SKIN: Warm and dry. HEAD: Normocephalic. EYES: No scleral icterus. No injection or drainage. NECK: Supple, trachea midline. No JVD or lymphadenopathy. CARDIOVASCULAR: Regular rate and rhythm without murmurs, gallops, or rubs. RESPIRATORY: Breath sounds equal bilaterally. No accessory muscle use. GASTROINTESTINAL: Abdomen soft, non-tender, nondistended. MUSCULOSKELETAL: No cyanosis, or edema. Medications and IVs Current Medications Medications (Trade) Dose Ordered Sig/Delia Route Start Time Stop Time Status Last Admin (NS Flush) 2 ml BID IV FLUSH 07/31/17 21:00 08/08/17 08:24 (NS Flush) 2 ml UNSCH PRN IV FLUSH 07/31/17 10:30 08/03/17 10:00 (Albuterol Neb) 2.5 mg Q2HR NEB PRN INH 07/31/17 10:30 08/06/17 04:21 (Roxicodone) 5 mg Q6H PRN PO 07/31/17 13:45 08/08/17 10:04 (Pepcid Inj) 20 mg Q12H IV PUSH 07/31/17 18:00 08/08/17 05:06 (Heparin Inj) 5,000 units Q12HR SQ 07/31/17 21:00 08/08/17 08:24 (D50w (Vial) Inj) 50 ml UNSCH PRN IV PUSH 07/31/17 16:15 (Glucagon Inj) 1 mg UNSCH PRN OTHER 07/31/17 16:15 (NovoLIN R SUPPLEMENTAL SCALE) 1 Q6H SQ 07/31/17 17:00 08/08/17 11:00 (Pulmicort Respule Neb) 0.25 mg Q12HR NEB NEB 07/31/17 16:15 08/08/17 08:00 Potassium Chloride 100 ml @ 50 mls/hr Q2H PRN IV 07/31/17 21:00 Potassium Chloride 100 ml @ 50 mls/hr Q2H PRN IV 07/31/17 21:00 08/04/17 12:56 (K-Lyte Cl Eff) 50 meq UNSCH PRN PO 07/31/17 21:00 08/03/17 06:15 Potassium Chloride 100 ml @ 25 mls/hr UNSCH PRN IV 07/31/17 21:00 Potassium Chloride 100 ml @ 50 mls/hr Q2H PRN IV 07/31/17 21:00 Magnesium Sulfate 4 gm/Sodium Chloride 100 ml @ 50 mls/hr UNSCH PRN IV 07/31/17 21:00 (Mag-Ox) 800 mg UNSCH PRN PO 07/31/17 21:00 Magnesium Sulfate 2 gm/Sodium Chloride 100 ml @ 50 mls/hr UNSCH PRN IV 07/31/17 21:00 (K-Phos) 2,000 mg Q4H PRN PO 07/31/17 21:00 Sodium Phosphate 30 mmol/Sodium Chloride 250 ml @ 42 mls/hr UNSCH PRN IV 07/31/17 21:00 (K-Phos) 2,000 mg UNSCH PRN PO/TUBE 07/31/17 21:00 Potassium Phosphate 30 mmol/ Sodium Chloride 260 ml @ 42 mls/hr UNSCH PRN IV 07/31/17 21:00 08/04/17 05:13 (Zofran Inj) 4 mg Q6HR PRN IV PUSH 08/01/17 05:30 08/07/17 18:07 (Peridex 0.12% Liq) 15 ml BID@08,20 MT 08/01/17 08:00 08/07/17 20:00 (Zyvox) 600 mg Q12HR PO 08/04/17 09:00 08/08/17 08:24 (Apresoline) 50 mg Q8HR PO 08/04/17 14:00 08/08/17 14:00 (Apresoline Inj) 10 mg Q6H PRN IV PUSH 08/04/17 10:45 08/07/17 18:07 (Duoneb Neb) 1 ampule TID NEB INH 08/05/17 14:00 08/08/17 08:00 (Levsin) 0.125 mg Q6H PRN SL 08/06/17 23:00 08/06/17 23:09 (SoluMEDROL INJ) 40 mg Q12H IV PUSH 08/07/17 20:00 08/08/17 08:00 A/P Problem List: (1) Acute hypoxemic respiratory failure ICD Code: J96.01 - Acute respiratory failure with hypoxia Status: Resolved Plan: Extubated 08/06. Continue supplemental o2. antibiotics as per ID - Zyvox x7 more days. (2) Positive hepatitis C antibody test ICD Code: R76.8 - Other specified abnormal immunological findings in serum Plan: fu outpatient. monitor Lft's. (3) PNA (pneumonia) ICD Code: J18.9 - Pneumonia, unspecified organism Status: Acute Plan: Continue zyvox x 7 days. supplemental o2, duonebs. (4) Acute asthma exacerbation ICD Code: J45.901 - Unspecified asthma with (acute) exacerbation Plan: Continue steroids. DC Solumedrol IV. (5) Elevated liver enzymes ICD Code: R74.8 - Abnormal levels of other serum enzymes Plan: monitor Lft's (6) Diabetes mellitus ICD Code: E11.9 - Type 2 diabetes mellitus without complications Plan: hemoglobin A1c 6.3. Diabetes is controlled. Continue to hold metformin, continue SSI. Assessment and Plan DVT prophylaxis: SCD's, heparin SQ. Discharge Planning DC in 1 to 2 days. ok to transfer to the medical floor. Problem Qualifiers (1) Diabetes mellitus: Qualified Codes: E11.9 - Type 2 diabetes mellitus without complications Eren Reveles MD Aug 08, 2017 15:37
--- NOTE | 2017-08-08 18:32 | HHI.PR ---
Subjective Remarks 57 YOAA female with VDRF, Bilat infilt, DM Extubated 08/06 no fever No pressors Weaned to CT HIV Negative Objective Vital Signs Vital Signs Date Time Temp Pulse Resp B/P (MAP) Pulse Ox O2 Delivery O2 Flow Rate FiO2 08/08/17 18:00 92 08/08/17 17:12 12 08/08/17 16:00 98.6 97 31 154/81 (105) 97 08/08/17 16:00 97 08/08/17 14:00 106 08/08/17 12:00 84 08/08/17 12:00 98.5 84 32 171/92 (118) 100 08/08/17 10:00 105 08/08/17 08:32 98 08/08/17 08:00 93 08/08/17 08:00 98.3 93 30 148/85 (106) 95 08/08/17 06:00 93 08/08/17 04:00 83 08/08/17 04:00 98.1 83 43 150/74 (99) 08/08/17 02:00 92 08/08/17 00:00 99 08/08/17 00:00 98.2 99 26 154/83 (106) 100 08/07/17 22:00 121 08/07/17 21:28 90 21 08/07/17 20:00 101 08/07/17 20:00 97.2 101 28 147/86 (106) I/O 08/07/17 08/07/17 08/07/17 08/08/17 08/08/17 08/08/17 07:00 15:00 23:00 07:00 15:00 23:00 Intake Total 480 ml 200 ml 260 ml Output Total 1600 ml 500 ml 800 ml Balance -1600 ml 480 ml -300 ml -540 ml Intake Oral 480 ml 200 ml 260 ml Output Urine Total 1000 ml 500 ml 800 ml Stool Total 600 ml 0 ml # Voids 3 1 3 # Bowel Movements 1 2 Result Diagram: 08/08/1752108/08/17521 Objective Remarks GENERAL: MBMN AA female, on vent, sedated SKIN: Warm and dry. HEAD: Normocephalic. EYES: No scleral icterus. No injection or drainage. NECK: Supple, trachea midline. No JVD or lymphadenopathy. CARDIOVASCULAR: Regular rate and rhythm without murmurs, gallops, or rubs. RESPIRATORY: Breath sounds equal bilaterally. No accessory muscle use. GASTROINTESTINAL: Abdomen soft, non-tender, nondistended. MUSCULOSKELETAL: No cyanosis, or edema. BACK: Nontender without obvious deformity. No CVA tenderness. A/P Assessment and Plan VDRF, s/p extubation 08/06 Bilat Ground glass infilt, inf, hypersensitivity or fungal pn COPD DM PLAN: PO Zyvox Aerosol nebs Encourage po Supplement 02 Stable to tr to floor Alex Rivera MD Aug 08, 2017 18:32
[2017-08-08] MEDS: ONDANSETRON HCL 4 MG/2 ML VIAL IV PUSH PRN (22:15)
[2017-08-08] MEDS ORDERED: cloNIDine HCL 0.1 MG TAB PO PRN (23:15)
[2017-08-09 04:00] VITALS: BP 149/82; PULSE 84; RESP 22; TEMP 98.7; O2SAT 100
[2017-08-09] MEDS: INSULIN NovoLIN REGULAR SUPPLEMENTAL SCALE SQ SCH ×2 (05:00→11:34)
[2017-08-09] MEDS: hydrALAZINE HCL 50 MG TAB PO SCH (05:43)
[2017-08-09] MEDS: FAMOTIDINE 20 MG/2 ML VIAL IV PUSH SCH (05:43)
[2017-08-09 07:54] VITALS: BP 155/84; PULSE 95; RESP 17; TEMP 98.4; O2SAT 98
[2017-08-09 08:00] VITALS: O2SAT 97
[2017-08-09] MEDS: RESP: BUDESONIDE 0.25 MG/2 ML NEB NEB SCH (08:00)
[2017-08-09] MEDS: RESP: ALBUTEROL 2.5 MG/IPRATROPIUM 0.5 MG NEB (SCH) INH (08:03)
[2017-08-09] MEDS: LINEZOLID 600 MG TAB PO SCH (08:27)
[2017-08-09] MEDS: SODIUM CHLORIDE 0.9% FLUSH 10 ML FLUSH IV FLUSH SCH (08:28)
[2017-08-09] MEDS: HEPARIN SODIUM - SQ 10,000 UNITS/ML VIAL SQ SCH (08:28)
[2017-08-09] MEDS ORDERED: predniSONE 20 MG TAB PO SCH (09:00)
[2017-08-09] MEDS: ONDANSETRON HCL 4 MG/2 ML VIAL IV PUSH PRN (11:33)
[2017-08-09 11:50] VITALS: BP 166/92; PULSE 103; RESP 18; TEMP 98.2; O2SAT 97
[2017-08-09] MEDS ORDERED: ZYVO600T PO (12:29)
[2017-08-09] MEDS ORDERED: AMLO10TA2 PO (12:29)
--- NOTE | 2017-08-09 12:39 | HHI.DS ---
Discharge Summary Admission Date Jul 31, 2017 at 10:28 am Discharge Date: Aug 09, 2017 Admitting Diagnosis HYPOXEMIC RESPIRATORY FAILURE, COPD EXACERBATION (1) Acute hypoxemic respiratory failure ICD Code: J96.01 - Acute respiratory failure with hypoxia Status: Resolved (2) Positive hepatitis C antibody test ICD Code: R76.8 - Other specified abnormal immunological findings in serum (3) PNA (pneumonia) ICD Code: J18.9 - Pneumonia, unspecified organism Status: Acute (4) Acute asthma exacerbation ICD Code: J45.901 - Unspecified asthma with (acute) exacerbation (5) Elevated liver enzymes ICD Code: R74.8 - Abnormal levels of other serum enzymes (6) Diabetes mellitus ICD Code: E11.9 - Type 2 diabetes mellitus without complications Procedures Echocardiogram 08/03/2017 The left ventricular systolic function is normal with an estimated ejection fraction in the range of 55-60%. Normal left ventricular size. Wall thickness is normal. The aortic root and proximal ascending aorta are not well visualized. Trace mitral valve regurgitation. The aortic valve is not well visualized. No aortic valve regurgitation. There is trace tricuspid valve regurgitation. The pulmonary valve is not well visualized. Brief History - From Admission 57-year-old female with a history of COPD, diabetes mellitus, chronic smoker, who presents with a three-day history of worsening shortness of breath, cough productive intermittently of green sputum. denies Chest pain. History is limited by dyspnea. She says she ran out of her albuterol inhaler several days ago. She denies any fevers or chills. She does report nausea but no vomiting. Denies any abdominal pain. She reports chronic back pain, for which she takes [place] as needed, and is requesting here. Denies any dysuria. CBC/BMP: 08/08/1752108/08/17 05 Significant Findings Laboratory Tests Test 08/06/17 14:10 08/07/17 07:55 08/08/17 05:22 Arterial Blood pH 7.43 (7.380-7.420) Arterial Blood Partial Pressure CO2 35 mmHg (38-42) Blood Gas Hemoglobin 11.7 G/DL (12.0-16.0) White Blood Count 12.1 TH/MM3 (4.0-11.0) Neutrophils % (Manual) 85 % (16-70) Lymphocytes % 4 % (9-44) Neutrophils # (Manual) 11.0 TH/MM3 (1.8-7.7) Toxic Vacuolation PRESENT (NONE SEEN) Platelet Morphology Comment ENLARGED (NORMAL) Blood Urea Nitrogen 33 MG/DL (7-18) 21 MG/DL (7-18) Random Glucose 168 MG/DL (74-106) 156 MG/DL (74-106) Albumin 2.9 GM/DL (3.4-5.0) 2.7 GM/DL (3.4-5.0) Aspartate Amino Transf (AST/SGOT) 70 U/L (15-37) 90 U/L (15-37) Alanine Aminotransferase (ALT/SGPT) 100 U/L (10-53) 119 U/L (10-53) Chloride Level 108 MEQ/L (98-107) 108 MEQ/L (98-107) B-Type Natriuretic Peptide 118 PG/ML (0-100) Red Blood Count 3.83 MIL/MM3 (4.00-5.30) Hemoglobin 10.9 GM/DL (11.6-15.3) Hematocrit 33.1 % (35.0-46.0) Neutrophils (%) (Auto) 85.6 % (16.0-70.0) Lymphocytes (%) (Auto) 6.5 % (9.0-44.0) Lymphocytes # (Auto) 0.6 TH/MM3 (1.0-4.8) Calcium Level 8.0 MG/DL (8.5-10.1) Imaging Last Impressions Chest X-Ray 08/06/17 0600 Signed Impressions: Service Date/Time: Sunday, August 06, 2017 03:35 - CONCLUSION: 1. Mild basilar and dependent opacity in the lungs. No effusion. No pneumothorax. Endotracheal tube and nasogastric tube unchanged. Amadeo Hooks MD CT Angiography 07/31/17 0826 Signed Impressions: Service Date/Time: Monday, July 31, 2017 09:30 - CONCLUSION: No evidence of pulmonary embolism. Extensive bilateral groundglass infiltrates. Jamshid Means MD Liver Ultrasound 07/31/17 0000 Signed Impressions: Service Date/Time: Monday, July 31, 2017 17:48 - CONCLUSION: 1. Cholecystectomy. 2. A few tiny calcifications are seen a cyst of the right kidney. The largest measures 3 mm in the midpole suggestive of nonobstructing stone. Wayne Harkins MD PE at Discharge GENERAL: Patient is 57 yo extubated awake and alert SKIN: Warm and dry. HEAD: Normocephalic. EYES: No scleral icterus. No injection or drainage. NECK: Supple, trachea midline. No JVD or lymphadenopathy. CARDIOVASCULAR: Regular rate and rhythm without murmurs, gallops, or rubs. RESPIRATORY: Breath sounds equal bilaterally. No accessory muscle use. GASTROINTESTINAL: Abdomen soft, non-tender, nondistended. MUSCULOSKELETAL: No cyanosis, or edema. Pt update on day of discharge Ms. Griggs is doing well. Ambulating well. Tolerating diet. On room air. No acute concerns. Hospital Course Patient is a 57-year-old female with past medical history of bronchial asthma, active smoker, diabetes mellitus, who presented to [facility] ED with a three day history of worsening shortness of breath. On arrival to the ED she was tachypneic, tachycardiac and placed on a non-rebreather mask. ABGs on 8 liters simple mask from early this morning showed a pH of 7.48, CO2 29, pAO2 52, bicarb 22 and sats of 86%. Chest x-ray in the ED showed no acute disease. The patient subsequently underwent CT angiogram of the chest which showed no evidence of pulmonary embolism; however, it showed extensive bilateral ground- glass infiltrates. She was initially admitted under hospitalist service. However due to declining respiratory status patient was managed by critical care medicine. Patient was intubated on 08/01/2017. She was extubated on 2017. She was subsequently transferred to the floor under hospitalist service. Pulmonology evaluated patient and followed patient during this hospitalization. Infectious disease was also consulted. Infectious disease recommended Zyvox for 7 more days. Patient continued to do well on room air. She was subsequently discharged home on Zyvox. Pt Condition on Discharge: Good Discharge Disposition: Discharge Home Discharge Time: > 30 minutes Discharge Instructions DIET: Follow Instructions for: Heart Healthy Diet Speech Therapy-Diet Recommends: Mechanical Soft, Chopped Meat w/Gravy Activities you can perform: Regular-No Restrictions Follow up Referrals: PCP Follow-up - 1 Week New Medications: Amlodipine (Amlodipine) 10 Mg Tab 10 MG PO DAILY for Blood Pressure Management, #30 TAB 5 Refills Linezolid (Zyvox) 600 Mg Tab 600 MG PO Q12HR for Infection, #13 TAB start tonight (08/09/2017). Continued Medications: Albuterol 18 GM Inh (Ventolin Hfa 18 GM Inh) 90 Mcg/Act Aer 2 PUFF INH Q4-6H PRN for SHORTNESS OF BREATH, #1 INHALER 0 Refills Albuterol Neb (Albuterol Neb) 2.5 Mg/3 Ml Neb 2.5 MG NEB Q4HR NEB PRN for SHORTNESS OF BREATH, #60 NEBULE 0 Refills Metformin (Metformin) 500 Mg Tab 500 MG PO BIDPC for Blood Sugar Management, #60 TAB 0 Refills Sid Bermudez DO Aug 09, 2017 12:39
== END 2017-08-09 14:16 | disposition home or self-care (01) | DRG 166 ==
LOC: NEPC 07:21 → MERGE 10:28 → NEDA 10:28 → HIMN 12:55 → N05A 08-08 23:43
PROVIDERS: ADMIT Hospitalist; ATTEND Hospitalist
PROC: 5A1955Z Respiratory Ventilation, Greater than 96 Consecutive Hours (ICD-10-PCS; principal; 2017-08-01)
PROC: 0BH17EZ Insertion of Endotracheal Airway into Trachea, Via Natural or Artificial Opening (ICD-10-PCS; 2017-08-01)
PROC: 0B9F8ZX Drainage of Right Lower Lung Lobe, Via Natural or Artificial Opening Endoscopic, Diagnostic (ICD-10-PCS; 2017-08-02)
DX: J96.01 Acute respiratory failure with hypoxia (principal); A41.9 Sepsis, unspecified organism; J18.9 Pneumonia, unspecified organism; J45.901 Unspecified asthma with (acute) exacerbation; J44.0 Chronic obstructive pulmonary disease with (acute) lower respiratory infection; J44.1 Chronic obstructive pulmonary disease with (acute) exacerbation; E11.65 Type 2 diabetes mellitus with hyperglycemia; M54.9 Dorsalgia, unspecified; G89.29 Other chronic pain; Z79.891 Long term (current) use of opiate analgesic; R74.0 Nonspecific elevation of levels of transaminase and lactic acid dehydrogenase [LDH]; I10 Essential (primary) hypertension; R00.0 Tachycardia, unspecified; Z82.49 Family history of ischemic heart disease and other diseases of the circulatory system; B19.20 Unspecified viral hepatitis C without hepatic coma; Z87.891 Personal history of nicotine dependence
CPT/HCPCS: 31500; 36600; 71045; 71275; 76705; 80048; 80053; 80074; 80076; 80202; 80307; 81001; 82247; 82248; 82550; 82552; 82805; 82948; 83036; 83615; 83735; 83880; 84100; 84132; 84484; 85007; 85025; 85027; 85379; 85610; 85730; 86038; 86355; 86357; 86359; 86360; 86403; 86592; 86606; 86703; 87015; 87040; 87070; 87102; 87116; 87147; 87186; 87205; 87206; 87385; 87449; 87493; 87535; 87641; 87804; 87899; 88305; 88312; 88341; 88342; 89051; 93005; 93306; 94002; 94003; 94640; 94664; 96365; 96375; J0360; J0456; J0610; J1644; J1650; J1815; J1885; J1940; J2250; J2405; J2543; J2920; J2930; J3010; J3370; J3475; J3480; J7030; J7050; J7512; J7613; J7626; Q9967

== ENCOUNTER 2017-09-19 21:04 | Inpatient (IN) | payer MEDICAID ==
[~2017-09-19] VITALS: Ht 165.1 cm; Wt 50.0 kg
[~2017-09-19 21:04] MED LIST changes: +ALBU0.08 NEB; +AMLO10TA2 PO; +METF500T PO; +VENTAER INH; +ZYVO600T PO
[2017-09-19 21:09] VITALS: BP 155/73; PULSE 114; RESP 28; TEMP 98.9; O2SAT 99
[2017-09-19] MEDS: RESP: ALBUTEROL 2.5 MG/IPRATROPIUM 0.5 MG NEB (SCH) INH ×2 (21:15→21:22)
[2017-09-19 21:42] VITALS: BP 152/99; PULSE 110; RESP 24; TEMP 98; O2SAT 97
[2017-09-19] MEDS ORDERED: RESP: LIDOCAINE HCL 4% PF 5 ML NEB NEB ONE (21:45)
[2017-09-19 22:02] LABS: AUTOMATED NEUTROPHIL # 9.4 TH/MM3 (1.8-7.7); BASOPHIL # 0.1 TH/MM3 (0-0.2); BASOPHIL % 0.8 % (0.0-2.0); EOSINOPHIL % 0.2 % (0.0-4.0); HEMATOCRIT 36.7 % (35.0-46.0); HEMOGLOBIN 12.2 GM/DL (11.6-15.3); LYMPH % 12.3 % (9.0-44.0); LYMPHOCYTE # 1.6 TH/MM3 (1.0-4.8); MEAN CELL VOLUME 84.5 FL (80.0-100.0); MEAN CORPUSCULAR HEMOGLOBIN 28.1 PG (27.0-34.0); MEAN CORPUSCULAR HGB CONC 33.3 % (32.0-36.0); MONO % 13.4 % (0.0-8.0); MONOCYTE # 1.7 TH/MM3 (0-0.9); NEUT % 73.3 % (16.0-70.0); PLATELET COUNT 239 TH/MM3 (150-450); RED BLOOD COUNT 4.34 MIL/MM3 (4.00-5.30); RED CELL DISTRIBUTION WIDTH 16.7 % (11.6-17.2); WHITE BLOOD COUNT 12.8 TH/MM3 (4.0-11.0)
[2017-09-19 22:11] LABS: INTERNATIONAL NORMALIZED RATIO 1.1 RATIO; PROTHROMBIN TIME - PATIENT 11.3 SEC (9.8-11.6)
[2017-09-19 22:31] LABS: BICARBONATE 16.5 MEQ/L (21.0-32.0); BLOOD UREA NITROGEN 14 MG/DL (7-18); CALCIUM 8.5 MG/DL (8.5-10.1); CHLORIDE 98 MEQ/L (98-107); CREATININE 1.12 MG/DL (0.50-1.00); GLOMERULAR FILTRATION RATE 61 ML/MIN (>89); GLUCOSE,RANDOM 140 MG/DL (74-106); MAGNESIUM 1.4 MG/DL (1.5-2.5); SODIUM (NA) 132 MEQ/L (136-145); TROPONIN I LESS THAN 0.02 NG/ML (0.02-0.05)
[2017-09-19 22:42] LABS: TARGET CELLS 1+ (NORMAL)
--- NOTE | 2017-09-19 22:56 | RADRPT ---
EXAM DATE/TIME: 09/19/2017 22:42 [facility] COMPARISON: CHEST PA & LAT, April 20, 2016, 1:36. INDICATIONS : Shortness of breath. MEDICAL HISTORY : Chronic obstructive pulmonary disease. Diabetes mellitus type II. Asthma SURGICAL HISTORY : Cholecystectomy. ENCOUNTER: Initial ACUITY: 1 week PAIN SCORE: 4/10 LOCATION: Bilateral chest FINDINGS: PA and lateral views of the chest demonstrate the lungs to be symmetrically aerated without evidence of mass, infiltrate or effusion. The cardiomediastinal contours are unremarkable. The aorta is elong ated. Osseous structures are intact. Clips are seen in the right upper quadrant the abdomen. CONCLUSION: No acute disease. Jamshid Khan MD on September 19, 2017 at 22:54 Board Certified Radiologist. This report was verified electronically.
[2017-09-19] MEDS ORDERED: methylPREDNISolone SOD SUCC 125 MG/2 ML VIAL ONE (23:05)
[2017-09-19] MEDS ORDERED: RESP: ALBUTEROL 2.5 MG/IPRATROPIUM 0.5 MG NEB (SCH) NEB ONE (23:15)
[2017-09-19] MEDS ORDERED: methylPREDNISolone SOD SUCC 125 MG/2 ML VIAL IV PUSH ONE (23:15)
[2017-09-19] MEDS ORDERED: KETOROLAC TROMETHAMINE 30 MG/ML (IVP) VIAL IV PUSH ONE (23:15)
[2017-09-20] VITALS (20 sets, daily range): BP systolic 128–155; BP diastolic 69–85; PULSE 97–119; RESP 18–33; TEMP 97.7–98.2; O2SAT 99–100
[2017-09-20] MEDS ORDERED: RESP: ALBUTEROL 2.5 MG/IPRATROPIUM 0.5 MG NEB (SCH) NEB ONE (00:30)
[2017-09-20] MEDS ORDERED: NITROGLYCERIN 2% OINT 1 GM PACKET TOPICAL ONE (01:45)
[2017-09-20] MEDS ORDERED: MAGNESIUM HYDROXIDE SUSP 30 ML CUP PO PRN (02:00)
[2017-09-20] MEDS ORDERED: LACTULOSE SYRUP 20 GM/30 ML CUP PO PRN (02:00)
[2017-09-20] MEDS ORDERED: MISCELLANEOUS NURSING INFORMATION XX SCH (02:00)
[2017-09-20] MEDS ORDERED: CHLORHEXIDINE GLUCONATE 2 % 1 PACK (2 CLOTHS) TOP PRN (02:00)
[2017-09-20] MEDS ORDERED: ONDANSETRON HCL 4 MG/2 ML VIAL IV PUSH PRN (02:00)
[2017-09-20] MEDS ORDERED: BISACODYL 10 MG SUPP RECTAL PRN (02:00)
[2017-09-20] MEDS ORDERED: SENNOSIDES 8.6 MG TAB PO PRN (02:00)
[2017-09-20] MEDS ORDERED: IOHEXOL 350 MG/ML 10 ML VIAL (for RAD DIAG) IVCONTRAST ONE (03:10)
--- NOTE | 2017-09-20 03:18 | RADRPT ---
EXAM DATE/TIME: 09/20/2017 02:55 [facility] COMPARISON: CHEST PA & LAT, September 19, 2017, 22:42. CT PULMONARY ANGIOGRAM, July 31, 2017, 9:30. INDICATIONS : Shortness of breath, evaluate for embolism. IV CONTRAST: 75 cc Omnipaque 350 (iohexol) IV ; Cumulative dose for multiple exams. RADIATION DOSE: 6.23 CTDIvol (mGy) MEDICAL HISTORY : Chronic obstructive pulmonary disease. Hypertension. Emphysema.Asthma. SURGICAL HISTORY : None. ENCOUNTER: Initial ACUITY: 2 days PAIN SCALE: 0/10 LOCATION: chest TECHNIQUE: Volumetric scanning of the chest was performed using a pulmonary embolism protocol MIP images were re constructed. Using automated exposure control and adjustment of the mA and/or kV according to patien t size, radiation dose was kept as low as reasonably achievable to obtain optimal diagnostic quality images. DICOM format image data is available electronically for review and comparison. Follow-up recommendations for detected pulmonary nodules are based at a minimum on nodule size and pa tient risk factors according to Fleischner Society Guidelines. FINDINGS: PULMONARY ARTERIES: No filling defects are seen in the pulmonary arteries through the segmental level. LUNGS: There is consolidation of the anteromedial lingula. Paraseptal emphysema. No concerning pulmonary no dule is visualized. PLEURAE: There is no pleural thickening or pleural effusion. MEDIASTINUM: There is good visualization of the great vessels of the middle mediastinum. No evidence of mediastin al or hilar adenopathy/mass. MUSCULOSKELETAL: Within normal limits for patient age. MISCELLANEOUS: The visualized upper abdominal organs demonstrate no acute abnormality. CONCLUSION: 1. Lingular pneumonia. Medical treatment and followup resolution. 2. No evidence for pulmonary embolism. 3. Paraseptal emphysema. Zack Gay MD on September 20, 2017 at 3:14 Board Certified Radiologist. This report was verified electronically.
--- NOTE | 2017-09-20 03:19 | RADRPT ---
EXAM DATE/TIME: 09/20/2017 02:55 [facility] COMPARISON: No previous studies available for comparison. INDICATIONS : Dysphagia, shortness of breath and wheezing. IV CONTRAST: 75 cc Omnipaque 350 (iohexol) IV ; Cumulative dose for multiple exams. RADIATION DOSE: 11.23 CTDIvol (mGy) MEDICAL HISTORY : Chronic obstructive pulmonary disease. Hypertension. Emphysema.Asthma. SURGICAL HISTORY : None. ENCOUNTER: Initial ACUITY: 2 days PAIN SCALE: 0/10 LOCATION: neck TECHNIQUE: Volumetric scanning of the neck was performed. Using automated exposure control and adjustment of th e mA and/or kV according to patient size, radiation dose was kept as low as reasonably achievable to obtain optimal diagnostic quality images. DICOM format image data is available electronically for r eview and comparison. FINDINGS: NASOPHARYNX: The nasopharyngeal airway has a normal configuration. No mucosal thickening or mass is seen. OROPHARYNX: The intrinsic muscles of the tongue are symmetric. The tonsillar pillars are intact. The prevertebr al soft tissues are not thickened. LARYNX: The supraglottic, glottic, and infraglottic structures are intact. PARAPHARYNGEAL: The parapharyngeal space is intact. SALIVARY GLANDS: The parotid and submandibular glands are intact. LYMPH NODES: No enlarged or necrotic-appearing nodes. THYROID: Homogeneous enhancement without evidence of nodule. BONES: Mucoperiosteal thickening and fluid in left maxillary sinus. CONCLUSION: 1. Left maxillary sinusitis. 2. Otherwise unremarkable soft tissue neck. Zack Gay MD on September 20, 2017 at 3:16 Board Certified Radiologist. This report was verified electronically.
[2017-09-20] MEDS: RESP: ALBUTEROL 2.5 MG/IPRATROPIUM 0.5 MG NEB (SCH) INH ×5 (03:23→20:30)
[2017-09-20] MEDS ORDERED: LEVOFLOXACIN 750 MG PREMIX INJ 150 ML IV ONE (03:45)
[2017-09-20] MEDS ORDERED: BENZOCAINE-MENTHOL (SUGAR FREE) 15 MG-3.6 MG LOZENGE BUCCAL ONE (03:45)
[2017-09-20] MEDS: CHLORHEXIDINE GLUCONATE 2 % 1 PACK (2 CLOTHS) TOP SCH (04:00)
[2017-09-20] MEDS ORDERED: GLUCAGON 1 MG/ML VIAL OTHER PRN (04:15)
[2017-09-20] MEDS ORDERED: DEXTROSE 50% IN WATER 50 ML VIAL(D50) IV PUSH PRN (04:15)
[2017-09-20] MEDS ORDERED: MAGNESIUM SULFATE INJ 4 GM in SODIUM CHLORIDE 0.9% INJ 92 ML IV PRN (04:15)
[2017-09-20] MEDS ORDERED: POTASSIUM PHOSPHATE MONOBASIC 500 MG TAB PO/TUBE PRN (04:15)
[2017-09-20] MEDS ORDERED: POTASSIUM CHLORIDE 25 MEQ EFFERVESCENT TAB PO PRN (04:15)
[2017-09-20] MEDS ORDERED: SODIUM PHOSPHATE INJ 30 MMOL in SODIUM CHLOR 0.9% 250 ML INJ 240 ML IV PRN (04:15)
[2017-09-20] MEDS ORDERED: MAGNESIUM SULFATE INJ 2 GM in SODIUM CHLORIDE 0.9% INJ 96 ML IV PRN (04:15)
[2017-09-20] MEDS ORDERED: SODIUM CHLOR 0.9% 1000 ML INJ 1,000 ML IV ONE (04:15)
[2017-09-20] MEDS ORDERED: POTASSIUM CHLOR 40 MEQ PREMIX 100 ML IV PRN ×2 (04:15)
[2017-09-20] MEDS ORDERED: MAGNESIUM OXIDE 400 MG TAB PO PRN (04:15)
[2017-09-20] MEDS ORDERED: POTASSIUM CHLORIDE 20 MEQ CONTROLLED RELEASE TAB PO ONE (04:15)
[2017-09-20] MEDS ORDERED: POTASSIUM PHOSPHATE MONOBASIC 500 MG TAB PO PRN (04:15)
[2017-09-20] MEDS ORDERED: POTASSIUM PHOSPHATE INJ 30 MMOL in SODIUM CHLOR 0.9% 250 ML INJ 250 ML IV PRN (04:15)
--- NOTE | 2017-09-20 04:15 | HHI.HP ---
[facility] Service Critical Care Medicine Primary Care Physician Jamshid Braxton M.D. Admission Diagnosis Asthma Exacerbation Diagnosis: Travel History International Travel<30 Days: No Contact w/Intl Traveler <30 Da: No Traveled to Known Affected Are: No History of Present Illness 57-year-old female with past medical history of asthma, hypertension, diabetes, who presented to [facility] emergency department with 3 day history of SOB. She states it started with some postnasal drip about 5-6 days ago and then she had sorethroat. She then experienced SOB, dry cough. She now has pleuritic chest pain in left chest radiating to L posterior thorax. She has coughed up some blood tinged sputum today. She denies recent travel, prior personal history of venous thromboembolic disorder. Her sister of "blood clots". She denies fever. Upon arrival to the ED she reportedly had stridor and expiratory wheezing. She received Solu-Medrol 125 mg IV, DuoNeb 3, lidocaine nebs. She states her breathing is improved but she is focused on severe L sided chest pain. Review of Systems ROS Limitations: Clinical Condition Past Family Social History Allergies: Coded Allergies: hydromorphone (Unverified Allergy, Severe, ANAPHYLAXIS, 09/19/17) *MDRO Multi-Drug Resistant Organism (Verified Adverse Reaction, Unknown, ) MRSA PCR Screen negative 12/02/14. Past Medical History Asthma with prior intubation in July 2017 Diabetes Hypertension GERD Past Surgical History Cholecystectomy Reported Medications Albuterol 2 puffs inhaled every 4 6 hours Norvasc 5 mg daily Omeprazole 10 mg by mouth daily Metformin 500 mg by mouth twice a day Family History No family history of asthma She states her sister had a pacemaker and of "blood clot" Social History She is a former smoker but quit 08/09/17 Drinks. Occasionally Denies illicit drug use. Urine drug screen positive for marijuana Physical Exam Vital Signs Vital Signs Date Time Temp Pulse Resp B/P (MAP) Pulse Ox O2 Delivery O2 Flow Rate FiO2 09/20/17 03:24 99 Nasal Cannula 2.00 09/20/17 01:20 119 129/75 (93) 100 Nasal Cannula 2.00 09/19/17 21:42 98.0 110 24 152/99 (116) 97 Nasal Cannula 4.00 09/19/17 21:09 98.9 114 28 155/73 (100) 99 Physical Exam GENERAL: Well-nourished, well-developed female patient who is sitting up in ED stretcher complaining of pleuritic left-sided chest pain. SKIN: Warm and dry, well perfused. HEAD: Atraumatic. Normocephalic. EYES: Pupils equal and round. No scleral icterus. No injection or drainage. ENT: No nasal bleeding or discharge. Mucous membranes pink and moist. No pharyngeal erythema. Difficult to visualize entire posterior oropharynx due to strong gag reflex and resisting examination though upper uvula visualized and there is no apparent edema. Phonates well, swallowing secretions. NECK: Trachea midline without mass. No swelling. No JVD. CARDIOVASCULAR: Regular rate and rhythm. No murmurs rubs or gallops. RESPIRATORY: Mildly tachypneic but without accessory muscle use or distress. Airway is patent. Bilateral expiratory wheeze. No rales or rhonchi. GASTROINTESTINAL: Abdomen soft, non-tender, nondistended. Bowel sounds present. MUSCULOSKELETAL: Extremities without clubbing, cyanosis, or edema. No obvious deformities. NEUROLOGICAL: Awake and alert. No obvious cranial nerve deficits. Motor grossly within normal limits. Normal speech. Laboratory Laboratory Tests Test 09/19/17 21:47 09/20/17 00:21 09/20/17 02:00 09/20/17 02:04 White Blood Count 12.8 Red Blood Count 4.34 Hemoglobin 12.2 Hematocrit 36.7 Mean Corpuscular Volume 84.5 Mean Corpuscular Hemoglobin 28.1 Mean Corpuscular Hemoglobin Concent 33.3 Red Cell Distribution Width 16.7 Platelet Count 239 Mean Platelet Volume 10.0 Neutrophils (%) (Auto) 73.3 Lymphocytes (%) (Auto) 12.3 Monocytes (%) (Auto) 13.4 Eosinophils (%) (Auto) 0.2 Basophils (%) (Auto) 0.8 Neutrophils # (Auto) 9.4 Lymphocytes # (Auto) 1.6 Monocytes # (Auto) 1.7 Eosinophils # (Auto) 0.0 Basophils # (Auto) 0.1 CBC Comment AUTO DIFF Differential Comment AUTO DIFF CONFIRMED Platelet Estimate NORMAL Platelet Morphology Comment ENLARGED Target Cells 1+ Prothrombin Time 11.3 Prothromb Time International Ratio 1.1 Activated Partial Thromboplast Time 28.9 Blood Urea Nitrogen 14 Creatinine 1.12 Random Glucose 140 Calcium Level 8.5 Magnesium Level 1.4 Sodium Level 132 Potassium Level 3.3 Chloride Level 98 Carbon Dioxide Level 16.5 Anion Gap 18 Estimat Glomerular Filtration Rate 61 Total Creatine Kinase 167 Creatine Kinase MB 6.2 Troponin I LESS THAN 0.02 B-Type Natriuretic Peptide 11 Blood Gas Puncture Site RT RADIAL Blood Gas Patient Temperature 98.6 Blood Gas HCO3 13 Blood Gas Base Excess -11.5 Blood Gas Oxygen Saturation 96 Arterial Blood pH 7.38 Arterial Blood Partial Pressure CO2 22 Arterial Blood Partial Pressure O2 128 Arterial Blood Oxygen Content 13.5 Arterial Blood Carboxyhemoglobin 1.1 Arterial Blood Methemoglobin 0.9 Blood Gas Hemoglobin 9.8 Oxygen Delivery Device NASAL CANNULA Blood Gas Liter Flow 1 D-Dimer Quantitative (PE/DVT) 2.15 Urine Opiates Screen NEG Urine Barbiturates Screen NEG Urine Amphetamines Screen NEG Urine Benzodiazepines Screen NEG Urine Cocaine Screen NEG Urine Cannabinoids Screen POS Result Diagram: [id number]/[id number] Caprini VTE Risk Assessment Caprini Risk Assessment Model Point Value = 1 Point Value = 2 Point Value = 3 Point Value = 5 Age 41-60 Minor surgery BMI > 25 kg/m2 Swollen legs Varicose veins or History of unexplained or recurrent spontaneous Oral contraceptives or hormone replacement Sepsis (< 1 month) Serious lung disease, including pneumonia (< 1 month) Abnormal pulmonary function Acute myocardial infarction Congestive heart failure (< 1 month) History of inflammatory bowel disease Medical patient at bed rest Age 61-74 Arthroscopic surgery Major open surgery (> 45 min) Laparoscopic surgery (> 45 min) Malignancy Confined to bed (> 72 hours) Immobilizing plaster cast Central venous access Age >= 75 History of VTE Family history of VTE Factor V Leiden Prothrombin [id number] Lupus anticoagulant Anticardiolipin antibodies Elevated serum homocysteine Heparin-induced thrombocytopenia Other congenital or acquired thrombophilia Stroke (< 1 month) Elective arthroplasty Hip, pelvis, or leg fracture Acute spinal cord injury (< 1 month) Prophylaxis Regimen Total Risk Factor Score Risk Level Prophylaxis Regimen 0-1 Low Early ambulation 2 Moderate Order ONE of the following: *Sequential Compression Device (SCD) *Heparin 5000 units SQ BID 3-4 Higher Order ONE of the following medications: *Heparin 5000 units SQ TID *Enoxaparin/Lovenox 40 mg SQ daily (WT < 150 kg, CrCl > 30 mL/min) *Enoxaparin/Lovenox 30 mg SQ daily (WT < 150 kg, CrCl > 10-29 mL/min) *Enoxaparin/Lovenox 30 mg SQ BID (WT < 150 kg, CrCl > 30 mL/min) AND/OR *Sequential Compression Device (SCD) 5 or more Highest Order ONE of the following medications: *Heparin 5000 units SQ TID (Preferred with Epidurals) *Enoxaparin/Lovenox 40 mg SQ daily (WT < 150 kg, CrCl > 30 mL/min) *Enoxaparin/Lovenox 30 mg SQ daily (WT < 150 kg, CrCl > 10-29 mL/min) *Enoxaparin/Lovenox 30 mg SQ BID (WT < 150 kg, CrCl > 30 mL/min) AND *Sequential Compression Device (SCD) Assessment and Plan Assessment and Plan NEURO: Chronic pain Marijuana abuse Anaphylaxis to hydromorphone in the past. Will avoid narcotics from this class though she says she has taken Lortab in the past without difficulty. Instead use fentanyl as needed for pain. Avoid NSAIDs at this time due to acute kidney injury RESP: Acute asthma exacerbation Lingular pneumonia Emphysema Tobacco abuse She had some inspiratory stridor on arrival, now improved. She may have a component of vocal cord dysfunction following prior intubation or even preexisting.She is improved. CT neck without evidence of obstruction. CT Chest negative for pulmonary embolism. DuoNeb every 4 hours Albuterol every 2 hours as needed Solumedrol 60 mg IV every 6 hours Tobacco cessation discussed CV: Hypertension Norvasc 5 mg po daily GI: ADA diet FEN/RENAL: Acute kidney injury 1 L normal saline bolus. Continuing NS 100 mL per hour ID: h/o MRSA Pneumonia Small lingular infiltrate on CT scan. Noted prior h/o MRSA PNA but current presentation is nontoxic. Levaquin started in ED and will continue at 750 mg po daily. HEME: Monitor CBC ENDO: Diabetes mellitus Hold metformin Monitor bedside glucose before meals/at bedtime and administer low-dose insulin sliding scale as indicated. PROPH: SCDs/Lovenox 40 mg subcutaneous daily for DVT prophylaxis. Stress ulcer prophylaxis. ACCESS: PIV providing adequate access at this time. Full code Level 3 H and P Katie Colon MD Sep 20, 2017 04:15
[2017-09-20] MEDS: MAGNESIUM SULFATE 1 GM PREMIX 100 ML IV SCH ×2 (04:36→05:29)
[2017-09-20] MEDS: ACETAMINOPHEN 325 MG TAB PO PRN ×2 (04:49→08:41)
[2017-09-20] MEDS: methylPREDNISolone SOD SUCC 125 MG/2 ML VIAL IV PUSH SCH ×4 (04:50→22:46)
--- NOTE | 2017-09-20 04:54 | PD ---
HPI . Respiratory distress Chief Complaint: Respiratory Distress Time Seen by Provider: 21:39 Travel History International Travel<30 days: No Contact w/Intl Traveler<30days: No Traveled to known affect area: No History of Present Illness HPI 57-year-old female history of asthma with previous intubation, presents with having acute respiratory distress, worsening over the past several days. Patient notes having a recent sinusitis/upper respiratory infection with significant postnasal drip which potentially caused and exacerbated her asthma attack currently. Patient notes significant throat pain, hoarse voice, wheezing and difficulty breathing. Patient having difficulty giving further history secondary to acute shortness of breath and difficulty speaking secondary to the above. Denies quantified fever. Has some production of cough with blood-tinged tenacious sputum. No recent sedentary period or leg swelling or confining travel PFSH Past Medical History Narrative Medical Extensive past medical history reviewed Arthritis: Yes Asthma: Yes Blood Disorders: No Anxiety: Yes Depression: Yes Heart Rhythm Problems: Yes Cancer: No Cardiac Catheterization: No Cardiovascular Problems: No High Cholesterol: No Chemotherapy: No Chest Pain: Yes Congestive Heart Failure: No COPD: Yes Cerebrovascular Accident: No Coronary Artery Disease: No Diabetes: Yes Patient Takes Glucophage: Yes Diminished Hearing: No Endocrine: Yes Gastrointestinal Disorders: Yes GERD: No Genitourinary: No Headaches: No Hiatal Hernia: No Hypertension: Yes Immune Disorder: No Musculoskeletal: No Neurologic: No Psychiatric: No Reproductive: No Respiratory: Yes (Asthma) Immunizations Current: Yes Migraines: No Radiation Therapy: No Seizures: No Sickle Cell Disease: No Sleep Apnea: No Ulcer: Yes Tetanus Vaccination: > 5 Years Influenza Vaccination: Yes ?: Not Menopausal: Yes : 4 Para: 3 Miscarriage: 1 : 0 Tubal Ligation: Yes Past Surgical History Abdominal Surgery: No Cardiac Surgery: No Cholecystectomy: Yes Ear Surgery: No Endocrine Surgery: Yes (removed mass from throat) Eye Surgery: No Genitourinary Surgery: No Gynecologic Surgery: No Thoracic Surgery: No Social History Alcohol Use: No Tobacco Use: Yes Substance Use: No Allergies-Medications (Allergen,Severity, Reaction): Coded Allergies: hydromorphone (Unverified Allergy, Severe, ANAPHYLAXIS, 09/19/17) *MDRO Multi-Drug Resistant Organism (Verified Adverse Reaction, Unknown, ) MRSA PCR Screen negative 12/02/14. Reported Meds & Prescriptions Reported Meds & Active Scripts Active Amlodipine (Amlodipine Besylate) 10 Mg Tab 10 Mg PO DAILY Zyvox (Linezolid) 600 Mg Tab 600 Mg PO Q12HR start tonight (08/09/2017). Tramadol (Tramadol HCl) 50 Mg Tab 50 Mg PO Q6H PRN Augmentin (Amoxicillin-Clavulanate) 875-125 Mg Tab 1 Tab PO BID K-Phos (Potassium Phosphate Monobasic) 500 Mg Tab 500 Mg PO Q12HR Proair Hfa 8.5 GM Inh (Albuterol Sulfate) 90 Mcg/Act Aer 2 Puff INH Q4-6H PRN 108 mcg/actuation Calcium Carbonate (Antacid) 500 Mg Chew 500 Mg CHEW Q12HR Norvasc (Amlodipine Besylate) 5 Mg Tab 5 Mg PO DAILY Reported Albuterol Neb (Albuterol Sulfate) 2.5 Mg/3 Ml Neb 2.5 Mg NEB Q4HR NEB PRN Ventolin Hfa 18 GM Inh (Albuterol Sulfate) 90 Mcg/Act Aer 2 Puff INH Q4-6H PRN Metformin (Metformin HCl) 500 Mg Tab 500 Mg PO BIDPC Omeprazole 10 Mg Cap 10 Mg PO DAILY Narrative Medication Allergies and medications reviewed Review of Systems Except as stated in HPI: all other systems reviewed are Neg General / Constitutional: No: Fever Eyes: No: Visual changes HENT: No: Headaches Cardiovascular: Positive: Chest Pain or Discomfort, Dyspnea on exertion, No: Palpitations, Irregular Rhythm, Tachycardia, Syncope, Edema Respiratory: Positive: Cough, Shortness of Breath, Wheezing, Hemoptysis, Pleuritic Pain, No: Orthopnea, Stridor, Night Sweats Gastrointestinal: No: Nausea, Vomiting, Abdominal Pain Genitourinary: No: Dysuria Musculoskeletal: No: Pain Skin: No Rash Neurologic: No: Weakness Psychiatric: No: Depression Endocrine: No: Polydipsia Hematologic/Lymphatic: No: Easy Bruising Physical Exam Narrative GENERAL: Awake and alert, oriented 3, in moderate to severe respiratory distress. Heart rate 120, oxygen saturation 92% on room air, tachypneic at 30 with audible stridor and wheezing. Afebrile SKIN: Warm and dry. Color is normal no diaphoresis sinus or pallor HEAD: Atraumatic. Normocephalic. EYES: Pupils equal and round. No scleral icterus. No injection or drainage. ENT: No nasal bleeding or discharge. Mucous membranes pink and moist. Hoarse voice NECK: Trachea midline. No JVD. Inspiratory and expiratory stridor and wheezing CARDIOVASCULAR: Tachycardic regular 1 20 bpm, no obvious murmurs rubs or gallops RESPIRATORY: Accessory muscle use, bilateral wheezing, inspiratory stridor, prolonged expiratory phase. Equal bilateral excursions, chest wall nontender GASTROINTESTINAL: Abdomen soft, non-tender, nondistended. Hepatic and splenic margins not palpable. MUSCULOSKELETAL: Extremities without clubbing, cyanosis, or edema. No obvious deformities. NEUROLOGICAL: Awake and alert. No obvious focal deficits PSYCHIATRIC: Appropriate mood and affect; insight and judgment normal. Data Data Last Documented VS Vital Signs Date Time Temp Pulse Resp B/P (MAP) Pulse Ox O2 Delivery O2 Flow Rate FiO2 09/20/17 01:20 119 129/75 (93) 100 Nasal Cannula 2.00 09/19/17 21:42 98.0 24 Orders Orders Complete Blood Count With Diff (09/19/17 21:11) Basic Metabolic Panel (Bmp) (09/19/17 21:11) B-Type Natriuretic Peptide (09/19/17 21:11) Act Partial Throm Time (Ptt) (09/19/17 21:11) Prothrombin Time / Inr (Pt) (09/19/17 21:11) Magnesium (Mg) (09/19/17 21:11) Ckmb (Isoenzyme) Profile (09/19/17 21:11) Troponin I (09/19/17 21:11) Electrocardiogram (09/19/17 21:11) Chest, Pa & Lat (09/19/17 21:11) Albuterol-Ipratropium Neb (Duoneb Neb) (09/19/17 21:15) Lidocaine Pf 4% Neb (Lidocaine Pf 4% Neb (09/19/17 21:45) CKMB (09/19/17 21:47) CKMB% (09/19/17 21:47) Methylprednisolone So Succ Inj (Solumedr (09/19/17 23:15) Albuterol-Ipratropium Neb (Duoneb Neb) (09/19/17 23:15) Ketorolac Inj (Toradol Inj) (09/19/17 23:15) Methylprednisolone So Succ Inj (Solumedr (09/19/17 23:05) Arterial Blood Gas (Abg) (09/20/17 ) Albuterol-Ipratropium Neb (Duoneb Neb) (09/20/17 00:30) Electrocardiogram (09/20/17 ) Nitroglycerin 2% Oint (Nitroglycerin 2% (09/20/17 01:45) Ob/Psych Drug Screen, Urine (09/20/17 01:51) Admit Order (Ed Use Only) (09/20/17 01:52) Ct Pulmonary Angiogram (09/20/17 ) D-Dimer (09/20/17 01:52) Admit To Inpatient (09/20/17 ) Code Status (09/20/17 01:52) Vital Signs (Adult) MARCIE.Q1H (09/20/17 01:52) Activity Oob With Assistance (09/20/17 01:52) Diet Regular Basic (09/20/17 Breakfast) Sodium Chloride 0.9% Flush (Ns Flush) (09/20/17 02:00) Sodium Chloride 0.9% Flush (Ns Flush) (09/20/17 09:00) Famotidine (Pepcid) (09/20/17 09:00) Ondansetron Inj (Zofran Inj) (09/20/17 02:00) Albuterol-Ipratropium Neb (Duoneb Neb) (09/20/17 04:00) Albuterol Neb (Albuterol Neb) (09/20/17 02:00) Complete Blood Count With Diff (09/21/17 04:00) Comprehensive Metabolic Panel (09/21/17 04:00) Automation Driver / Telemetry MARCIE.Q8H (09/20/17 01:52) Enoxaparin Inj (Lovenox Inj) (09/20/17 09:00) Scd Bilateral/Knee High MARCIE.BID (09/20/17 01:52) ^ Initiate Protocol (09/20/17 01:52) Instruction (09/20/17 01:52) [facility] [place], [place] Nursing Information (09/20/17 02:00) Chlorhexidine 2% Cloth (Chlorhexidine 2% (09/20/17 04:00) Chlorhexidine 2% Cloth (Chlorhexidine 2% (09/20/17 02:00) Mrsa Pcr Surveillance (09/20/17 01:52) Docusate Sodium-Senna (Rebeka-Colace) (09/20/17 09:00) Magnesium Hydroxide Liq (Milk Of Magnesi (09/20/17 02:00) Sennosides (Senokot) (09/20/17 02:00) Bisacodyl Supp (Dulcolax Supp) (09/20/17 02:00) Lactulose Liq (Lactulose Liq) (09/20/17 02:00) Inpatient Certification (09/20/17 ) Ct Soft Tiss Neck W Iv Cont (09/20/17 ) Labs Laboratory Tests Test 09/19/17 21:47 09/20/17 00:21 White Blood Count 12.8 TH/MM3 Red Blood Count 4.34 MIL/MM3 Hemoglobin 12.2 GM/DL Hematocrit 36.7 % Mean Corpuscular Volume 84.5 FL Mean Corpuscular Hemoglobin 28.1 PG Mean Corpuscular Hemoglobin Concent 33.3 % Red Cell Distribution Width 16.7 % Platelet Count 239 TH/MM3 Mean Platelet Volume 10.0 FL Neutrophils (%) (Auto) 73.3 % Lymphocytes (%) (Auto) 12.3 % Monocytes (%) (Auto) 13.4 % Eosinophils (%) (Auto) 0.2 % Basophils (%) (Auto) 0.8 % Neutrophils # (Auto) 9.4 TH/MM3 Lymphocytes # (Auto) 1.6 TH/MM3 Monocytes # (Auto) 1.7 TH/MM3 Eosinophils # (Auto) 0.0 TH/MM3 Basophils # (Auto) 0.1 TH/MM3 CBC Comment AUTO DIFF Differential Comment AUTO DIFF CONFIRMED Platelet Estimate NORMAL Platelet Morphology Comment ENLARGED Target Cells 1+ Prothrombin Time 11.3 SEC Prothromb Time International Ratio 1.1 RATIO Activated Partial Thromboplast Time 28.9 SEC Blood Urea Nitrogen 14 MG/DL Creatinine 1.12 MG/DL Random Glucose 140 MG/DL Calcium Level 8.5 MG/DL Magnesium Level 1.4 MG/DL Sodium Level 132 MEQ/L Potassium Level 3.3 MEQ/L Chloride Level 98 MEQ/L Carbon Dioxide Level 16.5 MEQ/L Anion Gap 18 MEQ/L Estimat Glomerular Filtration Rate 61 ML/MIN Phosphorus Level 2.9 MG/DL Total Creatine Kinase 167 U/L Creatine Kinase MB 6.2 NG/ML Troponin I LESS THAN 0.02 NG/ML B-Type Natriuretic Peptide 11 PG/ML Blood Gas Puncture Site RT RADIAL Blood Gas Patient Temperature 98.6 Blood Gas HCO3 13 mmol/L Blood Gas Base Excess -11.5 mmol/L Blood Gas Oxygen Saturation 96 % Arterial Blood pH 7.38 Arterial Blood Partial Pressure CO2 22 mmHg Arterial Blood Partial Pressure O2 128 mmHG Arterial Blood Oxygen Content 13.5 Vol % Arterial Blood Carboxyhemoglobin 1.1 % Arterial Blood Methemoglobin 0.9 % Blood Gas Hemoglobin 9.8 G/DL Oxygen Delivery Device NASAL CANNULA Blood Gas Liter Flow 1 L/M MDM Medical Decision Making Medical Screen Exam Complete: Yes Emergency Medical Condition: Yes Medical Record Reviewed: Yes Differential Diagnosis Asthma exacerbation, stridor, pneumonia, vocal cord spasm Narrative Course Chest x-ray negative for acute infiltrate. Laboratory examinations reviewed, patient is mildly elevated white blood cell count. ABG significant for markedly decreased carbon dioxide level consistent with hyperventilation D-dimer added to patient's laboratory examinations, markedly positive. CT pulmonary angiogram negative for pulmonary embolus, however patient has pneumonia not seen on chest x-ray Case discussed with Dr. Colon supervisor final/shaper and presser. Admitted to ICU. Possible fiberoptic laryngoscopy discussed with respect to patient's stridor Patient showed significant improvement, and was stepped down to intermediate care Diagnosis Primary Impression: PNA (pneumonia) Qualified Codes: J18.9 - Pneumonia, unspecified organism Additional Impression: Acute asthma exacerbation Qualified Codes: J45.901 - Unspecified asthma with (acute) exacerbation Admitting Information Admitting Physician Requests: Admit Danielito Raygoza MD Sep 20, 2017 04:54
[2017-09-20] MEDS: SODIUM CHLOR 0.9% 1000 ML INJ 1,000 ML IV SCH ×2 (06:35→17:46)
[2017-09-20] MEDS: INSULIN ASPART SUPPLEMENTAL SCALE SQ SCH ×3 (08:09→21:00)
[2017-09-20] MEDS ORDERED: LEVOFLOXACIN 750 MG TAB PO SCH (09:00)
[2017-09-20] MEDS ORDERED: FAMOTIDINE 20 MG TAB PO SCH (09:00)
[2017-09-20] MEDS ORDERED: predniSONE 20 MG TAB PO SCH (09:00)
[2017-09-20] MEDS: SODIUM CHLORIDE 0.9% FLUSH 10 ML FLUSH IV FLUSH SCH ×2 (09:00→21:01)
[2017-09-20] MEDS: ENOXAPARIN SODIUM 40 MG/0.4 ML SYRINGE SQ SCH (09:38)
[2017-09-20] MEDS: DOCUSATE SODIUM 50 MG/SENNA 8.6 MG TAB PO SCH ×2 (09:44→21:01)
--- NOTE | 2017-09-20 11:39 | RADRPT ---
EXAM DATE/TIME: 09/20/2017 11:27 [facility] COMPARISON: CHEST SINGLE AP, August 06, 2017, 3:35. INDICATIONS : Short of breath. MEDICAL HISTORY : Chronic obstructive pulmonary disease. Hypertension Emphysema. asthma SURGICAL HISTORY : None. ENCOUNTER: Initial ACUITY: 2 days PAIN SCORE: 0/10 LOCATION: Bilateral chest FINDINGS: A single view of the chest demonstrates the lungs to be symmetrically aerated without evidence of mas s, infiltrate or effusion. The cardiomediastinal contours are unremarkable. Osseous structures are intact. CONCLUSION: No acute pulmonary infiltrates Wayne Harkins MD on September 20, 2017 at 11:37 Board Certified Radiologist. This report was verified electronically.
--- NOTE | 2017-09-20 11:50 | HHI.CCPN ---
Subjective Remarks/Hospital Course 57-year-old female with past medical history of asthma, hypertension, diabetes, who presented to [facility] emergency department with 3 day history of SOB. She states it started with some postnasal drip about 5-6 days ago and then she had sorethroat. She then experienced SOB, dry cough. She now has pleuritic chest pain in left chest radiating to L posterior thorax. She has coughed up some blood tinged sputum today. She denies recent travel, prior personal history of venous thromboembolic disorder. Her sister of "blood clots". She denies fever. Upon arrival to the ED she reportedly had stridor and expiratory wheezing. She received Solu-Medrol 125 mg IV, DuoNeb 3, lidocaine nebs. She states her breathing is improved but she is focused on severe L sided chest pain. Subjective 09/20: Patient transferred from [facility] to room 1303 due to acute decompensation on the medical floor. Patient complaining of being more short of breath. Also complaining of bilateral shoulder pain. Noted CT neck showed no signs of focal stenosis or obstruction. CT pulmonary angiogram revealed a right anterior medial lingular pneumonia. Objective Vital Signs Date Time Temp Pulse Resp B/P (MAP) Pulse Ox O2 Delivery O2 Flow Rate FiO2 09/20/17 11:15 09/20/17 11:14 97.9 100 32 100 09/20/17 09:19 Nasal Cannula 3.00 Intake and Output 09/20/17 09/20/17 09/21/17 08:00 16:00 00:00 Intake Total 1350 ml Balance 1350 ml Result Diagram: 09/19/17214609/[id number]/172146 Imaging Last Impressions Neck CT 09/20/17 0000 Signed Impressions: Service Date/Time: Wednesday, September 20, 2017 02:55 - CONCLUSION: 1. Left maxillary sinusitis. 2. Otherwise unremarkable soft tissue neck. Zack Gay MD Chest X-Ray 09/20/17 0000 Signed Impressions: Service Date/Time: Wednesday, September 20, 2017 11:27 - CONCLUSION: No acute pulmonary infiltrates Wayne Harkins MD CT Angiography 09/20/17 0000 Signed Impressions: Service Date/Time: Wednesday, September 20, 2017 02:55 - CONCLUSION: 1. Lingular pneumonia. Medical treatment and followup resolution. 2. No evidence for pulmonary embolism. 3. Paraseptal emphysema. Zack Gay MD Objective Remarks GENERAL: 57-year-old AA female resting in bed in moderate respiratory distress SKIN: Warm and dry. No rash HEAD: Atraumatic. Normocephalic. EYES: Pupils equal and round about 3 mm bilaterally and reactive. No scleral icterus. No injection or drainage. ENT: No nasal bleeding or discharge. Mucous membranes pink and moist. NECK: Trachea midline. No JVD. CARDIOVASCULAR: Tachycardic, RR. S1, S2. No S4. Without murmur RESPIRATORY: Diminished breath sounds throughout all lung plunkett anteriorly posteriorly. Positive inspiratory and expiratory wheeze. GASTROINTESTINAL: Abdomen soft, non-tender, nondistended. Hypoactive bowel sounds appreciated MUSCULOSKELETAL: Extremities without significant peripheral edema. 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 No obvious cranial nerve deficits. Motor grossly within normal limits. Five out of 5 muscle strength in the arms and legs. Normal speech. PSYCHIATRIC: Appropriate mood and affect; insight and judgment normal. Urinary Catheter: No Assessment to: Continue Vascular Central Line Catheter: No Assessment to: Continue A/P Assessment and Plan Neuro/Psych: History of social EtOH use THC use Patient is on tramadol 50 mg every 6 hours as needed for pain at home Thiamine, folate and multivitamin daily will be ordered Acetaminophen 650 mg every 6 hours as needed fever Morphine sulfate 1-2 mg IV every 3 hours as needed pain 1 through 10 CV: Hypertension 2D echocardiogram 08/13 revealed EF 55 to 60%. Patient is on amlodipine 10 mg p.o. daily for hypertension at home. Will start on 5 mg daily As needed Nitropaste for hypertension if indicated Resp: Acute respiratory failure secondary to right anterior medial lingular pneumonia/ asthma/COPD with paraseptal emphysema Tobaccoism Chest x-ray 09/20 at 1130 revealed no acute cardiopulmonary findings CT pulmonary angiogram revealed right anterior medial lingula pneumonia/ paraseptal emphysema. CT neck revealed left maxillary sinusitis but no signs of obstruction Albuterol/ipratropium aerosols every 4 hours with albuterol aerosols every 2 hours as needed dyspnea Methylprednisolone succinate 60 mg IV every 6 hours Add budesonide/formoterol 160/4.5 2 puffs twice daily Continuous albuterol aerosols 3 now Tobacco cessation education booklet self-evaluation provided. She states she has stopped smoking tobacco but hCG is positive Started on Heliox 70/30 GI: Hepatitis C genotype 1A Gastroesophageal reflux disease Currently on ADA diet Patient is on omeprazole 10 mg daily for gastroesophageal reflux disease. Switch to pantoprazole 20 mill grams daily Docusate sodium/senna 1 tablet twice daily for bowel regimen Outpatient workup for hepatitis C with positive viral load previous hospitalization : Poon catheter has been placed for accurate I's and O's in a critically ill patient Endo: Diabetes mellitus Holding metformin 500 mg twice daily/home medication Novulog sliding scale insulin with Accu-Cheks to maintain euglycemia/low regimen Renal: Acute renal insufficiency Creatinine currently 1.12. Monitor urine output Accurate I's and O's Recheck BMP in a.m. Heme: Leukocytosis Hemoglobin currently within normal limits No indication for transfusion of blood products at this time Trend white blood cell count ID: History of MRSA pneumonia Previously on levofloxacin. Will start on vancomycin, piperacillin/tazobactam and azithromycin with previous MRSA history and worsening clinical condition Blood cultures 2, sputum, urine, urine Legionella pneumococcal antigen and influenza a and B all ordered. MSK: Chronic low back pain on chronic tramadol PT evaluate and treat FEN: Hypokalemia Hypomagnesia Hyponatremia Replace electrolytes as clinically indicated. Received 40 mEq potassium chloride in the ED 1. Receive magnesium sulfate unknown dosage in ED. Recheck now Currently on normal saline at 50 cc an hour Access -Utilize peripheral IV. 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
[2017-09-20] MEDS ORDERED: RESP: ALBUTEROL 2.5MG/0.5ML CONTINUOUS NEB 12-PACK NEB SCH (12:00)
[2017-09-20] MEDS ORDERED: Vancomycin Consult Pharmacy 1 EA OTHER SCH (12:00)
[2017-09-20] MEDS: RESP: ALBUTEROL 2.5 MG/3 ML NEB (PRN) INH ×2 (12:27→12:28)
[2017-09-20] MEDS: MORPHINE SULFATE 2 MG/ML SYRINGE IV PUSH PRN ×3 (13:03→21:01)
[2017-09-20] MEDS ORDERED: NITROGLYCERIN 2% OINT 1 GM PACKET TOPICAL PRN (13:30)
[2017-09-20] MEDS ORDERED: MAGNESIUM SULFATE 1 GM PREMIX 100 ML IV ONE (14:30)
[2017-09-20] MEDS: PIPERACIL-TAZO 4.5 GM PREMIX 100 ML IV SCH ×2 (14:40→21:01)
[2017-09-20] MEDS: AZITHROMYCIN INJ 500 MG in SODIUM CHLOR 0.9% 250 ML INJ 250 ML IV SCH (14:48)
[2017-09-20] MEDS: traMADol HCL 50 MG TAB PO PRN ×2 (15:02→22:47)
[2017-09-20] MEDS ORDERED: VANCOMYCIN INJ 700 MG in SODIUM CHLOR 0.9% 250 ML INJ 250 ML IV SCH (16:00)
--- NOTE | 2017-09-20 17:14 | OTSOAPIP ---
RECEIVED OCCUPATIONAL THERAPY ORDERS FROM DR. GEORGE. ATTEMPTED TO SEE PATIENT, HOWEVER AFTER DISCUSSION WITH JODEE PACKER, WILL DEFER EVALUATION THIS DATE DUE TO PATIENT'S CURRENT RESPIRATORY STATUS. WILL REATTEMPT TOMORROW. INTERDISCIPLINARY COMMUNICATION: REVIEWED ELECTRONIC MEDICAL RECORD, SPOKE WITH JODEE PACKER Therapist: Rayne Arreola, OTR/L Signature on file
[2017-09-20] MEDS: BUDESONIDE-FORMOTEROL 160/4.5 MCG INHALER INH SCH (21:00)
[2017-09-20] MEDS: CALCIUM CARBONATE 500 MG CHEWABLE TAB CHEW SCH (21:01)
--- NOTE | 2017-09-20 22:24 | EKG ---
Date Performed: 09/20/2017 Time Performed: 03:14:40 PTAGE: 57 years EKG: SINUS TACHYCARDIA ST DEVIATION AND MODERATE T-WAVE ABNORMALITY ABNORMAL ECG Since the PREVIOUS TRACING , no significant change noted DOCTOR: Melissa Burkett Interpretating Date/Time 09/20/2017 22:22:58
--- NOTE | 2017-09-20 22:39 | EKG ---
Date Performed: 09/19/2017 Time Performed: 21:22:52 PTAGE: 57 years EKG: SINUS TACHYCARDIA NONSPECIFIC ST & T-WAVE ABNORMALITY ABNORMAL RHYTHM ECG PREVIOUS TRACING : 09/13/2016 17.53 Since the previous tracing, no significant change noted DOCTOR: Melissa uBrkett Interpretating Date/Time 09/20/2017 22:38:34
[2017-09-20 23:36] LABS: BICARBONATE 19.8 MEQ/L (21.0-32.0); CALCIUM 7.7 MG/DL (8.5-10.1); CREATININE 0.85 MG/DL (0.50-1.00); MAGNESIUM 1.6 MG/DL (1.5-2.5)
[2017-09-21] VITALS (15 sets, daily range): BP systolic 120–160; BP diastolic 72–82; PULSE 92–108; RESP 18–24; TEMP 97.7–98; O2SAT 98–100
[2017-09-21] MEDS: SODIUM CHLOR 0.9% 1000 ML INJ 1,000 ML IV SCH ×2 (00:50→13:46)
[2017-09-21] MEDS: POTASSIUM CHLOR 20 MEQ PREMIX 100 ML IV PRN ×2 (00:57→22:45)
[2017-09-21] MEDS: MORPHINE SULFATE 2 MG/ML SYRINGE IV PUSH PRN ×7 (00:57→21:30)
[2017-09-21] MEDS: RESP: ALBUTEROL 2.5 MG/IPRATROPIUM 0.5 MG NEB (SCH) INH ×6 (02:00→20:05)
[2017-09-21] MEDS: PIPERACIL-TAZO 4.5 GM PREMIX 100 ML IV SCH ×4 (03:50→21:23)
[2017-09-21] MEDS: methylPREDNISolone SOD SUCC 125 MG/2 ML VIAL IV PUSH SCH ×4 (03:51→23:00)
[2017-09-21] MEDS: CHLORHEXIDINE GLUCONATE 2 % 1 PACK (2 CLOTHS) TOP SCH (04:00)
[2017-09-21 05:23] LABS: AUTOMATED NEUTROPHIL # 10.3 TH/MM3 (1.8-7.7); BASOPHIL % 0.1 % (0.0-2.0); HEMATOCRIT 29.2 % (35.0-46.0); HEMOGLOBIN 9.6 GM/DL (11.6-15.3); LYMPH % 2.4 % (9.0-44.0); LYMPHOCYTE # 0.3 TH/MM3 (1.0-4.8); MEAN CELL VOLUME 83.9 FL (80.0-100.0); MEAN CORPUSCULAR HEMOGLOBIN 27.5 PG (27.0-34.0); MEAN CORPUSCULAR HGB CONC 32.8 % (32.0-36.0); MEAN PLATELET VOLUME 9.7 FL (7.0-11.0); MONOCYTE # 0.8 TH/MM3 (0-0.9); NEUT % 90.5 % (16.0-70.0); PLATELET COUNT 180 TH/MM3 (150-450); RED BLOOD COUNT 3.49 MIL/MM3 (4.00-5.30); WHITE BLOOD COUNT 11.3 TH/MM3 (4.0-11.0)
[2017-09-21 05:50] LABS: ALBUMIN 2.9 GM/DL (3.4-5.0); ALKALINE PHOSPHATASE 107 U/L (45-117); ALT (GPT) 54 U/L (10-53); AST (GOT) 86 U/L (15-37); BICARBONATE 20.6 MEQ/L (21.0-32.0); BLOOD UREA NITROGEN 11 MG/DL (7-18); CALCIUM 7.6 MG/DL (8.5-10.1); CHLORIDE 106 MEQ/L (98-107); CREATININE 0.66 MG/DL (0.50-1.00); GLOMERULAR FILTRATION RATE 112 ML/MIN (>89); GLUCOSE,RANDOM 112 MG/DL (74-106); MAGNESIUM 1.4 MG/DL (1.5-2.5); PHOSPHORUS 2.5 MG/DL (2.5-4.9); SODIUM (NA) 138 MEQ/L (136-145); TOTAL BILIRUBIN ADULT 0.9 MG/DL (0.2-1.0); TOTAL PROTEIN 6.9 GM/DL (6.4-8.2)
[2017-09-21] MEDS: INSULIN ASPART SUPPLEMENTAL SCALE SQ SCH ×4 (08:00→22:00)
[2017-09-21] MEDS ORDERED: NON-FORMULARY DRUG (Omeprazole 10 MG) PO SCH (09:00)
[2017-09-21] MEDS: BUDESONIDE-FORMOTEROL 160/4.5 MCG INHALER INH SCH ×2 (09:00→21:00)
[2017-09-21] MEDS: ENOXAPARIN SODIUM 40 MG/0.4 ML SYRINGE SQ SCH (09:56)
[2017-09-21] MEDS: PANTOPRAZOLE SOD 20 MG DELAYED RELEASE TAB PO SCH (09:57)
[2017-09-21] MEDS: DOCUSATE SODIUM 50 MG/SENNA 8.6 MG TAB PO SCH ×2 (09:57→21:24)
[2017-09-21] MEDS: THIAMINE HCL 100 MG TAB PO SCH (09:57)
[2017-09-21] MEDS: amLODIPine BESYLATE 5 MG TAB PO SCH (09:57)
[2017-09-21] MEDS: MULTIVITAMIN TAB PO SCH (09:57)
[2017-09-21] MEDS: CALCIUM CARBONATE 500 MG CHEWABLE TAB CHEW SCH ×2 (09:57→21:23)
[2017-09-21] MEDS: FOLIC ACID 1 MG TAB PO SCH (09:57)
[2017-09-21] MEDS: SODIUM CHLORIDE 0.9% FLUSH 10 ML FLUSH IV FLUSH SCH ×2 (09:58→21:00)
[2017-09-21 11:51] LABS: BACTERIA, URINE RARE /hpf; BILIRUBIN, URINE NEG (NEG); BLOOD, URINE NEG (NEG); GLUCOSE,URINE NEG (NEG); KETONE, URINE NEG (NEG); NITRITE,URINE NEG (NEG); SQUAMOUS EPITHELIAL CELL URINE 3 /hpf (0-5); URINE COLOR YELLOW (YELLW/STRAW); URINE LEUKOCYTE ESTERASE NEG (NEG)
--- NOTE | 2017-09-21 12:04 | HHI.CCPN ---
Subjective Remarks/Hospital Course 57-year-old female with past medical history of asthma, hypertension, diabetes, who presented to [facility] emergency department with 3 day history of SOB. She states it started with some postnasal drip about 5-6 days ago and then she had sorethroat. She then experienced SOB, dry cough. She now has pleuritic chest pain in left chest radiating to L posterior thorax. She has coughed up some blood tinged sputum today. She denies recent travel, prior personal history of venous thromboembolic disorder. Her sister of "blood clots". She denies fever. Upon arrival to the ED she reportedly had stridor and expiratory wheezing. She received Solu-Medrol 125 mg IV, DuoNeb 3, lidocaine nebs. She states her breathing is improved but she is focused on severe L sided chest pain. 09/20: Patient transferred from [facility] to room 1303 due to acute decompensation on the medical floor. Patient complaining of being more short of breath. Also complaining of bilateral shoulder pain. Noted CT neck showed no signs of focal stenosis or obstruction. CT pulmonary angiogram revealed a right anterior medial lingular pneumonia. Subjective 09/21: Currently off heliox 70/30. Breathing better at the present time. Pain controlled with morphine sulfate. Currently having magnesium potassium replaced Objective Vital Signs Date Time Temp Pulse Resp B/P (MAP) Pulse Ox O2 Delivery O2 Flow Rate FiO2 09/21/17 10:00 98 09/21/17 08:00 97.9 24 134/82 (99) 100 09/21/17 07:52 Nasal Cannula 2.00 Intake and Output 09/21/17 09/21/17 09/22/17 08:00 16:00 00:00 Intake Total 1749 ml 100 ml Output Total 1400 ml Balance 349 ml 100 ml Result Diagram: 09/21/17 0350 09/21/17 0350 Other Results Microbiology Date/Time Source Procedure Growth Status 09/20/17 21:55 Blood Peripheral Aerobic Blood Culture - Preliminary NO GROWTH IN 1 DAY Resulted 09/20/17 21:55 Blood Peripheral Anaerobic Blood Culture - Preliminary NO GROWTH IN 1 DAY Resulted 09/21/17 11:00 Urine Catheterized Urine Legionella Antigen Pending Received 09/21/17 11:00 Urine Catheterized Urine Streptococcus pneumoniae Antigen (M Pending Received Imaging Last Impressions Neck CT 09/20/17 0000 Signed Impressions: Service Date/Time: Wednesday, September 20, 2017 02:55 - CONCLUSION: 1. Left maxillary sinusitis. 2. Otherwise unremarkable soft tissue neck. Zack Gay MD Chest X-Ray 09/20/17 0000 Signed Impressions: Service Date/Time: Wednesday, September 20, 2017 11:27 - CONCLUSION: No acute pulmonary infiltrates Wayne Harkins MD CT Angiography 09/20/17 0000 Signed Impressions: Service Date/Time: Wednesday, September 20, 2017 02:55 - CONCLUSION: 1. Lingular pneumonia. Medical treatment and followup resolution. 2. No evidence for pulmonary embolism. 3. Paraseptal emphysema. Zack Gay MD Objective Remarks GENERAL: Well-nourished, well-developed female patient who is sitting up in ED stretcher complaining of pleuritic left-sided chest pain. SKIN: Warm and dry, well perfused. HEAD: Atraumatic. Normocephalic. EYES: Pupils equal and round. No scleral icterus. No injection or drainage. ENT: No nasal bleeding or discharge. Mucous membranes pink and moist. No pharyngeal erythema. Difficult to visualize entire posterior oropharynx due to strong gag reflex and resisting examination though upper uvula visualized and there is no apparent edema. Phonates well, swallowing secretions. NECK: Trachea midline without mass. No swelling. No JVD. CARDIOVASCULAR: Regular rate and rhythm. No murmurs rubs or gallops. RESPIRATORY: Mildly tachypneic but without accessory muscle use or distress. Airway is patent. Bilateral expiratory wheeze. No rales or rhonchi. GASTROINTESTINAL: Abdomen soft, non-tender, nondistended. Bowel sounds present. MUSCULOSKELETAL: Extremities without clubbing, cyanosis, or edema. No obvious deformities. NEUROLOGICAL: Awake and alert. No obvious cranial nerve deficits. Motor grossly within normal limits. Normal speech. A/P Assessment and Plan Neuro/Psych: History of social EtOH use THC use Patient is on tramadol 50 mg every 6 hours as needed for pain at home. This is been held Thiamine, folate and multivitamin daily will be continued Acetaminophen 650 mg every 6 hours as needed fever Morphine sulfate 1-2 mg IV every 3 hours as needed pain 1 through 10 CV: Hypertension 2D echocardiogram 08/13 revealed EF 55 to 60%. Patient is on amlodipine 10 mg p.o. daily for hypertension at home. Will start on 5 mg daily As needed Nitropaste for hypertension if indicated Resp: Acute respiratory failure secondary to right anterior medial lingular pneumonia/ asthma/COPD with paraseptal emphysema Tobaccoism Chest x-ray 09/20 at 1130 revealed no acute cardiopulmonary findings CT pulmonary angiogram revealed right anterior medial lingula pneumonia/ paraseptal emphysema. CT neck revealed left maxillary sinusitis but no signs of obstruction Albuterol/ipratropium aerosols every 4 hours with albuterol aerosols every 2 hours as needed dyspnea Methylprednisolone succinate 60 mg IV every 6 hours Add budesonide/formoterol 160/4.5 2 puffs twice daily Tobacco cessation education booklet self-evaluation provided. She states she has stopped smoking tobacco but hCG is positive Started on Heliox 70/30 on 09/12. Discontinued at 10 PM 09/20. Currently on nasal cannula 4 L GI: Hepatitis C genotype 1A Gastroesophageal reflux disease Elevated transaminases Currently on ADA diet Patient is on omeprazole 10 mg daily for gastroesophageal reflux disease. Switch to pantoprazole 20 mill grams daily Docusate sodium/senna 1 tablet twice daily for bowel regimen Outpatient workup for hepatitis C with positive viral load previous hospitalization : Poon catheter has been placed for accurate I's and O's in a critically ill patient Endo: Diabetes mellitus Holding metformin 500 mg twice daily/home medication Novulog sliding scale insulin with Accu-Cheks to maintain euglycemia/low regimen Renal: Acute renal insufficiency Creatinine normalizing Monitor urine output Accurate I's and O's Recheck BMP in a.m. Heme: Leukocytosis Normocytic anemia Hemoglobin currently within normal limits No indication for transfusion of blood products at this time Trend white blood cell count ID: History of MRSA pneumonia Previously on levofloxacin. Will start on vancomycin, piperacillin/tazobactam and azithromycin with previous MRSA history and worsening clinical condition Blood cultures 2, sputum, urine, urine Legionella pneumococcal antigen and influenza a and B all ordered. MSK: Chronic low back pain on chronic tramadol PT evaluate and treat FEN: Hypokalemia Hypomagnesia Replace electrolytes as clinically indicated. Received 80 mEq potassium chloride and 4 g mag sulfate IV. Recheck this afternoon Currently on normal saline at 50 cc an hour Access -Utilize peripheral IV. Central line if indicated Prophylaxis -GI -pantoprazole -DVT -SCD/enoxaparin Patient is stable from a critical care medicine standpoint. Assign care to hospitalist in a.m. 09/22. Okay to transfer from ICU in a.m. 09/22 remained stable Delta Contreras MD Sep 21, 2017 12:04
[2017-09-21] MEDS: VANCOMYCIN 1,000 MG/NS 250 ML IV SCH ×2 (12:31)
--- NOTE | 2017-09-21 13:23 | EKG ---
Date Performed: 09/20/2017 Time Performed: 11:31:08 PTAGE: 57 years EKG: Sinus tachycardia PACs with aberrancy Poor R-wave progression, worse than the prior tracing and most likely due to lead pacement Cannot exclude anteroseptal infarct Nonspecific T-wave abnormal ity, cannot exclude ischemia Abnormal ECG PREVIOUS TRACING : 09/20/2017 03.14 DOCTOR: Viral St Interpretating Date/Time 09/21/2017 13:21:50
[2017-09-21] MEDS: AZITHROMYCIN INJ 500 MG in SODIUM CHLOR 0.9% 250 ML INJ 250 ML IV SCH (14:47)
[2017-09-21 20:00] LABS: MAGNESIUM 2.1 MG/DL (1.5-2.5)
[2017-09-22] VITALS (12 sets, daily range): BP systolic 127–170; BP diastolic 75–88; PULSE 80–106; RESP 17–25; TEMP 97.7–98.4; O2SAT 97–100
[2017-09-22] MEDS: RESP: ALBUTEROL 2.5 MG/IPRATROPIUM 0.5 MG NEB (SCH) INH ×7 (00:19→23:30)
[2017-09-22] MEDS: MORPHINE SULFATE 2 MG/ML SYRINGE IV PUSH PRN ×7 (00:45→21:18)
[2017-09-22] MEDS: VANCOMYCIN 1,000 MG/NS 250 ML IV SCH ×6 (01:00→23:37)
[2017-09-22] MEDS: PIPERACIL-TAZO 4.5 GM PREMIX 100 ML IV SCH ×4 (03:00→21:25)
[2017-09-22] MEDS: POTASSIUM CHLOR 20 MEQ PREMIX 100 ML IV PRN ×2 (03:00→09:29)
[2017-09-22] MEDS: CHLORHEXIDINE GLUCONATE 2 % 1 PACK (2 CLOTHS) TOP SCH (04:00)
[2017-09-22] MEDS: methylPREDNISolone SOD SUCC 125 MG/2 ML VIAL IV PUSH SCH ×3 (04:50→17:36)
--- NOTE | 2017-09-22 05:17 | RADRPT ---
EXAM DATE/TIME: 09/22/2017 03:06 [facility] COMPARISON: CHEST SINGLE AP, September 20, 2017, 11:27. INDICATIONS : Asthma. MEDICAL HISTORY : Chronic obstructive pulmonary disease. Hypertension Emphysema. asthma SURGICAL HISTORY : None. ENCOUNTER: Subsequent ACUITY: 3 days PAIN SCORE: 0/10 LOCATION: Bilateral chest FINDINGS: Mild left base atelectasis/infiltrate present and probably with a tiny pleural effusion. Right lung a ppears clear. There is no pneumothorax. Heart size stable and within normal limits. CONCLUSION: Trace left base atelectasis/infiltrate. Jamshid Andrew MD on September 22, 2017 at 5:14 Board Certified Radiologist. This report was verified electronically.
[2017-09-22 07:00] LABS: AUTOMATED NEUTROPHIL # 14.2 TH/MM3 (1.8-7.7); BASOPHIL % 0.3 % (0.0-2.0); HEMATOCRIT 30.3 % (35.0-46.0); HEMOGLOBIN 9.7 GM/DL (11.6-15.3); LYMPH % 2.2 % (9.0-44.0); LYMPHOCYTE # 0.3 TH/MM3 (1.0-4.8); MEAN CELL VOLUME 84.1 FL (80.0-100.0); MEAN CORPUSCULAR HEMOGLOBIN 26.8 PG (27.0-34.0); MEAN CORPUSCULAR HGB CONC 31.9 % (32.0-36.0); MEAN PLATELET VOLUME 9.3 FL (7.0-11.0); MONO % 3.4 % (0.0-8.0); MONOCYTE # 0.5 TH/MM3 (0-0.9); NEUT % 94.1 % (16.0-70.0); PLATELET COUNT 201 TH/MM3 (150-450); RED BLOOD COUNT 3.61 MIL/MM3 (4.00-5.30); RED CELL DISTRIBUTION WIDTH 16.7 % (11.6-17.2); WHITE BLOOD COUNT 15.1 TH/MM3 (4.0-11.0)
[2017-09-22 07:29] LABS: ALBUMIN 2.9 GM/DL (3.4-5.0); BICARBONATE 19.9 MEQ/L (21.0-32.0); CALCIUM 7.4 MG/DL (8.5-10.1); CALCIUM-PROTEIN CORRECTED 7.6 MG/DL (8.5-10.1); CREATININE 0.67 MG/DL (0.50-1.00); MAGNESIUM 1.6 MG/DL (1.5-2.5); PHOSPHORUS 2.2 MG/DL (2.5-4.9); TOTAL BILIRUBIN ADULT 0.7 MG/DL (0.2-1.0); TOTAL PROTEIN 6.7 GM/DL (6.4-8.2)
[2017-09-22] MEDS: BUDESONIDE-FORMOTEROL 160/4.5 MCG INHALER INH SCH ×2 (09:00→21:00)
[2017-09-22] MEDS: MULTIVITAMIN TAB PO SCH (09:00)
[2017-09-22] MEDS: DOCUSATE SODIUM 50 MG/SENNA 8.6 MG TAB PO SCH ×2 (09:00→21:25)
[2017-09-22] MEDS: ENOXAPARIN SODIUM 40 MG/0.4 ML SYRINGE SQ SCH (09:28)
[2017-09-22] MEDS: PANTOPRAZOLE SOD 20 MG DELAYED RELEASE TAB PO SCH (09:28)
[2017-09-22] MEDS: THIAMINE HCL 100 MG TAB PO SCH (09:28)
[2017-09-22] MEDS: CALCIUM CARBONATE 500 MG CHEWABLE TAB CHEW SCH ×2 (09:28→21:25)
[2017-09-22] MEDS: FOLIC ACID 1 MG TAB PO SCH (09:29)
[2017-09-22] MEDS: SODIUM CHLORIDE 0.9% FLUSH 10 ML FLUSH IV FLUSH SCH ×2 (09:30→21:26)
[2017-09-22] MEDS: amLODIPine BESYLATE 5 MG TAB PO SCH (09:37)
[2017-09-22] MEDS: SODIUM CHLOR 0.9% 1000 ML INJ 1,000 ML IV SCH (09:46)
[2017-09-22] MEDS: INSULIN ASPART SUPPLEMENTAL SCALE SQ SCH ×4 (10:29→21:00)
--- NOTE | 2017-09-22 12:01 | HHI.PR ---
Subjective Remarks in no acute distress. sob has improved. still with some cough but she says that she's feeling much better today. afebrile. d/w the RN and no acute issues over night. Objective Vitals Vital Signs Date Time Temp Pulse Resp B/P (MAP) Pulse Ox O2 Delivery O2 Flow Rate FiO2 09/22/17 09:40 20 09/22/17 08:24 99 21 09/22/17 06:00 88 09/22/17 04:00 98.3 86 24 145/87 (106) 97 09/22/17 04:00 86 09/22/17 02:00 90 09/22/17 00:00 98.0 90 23 143/81 (101) 98 09/22/17 00:00 90 09/21/17 22:00 99 09/21/17 20:06 100 09/21/17 20:00 97.9 99 20 135/80 (98) 98 09/21/17 20:00 98 09/21/17 20:00 99 09/21/17 19:00 100 09/21/17 18:00 98 09/21/17 16:00 98.0 96 18 120/76 (91) 98 09/21/17 16:00 96 09/21/17 14:00 94 09/21/17 12:03 100 21 09/21/17 12:00 92 09/21/17 12:00 98.0 92 19 136/72 (93) 100 I/O 09/21/17 09/21/17 09/21/17 09/22/17 09/22/17 09/22/17 07:00 15:00 23:00 07:00 15:00 23:00 Intake Total 1749 ml 100 ml 720 ml Output Total 1400 ml 1250 ml 1200 ml Balance 349 ml 100 ml -530 ml -1200 ml Intake Oral 400 ml 720 ml IV Total 1349 ml 100 ml Output Urine Total 1400 ml 1250 ml 1200 ml # Bowel Movements 1 0 Result Diagram: 09/22/17 0500 09/22/17 0500 Imaging Last Impressions Chest X-Ray 09/22/17 0600 Signed Impressions: Service Date/Time: Friday, September 22, 2017 03:06 - CONCLUSION: Trace left base atelectasis/infiltrate. Jamshid Andrew MD Neck CT 09/20/17 0000 Signed Impressions: Service Date/Time: Wednesday, September 20, 2017 02:55 - CONCLUSION: 1. Left maxillary sinusitis. 2. Otherwise unremarkable soft tissue neck. Zack Gay MD CT Angiography 09/20/17 0000 Signed Impressions: Service Date/Time: Wednesday, September 20, 2017 02:55 - CONCLUSION: 1. Lingular pneumonia. Medical treatment and followup resolution. 2. No evidence for pulmonary embolism. 3. Paraseptal emphysema. Zack Gay MD Objective Remarks GENERAL: This is a well-nourished, well-developed patient, in no apparent distress. CARDIOVASCULAR: Regular rate and regular rhythm without murmurs, gallops, or rubs. RESPIRATORY: Clear to auscultation. Breath sounds equal bilaterally. No wheezes , rales, or rhonchi. GASTROINTESTINAL: Abdomen soft, non-tender, nondistended. Normal, active bowel sounds MUSCULOSKELETAL: Extremities without clubbing, cyanosis, or edema. NEURO: Alert & Oriented x4 to person, place, time, situation. Moves all ext x4 Medications and IVs Inpatient Medications Acetaminophen (Tylenol) 650 mg Q4H PRN PO fever Last administered on 09/20/17 08:41; Start 09/20/17 at 04:30 Albuterol Sulfate (Albuterol Neb) 2.5 mg Q2HR NEB PRN INH SOB/WHEEZING Last administered on 09/20/17 12:28; Start 09/20/17 at 02:00 Albuterol/ Ipratropium (Duoneb Neb) 1 ampule Q4HR NEB INH Last administered on 09/22/17 08:26; Start 09/20/17 at 04:00 Amlodipine Besylate (Norvasc) 5 mg DAILY PO Last administered on 09/22/17 09: 37; Start 09/21/17 at 09:00 Azithromycin 500 mg/Sodium Chloride 250 ml @ 250 mls/hr Q24H IV Last administered on 09/21/17 14:47; Start 09/20/17 at 14:00 Benzocaine/Menthol (Cepacol Extra Coco (Sugar Free)) 1 lozenge ONCE ONCE BUCCAL Last administered on 09/20/17 04:03; Start 09/20/17 at 03:45; Stop 09/20/17 at 03:46; Status DC Bisacodyl (Dulcolax Supp) 10 mg DAILY PRN RECTAL SEVERE CONSITIPATION; Start at 02:00 Budesonide/ Formoterol Fumarate (Symbicort 160-4.5 Mcg Inh) 2 puff Q12HR INH Last administered on 09/22/17 09:00; Start 09/20/17 at 21:00 Calcium Carbonate (Tums Chew) 500 mg Q12HR CHEW Last administered on 09/22/17at 09:28; Start 09/20/17 at 21:00 Chlorhexidine Gluconate (Chlorhexidine 2% Cloth) 3 pack UNSCH PRN TOP HYGIENIC CARE; Start 09/20/17 at 02:00 Dextrose (D50w (Vial) Inj) 50 ml UNSCH PRN IV PUSH HYPOGLYCEMIA-SEE COMMENTS; Start 09/20/17 at 04:15 Enoxaparin Sodium (Lovenox Inj) 40 mg Q24H SQ Last administered on 09/22/17at 09 :28; Start 09/20/17 at 09:00 Famotidine (Pepcid) 20 mg Q12HR PO Last administered on 09/20/17at 09:37; Start 09/20/17 at 09:00; Stop 09/20/17 at 11:55; Status DC Fentanyl Citrate (fentaNYL INJ) 25 mcg Q3H PRN IV PUSH BREAKTHROUGH PAIN 3-7 Last administered on 09/20/17at 09:38; Start 09/20/17 at 04:30; Stop 09/20/17 at 11:49; Status DC Folic Acid (Folate) 1 mg DAILY PO Last administered on 09/22/17at 09:29; Start 09/21/17 at 09:00 Glucagon (Glucagon Inj) 1 mg UNSCH PRN OTHER HYPOGLYCEMIA-SEE COMMENTS; Start 09/20/17 at 04:15 Insulin Aspart (NovoLOG SUPPLEMENTAL SCALE) 1 ACHS SLIDING SCALE SQ Last administered on 09/22/17at 10:29; Start 09/20/17 at 08:00 Ketorolac Tromethamine (Toradol Inj) 30 mg ONCE ONCE IV PUSH Last administered on 09/19/17at 23:08; Start 09/19/17 at 23:15; Stop 09/19/17 at 23:16 ; Status DC Lactulose (Lactulose Liq) 30 ml DAILY PRN PO SEVERE CONSITIPATION; Start at 02:00 Levofloxacin (Levaquin) 750 mg DAILY PO Last administered on 09/20/17at 09:37; Start 09/20/17 at 09:00; Stop 09/20/17 at 11:55; Status DC Levofloxacin/ Dextrose 150 ml @ 100 mls/hr ONCE ONCE IV Last administered on 09/20/17at 03:54; Start 09/20/17 at 03:45; Stop 09/20/17 at 05:14; Status DC Lidocaine HCl (Lidocaine Pf 4% Neb) 1 ml ONCE ONCE NEB Last administered on at 21:40; Start 09/19/17 at 21:45; Stop 09/19/17 at 21:46; Status DC Magnesium Hydroxide (Milk Of Magnesia Liq) 30 ml Q12H PRN PO Mild constipation ; Start 09/20/17 at 02:00 Magnesium Oxide (Mag-Ox) 800 mg UNSCH PRN PO For Magnesium 1.2 - 1.6 mg/dL; Start 09/20/17 at 04:15 Magnesium Sulfate 2 gm/Sodium Chloride 100 ml @ 50 mls/hr UNSCH PRN IV For Magnesium 1.2 - 1.6 mg/dL; Start 09/20/17 at 04:15 Magnesium Sulfate 4 gm/Sodium Chloride 100 ml @ 50 mls/hr UNSCH PRN IV For Magnesium 0.9 - 1.1 mg/dL Last administered on 09/21/17at 12:30; Start 09/20/17 at 04:15 Magnesium Sulfate/ Dextrose 100 ml @ 100 mls/hr ONCE ONCE IV Last administered on 09/20/17at 14:47; Start 09/20/17 at 14:30; Stop 09/20/17 at 15:29 ; Status DC Methylprednisolone Sodium Succinate (SoluMEDROL INJ) 60 mg Q6H IV PUSH Last administered on 09/22/17at 10:29; Start 09/20/17 at 05:00 Miscellaneous Information SPECIFIC LAB TO BE DRAWN:VANCOMYCIN TROUGH DATE TO... ONCE ONCE .XX ; Start 09/22/17 at 23:45; Stop 09/22/17 at 23:46 Morphine Sulfate (Morphine Inj) 1 mg Q3H PRN IV PUSH pain 1-5; Start 09/20/17 at 12:15 Multivitamins (Theragran) 1 tab DAILY PO Last administered on 09/22/17at 09:00; Start 09/21/17 at 09:00 Nitroglycerin (Nitroglycerin 2% Oint) 2 inch Q6HR PRN TOPICAL SBP>160, DBP>90; Start 09/20/17 at 13:30 Ondansetron HCl (Zofran Inj) 4 mg Q6H PRN IV PUSH NAUSEA OR VOMITING; Start at 02:00 Pantoprazole Sodium (Protonix) 20 mg DAILY PO Last administered on 09/22/17at 09 :28; Start 09/21/17 at 09:00 Pharmacy Profile Note 0 ml @ 0 mls/hr UNSCH OTHER ; Start 09/20/17 at 12:00 Piperacillin Sod/ Tazobactam Sod 100 ml @ 200 mls/hr Q6H IV Last administered on 09/22/17at 09:29; Start 09/20/17 at 15:00 Potassium Phosphate (K-Phos) 2,000 mg UNSCH PRN PO/TUBE SEE LABEL COMMENTS; Start 09/20/17 at 04:15 Potassium Phosphate 30 mmol/ Sodium Chloride 260 ml @ 42 mls/hr UNSCH PRN IV SEE LABEL COMMENTS; Start 09/20/17 at 04:15 Potassium Bicarb/ Potassium Chloride (K-Lyte Cl Eff) 50 meq UNSCH PRN PO For Potassium 3.3 - 3.5 mEq/L; Start 09/20/17 at 04:15 Potassium Chloride 100 ml @ 50 mls/hr Q2H PRN IV For Potassium 3.3 - 3.5 mEq/ L Last administered on 09/22/17at 03:00; Start 09/20/17 at 04:15 Potassium Chloride (KCl) 40 meq ONCE ONCE PO Last administered on 09/20/17at 04 :36; Start 09/20/17 at 04:15; Stop 09/20/17 at 04:24; Status DC Prednisone (Deltasone) 60 mg DAILY PO ; Start 09/20/17 at 09:00; Stop 09/20/17 at 09:00; Status DC Senna/Docusate Sodium (Rebeka-Colace) 1 tab BID PO Last administered on at 09:00; Start 09/20/17 at 09:00 Sennosides (Senokot) 17.2 mg Q12H PRN PO Moderate constipation; Start 09/20/17 at 02:00 Sodium Chloride 1,000 ml @ 50 mls/hr Q20H IV Last administered on 09/21/17at 00 :50; Start 09/20/17 at 05:00 Sodium Chloride (NS Flush) 2 ml BID IV FLUSH Last administered on 09/22/17at 09: 30; Start 09/20/17 at 09:00 Sodium Phosphate 30 mmol/Sodium Chloride 250 ml @ 42 mls/hr UNSCH PRN IV For Phosphorus < 2.5 mg/dL; Start 09/20/17 at 04:15 Thiamine HCl (Vitamin B1) 100 mg DAILY PO Last administered on 09/22/17at 09:28 ; Start 09/21/17 at 09:00 Tramadol HCl (Ultram) 50 mg Q6H PRN PO PAIN SCALE 1 TO 10 Last administered on 09/20/17at 15:02; Start 09/20/17 at 12:00 Vancomycin HCl 700 mg/Sodium Chloride 257 ml @ 250 mls/hr Q24H IV Last administered on 09/20/17at 17:25; Start 09/20/17 at 16:00; Stop 09/21/17 at 10:05 ; Status DC Vancomycin HCl 1000 mg/Sodium Chloride 250 ml @ 250 mls/hr Q12H IV Last administered on 09/22/17at 01:00; Start 09/21/17 at 12:00 A/P Assessment and Plan History of social EtOH use THC use Patient is on tramadol 50 mg every 6 hours as needed for pain at home. This is been held Thiamine, folate and multivitamin daily will be continued Hypertension 2D echocardiogram 08/13 revealed EF 55 to 60%. Patient is on amlodipine 10 mg p.o. daily for hypertension at home. continue Amlodipine on 5 mg daily As needed Nitropaste for hypertension if indicated Acute respiratory failure secondary to right anterior medial lingular pneumonia/ asthma/COPD with paraseptal emphysema Tobaccoism Chest x-ray 09/20 at 1130 revealed no acute cardiopulmonary findings CT pulmonary angiogram revealed right anterior medial lingula pneumonia/ paraseptal emphysema. CT neck revealed left maxillary sinusitis but no signs of obstruction Albuterol/ipratropium aerosols every 4 hours with albuterol aerosols every 2 hours as needed dyspnea Methylprednisolone succinate 60 mg IV every 6 hours; will start to taper down. Add budesonide/formoterol 160/4.5 2 puffs twice daily Tobacco cessation education booklet self-evaluation provided. She states she has stopped smoking tobacco but hCG is positive Started on Heliox 70/30 on 09/12. Discontinued at 10 PM 09/20. Currently on nasal cannula 4 L Hepatitis C genotype 1A Gastroesophageal reflux disease Elevated transaminases Currently on ADA diet Patient is on omeprazole 10 mg daily for gastroesophageal reflux disease. Switch to pantoprazole 20 mill grams daily Docusate sodium/senna 1 tablet twice daily for bowel regimen Outpatient workup for hepatitis C with positive viral load previous hospitalization Diabetes mellitus Holding metformin 500 mg twice daily/home medication Novulog sliding scale insulin with Accu-Cheks to maintain euglycemia/low regimen Acute renal insufficiency Creatinine normalizing Monitor urine output Accurate I's and O's Recheck BMP in a.m. Leukocytosis Normocytic anemia No indication for transfusion of blood products at this time History of MRSA pneumonia Previously on levofloxacin. continue vancomycin, piperacillin/tazobactam and azithromycin with previous MRSA history and worsening clinical condition Blood cultures negative so far- sputum culture pending. will deescalate the antibiotic regimen soon. Chronic low back pain on chronic tramadol PT evaluate and treat Hypokalemia Hypomagnesia Replace electrolytes as clinically indicated. Prophylaxis -GI -pantoprazole -DVT -SCD/enoxaparin transfer to floor. Discharge Planning dc planning in a couple of days if continues to improve. Deysi Tripathi MD Sep 22, 2017 12:01
[2017-09-22] MEDS: AZITHROMYCIN INJ 500 MG in SODIUM CHLOR 0.9% 250 ML INJ 250 ML IV SCH (14:54)
[2017-09-22] MEDS ORDERED: PHARMACY ORDERED LAB ONE (23:45)
[2017-09-23] VITALS (8 sets, daily range): BP systolic 129–162; BP diastolic 72–98; PULSE 60–108; RESP 19–22; TEMP 97.9–98.8; O2SAT 97–99
[2017-09-23] MEDS: MORPHINE SULFATE 2 MG/ML SYRINGE IV PUSH PRN ×5 (01:59→22:20)
[2017-09-23] MEDS: methylPREDNISolone SOD SUCC 125 MG/2 ML VIAL IV PUSH SCH ×2 (01:59→09:05)
[2017-09-23] MEDS: PIPERACIL-TAZO 4.5 GM PREMIX 100 ML IV SCH ×4 (03:05→20:19)
[2017-09-23] MEDS: RESP: ALBUTEROL 2.5 MG/IPRATROPIUM 0.5 MG NEB (SCH) INH ×6 (03:11→23:36)
[2017-09-23] MEDS: CHLORHEXIDINE GLUCONATE 2 % 1 PACK (2 CLOTHS) TOP SCH (03:28)
[2017-09-23] MEDS: traMADol HCL 50 MG TAB PO PRN ×2 (04:09→10:15)
[2017-09-23 07:52] LABS: CALCIUM 7.5 MG/DL (8.5-10.1); CREATININE 0.72 MG/DL (0.50-1.00); PHOSPHORUS 1.9 MG/DL (2.5-4.9)
[2017-09-23] MEDS ORDERED: POTASSIUM CHLORIDE 10 MEQ CONTROLLED RELEASE TAB PO ONE ×2 (08:45→13:00)
[2017-09-23] MEDS: BUDESONIDE-FORMOTEROL 160/4.5 MCG INHALER INH SCH ×3 (09:00→22:45)
[2017-09-23] MEDS: ENOXAPARIN SODIUM 40 MG/0.4 ML SYRINGE SQ SCH (09:04)
[2017-09-23] MEDS: INSULIN ASPART SUPPLEMENTAL SCALE SQ SCH ×4 (09:04→20:19)
[2017-09-23] MEDS: PANTOPRAZOLE SOD 20 MG DELAYED RELEASE TAB PO SCH (09:05)
[2017-09-23] MEDS: amLODIPine BESYLATE 5 MG TAB PO SCH (09:05)
[2017-09-23] MEDS: MULTIVITAMIN TAB PO SCH (09:05)
[2017-09-23] MEDS: FOLIC ACID 1 MG TAB PO SCH (09:05)
[2017-09-23] MEDS: CALCIUM CARBONATE 500 MG CHEWABLE TAB CHEW SCH ×2 (09:05→20:19)
[2017-09-23] MEDS: THIAMINE HCL 100 MG TAB PO SCH (09:05)
[2017-09-23] MEDS: DOCUSATE SODIUM 50 MG/SENNA 8.6 MG TAB PO SCH ×2 (09:05→20:20)
[2017-09-23] MEDS: SODIUM CHLORIDE 0.9% FLUSH 10 ML FLUSH IV FLUSH SCH ×2 (09:06→20:20)
[2017-09-23] MEDS: POTASSIUM CHLOR 20 MEQ PREMIX 100 ML IV SCH ×2 (10:30→10:45)
--- NOTE | 2017-09-23 10:57 | HHI.PR ---
Subjective Remarks in no acute distress. however uncomfortable with the pain due to IV potassium. no fever. d/w the RN and no acute issues over night. Objective Vitals Vital Signs Date Time Temp Pulse Resp B/P (MAP) Pulse Ox O2 Delivery O2 Flow Rate FiO2 09/23/17 08:01 98 21 09/23/17 04:00 98.8 88 20 153/84 (107) 97 09/23/17 00:00 98.8 108 20 139/87 (104) 99 09/22/17 21:06 99 21 09/22/17 20:00 97.7 106 20 170/88 (115) 99 09/22/17 16:00 98.0 102 25 150/80 (103) 100 09/22/17 16:00 96 09/22/17 15:10 19 09/22/17 14:00 105 09/22/17 12:00 97.8 92 19 127/75 (92) 100 09/22/17 12:00 92 I/O 09/22/17 09/22/17 09/22/17 09/23/17 09/23/17 09/23/17 07:00 15:00 23:00 07:00 15:00 23:00 Intake Total 300 ml 700 ml 830 ml 624 ml Output Total 1200 ml 200 ml Balance -1200 ml 300 ml 700 ml 630 ml 624 ml Intake Oral 480 ml IV Total 300 ml 700 ml 350 ml 624 ml Output Urine Total 1200 ml 200 ml # Voids 1 # Bowel Movements 0 0 Result Diagram: 09/22/17 0500 09/23/17 0617 Imaging Last Impressions Chest X-Ray 09/22/17 0600 Signed Impressions: Service Date/Time: Friday, September 22, 2017 03:06 - CONCLUSION: Trace left base atelectasis/infiltrate. Jamshid Andrew MD Neck CT 09/20/17 0000 Signed Impressions: Service Date/Time: Wednesday, September 20, 2017 02:55 - CONCLUSION: 1. Left maxillary sinusitis. 2. Otherwise unremarkable soft tissue neck. Zack Gay MD CT Angiography 09/20/17 0000 Signed Impressions: Service Date/Time: Wednesday, September 20, 2017 02:55 - CONCLUSION: 1. Lingular pneumonia. Medical treatment and followup resolution. 2. No evidence for pulmonary embolism. 3. Paraseptal emphysema. Zack Gay MD Objective Remarks GENERAL: This is a well-nourished, well-developed patient, in no apparent distress. CARDIOVASCULAR: Regular rate and regular rhythm without murmurs, gallops, or rubs. RESPIRATORY: Clear to auscultation. Breath sounds equal bilaterally. No wheezes , rales, or rhonchi. GASTROINTESTINAL: Abdomen soft, non-tender, nondistended. Normal, active bowel sounds MUSCULOSKELETAL: Extremities without clubbing, cyanosis, or edema. NEURO: Alert & Oriented x4 to person, place, time, situation. Moves all ext x4 Medications and IVs Inpatient Medications Acetaminophen (Tylenol) 650 mg Q4H PRN PO fever Last administered on 09/20/17at 08:41; Start 09/20/17 at 04:30 Albuterol Sulfate (Albuterol Neb) 2.5 mg Q2HR NEB PRN INH SOB/WHEEZING Last administered on 09/20/17at 12:28; Start 09/20/17 at 02:00 Albuterol/ Ipratropium (Duoneb Neb) 1 ampule Q4HR NEB INH Last administered on 09/23/17 07:59; Start 09/20/17 at 04:00 Amlodipine Besylate (Norvasc) 5 mg DAILY PO Last administered on 09/23/17at 09: 05; Start 09/21/17 at 09:00 Azithromycin 500 mg/Sodium Chloride 250 ml @ 250 mls/hr Q24H IV Last administered on 09/22/17at 14:54; Start 09/20/17 at 14:00 Benzocaine/Menthol (Cepacol Extra Coco (Sugar Free)) 1 lozenge ONCE ONCE BUCCAL Last administered on 09/20/17at 04:03; Start 09/20/17 at 03:45; Stop 09/20/17 at 03:46; Status DC Bisacodyl (Dulcolax Supp) 10 mg DAILY PRN RECTAL SEVERE CONSITIPATION; Start at 02:00 Budesonide/ Formoterol Fumarate (Symbicort 160-4.5 Mcg Inh) 2 puff Q12HR INH Last administered on 09/22/17at 09:00; Start 09/20/17 at 21:00 Calcium Carbonate (Tums Chew) 500 mg Q12HR CHEW Last administered on 09/23/17at 09:05; Start 09/20/17 at 21:00 Chlorhexidine Gluconate (Chlorhexidine 2% Cloth) 3 pack UNSCH PRN TOP HYGIENIC CARE; Start 09/20/17 at 02:00 Dextrose (D50w (Vial) Inj) 50 ml UNSCH PRN IV PUSH HYPOGLYCEMIA-SEE COMMENTS; Start 09/20/17 at 04:15 Enoxaparin Sodium (Lovenox Inj) 40 mg Q24H SQ Last administered on 09/23/17at 09 :04; Start 09/20/17 at 09:00 Famotidine (Pepcid) 20 mg Q12HR PO Last administered on 09/20/17at 09:37; Start 09/20/17 at 09:00; Stop 09/20/17 at 11:55; Status DC Fentanyl Citrate (fentaNYL INJ) 25 mcg Q3H PRN IV PUSH BREAKTHROUGH PAIN 3-7 Last administered on 09/20/17at 09:38; Start 09/20/17 at 04:30; Stop 09/20/17 at 11:49; Status DC Folic Acid (Folate) 1 mg DAILY PO Last administered on 09/23/17at 09:05; Start 09/21/17 at 09:00 Glucagon (Glucagon Inj) 1 mg UNSCH PRN OTHER HYPOGLYCEMIA-SEE COMMENTS; Start 09/20/17 at 04:15 Insulin Aspart (NovoLOG SUPPLEMENTAL SCALE) 1 ACHS SLIDING SCALE SQ Last administered on 09/23/17at 09:04; Start 09/20/17 at 08:00 Ketorolac Tromethamine (Toradol Inj) 30 mg ONCE ONCE IV PUSH Last administered on 09/19/17at 23:08; Start 09/19/17 at 23:15; Stop 09/19/17 at 23:16 ; Status DC Lactulose (Lactulose Liq) 30 ml DAILY PRN PO SEVERE CONSITIPATION; Start at 02:00 Levofloxacin (Levaquin) 750 mg DAILY PO Last administered on 09/20/17at 09:37; Start 09/20/17 at 09:00; Stop 09/20/17 at 11:55; Status DC Levofloxacin/ Dextrose 150 ml @ 100 mls/hr ONCE ONCE IV Last administered on 09/20/17at 03:54; Start 09/20/17 at 03:45; Stop 09/20/17 at 05:14; Status DC Lidocaine HCl (Lidocaine Pf 4% Neb) 1 ml ONCE ONCE NEB Last administered on at 21:40; Start 09/19/17 at 21:45; Stop 09/19/17 at 21:46; Status DC Magnesium Hydroxide (Milk Of Magnesia Liq) 30 ml Q12H PRN PO Mild constipation ; Start 09/20/17 at 02:00 Magnesium Oxide (Mag-Ox) 800 mg UNSCH PRN PO For Magnesium 1.2 - 1.6 mg/dL; Start 09/20/17 at 04:15; Stop 09/22/17 at 19:35; Status DC Magnesium Sulfate 2 gm/Sodium Chloride 100 ml @ 50 mls/hr UNSCH PRN IV For Magnesium 1.2 - 1.6 mg/dL; Start 09/20/17 at 04:15; Stop 09/22/17 at 19:35; Status DC Magnesium Sulfate 4 gm/Sodium Chloride 100 ml @ 50 mls/hr UNSCH PRN IV For Magnesium 0.9 - 1.1 mg/dL Last administered on 09/21/17at 12:30; Start 09/20/17 at 04:15; Stop 09/22/17 at 19:34; Status DC Magnesium Sulfate/ Dextrose 100 ml @ 100 mls/hr ONCE ONCE IV Last administered on 09/20/17at 14:47; Start 09/20/17 at 14:30; Stop 09/20/17 at 15:29 ; Status DC Methylprednisolone Sodium Succinate (SoluMEDROL INJ) 60 mg Q8H IV PUSH Last administered on 09/23/17at 09:05; Start 09/22/17 at 18:00 Miscellaneous Information SPECIFIC LAB TO BE DRAWN:[facility]... ONCE ONCE .XX ; Start 09/24/17 at 11:45; Stop 09/24/17 at 11:46 Morphine Sulfate (Morphine Inj) 1 mg Q3H PRN IV PUSH BREAKTHROUGH PAIN Last administered on 09/23/17at 05:38; Start 09/20/17 at 12:15 Multivitamins (Theragran) 1 tab DAILY PO Last administered on 09/23/17at 09:05; Start 09/21/17 at 09:00 Nitroglycerin (Nitroglycerin 2% Oint) 2 inch Q6HR PRN TOPICAL SBP>160, DBP>90; Start 09/20/17 at 13:30 Ondansetron HCl (Zofran Inj) 4 mg Q6H PRN IV PUSH NAUSEA OR VOMITING; Start at 02:00 Pantoprazole Sodium (Protonix) 20 mg DAILY PO Last administered on 09/23/17at 09 :05; Start 09/21/17 at 09:00 Pharmacy Profile Note 0 ml @ 0 mls/hr UNSCH OTHER ; Start 09/20/17 at 12:00 Piperacillin Sod/ Tazobactam Sod 100 ml @ 200 mls/hr Q6H IV Last administered on 09/23/17at 09:10; Start 09/20/17 at 15:00 Potassium Phosphate (K-Phos) 2,000 mg UNSCH PRN PO/TUBE SEE LABEL COMMENTS; Start 09/20/17 at 04:15; Stop 09/22/17 at 19:35; Status DC Potassium Phosphate 30 mmol/ Sodium Chloride 260 ml @ 42 mls/hr UNSCH PRN IV SEE LABEL COMMENTS; Start 09/20/17 at 04:15; Stop 09/22/17 at 19:35; Status DC Potassium Bicarb/ Potassium Chloride (K-Lyte Cl Eff) 50 meq UNSCH PRN PO For Potassium 3.3 - 3.5 mEq/L; Start 09/20/17 at 04:15; Stop 09/22/17 at 19:34; Status DC Potassium Chloride (KCl) 40 meq ONCE ONCE PO ; Start 09/23/17 at 13:00; Stop at 13:01 Prednisone (Deltasone) 60 mg DAILY PO ; Start 09/20/17 at 09:00; Stop 09/20/17 at 09:00; Status DC Senna/Docusate Sodium (Rebeka-Colace) 1 tab BID PO Last administered on at 09:05; Start 09/20/17 at 09:00 Sennosides (Senokot) 17.2 mg Q12H PRN PO Moderate constipation; Start 09/20/17 at 02:00 Sodium Chloride 1,000 ml @ 50 mls/hr Q20H IV Last administered on 09/21/17at 00 :50; Start 09/20/17 at 05:00 Sodium Chloride (NS Flush) 2 ml BID IV FLUSH Last administered on 09/23/17at 09: 06; Start 09/20/17 at 09:00 Sodium Phosphate 30 mmol/Sodium Chloride 250 ml @ 42 mls/hr UNSCH PRN IV For Phosphorus < 2.5 mg/dL; Start 09/20/17 at 04:15; Stop 09/22/17 at 19:35; Status DC Thiamine HCl (Vitamin B1) 100 mg DAILY PO Last administered on 09/23/17at 09:05 ; Start 09/21/17 at 09:00 Tramadol HCl (Ultram) 50 mg Q6H PRN PO PAIN SCALE 1 TO 10 Last administered on 09/23/17at 10:15; Start 09/20/17 at 12:00 Vancomycin HCl 700 mg/Sodium Chloride 257 ml @ 250 mls/hr Q24H IV Last administered on 09/20/17at 17:25; Start 09/20/17 at 16:00; Stop 09/21/17 at 10:05 ; Status DC Vancomycin HCl 1000 mg/Sodium Chloride 250 ml @ 250 mls/hr Q12H IV Last administered on 09/22/17at 23:37; Start 09/21/17 at 12:00 A/P Assessment and Plan A/P History of social EtOH use THC use Thiamine, folate and multivitamin daily will be continued Hypertension 2D echocardiogram 08/13 revealed EF 55 to 60%. Patient is on amlodipine 10 mg p.o. daily for hypertension at home. continue Amlodipine on 5 mg daily Acute respiratory failure secondary to right anterior medial lingular pneumonia/ asthma/COPD with paraseptal emphysema Tobaccoism Chest x-ray 09/20 at 1130 revealed no acute cardiopulmonary findings CT pulmonary angiogram revealed right anterior medial lingula pneumonia/ paraseptal emphysema. CT neck revealed left maxillary sinusitis but no signs of obstruction Albuterol/ipratropium aerosols every 4 hours with albuterol aerosols every 2 hours as needed dyspnea Methylprednisolone succinate 60 mg IV every 6 hours; continue to taper down. Add budesonide/formoterol 160/4.5 2 puffs twice daily. Tobacco cessation education booklet self-evaluation provided. She states she has stopped smoking tobacco but hCG is positive Hepatitis C genotype 1A Gastroesophageal reflux disease Elevated transaminases Patient is on omeprazole 10 mg daily for gastroesophageal reflux disease. Switch to pantoprazole 20 mill grams daily Docusate sodium/senna 1 tablet twice daily for bowel regimen Outpatient workup for hepatitis C with positive viral load previous hospitalization Diabetes mellitus Holding metformin 500 mg twice daily/home medication Novulog sliding scale insulin with Accu-Cheks to maintain euglycemia/low regimen Acute renal insufficiency Creatinine normalizing Monitor urine output Accurate I's and O's Recheck BMP in a.m. Leukocytosis Normocytic anemia No indication for transfusion of blood products at this time History of MRSA pneumonia Previously on levofloxacin. continue vancomycin, piperacillin/tazobactam and azithromycin with previous MRSA history and worsening clinical condition Blood cultures negative so far- sputum culture pending. will deescalate the antibiotic regimen soon. Chronic low back pain on chronic tramadol PT evaluate and treat Hypokalemia Hypomagnesia Replace electrolytes as clinically indicated. Prophylaxis -GI -pantoprazole -DVT -SCD/enoxaparin Discharge Planning dc planning early this week if continues to improve. Deysi Tripathi MD Sep 23, 2017 10:57
[2017-09-23] MEDS: VANCOMYCIN 1,000 MG/NS 250 ML IV SCH ×2 (12:27)
[2017-09-23] MEDS: AZITHROMYCIN INJ 500 MG in SODIUM CHLOR 0.9% 250 ML INJ 250 ML IV SCH (14:32)
[2017-09-23] MEDS ORDERED: PHARMACY ORDERED LAB ONE (15:45)
[2017-09-23] MEDS: methylPREDNISolone SOD SUCC 40 MG/1 ML VIAL IV PUSH SCH (17:30)
[2017-09-24] MEDS: VANCOMYCIN 1,000 MG/NS 250 ML IV SCH ×2 (00:49)
[2017-09-24] MEDS: methylPREDNISolone SOD SUCC 40 MG/1 ML VIAL IV PUSH SCH ×3 (02:41→18:14)
[2017-09-24] MEDS: PIPERACIL-TAZO 4.5 GM PREMIX 100 ML IV SCH ×2 (02:41→09:18)
[2017-09-24] MEDS: MORPHINE SULFATE 2 MG/ML SYRINGE IV PUSH PRN ×6 (02:42→23:55)
[2017-09-24] MEDS: RESP: ALBUTEROL 2.5 MG/IPRATROPIUM 0.5 MG NEB (SCH) INH (03:17)
[2017-09-24] MEDS: CHLORHEXIDINE GLUCONATE 2 % 1 PACK (2 CLOTHS) TOP SCH (04:00)
[2017-09-24 04:25] VITALS: BP 152/88; PULSE 94; RESP 18; TEMP 97.9; O2SAT 98
[2017-09-24] MEDS: SODIUM CHLOR 0.9% 1000 ML INJ 1,000 ML IV SCH ×2 (05:47→21:46)
[2017-09-24 08:00] VITALS: BP 145/96; RESP 20; TEMP 98; O2SAT 92
[2017-09-24] MEDS: DOCUSATE SODIUM 50 MG/SENNA 8.6 MG TAB PO SCH ×2 (09:16→21:00)
[2017-09-24] MEDS: amLODIPine BESYLATE 5 MG TAB PO SCH (09:16)
[2017-09-24] MEDS: FOLIC ACID 1 MG TAB PO SCH (09:16)
[2017-09-24] MEDS: PANTOPRAZOLE SOD 20 MG DELAYED RELEASE TAB PO SCH (09:16)
[2017-09-24] MEDS: CALCIUM CARBONATE 500 MG CHEWABLE TAB CHEW SCH ×2 (09:16→21:51)
[2017-09-24] MEDS: THIAMINE HCL 100 MG TAB PO SCH (09:16)
[2017-09-24] MEDS: INSULIN ASPART SUPPLEMENTAL SCALE SQ SCH ×4 (09:16→21:50)
[2017-09-24] MEDS: MULTIVITAMIN TAB PO SCH (09:16)
[2017-09-24] MEDS: ENOXAPARIN SODIUM 40 MG/0.4 ML SYRINGE SQ SCH (09:17)
[2017-09-24] MEDS: SODIUM CHLORIDE 0.9% FLUSH 10 ML FLUSH IV FLUSH SCH ×2 (09:26→21:51)
--- NOTE | 2017-09-24 11:23 | HHI.PR ---
Subjective Remarks in no acute distress. sob improving. no fever. d/w the RN and no acute issues over night. Objective Vitals Vital Signs Date Time Temp Pulse Resp B/P (MAP) Pulse Ox O2 Delivery O2 Flow Rate FiO2 09/24/17 09:23 18 09/24/17 04:25 97.9 94 18 152/88 (109) 98 09/23/17 23:30 97.9 99 19 156/72 (100) 98 09/23/17 21:59 98 21 09/23/17 20:05 98.6 92 19 141/86 (104) 99 09/23/17 12:00 98.6 86 20 129/73 (91) 99 09/23/17 11:30 18 I/O 09/23/17 09/23/17 09/23/17 09/24/17 09/24/17 09/24/17 07:00 15:00 23:00 07:00 15:00 23:00 Intake Total 830 ml 874 ml 1360 ml 480 ml Output Total 200 ml Balance 630 ml 874 ml 1360 ml 480 ml Intake Oral 480 ml 600 ml 480 ml IV Total 350 ml 874 ml 760 ml Output Urine Total 200 ml # Voids 1 3 4 # Bowel Movements 0 1 0 Result Diagram: 09/22/17 0500 09/23/17 1526 Imaging Last Impressions Chest X-Ray 09/22/17 0600 Signed Impressions: Service Date/Time: Friday, September 22, 2017 03:06 - CONCLUSION: Trace left base atelectasis/infiltrate. Jamshid Andrew MD Neck CT 09/20/17 0000 Signed Impressions: Service Date/Time: Wednesday, September 20, 2017 02:55 - CONCLUSION: 1. Left maxillary sinusitis. 2. Otherwise unremarkable soft tissue neck. Zack Gay MD CT Angiography 09/20/17 0000 Signed Impressions: Service Date/Time: Wednesday, September 20, 2017 02:55 - CONCLUSION: 1. Lingular pneumonia. Medical treatment and followup resolution. 2. No evidence for pulmonary embolism. 3. Paraseptal emphysema. Zack Gay MD Objective Remarks GENERAL: This is a well-nourished, well-developed patient, in no apparent distress. CARDIOVASCULAR: Regular rate and regular rhythm without murmurs, gallops, or rubs. RESPIRATORY: Clear to auscultation. Breath sounds equal bilaterally. No wheezes , rales, or rhonchi. GASTROINTESTINAL: Abdomen soft, non-tender, nondistended. Normal, active bowel sounds MUSCULOSKELETAL: Extremities without clubbing, cyanosis, or edema. NEURO: Alert & Oriented x4 to person, place, time, situation. Moves all ext x4 Medications and IVs Inpatient Medications Acetaminophen (Tylenol) 650 mg Q4H PRN PO fever Last administered on 09/20/17at 08:41; Start 09/20/17 at 04:30 Albuterol Sulfate (Albuterol Neb) 2.5 mg Q2HR NEB PRN INH SOB/WHEEZING Last administered on 09/20/17 12:28; Start 09/20/17 at 02:00 Albuterol/ Ipratropium (Duoneb Neb) 1 ampule Q4HR NEB INH Last administered on 09/24/17 03:17; Start 09/20/17 at 04:00; Stop 09/24/17 at 03:59; Status DC Amlodipine Besylate (Norvasc) 5 mg DAILY PO Last administered on 09/24/17 09:16 ; Start 09/21/17 at 09:00 Azithromycin 500 mg/Sodium Chloride 250 ml @ 250 mls/hr Q24H IV Last administered on 09/23/17at 14:32; Start 09/20/17 at 14:00 Benzocaine/Menthol (Cepacol Extra Coco (Sugar Free)) 1 lozenge ONCE ONCE BUCCAL Last administered on 09/20/17 04:03; Start 09/20/17 at 03:45; Stop 09/20/17 at 03:46; Status DC Bisacodyl (Dulcolax Supp) 10 mg DAILY PRN RECTAL SEVERE CONSITIPATION; Start at 02:00 Budesonide/ Formoterol Fumarate (Symbicort 160-4.5 Mcg Inh) 2 puff Q12HR INH Last administered on 09/23/17at 22:45; Start 09/20/17 at 21:00 Calcium Carbonate (Tums Chew) 500 mg Q12HR CHEW Last administered on 09/24/17 09:16; Start 09/20/17 at 21:00 Chlorhexidine Gluconate (Chlorhexidine 2% Cloth) 3 pack UNSCH PRN TOP HYGIENIC CARE; Start 09/20/17 at 02:00 Dextrose (D50w (Vial) Inj) 50 ml UNSCH PRN IV PUSH HYPOGLYCEMIA-SEE COMMENTS; Start 09/20/17 at 04:15 Enoxaparin Sodium (Lovenox Inj) 40 mg Q24H SQ Last administered on 09/24/17at 09: 17; Start 09/20/17 at 09:00 Famotidine (Pepcid) 20 mg Q12HR PO Last administered on 09/20/17at 09:37; Start 09/20/17 at 09:00; Stop 09/20/17 at 11:55; Status DC Fentanyl Citrate (fentaNYL INJ) 25 mcg Q3H PRN IV PUSH BREAKTHROUGH PAIN 3-7 Last administered on 09/20/17at 09:38; Start 09/20/17 at 04:30; Stop 09/20/17 at 11:49; Status DC Folic Acid (Folate) 1 mg DAILY PO Last administered on 09/24/17at 09:16; Start at 09:00 Glucagon (Glucagon Inj) 1 mg UNSCH PRN OTHER HYPOGLYCEMIA-SEE COMMENTS; Start 09/20/17 at 04:15 Insulin Aspart (NovoLOG SUPPLEMENTAL SCALE) 1 ACHS SLIDING SCALE SQ Last administered on 09/24/17at 09:16; Start 09/20/17 at 08:00 Ketorolac Tromethamine (Toradol Inj) 30 mg ONCE ONCE IV PUSH Last administered on 09/19/17at 23:08; Start 09/19/17 at 23:15; Stop 09/19/17 at 23:16 ; Status DC Lactulose (Lactulose Liq) 30 ml DAILY PRN PO SEVERE CONSITIPATION; Start at 02:00 Levofloxacin (Levaquin) 750 mg DAILY PO Last administered on 09/20/17at 09:37; Start 09/20/17 at 09:00; Stop 09/20/17 at 11:55; Status DC Levofloxacin/ Dextrose 150 ml @ 100 mls/hr ONCE ONCE IV Last administered on 09/20/17at 03:54; Start 09/20/17 at 03:45; Stop 09/20/17 at 05:14; Status DC Lidocaine HCl (Lidocaine Pf 4% Neb) 1 ml ONCE ONCE NEB Last administered on at 21:40; Start 09/19/17 at 21:45; Stop 09/19/17 at 21:46; Status DC Magnesium Hydroxide (Milk Of Magnesia Liq) 30 ml Q12H PRN PO Mild constipation ; Start 09/20/17 at 02:00 Magnesium Oxide (Mag-Ox) 800 mg UNSCH PRN PO For Magnesium 1.2 - 1.6 mg/dL; Start 09/20/17 at 04:15; Stop 09/22/17 at 19:35; Status DC Magnesium Sulfate 2 gm/Sodium Chloride 100 ml @ 50 mls/hr UNSCH PRN IV For Magnesium 1.2 - 1.6 mg/dL; Start 09/20/17 at 04:15; Stop 09/22/17 at 19:35; Status DC Magnesium Sulfate 4 gm/Sodium Chloride 100 ml @ 50 mls/hr UNSCH PRN IV For Magnesium 0.9 - 1.1 mg/dL Last administered on 09/21/17at 12:30; Start 09/20/17 at 04:15; Stop 09/22/17 at 19:34; Status DC Magnesium Sulfate/ Dextrose 100 ml @ 100 mls/hr ONCE ONCE IV Last administered on 09/20/17at 14:47; Start 09/20/17 at 14:30; Stop 09/20/17 at 15:29 ; Status DC Methylprednisolone Sodium Succinate (SoluMEDROL INJ) 40 mg Q8H IV PUSH Last administered on 09/24/17at 09:17; Start 09/23/17 at 18:00 Miscellaneous Information SPECIFIC LAB TO BE DRAWN:[facility]... ONCE ONCE .XX ; Start 09/24/17 at 11:45; Stop 09/24/17 at 11:46 Morphine Sulfate (Morphine Inj) 1 mg Q3H PRN IV PUSH BREAKTHROUGH PAIN Last administered on 09/24/17at 09:18; Start 09/20/17 at 12:15 Multivitamins (Theragran) 1 tab DAILY PO Last administered on 09/24/17at 09:16; Start 09/21/17 at 09:00 Nitroglycerin (Nitroglycerin 2% Oint) 2 inch Q6HR PRN TOPICAL SBP>160, DBP>90; Start 09/20/17 at 13:30 Ondansetron HCl (Zofran Inj) 4 mg Q6H PRN IV PUSH NAUSEA OR VOMITING; Start at 02:00 Pantoprazole Sodium (Protonix) 20 mg DAILY PO Last administered on 09/24/17at 09: 16; Start 09/21/17 at 09:00 Pharmacy Profile Note 0 ml @ 0 mls/hr UNSCH OTHER ; Start 09/20/17 at 12:00 Piperacillin Sod/ Tazobactam Sod 100 ml @ 200 mls/hr Q6H IV Last administered on 09/24/17at 09:18; Start 09/20/17 at 15:00 Potassium Phosphate (K-Phos) 2,000 mg UNSCH PRN PO/TUBE SEE LABEL COMMENTS; Start 09/20/17 at 04:15; Stop 09/22/17 at 19:35; Status DC Potassium Phosphate 30 mmol/ Sodium Chloride 260 ml @ 42 mls/hr UNSCH PRN IV SEE LABEL COMMENTS; Start 09/20/17 at 04:15; Stop 09/22/17 at 19:35; Status DC Potassium Bicarb/ Potassium Chloride (K-Lyte Cl Eff) 50 meq UNSCH PRN PO For Potassium 3.3 - 3.5 mEq/L; Start 09/20/17 at 04:15; Stop 09/22/17 at 19:34; Status DC Potassium Chloride (KCl) 40 meq ONCE ONCE PO Last administered on 09/23/17at 12 :27; Start 09/23/17 at 13:00; Stop 09/23/17 at 13:01; Status DC Prednisone (Deltasone) 60 mg DAILY PO ; Start 09/20/17 at 09:00; Stop 09/20/17 at 09:00; Status DC Senna/Docusate Sodium (Rebeka-Colace) 1 tab BID PO Last administered on 09/24/17at 09:16; Start 09/20/17 at 09:00 Sennosides (Senokot) 17.2 mg Q12H PRN PO Moderate constipation; Start 09/20/17 at 02:00 Sodium Chloride 1,000 ml @ 50 mls/hr Q20H IV Last administered on 09/24/17at 05: 47; Start 09/20/17 at 05:00 Sodium Chloride (NS Flush) 2 ml BID IV FLUSH Last administered on 09/24/17at 09: 26; Start 09/20/17 at 09:00 Sodium Phosphate 30 mmol/Sodium Chloride 250 ml @ 42 mls/hr UNSCH PRN IV For Phosphorus < 2.5 mg/dL; Start 09/20/17 at 04:15; Stop 09/22/17 at 19:35; Status DC Thiamine HCl (Vitamin B1) 100 mg DAILY PO Last administered on 09/24/17at 09:16; Start 09/21/17 at 09:00 Tramadol HCl (Ultram) 50 mg Q6H PRN PO PAIN SCALE 1 TO 10 Last administered on 09/23/17at 10:15; Start 09/20/17 at 12:00 Vancomycin HCl 700 mg/Sodium Chloride 257 ml @ 250 mls/hr Q24H IV Last administered on 09/20/17at 17:25; Start 09/20/17 at 16:00; Stop 09/21/17 at 10:05 ; Status DC Vancomycin HCl 1000 mg/Sodium Chloride 250 ml @ 250 mls/hr Q12H IV Last administered on 09/24/17at 00:49; Start 09/21/17 at 12:00 A/P Assessment and Plan A/P History of social EtOH use THC use Thiamine, folate and multivitamin daily will be continued Hypertension 2D echocardiogram 08/13 revealed EF 55 to 60%. Patient is on amlodipine 10 mg p.o. daily for hypertension at home. continue Amlodipine on 5 mg daily Acute respiratory failure secondary to right anterior medial lingular pneumonia/ asthma/COPD with paraseptal emphysema Tobaccoism Chest x-ray 09/20 at 1130 revealed no acute cardiopulmonary findings CT pulmonary angiogram revealed right anterior medial lingula pneumonia/ paraseptal emphysema. CT neck revealed left maxillary sinusitis but no signs of obstruction Albuterol/ipratropium aerosols every 4 hours with albuterol aerosols every 2 hours as needed dyspnea continue IV Methylprednisolone; continue to taper down. Add budesonide/formoterol 160/4.5 2 puffs twice daily. Tobacco cessation education booklet self-evaluation provided. She states she has stopped smoking tobacco but hCG is positive Hepatitis C genotype 1A Gastroesophageal reflux disease Elevated transaminases Patient is on omeprazole 10 mg daily for gastroesophageal reflux disease. Switch to pantoprazole 20 mill grams daily Docusate sodium/senna 1 tablet twice daily for bowel regimen Outpatient workup for hepatitis C with positive viral load previous hospitalization Diabetes mellitus Holding metformin 500 mg twice daily/home medication Novulog sliding scale insulin with Accu-Cheks to maintain euglycemia/low regimen Acute renal insufficiency hypokalemia; replaced. Creatinine normalizing Monitor urine output Accurate I's and O's Leukocytosis Normocytic anemia No indication for transfusion of blood products at this time History of MRSA pneumonia Previously on levofloxacin. continue vancomycin, piperacillin/tazobactam and azithromycin with previous MRSA history and worsening clinical condition Blood cultures negative so far- sputum culture pending. will deescalate the antibiotic regimen soon. Chronic low back pain PT evaluate and treat Hypokalemia-replaced. Hypomagnesia-replaced. Prophylaxis -GI -pantoprazole -DVT -SCD/enoxaparin Discharge Planning dc planning early this week if continues to improve. Deysi Tripathi MD Sep 24, 2017 11:23
[2017-09-24] MEDS ORDERED: ACETAMINOPHEN 325 MG TAB PO PRN (11:30)
[2017-09-24] MEDS ORDERED: PHARMACY ORDERED LAB ONE (11:45)
[2017-09-24 12:00] VITALS: BP 168/79; PULSE 92; RESP 20; TEMP 98.6; O2SAT 95
[2017-09-24] MEDS: LEVOFLOXACIN 500 MG PREMIX INJ 100 ML IV SCH (12:55)
[2017-09-24] MEDS: AZITHROMYCIN INJ 500 MG in SODIUM CHLOR 0.9% 250 ML INJ 250 ML IV SCH (13:58)
[2017-09-24] MEDS: ACETAMINOPHEN/HYDROcodone 325 MG/5 MG TAB PO PRN ×3 (14:19→22:22)
[2017-09-24 16:00] VITALS: BP 156/98; PULSE 93; RESP 22; TEMP 98; O2SAT 97
[2017-09-24 20:00] VITALS: BP 136/79; PULSE 91; RESP 19; TEMP 98.4; O2SAT 100
[2017-09-24] MEDS: BUDESONIDE-FORMOTEROL 160/4.5 MCG INHALER INH SCH (21:00)
[2017-09-25] MEDS: methylPREDNISolone SOD SUCC 40 MG/1 ML VIAL IV PUSH SCH ×2 (02:46→08:51)
[2017-09-25] MEDS: ACETAMINOPHEN/HYDROcodone 325 MG/5 MG TAB PO PRN ×4 (02:47→16:02)
[2017-09-25] MEDS: SODIUM CHLOR 0.9% 1000 ML INJ 1,000 ML IV SCH (02:59)
[2017-09-25 04:00] VITALS: BP 161/89; PULSE 84; RESP 17; TEMP 98; O2SAT 100
[2017-09-25] MEDS: CHLORHEXIDINE GLUCONATE 2 % 1 PACK (2 CLOTHS) TOP SCH (04:00)
[2017-09-25] MEDS: MORPHINE SULFATE 2 MG/ML SYRINGE IV PUSH PRN ×4 (04:10→16:57)
[2017-09-25 08:00] VITALS: BP 149/80; PULSE 73; RESP 17; TEMP 98.7; O2SAT 98
[2017-09-25] MEDS: PANTOPRAZOLE SOD 20 MG DELAYED RELEASE TAB PO SCH (08:05)
[2017-09-25] MEDS: DOCUSATE SODIUM 50 MG/SENNA 8.6 MG TAB PO SCH (08:05)
[2017-09-25] MEDS: FOLIC ACID 1 MG TAB PO SCH (08:05)
[2017-09-25] MEDS: MULTIVITAMIN TAB PO SCH (08:05)
[2017-09-25] MEDS: CALCIUM CARBONATE 500 MG CHEWABLE TAB CHEW SCH (08:05)
[2017-09-25] MEDS: amLODIPine BESYLATE 5 MG TAB PO SCH (08:05)
[2017-09-25] MEDS: ENOXAPARIN SODIUM 40 MG/0.4 ML SYRINGE SQ SCH (08:06)
[2017-09-25] MEDS: SODIUM CHLORIDE 0.9% FLUSH 10 ML FLUSH IV FLUSH SCH (08:08)
[2017-09-25] MEDS: THIAMINE HCL 100 MG TAB PO SCH (08:08)
[2017-09-25] MEDS ORDERED: ENALAPRILAT 2.5 MG/2 ML VIAL IV PUSH PRN (08:15)
[2017-09-25] MEDS ORDERED: POTASSIUM CHLORIDE 10 MEQ CONTROLLED RELEASE TAB PO ONE (08:15)
[2017-09-25 08:22] LABS: CREATININE 0.79 MG/DL (0.50-1.00)
[2017-09-25] MEDS: BUDESONIDE-FORMOTEROL 160/4.5 MCG INHALER INH SCH (08:52)
[2017-09-25] MEDS ORDERED: CALCIUM CARBONATE 500 MG CHEWABLE TAB CHEW SCH (09:00)
[2017-09-25] MEDS: INSULIN ASPART SUPPLEMENTAL SCALE SQ SCH ×3 (09:12→16:04)
[2017-09-25] MEDS ORDERED: POTASSIUM PHOSPHATE MONOBASIC 500 MG TAB PO ONE (09:15)
[2017-09-25 09:30] VITALS: PULSE 85
[2017-09-25] MEDS ORDERED: MAGNESIUM OXIDE 400 MG TAB PO ONE (10:00)
--- NOTE | 2017-09-25 10:06 | HHI.DS ---
Discharge Summary Admission Date Sep 20, 2017 at 01:56 Discharge Date: Sep 25, 2017 Admitting Diagnosis Asthma Exacerbation (1) PNA (pneumonia) ICD Code: J18.9 - PNA (pneumonia) Status: Acute (2) Hyponatremia ICD Code: E87.1 - Hypo-osmolality and hyponatremia Status: Chronic (3) Asthma exacerbation ICD Code: J45.901 - Unspecified asthma with (acute) exacerbation Status: Acute (4) COPD with exacerbation ICD Code: J44.1 - COPD with exacerbation Status: Acute (5) Hepatitis C ICD Code: B19.20 - Hepatitis C Status: Chronic Procedures none Brief History - From Admission 57-year-old female with past medical history of asthma, hypertension, diabetes, who presented to [facility] emergency department with 3 day history of SOB. She states it started with some postnasal drip about 5-6 days ago and then she had sorethroat. She then experienced SOB, dry cough. She now has pleuritic chest pain in left chest radiating to L posterior thorax. She has coughed up some blood tinged sputum today. She denies recent travel, prior personal history of venous thromboembolic disorder. Her sister of "blood clots". She denies fever. Upon arrival to the ED she reportedly had stridor and expiratory wheezing. She received Solu-Medrol 125 mg IV, DuoNeb 3, lidocaine nebs. She states her breathing is improved but she is focused on severe L sided chest pain. CBC/BMP: 09/22/17 0500 09/25/17 0656 Significant Findings Laboratory Tests Test 09/22/17 16:30 09/23/17 06:17 09/23/17 15:26 09/24/17 15:07 Random Glucose 197 MG/DL (74-106) Calcium Level 7.5 MG/DL (8.5-10.1) Phosphorus Level 1.9 MG/DL (2.5-4.9) Potassium Level 2.5 MEQ/L (3.5-5.1) 3.2 MEQ/L (3.5-5.1) Vancomycin Level Trough 12.8 MCG/ML (5.0-10.0) Test 09/25/17 06:56 Imaging Last Impressions Chest X-Ray 09/22/17 0600 Signed Impressions: Service Date/Time: Friday, September 22, 2017 03:06 - CONCLUSION: Trace left base atelectasis/infiltrate. Jamshid Andrew MD Neck CT 09/20/17 0000 Signed Impressions: Service Date/Time: Wednesday, September 20, 2017 02:55 - CONCLUSION: 1. Left maxillary sinusitis. 2. Otherwise unremarkable soft tissue neck. Zack Gay MD CT Angiography 09/20/17 0000 Signed Impressions: Service Date/Time: Wednesday, September 20, 2017 02:55 - CONCLUSION: 1. Lingular pneumonia. Medical treatment and followup resolution. 2. No evidence for pulmonary embolism. 3. Paraseptal emphysema. Zack Gay MD PE at Discharge GENERAL: This is a well-nourished, well-developed patient, in no apparent distress. CARDIOVASCULAR: Regular rate and regular rhythm without murmurs, gallops, or rubs. RESPIRATORY: Clear to auscultation. Breath sounds equal bilaterally. No wheezes , rales, or rhonchi. GASTROINTESTINAL: Abdomen soft, non-tender, nondistended. Normal, active bowel sounds MUSCULOSKELETAL: Extremities without clubbing, cyanosis, or edema. NEURO: Alert & Oriented x4 to person, place, time, situation. Moves all ext x4 Pt update on day of discharge Feels better. No cough, no sputum. Sputum cultures was not able to obtain as patient without cough and sputum production. No fever or chills. She is sattign well on room airt. No wheezing. Afebrile. Feels much betetr. Comfortable to go home. Hospital Course 57-year-old female with past medical history of asthma, hypertension, diabetes, who presented to [facility] emergency department with 3 day history of SOB. History of social EtOH use THC use Thiamine, folate and multivitamin daily will be continued Hypertension 2D echocardiogram 08/13 revealed EF 55 to 60%. Patient is on amlodipine 10 mg p.o. daily for hypertension at home. Continue at [place] Acute respiratory failure secondary to right anterior medial lingular pneumonia/ asthma/COPD with paraseptal emphysema Tobaccoism Chest x-ray 09/20 at 1130 revealed no acute cardiopulmonary findings CT pulmonary angiogram revealed right anterior medial lingula pneumonia/ paraseptal emphysema. CT neck revealed left maxillary sinusitis but no signs of obstruction Albuterol/ipratropium aerosols every 4 hours with albuterol aerosols every 2 hours as needed dyspnea continue IV Methylprednisolone; continue to taper down. Add budesonide/formoterol 160/4.5 2 puffs twice daily. Tobacco cessation education booklet self-evaluation provided. She states she has stopped smoking tobacco but hCG is positive Hepatitis C genotype 1A Gastroesophageal reflux disease Elevated transaminases Patient is on omeprazole 10 mg daily for gastroesophageal reflux disease. Switch to pantoprazole 20 mill grams daily Docusate sodium/senna 1 tablet twice daily for bowel regimen Outpatient workup for hepatitis C with positive viral load previous hospitalization Diabetes mellitus Holding metformin 500 mg twice daily/home medication Novulog sliding scale insulin with Accu-Cheks to maintain euglycemia/low regimen Acute renal insufficiency Hypokalemia: replaced. Creatinine normalizing Monitor urine output Accurate I's and O's Leukocytosis Normocytic anemia No indication for transfusion of blood products at this time History of MRSA pneumonia Previously on levofloxacin. continue vancomycin, piperacillin/tazobactam and azithromycin with previous MRSA history and worsening clinical condition Blood cultures negative so far- sputum culture pending. will deescalate the antibiotic regimen soon. Bl;ood cx NTD Not able to obtain sputum cultures. Patient improving. CXR reviewed with PNA. De - escalate abx, CORIN on levaquin Chronic low back pain - PT evaluate and treat Hypokalemia-replaced. Hypomagnesia-replaced. Prophylaxis -GI -pantoprazole -DVT -SCD/enoxaparin Patient improved. No more cough shortness of breath or wheezing. She is saturating well on room air. PT recommends home without PT. Discharged home in stable condition to follow-up with PCP and consultants as outpatient. Pt Condition on Discharge: Stable Discharge Disposition: Discharge Home Discharge Time: > 30 minutes Discharge Instructions DIET: Follow Instructions for: Heart Healthy Diet, Diabetic Diet Activities you can perform: Regular-No Restrictions Follow up Referrals: PCP Follow-up - 2-3 Days Pulmonology - 1 Week New Medications: Budesonide-Formoterol Inh (Symbicort Inh) 160-4.5 Mcg/Act Aero 2 PUFF INH Q12HR, #1 INHALER 0 Refills Ipratropium HFA 12.9 GM Inh (Atrovent HFA 12.9 GM Inh) 17 Mcg/Actuation Aer 2 PUFF INH Q6HR PRN for SHORTNESS OF BREATH, #1 INHALER 0 Refills Levofloxacin (Levaquin) 750 Mg Tablet 750 MG PO DAILY for Infection, #10 TAB 0 Refills Prednisone (21) 10 mg tab Dose Pack (Prednisone (21) 10 mg tab Dose Pack) 10 Mg Pack 10 MG PO DIRECTED for Inflammation, #1 DSPK 0 Refills Folic Acid (Folic Acid) 1 Mg Tablet 1 MG PO DAILY for Nutritional Supplement, #30 TAB Multivitamin with Folic Acid (Thera Tablet) 400 Mcg Tablet 1 TAB PO DAILY for Nutritional Supplement, #30 TAB Thiamine HCl (Gnp Vitamin B-1) 100 Mg Tab 100 MG PO DAILY for Nutritional Supplement, #30 TAB Continued Medications: Albuterol 18 GM Inh (Ventolin Hfa 18 GM Inh) 90 Mcg/Act Aer 2 PUFF INH Q4-6H PRN for SHORTNESS OF BREATH, #1 INHALER 0 Refills Albuterol 8.5 GM Inh (Proair Hfa 8.5 GM Inh) 90 Mcg/Act Aer 2 PUFF INH Q4-6H PRN for SHORTNESS OF BREATH, #1 INHALER 0 Refills 108 mcg/actuation Albuterol Neb (Albuterol Neb) 2.5 Mg/3 Ml Neb 2.5 MG NEB Q4HR NEB PRN for SHORTNESS OF BREATH, #60 NEBULE 0 Refills Amlodipine (Amlodipine) 10 Mg Tab 10 MG PO DAILY for Blood Pressure Management, #30 TAB 5 Refills Calcium Carbonate (Antacid) (Calcium Carbonate (Antacid)) 500 Mg Chew 500 MG CHEW Q12HR for HYPOCALCEMIA, #60 EA Metformin (Metformin) 500 Mg Tab 500 MG PO BIDPC for Blood Sugar Management, #60 TAB 0 Refills Omeprazole (Omeprazole) 10 Mg Cap 10 MG PO DAILY, #30 CAP 0 Refills Potassium Phosphate Monobasic (K-Phos) 500 Mg Tab 500 MG PO Q12HR for electrolyte replacement, #60 TAB 0 Refills Tramadol (Tramadol) 50 Mg Tab 50 MG PO Q6H PRN for PAIN, #15 TAB 0 Refills Discontinued Medications: Amlodipine (Norvasc) 5 Mg Tab 5 MG PO DAILY for Blood Pressure Management, #30 TAB 1 Refill Amoxicillin-Clavulanate (Augmentin) 875-125 Mg Tab 1 TAB PO BID for Infection, #14 TAB 0 Refills Linezolid (Zyvox) 600 Mg Tab 600 MG PO Q12HR for Infection, #13 TAB start tonight (08/09/2017). Milena Rachel MD Sep 25, 2017 10:06
[2017-09-25] MEDS ORDERED: THERTAB15 PO (10:20)
[2017-09-25] MEDS ORDERED: FOLI1TAB6 PO (10:20)
[2017-09-25] MEDS ORDERED: SYMB160A INH (10:20)
[2017-09-25] MEDS ORDERED: THIA100 PO (10:20)
[2017-09-25] MEDS ORDERED: PRED10PA PO (10:20)
[2017-09-25] MEDS ORDERED: IPRA17I INH (10:21)
[2017-09-25] MEDS ORDERED: LEVA750T9 PO (10:21)
[2017-09-25 11:39] VITALS: BP 123/87; PULSE 77; RESP 19; TEMP 97.1; O2SAT 99
[2017-09-25] MEDS: LEVOFLOXACIN 500 MG PREMIX INJ 100 ML IV SCH (12:09)
[2017-09-25] MEDS: SODIUM CHLORIDE 0.9% FLUSH 10 ML FLUSH IV FLUSH PRN ×2 (12:09→16:57)
[2017-09-25] MEDS: AZITHROMYCIN INJ 500 MG in SODIUM CHLOR 0.9% 250 ML INJ 250 ML IV SCH (14:04)
[2017-09-25 15:32] LABS: BICARBONATE 20.6 MEQ/L (21.0-32.0); CALCIUM 7.8 MG/DL (8.5-10.1); CREATININE 0.84 MG/DL (0.50-1.00)
[2017-09-25 15:51] VITALS: BP 123/70; PULSE 92; RESP 17; TEMP 97.8; O2SAT 94
== END 2017-09-25 17:22 | disposition home or self-care (01) | DRG 190 ==
LOC: NED 21:04 → NEDA 09-20 01:56 → NEDH 09-20 06:12 → HCIS 09-20 11:00 → N03A 09-20 11:48 → N06B 09-22 17:06
PROVIDERS: ADMIT Hospitalist; ATTEND Hospitalist
DX: J44.1 Chronic obstructive pulmonary disease with (acute) exacerbation (principal); J18.9 Pneumonia, unspecified organism; N17.9 Acute kidney failure, unspecified; J45.901 Unspecified asthma with (acute) exacerbation; E87.1 Hypo-osmolality and hyponatremia; E83.42 Hypomagnesemia; J44.0 Chronic obstructive pulmonary disease with (acute) lower respiratory infection; E11.9 Type 2 diabetes mellitus without complications; Z79.84 Long term (current) use of oral hypoglycemic drugs; I10 Essential (primary) hypertension; D64.9 Anemia, unspecified; Z86.14 Personal history of Methicillin resistant Staphylococcus aureus infection; Z87.01 Personal history of pneumonia (recurrent); G89.29 Other chronic pain; M54.5 Low back pain; F12.10 Cannabis abuse, uncomplicated; Z87.891 Personal history of nicotine dependence; B19.20 Unspecified viral hepatitis C without hepatic coma; E87.6 Hypokalemia; K21.9 Gastro-esophageal reflux disease without esophagitis
CPT/HCPCS: 36600; 70491; 71045; 71046; 71275; 80048; 80053; 80202; 80307; 81001; 82550; 82552; 82565; 82805; 82948; 83735; 83880; 84100; 84132; 84484; 84702; 85025; 85379; 85610; 85730; 87040; 87449; 87641; 87804; 93005; 94150; 94640; 94664; 96374; G0481; J0456; J1650; J1815; J1885; J1956; J2270; J2543; J2920; J2930; J3010; J3370; J3475; J3480; J7030; J7050; J7613; Q9967

== ENCOUNTER 2018-02-06 23:49 | Inpatient (IN) ==
[2018-02-07] MEDS ORDERED: MethylPREDNISolone Sod Succinate Inj 125 MG/2 ML Vial IV.PUSH ONE (00:40)
--- NOTE | 2018-02-07 01:13 | XR ---
EXAM DATE: 02/07/2018 12:57 AM EDT AGE/SEX: 57 years / Female INDICATIONS: Shortness of breath. CLINICAL DATA: This is the patient's initial encounter. Patient reports that signs and symptoms have been present for 2 days and indicates a pain score of 0/10. MEDICAL/SURGICAL HISTORY: Asthma. None. COMPARISON: [facility] [place], CHEST 1V SINGLE AP, 01/08/2018. . FINDINGS: A single AP view of the chest demonstrates the lungs to be symmetrically aerated without evidence of mass, infiltrate or effusion. The cardiomediastinal contours are unremarkable. Osseous structures a re intact. CONCLUSION: No acute cardiopulmonary disease Electronically signed by: Zack Gay MD 02/07/2018 1:11 AM EDT
--- NOTE | 2018-02-07 02:05 | ED ---
HPI General Chief Complaint: Shortness of Breath/Dyspnea Stated Complaint: Diff breathing, Headache, Injury from fall Time Seen by Provider: 02/07/18 00:11 Source: patient Limitations: no limitations History of Present Illness MD Complaint: shortness of breath Onset (ago): day(s) Context: recent illness Severity: moderate Consistency/Duration: constant and progressively worsening (over 2 days ) Relieving factors: nothing Related Data Home Medications Medication Instructions Recorded Confirmed albuterol sulfate 1.25 mg INHALATION QID 01/08/18 02/07/18 albuterol sulfate [ProAir HFA] 2 puff INHALATION Q4-6H PRN 01/08/18 02/07/18 amlodipine 5 mg PO DAILY 01/08/18 02/07/18 budesonide-formoterol [Symbicort] 2 puff INHALATION BID 01/08/18 02/07/18 ipratropium bromide [Atrovent HFA] 1 puff INHALATION Q6H 01/08/18 02/07/18 omeprazole 20 mg PO DAILY 01/08/18 02/07/18 potassium chloride 20 meq PO BID 01/08/18 02/07/18 tramadol 100 mg PO DAILY 01/08/18 02/07/18 Previous Rx's Medication Instructions Recorded methocarbamol 750 mg PO Q8H #10 tab 01/09/18 cholecalciferol (vitamin D3) 5,000 unit PO DAILY #30 cap 02/12/18 guaifenesin [Mucinex] 600 mg PO BID #10 tab 02/12/18 levofloxacin 500 mg PO DAILY #3 tab 02/12/18 nicotine 1 patch TRANSDERMAL DAILY #7 ea 02/12/18 nut.tx.gluc.intol,lac-free,soy 1 bottle PO 3XW #90 ml 02/12/18 [Glucerna Shake] prednisone 10 mg PO DAILY #20 tab 02/12/18 Allergies Allergy/AdvReac Type Severity Reaction Status Date / Time hydromorphone Allergy Severe ANAPHYLAXIS Verified 02/07/18 00:06 *MDRO Multi-Drug Resistant AdvReac Unknown n/a Uncoded 02/07/18 00:06 Organism Review of Systems ROS: all other systems reviewed are negative PMFSH Social History Social History Substance History: Past History Second Hand Smoke Exposure: No Smoking Status: Current every day smoker Tobacco Type: Cigarettes How Often Do You Have a Drink Containing Alcohol: 2 to 4 times a month Recent Travel in [place] within the Last 8 Weeks: No Recent Out of Country Travel within the Last 8 Weeks: No Immunization History Tetanus Immunization: Unsure Hx Influenza Vaccine This Season: No Exam Narrative Exam Narrative: GENERAL: pt is complaining of pain from right hip pain and wheezing audibly increased resp rate SKIN: Warm and dry. HEAD: Atraumatic. Normocephalic. EYES: Pupils equal and round. No scleral icterus. No injection or drainage. ENT: No nasal bleeding or discharge. Mucous membranes pink and moist. NECK: Trachea midline. No JVD. CARDIOVASCULAR: Regular rate and rhythm. RESPIRATORY: Wheeze diffuse and increase resp rate bilaterally GASTROINTESTINAL: Abdomen soft, non-tender, nondistended. Hepatic and splenic margins not palpable. MUSCULOSKELETAL: Extremities Pt complaining of right hip ileac crest area made worse with internal rotation . NEUROLOGICAL: Awake and alert. No obvious cranial nerve deficits. Motor grossly within normal limits. Five out of 5 muscle strength in the arms and legs. Normal speech. PSYCHIATRIC: Appropriate mood and affect; insight and judgment normal. Course Initial Documented Vital Signs Temperature 98.4 F 02/06/18 23:55 Pulse Rate 94 H 02/06/18 23:55 Respiratory Rate 28 H 02/06/18 23:55 Blood Pressure 145/69 H 02/06/18 23:55 Pulse Oximetry 100 02/06/18 23:55 Last Documented Vital Signs Temperature 98.0 F 02/12/18 12:00 Pulse Rate 101 H 02/12/18 14:08 Respiratory Rate 18 02/12/18 14:10 Blood Pressure 155/84 H 02/12/18 12:00 Pulse Oximetry 97 02/12/18 12:16 Medical Decision Making [facility] Narrative Medical decision making narrative: pt is has chest xray no acute finding and treated with Duo nebs levaquin and hip xray no acute findings admit for COPD exacerbation , also gave her solumedrol IVP Medical Screen Exam Complete: Yes Emergency Medical Condition: Yes Differential Diagnosis Differential Diagnosis: PNA COPD exacerbation vs PTX vs chronic bronachitis vs sepsis other Lab Data Result diagrams: 02/10/18 06:00 02/12/18 05:00 Lab Results 02/07/18 02/07/18 02/07/18 Range/Units 01:30 01:30 03:28 WBC 3.1 L (4.0-11.0) th/mm3 RBC 3.41 L (4.00-5.30) mil/mm3 Hgb 10.3 L (11.6-15.3) gm/dL Hct 30.3 L (35.0-46.0) % MCV 88.8 (80.0-100.0) fL MCH 30.1 (27.0-34.0) pg MCHC 33.9 (32.0-36.0) % RDW 15.0 (11.6-17.2) % Plt Count 109 L (150-450) th/mm3 MPV 10.7 (7.0-11.0) fL Neut % (Auto) 46.5 (16.0-70.0) % Lymph % (Auto) 32.5 (9.0-44.0) % [place] % (Auto) 17.8 H (0.0-8.0) % Eos % (Auto) 1.5 (0.0-4.0) % Baso % (Auto) 1.7 (0.0-2.0) % Neut # (Auto) 1.5 L (1.8-7.7) th/mm3 Lymph # (Auto) 1.0 (1.0-4.8) th/mm3 [place] # (Auto) 0.6 (0.0-0.9) th/mm3 Eos # (Auto) 0.0 (0.0-0.4) th/mm3 Baso # (Auto) 0.1 (0.0-0.2) th/mm3 WBC Differential . Differential Comment Auto diff final Sodium 135 L (136-145) meq/L Potassium 3.7 (3.5-5.1) meq/L Chloride 101 (98-107) meq/L Carbon Dioxide 20.6 L (21.0-32.0) meq/L Anion Gap 13 (5-15) meq/L BUN 7 (7-18) mg/dL Creatinine 0.65 (0.50-1.00) mg/dL Estimated GFR Greater than 89 (>89) mL/min POC Glucose (68-110) mg/dl Random Glucose 121 H (74-106) mg/dL Hemoglobin A1c 5.1 (4.3-6.0) % Calcium 7.7 L (8.5-10.1) mg/dL Phosphorus (2.5-4.9) mg/dL Magnesium (1.5-2.5) mg/dL Total Bilirubin 1.4 H (0.2-1.0) mg/dL AST 169 H (15-37) U/L ALT 82 H (10-53) U/L Alkaline Phosphatase 143 H (45-117) U/L Total Protein 7.0 (6.4-8.2) g/dL Albumin 2.9 L (3.4-5.0) g/dL Vitamin D 25-Hydroxy (30-100) ng/mL TSH (0.358-3.740) uIU/mL Free T4 (0.76-1.46) ng/dL 02/07/18 02/07/18 02/07/18 Range/Units 03:28 03:28 08:35 WBC (4.0-11.0) th/mm3 RBC (4.00-5.30) mil/mm3 Hgb (11.6-15.3) gm/dL Hct (35.0-46.0) % MCV (80.0-100.0) fL MCH (27.0-34.0) pg MCHC (32.0-36.0) % RDW (11.6-17.2) % Plt Count (150-450) th/mm3 MPV (7.0-11.0) fL Neut % (Auto) (16.0-70.0) % Lymph % (Auto) (9.0-44.0) % [place] % (Auto) (0.0-8.0) % Eos % (Auto) (0.0-4.0) % Baso % (Auto) (0.0-2.0) % Neut # (Auto) (1.8-7.7) th/mm3 Lymph # (Auto) (1.0-4.8) th/mm3 [place] # (Auto) (0.0-0.9) th/mm3 Eos # (Auto) (0.0-0.4) th/mm3 Baso # (Auto) (0.0-0.2) th/mm3 WBC Differential Differential Comment Sodium (136-145) meq/L Potassium (3.5-5.1) meq/L Chloride (98-107) meq/L Carbon Dioxide (21.0-32.0) meq/L Anion Gap (5-15) meq/L BUN (7-18) mg/dL Creatinine (0.50-1.00) mg/dL Estimated GFR (>89) mL/min POC Glucose 154 H (68-110) mg/dl Random Glucose (74-106) mg/dL Hemoglobin A1c (4.3-6.0) % Calcium (8.5-10.1) mg/dL Phosphorus (2.5-4.9) mg/dL Magnesium (1.5-2.5) mg/dL Total Bilirubin (0.2-1.0) mg/dL AST (15-37) U/L ALT (10-53) U/L Alkaline Phosphatase (45-117) U/L Total Protein (6.4-8.2) g/dL Albumin (3.4-5.0) g/dL Vitamin D 25-Hydroxy (30-100) ng/mL TSH 0.308 L (0.358-3.740) uIU/mL Free T4 1.46 (0.76-1.46) ng/dL 02/07/18 02/07/18 02/07/18 Range/Units 12:11 17:18 20:26 WBC (4.0-11.0) th/mm3 RBC (4.00-5.30) mil/mm3 Hgb (11.6-15.3) gm/dL Hct (35.0-46.0) % MCV (80.0-100.0) fL MCH (27.0-34.0) pg MCHC (32.0-36.0) % RDW (11.6-17.2) % Plt Count (150-450) th/mm3 MPV (7.0-11.0) fL Neut % (Auto) (16.0-70.0) % Lymph % (Auto) (9.0-44.0) % [place] % (Auto) (0.0-8.0) % Eos % (Auto) (0.0-4.0) % Baso % (Auto) (0.0-2.0) % Neut # (Auto) (1.8-7.7) th/mm3 Lymph # (Auto) (1.0-4.8) th/mm3 [place] # (Auto) (0.0-0.9) th/mm3 Eos # (Auto) (0.0-0.4) th/mm3 Baso # (Auto) (0.0-0.2) th/mm3 WBC Differential Differential Comment Sodium (136-145) meq/L Potassium (3.5-5.1) meq/L Chloride (98-107) meq/L Carbon Dioxide (21.0-32.0) meq/L Anion Gap (5-15) meq/L BUN (7-18) mg/dL Creatinine (0.50-1.00) mg/dL Estimated GFR (>89) mL/min POC Glucose 183 H 277 H 279 H (68-110) mg/dl Random Glucose (74-106) mg/dL Hemoglobin A1c (4.3-6.0) % Calcium (8.5-10.1) mg/dL Phosphorus (2.5-4.9) mg/dL Magnesium (1.5-2.5) mg/dL Total Bilirubin (0.2-1.0) mg/dL AST (15-37) U/L ALT (10-53) U/L Alkaline Phosphatase (45-117) U/L Total Protein (6.4-8.2) g/dL Albumin (3.4-5.0) g/dL Vitamin D 25-Hydroxy (30-100) ng/mL TSH (0.358-3.740) uIU/mL Free T4 (0.76-1.46) ng/dL 02/08/18 02/08/18 02/08/18 Range/Units 06:50 06:50 09:25 WBC 6.1 (4.0-11.0) th/mm3 RBC 3.56 L (4.00-5.30) mil/mm3 Hgb 10.6 L (11.6-15.3) gm/dL Hct 31.4 L (35.0-46.0) % MCV 88.3 (80.0-100.0) fL MCH 29.7 (27.0-34.0) pg MCHC 33.7 (32.0-36.0) % RDW 15.0 (11.6-17.2) % Plt Count 108 L (150-450) th/mm3 MPV 10.0 (7.0-11.0) fL Neut % (Auto) 68.6 (16.0-70.0) % Lymph % (Auto) 14.6 (9.0-44.0) % [place] % (Auto) 16.1 H (0.0-8.0) % Eos % (Auto) 0.1 (0.0-4.0) % Baso % (Auto) 0.6 (0.0-2.0) % Neut # (Auto) 4.2 (1.8-7.7) th/mm3 Lymph # (Auto) 0.9 L (1.0-4.8) th/mm3 [place] # (Auto) 1.0 H (0.0-0.9) th/mm3 Eos # (Auto) 0.0 (0.0-0.4) th/mm3 Baso # (Auto) 0.0 (0.0-0.2) th/mm3 WBC Differential . Differential Comment Auto diff final Sodium 141 (136-145) meq/L Potassium 2.7 L* D (3.5-5.1) meq/L Chloride 104 (98-107) meq/L Carbon Dioxide 27.0 (21.0-32.0) meq/L Anion Gap 10 (5-15) meq/L BUN 10 (7-18) mg/dL Creatinine 0.61 (0.50-1.00) mg/dL Estimated GFR Greater than 89 (>89) mL/min POC Glucose 110 (68-110) mg/dl Random Glucose 106 (74-106) mg/dL Hemoglobin A1c (4.3-6.0) % Calcium 7.8 L (8.5-10.1) mg/dL Phosphorus 2.3 L (2.5-4.9) mg/dL Magnesium 1.1 L (1.5-2.5) mg/dL Total Bilirubin 1.2 H (0.2-1.0) mg/dL AST 105 H (15-37) U/L ALT 77 H (10-53) U/L Alkaline Phosphatase 124 H (45-117) U/L Total Protein 6.7 (6.4-8.2) g/dL Albumin 2.9 L (3.4-5.0) g/dL Vitamin D 25-Hydroxy (30-100) ng/mL TSH (0.358-3.740) uIU/mL Free T4 (0.76-1.46) ng/dL 02/08/18 02/08/18 02/08/18 Range/Units 10:20 12:44 17:12 WBC (4.0-11.0) th/mm3 RBC (4.00-5.30) mil/mm3 Hgb (11.6-15.3) gm/dL Hct (35.0-46.0) % MCV (80.0-100.0) fL MCH (27.0-34.0) pg MCHC (32.0-36.0) % RDW (11.6-17.2) % Plt Count (150-450) th/mm3 MPV (7.0-11.0) fL Neut % (Auto) (16.0-70.0) % Lymph % (Auto) (9.0-44.0) % [place] % (Auto) (0.0-8.0) % Eos % (Auto) (0.0-4.0) % Baso % (Auto) (0.0-2.0) % Neut # (Auto) (1.8-7.7) th/mm3 Lymph # (Auto) (1.0-4.8) th/mm3 [place] # (Auto) (0.0-0.9) th/mm3 Eos # (Auto) (0.0-0.4) th/mm3 Baso # (Auto) (0.0-0.2) th/mm3 WBC Differential Differential Comment Sodium 141 (136-145) meq/L Potassium 3.0 L (3.5-5.1) meq/L Chloride 103 (98-107) meq/L Carbon Dioxide 28.3 (21.0-32.0) meq/L Anion Gap 10 (5-15) meq/L BUN 10 (7-18) mg/dL Creatinine 0.73 (0.50-1.00) mg/dL Estimated GFR Greater than 89 (>89) mL/min POC Glucose 159 H 108 (68-110) mg/dl Random Glucose 133 H (74-106) mg/dL Hemoglobin A1c (4.3-6.0) % Calcium 8.2 L (8.5-10.1) mg/dL Phosphorus (2.5-4.9) mg/dL Magnesium 1.1 L (1.5-2.5) mg/dL Total Bilirubin (0.2-1.0) mg/dL AST (15-37) U/L ALT (10-53) U/L Alkaline Phosphatase (45-117) U/L Total Protein (6.4-8.2) g/dL Albumin (3.4-5.0) g/dL Vitamin D 25-Hydroxy (30-100) ng/mL TSH (0.358-3.740) uIU/mL Free T4 (0.76-1.46) ng/dL 02/09/18 02/09/18 02/09/18 Range/Units 08:52 09:07 09:07 WBC 5.1 (4.0-11.0) th/mm3 RBC 3.76 L (4.00-5.30) mil/mm3 Hgb 11.1 L (11.6-15.3) gm/dL Hct 33.3 L (35.0-46.0) % MCV 88.7 (80.0-100.0) fL MCH 29.7 (27.0-34.0) pg MCHC 33.4 (32.0-36.0) % RDW 14.8 (11.6-17.2) % Plt Count 109 L (150-450) th/mm3 MPV 10.0 (7.0-11.0) fL Neut % (Auto) 63.1 (16.0-70.0) % Lymph % (Auto) 22.7 (9.0-44.0) % [place] % (Auto) 13.9 H (0.0-8.0) % Eos % (Auto) 0.1 (0.0-4.0) % Baso % (Auto) 0.2 (0.0-2.0) % Neut # (Auto) 3.2 (1.8-7.7) th/mm3 Lymph # (Auto) 1.2 (1.0-4.8) th/mm3 [place] # (Auto) 0.7 (0.0-0.9) th/mm3 Eos # (Auto) 0.0 (0.0-0.4) th/mm3 Baso # (Auto) 0.0 (0.0-0.2) th/mm3 WBC Differential . Differential Comment Auto diff final Sodium 139 (136-145) meq/L Potassium 4.2 D (3.5-5.1) meq/L Chloride 106 (98-107) meq/L Carbon Dioxide 22.5 (21.0-32.0) meq/L Anion Gap 11 (5-15) meq/L BUN 18 (7-18) mg/dL Creatinine 0.82 (0.50-1.00) mg/dL Estimated GFR 87 L (>89) mL/min POC Glucose 101 (68-110) mg/dl Random Glucose 79 (74-106) mg/dL Hemoglobin A1c (4.3-6.0) % Calcium 8.7 (8.5-10.1) mg/dL Phosphorus 1.8 L (2.5-4.9) mg/dL Magnesium 2.0 D (1.5-2.5) mg/dL Total Bilirubin 1.1 H (0.2-1.0) mg/dL AST 75 H (15-37) U/L ALT 71 H (10-53) U/L Alkaline Phosphatase 118 H (45-117) U/L Total Protein 7.0 (6.4-8.2) g/dL Albumin 3.1 L (3.4-5.0) g/dL Vitamin D 25-Hydroxy (30-100) ng/mL TSH (0.358-3.740) uIU/mL Free T4 (0.76-1.46) ng/dL 02/09/18 02/09/18 02/09/18 Range/Units 12:21 13:00 18:26 WBC (4.0-11.0) th/mm3 RBC (4.00-5.30) mil/mm3 Hgb (11.6-15.3) gm/dL Hct (35.0-46.0) % MCV (80.0-100.0) fL MCH (27.0-34.0) pg MCHC (32.0-36.0) % RDW (11.6-17.2) % Plt Count (150-450) th/mm3 MPV (7.0-11.0) fL Neut % (Auto) (16.0-70.0) % Lymph % (Auto) (9.0-44.0) % [place] % (Auto) (0.0-8.0) % Eos % (Auto) (0.0-4.0) % Baso % (Auto) (0.0-2.0) % Neut # (Auto) (1.8-7.7) th/mm3 Lymph # (Auto) (1.0-4.8) th/mm3 [place] # (Auto) (0.0-0.9) th/mm3 Eos # (Auto) (0.0-0.4) th/mm3 Baso # (Auto) (0.0-0.2) th/mm3 WBC Differential Differential Comment Sodium (136-145) meq/L Potassium 4.5 (3.5-5.1) meq/L Chloride (98-107) meq/L Carbon Dioxide (21.0-32.0) meq/L Anion Gap (5-15) meq/L BUN (7-18) mg/dL Creatinine (0.50-1.00) mg/dL Estimated GFR (>89) mL/min POC Glucose 114 H 148 H (68-110) mg/dl Random Glucose (74-106) mg/dL Hemoglobin A1c (4.3-6.0) % Calcium (8.5-10.1) mg/dL Phosphorus (2.5-4.9) mg/dL Magnesium (1.5-2.5) mg/dL Total Bilirubin (0.2-1.0) mg/dL AST (15-37) U/L ALT (10-53) U/L Alkaline Phosphatase (45-117) U/L Total Protein (6.4-8.2) g/dL Albumin (3.4-5.0) g/dL Vitamin D 25-Hydroxy (30-100) ng/mL TSH (0.358-3.740) uIU/mL Free T4 (0.76-1.46) ng/dL 02/09/18 02/10/18 02/10/18 Range/Units 21:37 06:00 06:00 WBC 7.6 (4.0-11.0) th/mm3 RBC 3.71 L (4.00-5.30) mil/mm3 Hgb 10.9 L (11.6-15.3) gm/dL Hct 34.0 L (35.0-46.0) % MCV 91.7 (80.0-100.0) fL MCH 29.5 (27.0-34.0) pg MCHC 32.2 (32.0-36.0) % RDW 15.3 (11.6-17.2) % Plt Count 118 L (150-450) th/mm3 MPV 9.7 (7.0-11.0) fL Neut % (Auto) 67.0 (16.0-70.0) % Lymph % (Auto) 17.5 (9.0-44.0) % [place] % (Auto) 15.1 H (0.0-8.0) % Eos % (Auto) 0.0 (0.0-4.0) % Baso % (Auto) 0.4 (0.0-2.0) % Neut # (Auto) 5.1 (1.8-7.7) th/mm3 Lymph # (Auto) 1.3 (1.0-4.8) th/mm3 [place] # (Auto) 1.1 H (0.0-0.9) th/mm3 Eos # (Auto) 0.0 (0.0-0.4) th/mm3 Baso # (Auto) 0.0 (0.0-0.2) th/mm3 WBC Differential . Differential Comment Auto diff final Sodium 138 (136-145) meq/L Potassium 4.9 (3.5-5.1) meq/L Chloride 106 (98-107) meq/L Carbon Dioxide 21.9 (21.0-32.0) meq/L Anion Gap 10 (5-15) meq/L BUN 25 H (7-18) mg/dL Creatinine 1.06 H (0.50-1.00) mg/dL Estimated GFR 65 L (>89) mL/min POC Glucose 162 H (68-110) mg/dl Random Glucose 65 L (74-106) mg/dL Hemoglobin A1c (4.3-6.0) % Calcium 9.4 (8.5-10.1) mg/dL Phosphorus 2.1 L (2.5-4.9) mg/dL Magnesium (1.5-2.5) mg/dL Total Bilirubin 1.1 H (0.2-1.0) mg/dL AST 75 H (15-37) U/L ALT 77 H (10-53) U/L Alkaline Phosphatase 127 H (45-117) U/L Total Protein 7.6 D (6.4-8.2) g/dL Albumin 3.4 (3.4-5.0) g/dL Vitamin D 25-Hydroxy 12.5 L (30-100) ng/mL TSH (0.358-3.740) uIU/mL Free T4 (0.76-1.46) ng/dL 02/10/18 02/10/18 02/10/18 Range/Units 08:30 12:44 17:45 WBC (4.0-11.0) th/mm3 RBC (4.00-5.30) mil/mm3 Hgb (11.6-15.3) gm/dL Hct (35.0-46.0) % MCV (80.0-100.0) fL MCH (27.0-34.0) pg MCHC (32.0-36.0) % RDW (11.6-17.2) % Plt Count (150-450) th/mm3 MPV (7.0-11.0) fL Neut % (Auto) (16.0-70.0) % Lymph % (Auto) (9.0-44.0) % [place] % (Auto) (0.0-8.0) % Eos % (Auto) (0.0-4.0) % Baso % (Auto) (0.0-2.0) % Neut # (Auto) (1.8-7.7) th/mm3 Lymph # (Auto) (1.0-4.8) th/mm3 [place] # (Auto) (0.0-0.9) th/mm3 Eos # (Auto) (0.0-0.4) th/mm3 Baso # (Auto) (0.0-0.2) th/mm3 WBC Differential Differential Comment Sodium (136-145) meq/L Potassium (3.5-5.1) meq/L Chloride (98-107) meq/L Carbon Dioxide (21.0-32.0) meq/L Anion Gap (5-15) meq/L BUN (7-18) mg/dL Creatinine (0.50-1.00) mg/dL Estimated GFR (>89) mL/min POC Glucose 78 122 H 99 (68-110) mg/dl Random Glucose (74-106) mg/dL Hemoglobin A1c (4.3-6.0) % Calcium (8.5-10.1) mg/dL Phosphorus (2.5-4.9) mg/dL Magnesium (1.5-2.5) mg/dL Total Bilirubin (0.2-1.0) mg/dL AST (15-37) U/L ALT (10-53) U/L Alkaline Phosphatase (45-117) U/L Total Protein (6.4-8.2) g/dL Albumin (3.4-5.0) g/dL Vitamin D 25-Hydroxy (30-100) ng/mL TSH (0.358-3.740) uIU/mL Free T4 (0.76-1.46) ng/dL 02/10/18 02/11/18 02/11/18 Range/Units 20:47 08:00 08:15 WBC (4.0-11.0) th/mm3 RBC (4.00-5.30) mil/mm3 Hgb (11.6-15.3) gm/dL Hct (35.0-46.0) % MCV (80.0-100.0) fL MCH (27.0-34.0) pg MCHC (32.0-36.0) % RDW (11.6-17.2) % Plt Count (150-450) th/mm3 MPV (7.0-11.0) fL Neut % (Auto) (16.0-70.0) % Lymph % (Auto) (9.0-44.0) % [place] % (Auto) (0.0-8.0) % Eos % (Auto) (0.0-4.0) % Baso % (Auto) (0.0-2.0) % Neut # (Auto) (1.8-7.7) th/mm3 Lymph # (Auto) (1.0-4.8) th/mm3 [place] # (Auto) (0.0-0.9) th/mm3 Eos # (Auto) (0.0-0.4) th/mm3 Baso # (Auto) (0.0-0.2) th/mm3 WBC Differential Differential Comment Sodium (136-145) meq/L Potassium (3.5-5.1) meq/L Chloride (98-107) meq/L Carbon Dioxide (21.0-32.0) meq/L Anion Gap (5-15) meq/L BUN (7-18) mg/dL Creatinine (0.50-1.00) mg/dL Estimated GFR (>89) mL/min POC Glucose 110 50 L 70 (68-110) mg/dl Random Glucose (74-106) mg/dL Hemoglobin A1c (4.3-6.0) % Calcium (8.5-10.1) mg/dL Phosphorus (2.5-4.9) mg/dL Magnesium (1.5-2.5) mg/dL Total Bilirubin (0.2-1.0) mg/dL AST (15-37) U/L ALT (10-53) U/L Alkaline Phosphatase (45-117) U/L Total Protein (6.4-8.2) g/dL Albumin (3.4-5.0) g/dL Vitamin D 25-Hydroxy (30-100) ng/mL TSH (0.358-3.740) uIU/mL Free T4 (0.76-1.46) ng/dL 02/11/18 02/11/18 02/11/18 Range/Units 08:58 11:59 12:17 WBC (4.0-11.0) th/mm3 RBC (4.00-5.30) mil/mm3 Hgb (11.6-15.3) gm/dL Hct (35.0-46.0) % MCV (80.0-100.0) fL MCH (27.0-34.0) pg MCHC (32.0-36.0) % RDW (11.6-17.2) % Plt Count (150-450) th/mm3 MPV (7.0-11.0) fL Neut % (Auto) (16.0-70.0) % Lymph % (Auto) (9.0-44.0) % [place] % (Auto) (0.0-8.0) % Eos % (Auto) (0.0-4.0) % Baso % (Auto) (0.0-2.0) % Neut # (Auto) (1.8-7.7) th/mm3 Lymph # (Auto) (1.0-4.8) th/mm3 [place] # (Auto) (0.0-0.9) th/mm3 Eos # (Auto) (0.0-0.4) th/mm3 Baso # (Auto) (0.0-0.2) th/mm3 WBC Differential Differential Comment Sodium (136-145) meq/L Potassium (3.5-5.1) meq/L Chloride (98-107) meq/L Carbon Dioxide (21.0-32.0) meq/L Anion Gap (5-15) meq/L BUN (7-18) mg/dL Creatinine (0.50-1.00) mg/dL Estimated GFR (>89) mL/min POC Glucose 92 62 L 65 L (68-110) mg/dl Random Glucose (74-106) mg/dL Hemoglobin A1c (4.3-6.0) % Calcium (8.5-10.1) mg/dL Phosphorus (2.5-4.9) mg/dL Magnesium (1.5-2.5) mg/dL Total Bilirubin (0.2-1.0) mg/dL AST (15-37) U/L ALT (10-53) U/L Alkaline Phosphatase (45-117) U/L Total Protein (6.4-8.2) g/dL Albumin (3.4-5.0) g/dL Vitamin D 25-Hydroxy (30-100) ng/mL TSH (0.358-3.740) uIU/mL Free T4 (0.76-1.46) ng/dL 02/11/18 02/11/18 02/11/18 Range/Units 12:23 16:24 16:59 WBC (4.0-11.0) th/mm3 RBC (4.00-5.30) mil/mm3 Hgb (11.6-15.3) gm/dL Hct (35.0-46.0) % MCV (80.0-100.0) fL MCH (27.0-34.0) pg MCHC (32.0-36.0) % RDW (11.6-17.2) % Plt Count (150-450) th/mm3 MPV (7.0-11.0) fL Neut % (Auto) (16.0-70.0) % Lymph % (Auto) (9.0-44.0) % [place] % (Auto) (0.0-8.0) % Eos % (Auto) (0.0-4.0) % Baso % (Auto) (0.0-2.0) % Neut # (Auto) (1.8-7.7) th/mm3 Lymph # (Auto) (1.0-4.8) th/mm3 [place] # (Auto) (0.0-0.9) th/mm3 Eos # (Auto) (0.0-0.4) th/mm3 Baso # (Auto) (0.0-0.2) th/mm3 WBC Differential Differential Comment Sodium (136-145) meq/L Potassium (3.5-5.1) meq/L Chloride (98-107) meq/L Carbon Dioxide (21.0-32.0) meq/L Anion Gap (5-15) meq/L BUN (7-18) mg/dL Creatinine (0.50-1.00) mg/dL Estimated GFR (>89) mL/min POC Glucose 80 159 H 174 H (68-110) mg/dl Random Glucose (74-106) mg/dL Hemoglobin A1c (4.3-6.0) % Calcium (8.5-10.1) mg/dL Phosphorus (2.5-4.9) mg/dL Magnesium (1.5-2.5) mg/dL Total Bilirubin (0.2-1.0) mg/dL AST (15-37) U/L ALT (10-53) U/L Alkaline Phosphatase (45-117) U/L Total Protein (6.4-8.2) g/dL Albumin (3.4-5.0) g/dL Vitamin D 25-Hydroxy (30-100) ng/mL TSH (0.358-3.740) uIU/mL Free T4 (0.76-1.46) ng/dL 02/11/18 02/12/18 02/12/18 Range/Units 20:59 05:00 07:42 WBC (4.0-11.0) th/mm3 RBC (4.00-5.30) mil/mm3 Hgb (11.6-15.3) gm/dL Hct (35.0-46.0) % MCV (80.0-100.0) fL MCH (27.0-34.0) pg MCHC (32.0-36.0) % RDW (11.6-17.2) % Plt Count (150-450) th/mm3 MPV (7.0-11.0) fL Neut % (Auto) (16.0-70.0) % Lymph % (Auto) (9.0-44.0) % [place] % (Auto) (0.0-8.0) % Eos % (Auto) (0.0-4.0) % Baso % (Auto) (0.0-2.0) % Neut # (Auto) (1.8-7.7) th/mm3 Lymph # (Auto) (1.0-4.8) th/mm3 [place] # (Auto) (0.0-0.9) th/mm3 Eos # (Auto) (0.0-0.4) th/mm3 Baso # (Auto) (0.0-0.2) th/mm3 WBC Differential Differential Comment Sodium 135 L (136-145) meq/L Potassium 3.7 D (3.5-5.1) meq/L Chloride 98 D (98-107) meq/L Carbon Dioxide 24.1 (21.0-32.0) meq/L Anion Gap 13 (5-15) meq/L BUN 17 (7-18) mg/dL Creatinine 0.77 (0.50-1.00) mg/dL Estimated GFR Greater than 89 (>89) mL/min POC Glucose 82 120 H (68-110) mg/dl Random Glucose 84 (74-106) mg/dL Hemoglobin A1c (4.3-6.0) % Calcium 8.5 D (8.5-10.1) mg/dL Phosphorus (2.5-4.9) mg/dL Magnesium (1.5-2.5) mg/dL Total Bilirubin (0.2-1.0) mg/dL AST (15-37) U/L ALT (10-53) U/L Alkaline Phosphatase (45-117) U/L Total Protein (6.4-8.2) g/dL Albumin (3.4-5.0) g/dL Vitamin D 25-Hydroxy (30-100) ng/mL TSH (0.358-3.740) uIU/mL Free T4 (0.76-1.46) ng/dL 02/12/18 Range/Units 12:20 WBC (4.0-11.0) th/mm3 RBC (4.00-5.30) mil/mm3 Hgb (11.6-15.3) gm/dL Hct (35.0-46.0) % MCV (80.0-100.0) fL MCH (27.0-34.0) pg MCHC (32.0-36.0) % RDW (11.6-17.2) % Plt Count (150-450) th/mm3 MPV (7.0-11.0) fL Neut % (Auto) (16.0-70.0) % Lymph % (Auto) (9.0-44.0) % [place] % (Auto) (0.0-8.0) % Eos % (Auto) (0.0-4.0) % Baso % (Auto) (0.0-2.0) % Neut # (Auto) (1.8-7.7) th/mm3 Lymph # (Auto) (1.0-4.8) th/mm3 [place] # (Auto) (0.0-0.9) th/mm3 Eos # (Auto) (0.0-0.4) th/mm3 Baso # (Auto) (0.0-0.2) th/mm3 WBC Differential Differential Comment Sodium (136-145) meq/L Potassium (3.5-5.1) meq/L Chloride (98-107) meq/L Carbon Dioxide (21.0-32.0) meq/L Anion Gap (5-15) meq/L BUN (7-18) mg/dL Creatinine (0.50-1.00) mg/dL Estimated GFR (>89) mL/min POC Glucose 129 H (68-110) mg/dl Random Glucose (74-106) mg/dL Hemoglobin A1c (4.3-6.0) % Calcium (8.5-10.1) mg/dL Phosphorus (2.5-4.9) mg/dL Magnesium (1.5-2.5) mg/dL Total Bilirubin (0.2-1.0) mg/dL AST (15-37) U/L ALT (10-53) U/L Alkaline Phosphatase (45-117) U/L Total Protein (6.4-8.2) g/dL Albumin (3.4-5.0) g/dL Vitamin D 25-Hydroxy (30-100) ng/mL TSH (0.358-3.740) uIU/mL Free T4 (0.76-1.46) ng/dL Imaging Data Radiologist's impression: Chest X-Ray 02/07/18 00:36 CONCLUSION: No acute cardiopulmonary disease Hip X-Ray 02/07/18 02:22 CONCLUSION: Unremarkable right hip. No fracture. Discharge Plan Discharge Disposition Patient Disposition: 30 Still Patient Discharge Condition Condition: Stable Discharge Order Discharge Orders: Discharge Order (Routine); Ordered 02/12/18 Ordered By: Leyda Luo Discharge Details Anticipated Discharge Date: 02/12/18 Physicians Team ED Provider: Andre Hill Primary Care Provider: Jamshid Braxton Attending Provider: Destin Arriaga Status ED Status: Left Department Discharge Information Discharge Date/Time: 02/07/18 11:45
[2018-02-07] MEDS ORDERED: Ketorolac Inj 30 MG/ML (IVP) Vial IV.PUSH ONE (02:47)
[2018-02-07 03:00] LABS: Baso # (Auto) 0.1 th/mm3 (0.0-0.2); Baso % (Auto) 1.7 % (0.0-2.0); Eos % (Auto) 1.5 % (0.0-4.0); Hematocrit 30.3 % (35.0-46.0); Hemoglobin 10.3 gm/dL (11.6-15.3); Lymph % (Auto) 32.5 % (9.0-44.0); Mean Corpuscular HGB Conc 33.9 % (32.0-36.0); Mean Corpuscular Hemoglobin 30.1 pg (27.0-34.0); Mean Corpuscular Volume 88.8 fL (80.0-100.0); Mean Platelet Volume 10.7 fL (7.0-11.0); Mono # (Auto) 0.6 th/mm3 (0.0-0.9); Mono % (Auto) 17.8 % (0.0-8.0); Neut # (Auto) 1.5 th/mm3 (1.8-7.7); Neut % (Auto) 46.5 % (16.0-70.0); Platelet Count 109 th/mm3 (150-450); Red Blood Count 3.41 mil/mm3 (4.00-5.30); White Blood Count 3.1 th/mm3 (4.0-11.0)
--- NOTE | 2018-02-07 03:25 | XR ---
EXAM DATE: 02/07/2018 3:06 AM EDT AGE/SEX: 57 years / Female INDICATIONS: Patient complains of right hip pain status post fall. CLINICAL DATA: This is the patient's initial encounter. Patient reports that signs and symptoms have been present for 2 days and indicates a pain score of 7/10. MEDICAL/SURGICAL HISTORY: None. None. COMPARISON: No prior exams available for comparison. FINDINGS: Bony structures are intact and in normal alignment. Joints are intact without dislocation or signifi cant arthropathy. Osseous density is normal. Soft tissues are unremarkable. No radiopaque foreign bodies seen. Ligation clips in the pelvis. CONCLUSION: Unremarkable right hip. No fracture. Electronically signed by: Zack Gay MD 02/07/2018 3:24 AM EDT
[2018-02-07] MEDS ORDERED: Morphine Inj 4 MG/ML Vial IV.PUSH ONE (03:42)
[2018-02-07 03:57] LABS: Alanine Aminotransferase 82 U/L (10-53); Alkaline Phosphatase 143 U/L (45-117)
[2018-02-07 04:15] LABS: Albumin 2.9 g/dL (3.4-5.0); Anion Gap 13 meq/L (5-15); Aspartate Aminotransferase 169 U/L (15-37); Blood Urea Nitrogen 7 mg/dL (7-18); Calcium 7.7 mg/dL (8.5-10.1); Carbon Dioxide 20.6 meq/L (21.0-32.0); Chloride 101 meq/L (98-107); Glomerular Filtration Rate Greater Than 89 mL/min (>89); Glucose,Random 121 mg/dL (74-106); Potassium 3.7 meq/L (3.5-5.1); Sodium 135 meq/L (136-145)
[2018-02-07] MEDS ORDERED: Dextrose 50% in Water 50 ML Vial IV.PUSH PRN (04:17)
--- NOTE | 2018-02-07 05:54 | P.HPIM ---
History of Present Illness Primary Care Physician: Jamshid Braxton MD History of Present Illness: Mrs. Griggs is a 57-year-old female. She comes into the emergency department tonight complaining of shortness of breath. Shortness of breath has been progressive over the past 2 days. Tonight she came in wheezing and respiratory distress. At baseline she has COPD and asthma. In addition to these 2 conditions she is also complaining of productive cough. No pneumonia on imaging. Etiology is likely bronchitis related. No other complaints tonight. No reported fevers. - Diagnosis (1) COPD exacerbation (2) Bronchitis Review of Systems Constitutional: Reports fatigue, Reports malaise, Reports weakness, Denies chills, Denies fever(s), Denies night sweats Eyes: Denies blind spots, Denies blurry vision, Denies change in vision Ears, Nose, Mouth, and Throat: Denies abnormal hearing, Denies bleeding gums, Denies change in voice Cardiovascular: Denies chest pain, Denies chest pain at rest, Denies chest pain with activity Respiratory: Reports cough, Reports shortness of breath, Reports wheezing Gastrointestinal: Denies abdominal pain, Denies black, tarry stools, Denies bright, red blood in stools Musculoskeletal: Denies abnormal walking, Denies back pain, Denies body aches Skin/Breast: Denies rash, Denies skin pain, Denies skin ulcer Neurologic: Denies abnormal hearing, Denies abnormal movements, Denies abnormal speech PMFSH - History History Provided By: Medical Record - Medical History Medical History: Medical History (Last Reviewed 02/06/18 @ 23:57 by Tatyana Hall) Asthma COPD (chronic obstructive pulmonary disease) Chest pain Diabetes Dizziness Hypertension Myocardial infarction Shortness of breath - Surgical History Surgical History: Surgical History (Last Updated 02/06/18 @ 23:57 by Tatyana Hall) History of cholecystectomy History of throat surgery - Family History Family History: Family History (Last Updated 02/07/18 @ 05:51 by Miah Garcia MD) Other Osteoarthritis - Tobacco History Second Hand Smoke Exposure: Yes Tobacco Use In Past 30 Days: Yes Smoking Status: Current every day smoker Tobacco Type: Cigarettes - Alcohol History How Often Do You Have a Drink Containing Alcohol: Monthly or less - Substance Use History Substance History: No History of Abuse - Travel History Recent Travel in the [place] Within the Last 8 Weeks: No Recent Travel Out of the Country Within the Last 8 Weeks: No - Immunization History Tetanus Immunization: Unsure Hx Influenza Vaccine This Season: No Medications and Allergies Active Medications: Active Medications Al Hydroxide/Mg Hydroxide (Milk Of Francy Mccallum) 30 ml PO Q12H PRN PRN Reason: Mild Constipation Albuterol (Albuterol Neb (Prn)) 2.5 mg NEB Q2HR NEB PRN PRN Reason: SHORTNESS OF BREATH Last Admin: 02/07/18 04:42 Dose: 2.5 mg Albuterol (Duoneb Neb (Delia)) 1 ampul NEB Q6HR WHILE AWAKE NEB [facility] Amlodipine Besylate (Norvasc) 5 mg PO DAILY [facility] Budesonide/Formoterol Fumarate (Symbicort 160/4.5 Mcg Inh) 2 puff INH BID [facility] Dextrose (D50w Vial) 50 ml IV.PUSH UNSCH PRN PRN Reason: PER HYPOGLYCEMIA PROTOCOL Glucagon (Glucagon Inj) 1 mg OTHER PRN PRN PRN Reason: for Hypoglycemia Protocol Insulin Aspart (Novolog Insulin Correctional Sugar Inj) 0 unit SQ ACHS DELIA; Protocol Lactobacillus Acidophilus (Lactinex) 1 tab PO TID [facility] Levofloxacin (Levaquin) 500 mg PO DAILY [facility] Methocarbamol (Robaxin) 750 mg PO Q8HR [facility] Miscellaneous (Pill Splitter) 1 each OTHER UNSCH PRN PRN Reason: PILL SPIT Ondansetron HCl (Zofran Inj) 4 mg IV.PUSH Q6H PRN PRN Reason: NAUSEA OR VOMITING Pantoprazole Sodium (Protonix) 20 mg PO DAILY [facility] Potassium Chloride (Klor-Con 10) 20 meq PO BID [facility] Prednisone (Deltasone) 40 mg PO DAILY [facility] Sodium Chloride (Ns Flush) 2 ml IV.FLUSH PRN PRN PRN Reason: FLUSH AFTER USING IV ACCESS Sodium Chloride (Ns Flush) 2 ml IV.FLUSH BID [facility] Tramadol HCl (Ultram) 100 mg PO DAILY [facility] Allergies Allergy/AdvReac Type Severity Reaction Status Date / Time hydromorphone Allergy Severe ANAPHYLAXIS Verified 02/07/18 00:06 *MDRO Multi-Drug Resistant AdvReac Unknown n/a Uncoded 02/07/18 00:06 Organism Home Medications Medication Instructions Recorded Confirmed Type albuterol sulfate 1.25 mg INHALATION QID 01/08/18 02/07/18 History albuterol sulfate [ProAir HFA] 2 puff INHALATION Q4-6H PRN 01/08/18 02/07/18 History amlodipine 5 mg PO DAILY 01/08/18 02/07/18 History budesonide-formoterol [Symbicort] 2 puff INHALATION BID 01/08/18 02/07/18 History ipratropium bromide [Atrovent HFA] 1 puff INHALATION Q6H 01/08/18 02/07/18 History metformin 1,000 mg PO BID 01/08/18 02/07/18 History omeprazole 20 mg PO DAILY 01/08/18 02/07/18 History potassium chloride 20 meq PO BID 01/08/18 02/07/18 History tramadol 100 mg PO DAILY 01/08/18 02/07/18 History Exam Vital signs: Vital Signs 02/06/18 23:55 02/07/18 00:20 02/07/18 00:36 Temperature 98.4 F Pulse Rate 94 H 102 H 95 H Respiratory Rate 28 H 20 Blood Pressure 145/69 H 126/97 H Pulse Oximetry 100 100 02/07/18 01:00 02/07/18 01:04 02/07/18 01:05 Temperature Pulse Rate 89 87 Respiratory Rate 18 18 Blood Pressure Pulse Oximetry 98 02/07/18 01:30 02/07/18 02:00 02/07/18 04:00 Temperature Pulse Rate 92 H 98 H 90 Respiratory Rate 20 22 20 Blood Pressure 124/81 145/78 H 132/74 Pulse Oximetry 100 100 100 02/07/18 04:14 Temperature Pulse Rate 96 H Respiratory Rate 20 Blood Pressure Pulse Oximetry Intake & Output 02/06/18 02/06/18 02/07/18 06:59 18:59 06:59 Intake Total 150 / 150 Balance 150 / 150 Weight 49.895 kg Intake: IV 150 / 150 Levaquin 750 mg Premix Inj 150 150 / 150 ML @ 100 mls/hr IV.SIG ONCE ONE Rx#:[id number] Narrative: GENERAL: NAD, A&Ox3 HEAD: Normocephalic. NECK: Supple, trachea midline. No lymphadenopathy. EYES: No scleral icterus. No injection or drainage. CARDIOVASCULAR: Regular rate and rhythm without murmurs, gallops, or rubs. RESPIRATORY: Breath sounds equal bilaterally. No accessory muscle use. Bilateral wheezing GASTROINTESTINAL: Abdomen soft, non-tender, nondistended. MUSCULOSKELETAL: No cyanosis, or edema. SKIN: Warm and dry. NEURO: No focal neurological deficits. Results - Labs CBC & Chem 7: 02/07/18 01:30 02/07/18 03:28 Labs: Short CBC 02/07/18 Range/Units 01:30 WBC 3.1 L (4.0-11.0) th/mm3 Hgb 10.3 L (11.6-15.3) gm/dL Hct 30.3 L (35.0-46.0) % Plt Count 109 L (150-450) th/mm3 BMP 02/07/18 03:28 Sodium 135 L Potassium 3.7 Chloride 101 Carbon Dioxide 20.6 L BUN 7 Creatinine 0.65 Calcium 7.7 L Liver Function 02/07/18 Range/Units 03:28 Total Bilirubin 1.4 H (0.2-1.0) mg/dL AST 169 H (15-37) U/L ALT 82 H (10-53) U/L Alkaline Phosphatase 143 H (45-117) U/L Albumin 2.9 L (3.4-5.0) g/dL - Imaging Impressions Chest X-Ray 02/07/18 00:36 CONCLUSION: No acute cardiopulmonary disease Hip X-Ray 02/07/18 02:22 CONCLUSION: Unremarkable right hip. No fracture. Caprini VTE Risk Assessment Caprini VTE Risk Assessment: Moderate/High Risk (score >= 2) Caprini Risk Assessment Model: Point Value = 1 Point Value = 2 Point Value = 3 Point Value = 5 Age 41-60 Minor surgery BMI > 25 kg/m2 Swollen legs Varicose veins or History of unexplained or recurrent spontaneous Oral contraceptives or hormone replacement Sepsis (< 1 month) Serious lung disease, including pneumonia (< 1 month) Abnormal pulmonary function Acute myocardial infarction Congestive heart failure (< 1 month) History of inflammatory bowel disease Medical patient at bed rest Age 61-74 Arthroscopic surgery Major open surgery (> 45 min) Laparoscopic surgery (> 45 min) Malignancy Confined to bed (> 72 hours) Immobilizing plaster cast Central venous access Age >= 75 History of VTE Family history of VTE Factor V Leiden Prothrombin [id number] Lupus anticoagulant Anticardiolipin antibodies Elevated serum homocysteine Heparin-induced thrombocytopenia Other congenital or acquired thrombophilia Stroke (< 1 month) Elective arthroplasty Hip, pelvis, or leg fracture Acute spinal cord injury (< 1 month) Prophylaxis Regimen: Total Risk Factor Score Risk Level Prophylaxis Regimen 0-1 Low Early ambulation 2 Moderate Order ONE of the following: *Sequential Compression Device (SCD) *Heparin 5000 units SQ BID 3-4 Higher Order ONE of the following medications: *Heparin 5000 units SQ TID *Enoxaparin/Lovenox 40 mg SQ daily (WT < 150 kg, CrCl > 30 mL/min) *Enoxaparin/Lovenox 30 mg SQ daily (WT < 150 kg, CrCl > 10-29 mL/min) *Enoxaparin/Lovenox 30 mg SQ BID (WT < 150 kg, CrCl > 30 mL/min) AND/OR *Sequential Compression Device (SCD) 5 or more Highest Order ONE of the following medications: *Heparin 5000 units SQ TID (Preferred with Epidurals) *Enoxaparin/Lovenox 40 mg SQ daily (WT < 150 kg, CrCl > 30 mL/min) *Enoxaparin/Lovenox 30 mg SQ daily (WT < 150 kg, CrCl > 10-29 mL/min) *Enoxaparin/Lovenox 30 mg SQ BID (WT < 150 kg, CrCl > 30 mL/min) AND *Sequential Compression Device (SCD) Assessment and Plan - Assessment (1) COPD exacerbation Code(s): J44.1 - Chronic obstructive pulmonary disease with (acute) exacerbation Status: Acute (2) Bronchitis Code(s): J40 - Bronchitis, not specified as acute or chronic Status: Acute - Plan 57-year-old female admitted secondary to COPD exacerbation with bronchitis COPD exacerbation Bronchitis Continue oxygen supplements as needed Schedule duo nebs When necessary albuterol Levaquin Systemic steroids Follow for improvement in respiratory status Follow for improvement in exertional tolerance next Hypertension Continue baseline treatment Follow blood pressures Adjust treatments as needed Diabetes mellitus type 2 Follow blood sugars Insulin sliding scale Diabetic diet Coronary artery disease [place] Follow clinically No chest pain tonight DVT prophylaxis Heparin
[2018-02-07] MEDS: Methocarbamol 500 MG Tablet PO SCH ×3 (05:58→21:10)
[2018-02-07] MEDS: Insulin NovoLOG Aspart Correctional Sugar Inj SQ SCH ×4 (08:39→21:50)
[2018-02-07] MEDS: Pantoprazole Sodium 20 MG DR Tablet PO SCH (08:40)
[2018-02-07] MEDS: Lactobacillus Acidophilus/L. Spores Tablet PO SCH ×3 (08:40→17:19)
[2018-02-07] MEDS: predniSONE 20 MG Tablet PO SCH (08:40)
[2018-02-07] MEDS: amLODIPine 5 MG Tablet PO SCH (08:40)
[2018-02-07] MEDS: Budesonide-Formoterol 160/4.5 MCG 6 GM Inhaler INH SCH ×2 (08:40→22:42)
--- NOTE | 2018-02-07 13:47 | P.PNIM ---
Subjective Interval history: Mrs. Griggs is a 57-year-old female. She comes into the emergency department tonight complaining of shortness of breath. Shortness of breath has been progressive over the past 2 days. Tonight she came in wheezing and respiratory distress. At baseline she has COPD and asthma. In addition to these 2 conditions she is also complaining of productive cough. No pneumonia on imaging. Etiology is likely bronchitis related. No other complaints tonight. No reported fevers. 8-15 STILL SOB STILL WHEEZING STILL SMOKING AT HOME DW RN AND PT AND CM WILL ADD DUONEB MUCINEX INCENTIVE SPIROMETRY PAIN CONTROL Symbicort inhaler A.m. labs PT and OT to eval and treat Physical Exam Vital signs: Vital Signs 02/06/18 23:55 02/07/18 00:20 02/07/18 00:36 Temperature 98.4 F Pulse Rate 94 H 102 H 95 H Respiratory Rate 28 H 20 Blood Pressure 145/69 H 126/97 H Pulse Oximetry 100 100 02/07/18 01:00 02/07/18 01:04 02/07/18 01:05 Temperature Pulse Rate 89 87 Respiratory Rate 18 18 Blood Pressure Pulse Oximetry 98 02/07/18 01:30 02/07/18 02:00 02/07/18 04:00 Temperature Pulse Rate 92 H 98 H 90 Respiratory Rate 20 22 20 Blood Pressure 124/81 145/78 H 132/74 Pulse Oximetry 100 100 100 02/07/18 04:14 02/07/18 07:29 02/07/18 07:52 Temperature Pulse Rate 96 H 94 H 100 H Respiratory Rate 20 19 18 Blood Pressure 125/77 Pulse Oximetry 99 100 02/07/18 12:00 Temperature 98.0 F Pulse Rate 89 Respiratory Rate 18 Blood Pressure 142/77 H Pulse Oximetry 100 Intake & Output 02/06/18 02/07/18 02/07/18 18:59 06:59 18:59 Intake Total 150 / 150 Balance 150 / 150 Weight 49.895 kg Intake: IV 150 / 150 Levaquin 750 mg Premix Inj 150 150 / 150 ML @ 100 mls/hr IV.SIG ONCE ONE Rx#:[id number] Narrative: GENERAL: NAD, A&Ox3 appears much older than stated age HEAD: Normocephalic. Atraumatic NECK: Supple, trachea midline. No lymphadenopathy. EYES: No scleral icterus. No injection or drainage. PERRLA EOMI CARDIOVASCULAR: Regular rate and rhythm without murmurs, gallops, or rubs. RESPIRATORY: Breath sounds equal bilaterally. No accessory muscle use. Bilateral wheezing scattered rhonchi GASTROINTESTINAL: Abdomen soft, non-tender, nondistended. MUSCULOSKELETAL: No cyanosis, or edema. SKIN: Warm and dry. NEURO: No focal neurological deficits. Results - Labs CBC & Chem 7: 02/07/18 01:30 02/07/18 03:28 Laboratory Results - last 24 hr 02/07/18 02/07/18 02/07/18 01:30 03:28 08:35 WBC 3.1 L RBC 3.41 L Hgb 10.3 L Hct 30.3 L MCV 88.8 MCH 30.1 MCHC 33.9 RDW 15.0 Plt Count 109 L MPV 10.7 Neut % (Auto) 46.5 Lymph % (Auto) 32.5 [place] % (Auto) 17.8 H Eos % (Auto) 1.5 Baso % (Auto) 1.7 Neut # (Auto) 1.5 L Lymph # (Auto) 1.0 [place] # (Auto) 0.6 Eos # (Auto) 0.0 Baso # (Auto) 0.1 WBC Differential . Differential Comment Auto diff final Sodium 135 L Potassium 3.7 Chloride 101 Carbon Dioxide 20.6 L Anion Gap 13 BUN 7 Creatinine 0.65 Estimated GFR Greater than 89 POC Glucose 154 H Random Glucose 121 H Calcium 7.7 L Total Bilirubin 1.4 H AST 169 H ALT 82 H Alkaline Phosphatase 143 H Total Protein 7.0 Albumin 2.9 L 02/07/18 12:11 WBC RBC Hgb Hct MCV MCH MCHC RDW Plt Count MPV Neut % (Auto) Lymph % (Auto) [place] % (Auto) Eos % (Auto) Baso % (Auto) Neut # (Auto) Lymph # (Auto) [place] # (Auto) Eos # (Auto) Baso # (Auto) WBC Differential Differential Comment Sodium Potassium Chloride Carbon Dioxide Anion Gap BUN Creatinine Estimated GFR POC Glucose 183 H Random Glucose Calcium Total Bilirubin AST ALT Alkaline Phosphatase Total Protein Albumin - Imaging Impressions Chest X-Ray 02/07/18 00:36 CONCLUSION: No acute cardiopulmonary disease Hip X-Ray 02/07/18 02:22 CONCLUSION: Unremarkable right hip. No fracture. - Procedures None Assessment and Plan - Assessment (1) COPD exacerbation Code(s): J44.1 - Chronic obstructive pulmonary disease with (acute) exacerbation Status: Acute (2) Bronchitis Code(s): J40 - Bronchitis, not specified as acute or chronic Status: Acute - Plan 57-year-old female admitted secondary to COPD exacerbation with bronchitis COPD exacerbation Bronchitis Continue oxygen supplements as needed Schedule duo nebs When necessary albuterol Levaquin Systemic steroids Follow for improvement in respiratory status Follow for improvement in exertional tolerance next Hypertension Continue baseline treatment Follow blood pressures Adjust treatments as needed Diabetes mellitus type 2 Follow blood sugars Insulin sliding scale Diabetic diet Coronary artery disease [place] Follow clinically No chest pain tonight DVT prophylaxis Heparin Code Status: Full code Discussed Condition With: RN and patient Discharge Planning: Pending improvement in her breathing
[2018-02-07] MEDS: guaiFENesin 600 MG ER Tablet PO SCH ×2 (14:45→21:12)
[2018-02-07 17:57] LABS: Hemoglobin A1c 5.1 % (4.3-6.0)
[2018-02-08] MEDS: Methocarbamol 500 MG Tablet PO SCH ×4 (05:55→22:31)
[2018-02-08 07:34] LABS: Baso % (Auto) 0.6 % (0.0-2.0); Eos % (Auto) 0.1 % (0.0-4.0); Hematocrit 31.4 % (35.0-46.0); Hemoglobin 10.6 gm/dL (11.6-15.3); Lymph # (Auto) 0.9 th/mm3 (1.0-4.8); Lymph % (Auto) 14.6 % (9.0-44.0); Mean Corpuscular HGB Conc 33.7 % (32.0-36.0); Mean Corpuscular Hemoglobin 29.7 pg (27.0-34.0); Mean Corpuscular Volume 88.3 fL (80.0-100.0); Mono % (Auto) 16.1 % (0.0-8.0); Neut # (Auto) 4.2 th/mm3 (1.8-7.7); Neut % (Auto) 68.6 % (16.0-70.0); Platelet Count 108 th/mm3 (150-450); Red Blood Count 3.56 mil/mm3 (4.00-5.30); White Blood Count 6.1 th/mm3 (4.0-11.0)
[2018-02-08 07:58] LABS: Alanine Aminotransferase 77 U/L (10-53); Albumin 2.9 g/dL (3.4-5.0); Alkaline Phosphatase 124 U/L (45-117); Anion Gap 10 meq/L (5-15); Aspartate Aminotransferase 105 U/L (15-37); Blood Urea Nitrogen 10 mg/dL (7-18); Calcium 7.8 mg/dL (8.5-10.1); Chloride 104 meq/L (98-107); Glomerular Filtration Rate Greater Than 89 mL/min (>89); Glucose,Random 106 mg/dL (74-106); Magnesium 1.1 mg/dL (1.5-2.5); Phosphorus 2.3 mg/dL (2.5-4.9); Sodium 141 meq/L (136-145); Total Protein 6.7 g/dL (6.4-8.2)
[2018-02-08 08:03] LABS: Potassium 2.7 meq/L (3.5-5.1)
[2018-02-08] MEDS: levoFLOXacin 500 MG Tablet PO SCH ×2 (08:22→09:55)
[2018-02-08] MEDS: Lactobacillus Acidophilus/L. Spores Tablet PO SCH ×3 (09:55→17:43)
[2018-02-08] MEDS: guaiFENesin 600 MG ER Tablet PO SCH ×2 (09:55→20:54)
[2018-02-08] MEDS: Pantoprazole Sodium 20 MG DR Tablet PO SCH (09:55)
[2018-02-08] MEDS: Budesonide-Formoterol 160/4.5 MCG 6 GM Inhaler INH SCH ×2 (09:55→20:55)
[2018-02-08] MEDS: predniSONE 20 MG Tablet PO SCH (09:55)
[2018-02-08] MEDS: amLODIPine 5 MG Tablet PO SCH (09:55)
--- NOTE | 2018-02-08 10:12 | P.PNIM ---
Subjective Interval history: Mrs. Griggs is a 57-year-old female. She comes into the emergency department tonight complaining of shortness of breath. Shortness of breath has been progressive over the past 2 days. Tonight she came in wheezing and respiratory distress. At baseline she has COPD and asthma. In addition to these 2 conditions she is also complaining of productive cough. No pneumonia on imaging. Etiology is likely bronchitis related. No other complaints tonight. No reported fevers. 8-15 STILL SOB STILL WHEEZING STILL SMOKING AT HOME DW RN AND PT AND CM WILL ADD DUONEB MUCINEX INCENTIVE SPIROMETRY PAIN CONTROL Symbicort inhaler A.m. labs PT and OT to eval and treat 8-16 LESS SOB HAS HYPOKALEMIA AND HYPOMAG WILL REPLACE MEETS INPT CRITERIA WILL MAKE FULL ADMISSION STATES HAS PAIN-EXPLAINED THAT SHE HAS PAIN MEDS HAS TO ASK FOR THEM Physical Exam Vital signs: Vital Signs 02/07/18 12:00 02/07/18 15:42 02/07/18 16:00 Temperature 98.0 F 97.8 F Pulse Rate 89 89 97 H Respiratory Rate 18 16 Blood Pressure 142/77 H 147/81 H Pulse Oximetry 100 100 02/07/18 16:01 02/07/18 18:23 02/07/18 20:00 Temperature 98.0 F Pulse Rate 89 115 H 96 H Respiratory Rate 18 18 Blood Pressure 160/90 H Pulse Oximetry 100 02/07/18 20:41 02/07/18 22:42 02/08/18 00:48 Temperature 98.3 F Pulse Rate 115 H 100 H Respiratory Rate 18 16 16 Blood Pressure 128/79 Pulse Oximetry 96 100 02/08/18 04:54 02/08/18 07:47 02/08/18 07:48 Temperature 98 F Pulse Rate 100 H 100 H Respiratory Rate 18 20 Blood Pressure 138/87 Pulse Oximetry 100 99 02/08/18 08:00 Temperature 98.2 F Pulse Rate 100 H Respiratory Rate 16 Blood Pressure 140/77 Pulse Oximetry 99 Narrative: GENERAL: NAD, A&Ox3 appears much older than stated age HEAD: Normocephalic. Atraumatic NECK: Supple, trachea midline. No lymphadenopathy. EYES: No scleral icterus. No injection or drainage. PERRLA EOMI CARDIOVASCULAR: Regular rate and rhythm without murmurs, gallops, or rubs. RESPIRATORY: Breath sounds equal bilaterally. No accessory muscle use. LESS wheezing scattered rhonchi GASTROINTESTINAL: Abdomen soft, non-tender, nondistended. MUSCULOSKELETAL: No cyanosis, or edema. SKIN: Warm and dry. NEURO: No focal neurological deficits. Results - Labs CBC & Chem 7: 02/08/18 06:50 02/08/18 06:50 Laboratory Results - last 24 hr 02/07/18 02/07/18 02/07/18 03:28 03:28 12:11 WBC RBC Hgb Hct MCV MCH MCHC RDW Plt Count MPV Neut % (Auto) Lymph % (Auto) [place] % (Auto) Eos % (Auto) Baso % (Auto) Neut # (Auto) Lymph # (Auto) [place] # (Auto) Eos # (Auto) Baso # (Auto) WBC Differential Differential Comment Sodium Potassium Chloride Carbon Dioxide Anion Gap BUN Creatinine Estimated GFR POC Glucose 183 H Random Glucose Calcium Phosphorus Magnesium Total Bilirubin AST ALT Alkaline Phosphatase Total Protein Albumin TSH 0.308 L Free T4 1.46 02/07/18 02/07/18 02/08/18 17:18 20:26 06:50 WBC 6.1 RBC 3.56 L Hgb 10.6 L Hct 31.4 L MCV 88.3 MCH 29.7 MCHC 33.7 RDW 15.0 Plt Count 108 L MPV 10.0 Neut % (Auto) 68.6 Lymph % (Auto) 14.6 [place] % (Auto) 16.1 H Eos % (Auto) 0.1 Baso % (Auto) 0.6 Neut # (Auto) 4.2 Lymph # (Auto) 0.9 L [place] # (Auto) 1.0 H Eos # (Auto) 0.0 Baso # (Auto) 0.0 WBC Differential . Differential Comment Auto diff final Sodium Potassium Chloride Carbon Dioxide Anion Gap BUN Creatinine Estimated GFR POC Glucose 277 H 279 H Random Glucose Calcium Phosphorus Magnesium Total Bilirubin AST ALT Alkaline Phosphatase Total Protein Albumin TSH Free T4 02/08/18 02/08/18 06:50 09:25 WBC RBC Hgb Hct MCV MCH MCHC RDW Plt Count MPV Neut % (Auto) Lymph % (Auto) [place] % (Auto) Eos % (Auto) Baso % (Auto) Neut # (Auto) Lymph # (Auto) [place] # (Auto) Eos # (Auto) Baso # (Auto) WBC Differential Differential Comment Sodium 141 Potassium 2.7 L* D Chloride 104 Carbon Dioxide 27.0 Anion Gap 10 BUN 10 Creatinine 0.61 Estimated GFR Greater than 89 POC Glucose 110 Random Glucose 106 Calcium 7.8 L Phosphorus 2.3 L Magnesium 1.1 L Total Bilirubin 1.2 H AST 105 H ALT 77 H Alkaline Phosphatase 124 H Total Protein 6.7 Albumin 2.9 L TSH Free T4 - Procedures None Assessment and Plan - Assessment (1) COPD exacerbation Code(s): J44.1 - Chronic obstructive pulmonary disease with (acute) exacerbation Status: Acute (2) Bronchitis Code(s): J40 - Bronchitis, not specified as acute or chronic Status: Acute - Plan 57-year-old female admitted secondary to COPD exacerbation with bronchitis COPD exacerbation Bronchitis Continue oxygen supplements as needed Schedule duo nebs When necessary albuterol Levaquin Systemic steroids Follow for improvement in respiratory status Follow for improvement in exertional tolerance next Hypertension Continue baseline treatment Follow blood pressures Adjust treatments as needed Diabetes mellitus type 2 Follow blood sugars Insulin sliding scale Diabetic diet Coronary artery disease [place] Follow clinically No chest pain tonight HYPOKALEMIA -WE WILL REPLACE WITH PO MEDS HYPOMAGNESIA -WILL REPLACE WITH IV MAG SULFATE PAIN CONTROL NEEDED WILL ROLL TO INPATIENT DVT prophylaxis Heparin Code Status: FULL CODE Discussed Condition With: RN AND PT AND CM Discharge Planning: Pending improvement in her breathing AND REPLACEMENT OF HER ELECTROLYTES
[2018-02-08] MEDS ORDERED: Naloxone Inj 0.4 MG/ML Vial IV.PUSH PRN (10:14)
[2018-02-08] MEDS ORDERED: Morphine Inj 4 MG/ML Vial IV.PUSH PRN (10:14)
[2018-02-08] MEDS ORDERED: Acetaminophen 325 MG Tablet PO PRN (10:14)
[2018-02-08] MEDS ORDERED: Morphine Sulfate Inj 2 MG/ML Vial IV.PUSH PRN (10:14)
[2018-02-08] MEDS: Insulin NovoLOG Aspart Correctional Sugar Inj SQ SCH ×4 (10:17→20:24)
[2018-02-08] MEDS: Mag Sulf 1 gm/100 ml Premix 100 ML IV.SIG SCH ×4 (10:27→15:06)
[2018-02-08 10:56] LABS: Anion Gap 10 meq/L (5-15); Blood Urea Nitrogen 10 mg/dL (7-18); Calcium 8.2 mg/dL (8.5-10.1); Carbon Dioxide 28.3 meq/L (21.0-32.0); Chloride 103 meq/L (98-107); Glomerular Filtration Rate Greater Than 89 mL/min (>89); Glucose,Random 133 mg/dL (74-106); Magnesium 1.1 mg/dL (1.5-2.5); Sodium 141 meq/L (136-145)
[2018-02-09] MEDS: Methocarbamol 500 MG Tablet PO SCH ×3 (05:16→21:41)
[2018-02-09] MEDS: Insulin NovoLOG Aspart Correctional Sugar Inj SQ SCH ×4 (09:00→23:29)
[2018-02-09] MEDS ORDERED: Potassium Chloride 25 MEQ Effervescent Tablet PO ONE (09:30)
[2018-02-09] MEDS: Budesonide-Formoterol 160/4.5 MCG 6 GM Inhaler INH SCH ×2 (09:39→21:47)
[2018-02-09] MEDS: amLODIPine 5 MG Tablet PO SCH (09:41)
[2018-02-09] MEDS: Pantoprazole Sodium 20 MG DR Tablet PO SCH (09:43)
[2018-02-09] MEDS: Lactobacillus Acidophilus/L. Spores Tablet PO SCH ×3 (09:44→18:22)
[2018-02-09] MEDS: guaiFENesin 600 MG ER Tablet PO SCH ×2 (09:44→21:40)
[2018-02-09] MEDS: predniSONE 20 MG Tablet PO SCH (09:44)
[2018-02-09] MEDS: levoFLOXacin 500 MG Tablet PO SCH (09:50)
[2018-02-09 10:10] LABS: Baso % (Auto) 0.2 % (0.0-2.0); Eos % (Auto) 0.1 % (0.0-4.0); Hematocrit 33.3 % (35.0-46.0); Hemoglobin 11.1 gm/dL (11.6-15.3); Lymph # (Auto) 1.2 th/mm3 (1.0-4.8); Lymph % (Auto) 22.7 % (9.0-44.0); Mean Corpuscular HGB Conc 33.4 % (32.0-36.0); Mean Corpuscular Hemoglobin 29.7 pg (27.0-34.0); Mean Corpuscular Volume 88.7 fL (80.0-100.0); Mono # (Auto) 0.7 th/mm3 (0.0-0.9); Mono % (Auto) 13.9 % (0.0-8.0); Neut # (Auto) 3.2 th/mm3 (1.8-7.7); Neut % (Auto) 63.1 % (16.0-70.0); Platelet Count 109 th/mm3 (150-450); Red Blood Count 3.76 mil/mm3 (4.00-5.30); Red Cell Distribution Width 14.8 % (11.6-17.2); White Blood Count 5.1 th/mm3 (4.0-11.0)
[2018-02-09 10:38] LABS: Alanine Aminotransferase 71 U/L (10-53); Albumin 3.1 g/dL (3.4-5.0); Alkaline Phosphatase 118 U/L (45-117); Anion Gap 11 meq/L (5-15); Aspartate Aminotransferase 75 U/L (15-37); Blood Urea Nitrogen 18 mg/dL (7-18); Calcium 8.7 mg/dL (8.5-10.1); Carbon Dioxide 22.5 meq/L (21.0-32.0); Chloride 106 meq/L (98-107); Glomerular Filtration Rate 87 mL/min (>89); Glucose,Random 79 mg/dL (74-106); Phosphorus 1.8 mg/dL (2.5-4.9); Potassium 4.2 meq/L (3.5-5.1); Sodium 139 meq/L (136-145)
--- NOTE | 2018-02-09 13:13 | P.DIET ---
Nutritional Evaluation Type of nutrition evaluation: initial Subjective Subjective Comments: reports appetite is good. 100% po for breakfast today. Objective - Diagnosis COPD exacerbation, hypokalemia, hypomagnesia - Objective [place] body weight: 59.1 kg % IBW: 85 Body Weight Used for Calculations: Actual (49.895kg) Energy Needs - Lower Range (kCal/kg): 30 Energy Needs - Upper Range (kCal/kg): 35 Lower Limit kCal/kg (kCals): 1,497 Upper Limit kCal/kg (kCals): 1,746 Lower Limit Protein Factor (Grams per Kg): 1.1 Upper Limit Protein Factor (Grams per Kg): 1.4 Lower Protein Needs (Protein): 55 Upper Protein Needs (Protein): 70 Fluid Factor (ml/kg): 30 Estimated Fluid Needs (ml): 1,497 Dietitian Reviewed in Medical Record: Current diet, Curent medications, Intake & Output, Labs, Medical history Diet Order: [id number] Oral Diet Intake Amount: Good 75-90% Objective Comments: PMH: COPD, DM-2, Asthma, HTN, h/o [place] A1C 5.1, Glucose 101 Meds Include: Metformin Assessment Assessment: Pt is at nutritional risk r/t recent reported unintentional wt loss and low BMI. Adequate PO intake for meals 50% or greater for meals recorded. Send Glucerna Shakes for additional nutrition(220 kcal and 10g Protein per serving). Labs reviewed. Dietitian will follow. Recommendations: 1. Send Glucerna Shakes for additional nutrition 2. Dietitian will follow Dietitian to Monitor: Lab values, Electrolytes, Glucose level, Supplement acceptance, Intake & Output, Weight change, PO Intake, Medical course
--- NOTE | 2018-02-09 16:06 | P.PN ---
Subjective Interval history: Patient is seen sitting up in chair. She tells me that she feels much better. Denies any chest pain or shortness of breath. Denies any nausea vomiting or diarrhea. She is eating all of her meals. She does complain of being itchy all over. Physical Exam Vital signs: Vital Signs 02/08/18 16:00 02/08/18 20:00 02/08/18 20:47 Temperature 97.5 F L 97.9 F Pulse Rate 96 H 91 H 95 H Respiratory Rate 16 20 20 Blood Pressure 154/72 H 132/80 Pulse Oximetry 100 96 100 02/08/18 23:52 02/09/18 04:00 02/09/18 07:22 Temperature 97.8 F 98 F Pulse Rate 88 80 70 Respiratory Rate 20 20 18 Blood Pressure 143/89 H 142/87 H Pulse Oximetry 100 100 02/09/18 08:00 02/09/18 11:23 02/09/18 11:44 Temperature 97.8 F Pulse Rate 87 98 H 117 H Respiratory Rate 20 20 Blood Pressure 148/83 H 151/77 H Pulse Oximetry 100 100 02/09/18 15:00 02/09/18 15:44 Temperature 98.0 F Pulse Rate 70 98 H Respiratory Rate 20 18 Blood Pressure 138/101 H Pulse Oximetry 100 Intake & Output 02/08/18 02/09/18 02/09/18 18:59 06:59 18:59 Intake Total 400 / 400 Balance 400 / 400 Intake: IV 400 / 400 Magnesium Sulfate 1 gm/D5W 100 400 / 400 ml Premix 100 ML @ 100 mls/hr IV.SIG Q1H KAN Rx#:[id number] Other: # Voids 2 Narrative: GENERAL: NAD, A&Ox3 appears much older than stated age HEAD: Normocephalic. Atraumatic NECK: Supple, trachea midline. No lymphadenopathy. CARDIOVASCULAR: Regular rate and rhythm without murmurs, gallops, or rubs. RESPIRATORY: Breath sounds equal bilaterally. No accessory muscle use. scattered rhonchi GASTROINTESTINAL: Abdomen soft, non-tender, nondistended. MUSCULOSKELETAL: No cyanosis, or edema. SKIN: Warm and dry. No rash or lesions. NEURO: No focal neurological deficits. Results - Labs CBC & Chem 7: 02/09/18 09:07 02/09/18 13:00 Laboratory Results - last 24 hr 02/08/18 02/09/18 02/09/18 17:12 08:52 09:07 WBC 5.1 RBC 3.76 L Hgb 11.1 L Hct 33.3 L MCV 88.7 MCH 29.7 MCHC 33.4 RDW 14.8 Plt Count 109 L MPV 10.0 Neut % (Auto) 63.1 Lymph % (Auto) 22.7 [place] % (Auto) 13.9 H Eos % (Auto) 0.1 Baso % (Auto) 0.2 Neut # (Auto) 3.2 Lymph # (Auto) 1.2 [place] # (Auto) 0.7 Eos # (Auto) 0.0 Baso # (Auto) 0.0 WBC Differential . Differential Comment Auto diff final Sodium Potassium Chloride Carbon Dioxide Anion Gap BUN Creatinine Estimated GFR POC Glucose 108 101 Random Glucose Calcium Phosphorus Magnesium Total Bilirubin AST ALT Alkaline Phosphatase Total Protein Albumin 02/09/18 02/09/18 02/09/18 09:07 12:21 13:00 WBC RBC Hgb Hct MCV MCH MCHC RDW Plt Count MPV Neut % (Auto) Lymph % (Auto) [place] % (Auto) Eos % (Auto) Baso % (Auto) Neut # (Auto) Lymph # (Auto) [place] # (Auto) Eos # (Auto) Baso # (Auto) WBC Differential Differential Comment Sodium 139 Potassium 4.2 D 4.5 Chloride 106 Carbon Dioxide 22.5 Anion Gap 11 BUN 18 Creatinine 0.82 Estimated GFR 87 L POC Glucose 114 H Random Glucose 79 Calcium 8.7 Phosphorus 1.8 L Magnesium 2.0 D Total Bilirubin 1.1 H AST 75 H ALT 71 H Alkaline Phosphatase 118 H Total Protein 7.0 Albumin 3.1 L - Procedures None Assessment and Plan - Assessment (1) COPD exacerbation Code(s): J44.1 - Chronic obstructive pulmonary disease with (acute) exacerbation Status: Acute (2) Bronchitis Code(s): J40 - Bronchitis, not specified as acute or chronic Status: Acute - Plan 57-year-old female admitted secondary to COPD exacerbation with bronchitis COPD exacerbation Bronchitis Continue oxygen supplements as needed Schedule duo nebs When necessary albuterol Levaquin Systemic steroids Follow for improvement in respiratory status Follow for improvement in exertional tolerance next Hypertension Continue baseline treatment Follow blood pressures Adjust treatments as needed Diabetes mellitus type 2 Follow blood sugars Insulin sliding scale Diabetic diet Coronary artery disease [place] Follow clinically No chest pain tonight Electrolyte imbalance -Potassium and magnesium replaced; monitor -Phos low - replaced on 02/10; check Vit D DVT prophylaxis Heparin Code Status: FULL CODE Discussed Condition With: RN AND PT AND CM
[2018-02-09] MEDS: oxyCODONE/Acetaminophen 10/325 Tablet PO PRN (22:18)
[2018-02-10] MEDS: oxyCODONE/Acetaminophen 10/325 Tablet PO PRN ×4 (04:20→23:33)
[2018-02-10] MEDS: Methocarbamol 500 MG Tablet PO SCH ×3 (05:48→22:37)
[2018-02-10 06:52] LABS: Albumin 3.4 g/dL (3.4-5.0); Anion Gap 10 meq/L (5-15); Aspartate Aminotransferase 75 U/L (15-37); Blood Urea Nitrogen 25 mg/dL (7-18); Calcium 9.4 mg/dL (8.5-10.1); Carbon Dioxide 21.9 meq/L (21.0-32.0); Chloride 106 meq/L (98-107); Glomerular Filtration Rate 65 mL/min (>89); Glucose,Random 65 mg/dL (74-106); Potassium 4.9 meq/L (3.5-5.1); Sodium 138 meq/L (136-145)
[2018-02-10 06:53] LABS: Alanine Aminotransferase 77 U/L (10-53); Phosphorus 2.1 mg/dL (2.5-4.9)
[2018-02-10 06:56] LABS: Alkaline Phosphatase 127 U/L (45-117); Total Protein 7.6 g/dL (6.4-8.2)
[2018-02-10 07:12] LABS: Baso % (Auto) 0.4 % (0.0-2.0); Hemoglobin 10.9 gm/dL (11.6-15.3); Lymph # (Auto) 1.3 th/mm3 (1.0-4.8); Lymph % (Auto) 17.5 % (9.0-44.0); Mean Corpuscular HGB Conc 32.2 % (32.0-36.0); Mean Corpuscular Hemoglobin 29.5 pg (27.0-34.0); Mean Corpuscular Volume 91.7 fL (80.0-100.0); Mean Platelet Volume 9.7 fL (7.0-11.0); Mono # (Auto) 1.1 th/mm3 (0.0-0.9); Mono % (Auto) 15.1 % (0.0-8.0); Neut # (Auto) 5.1 th/mm3 (1.8-7.7); Platelet Count 118 th/mm3 (150-450); Red Blood Count 3.71 mil/mm3 (4.00-5.30); Red Cell Distribution Width 15.3 % (11.6-17.2); White Blood Count 7.6 th/mm3 (4.0-11.0)
[2018-02-10] MEDS: Insulin NovoLOG Aspart Correctional Sugar Inj SQ SCH ×4 (08:32→22:36)
[2018-02-10] MEDS: guaiFENesin 600 MG ER Tablet PO SCH ×2 (09:13→20:47)
[2018-02-10] MEDS: Budesonide-Formoterol 160/4.5 MCG 6 GM Inhaler INH SCH ×2 (09:13→22:37)
[2018-02-10] MEDS: Lactobacillus Acidophilus/L. Spores Tablet PO SCH ×3 (09:14→19:43)
[2018-02-10] MEDS: Pantoprazole Sodium 20 MG DR Tablet PO SCH (09:14)
[2018-02-10] MEDS: levoFLOXacin 500 MG Tablet PO SCH (09:14)
[2018-02-10] MEDS: predniSONE 20 MG Tablet PO SCH (09:14)
[2018-02-10] MEDS: amLODIPine 5 MG Tablet PO SCH (09:15)
[2018-02-10] MEDS ORDERED: Docusate Sodium 100 MG Capsule PO ONE (13:58)
--- NOTE | 2018-02-10 15:43 | P.PN ---
Subjective Interval history: Patient is seen lying quietly in bed. Denies chest pain or shortness of breath. Denies nausea vomiting or diarrhea. Nurse reports no adverse overnight events. Physical Exam Vital signs: Vital Signs 02/09/18 15:44 02/09/18 16:01 02/09/18 20:00 Temperature 98.0 F 98.4 F Pulse Rate 98 H 109 H 98 H Respiratory Rate 18 18 Blood Pressure 138/101 H 146/77 H Pulse Oximetry 100 100 02/09/18 21:12 02/10/18 00:00 02/10/18 04:00 Temperature 98.2 F 98.3 F Pulse Rate 98 H 100 H 93 H Respiratory Rate 18 18 18 Blood Pressure 159/91 H 160/80 H Pulse Oximetry 100 100 02/10/18 07:26 02/10/18 08:00 02/10/18 12:08 Temperature 97.9 F 98.6 F Pulse Rate 97 H 72 70 Respiratory Rate 20 20 20 Blood Pressure 152/92 H 132/83 Pulse Oximetry 99 96 96 02/10/18 14:27 02/10/18 14:30 Temperature Pulse Rate 109 H 98 H Respiratory Rate 22 Blood Pressure Pulse Oximetry Intake & Output 02/09/18 02/10/18 02/10/18 18:59 06:59 18:59 Other: # Voids 1 Date of Last Bowel Movement 02/05/18 Narrative: GENERAL: NAD, A&Ox3 appears much older than stated age HEAD: Normocephalic. Atraumatic CARDIOVASCULAR: Regular rate and rhythm without murmurs, gallops, or rubs. RESPIRATORY: Breath sounds equal bilaterally. No accessory muscle use. GASTROINTESTINAL: Abdomen soft, non-tender, nondistended. MUSCULOSKELETAL: No cyanosis, or edema. SKIN: Warm and dry. No rash or lesions. NEURO: No focal neurological deficits. Results - Labs CBC & Chem 7: 02/10/18 06:00 02/10/18 06:00 Laboratory Results - last 24 hr 02/09/18 02/09/18 02/10/18 18:26 21:37 06:00 WBC RBC Hgb Hct MCV MCH MCHC RDW Plt Count MPV Neut % (Auto) Lymph % (Auto) [place] % (Auto) Eos % (Auto) Baso % (Auto) Neut # (Auto) Lymph # (Auto) [place] # (Auto) Eos # (Auto) Baso # (Auto) WBC Differential Differential Comment Sodium 138 Potassium 4.9 Chloride 106 Carbon Dioxide 21.9 Anion Gap 10 BUN 25 H Creatinine 1.06 H Estimated GFR 65 L POC Glucose 148 H 162 H Random Glucose 65 L Calcium 9.4 Phosphorus 2.1 L Total Bilirubin 1.1 H AST 75 H ALT 77 H Alkaline Phosphatase 127 H Total Protein 7.6 D Albumin 3.4 Vitamin D 25-Hydroxy 12.5 L 02/10/18 02/10/18 02/10/18 06:00 08:30 12:44 WBC 7.6 RBC 3.71 L Hgb 10.9 L Hct 34.0 L MCV 91.7 MCH 29.5 MCHC 32.2 RDW 15.3 Plt Count 118 L MPV 9.7 Neut % (Auto) 67.0 Lymph % (Auto) 17.5 [place] % (Auto) 15.1 H Eos % (Auto) 0.0 Baso % (Auto) 0.4 Neut # (Auto) 5.1 Lymph # (Auto) 1.3 [place] # (Auto) 1.1 H Eos # (Auto) 0.0 Baso # (Auto) 0.0 WBC Differential . Differential Comment Auto diff final Sodium Potassium Chloride Carbon Dioxide Anion Gap BUN Creatinine Estimated GFR POC Glucose 78 122 H Random Glucose Calcium Phosphorus Total Bilirubin AST ALT Alkaline Phosphatase Total Protein Albumin Vitamin D 25-Hydroxy - Procedures None Assessment and Plan - Assessment (1) COPD exacerbation Code(s): J44.1 - Chronic obstructive pulmonary disease with (acute) exacerbation Status: Acute (2) Bronchitis Code(s): J40 - Bronchitis, not specified as acute or chronic Status: Acute - Plan 57-year-old female admitted secondary to COPD exacerbation with bronchitis COPD exacerbation Bronchitis Continue oxygen supplements as needed Schedule duo nebs When necessary albuterol Levaquin Systemic steroids Follow for improvement in respiratory status Follow for improvement in exertional tolerance next Hypertension Continue baseline treatment Follow blood pressures Adjust treatments as needed Diabetes mellitus type 2 Follow blood sugars Insulin sliding scale Diabetic diet Coronary artery disease [place] Follow clinically No chest pain tonight Electrolyte imbalance -Potassium and magnesium replaced; monitor -Phos low; check Vit D - low - start replacement DVT prophylaxis Heparin Code Status: FULL CODE Discussed Condition With: RN AND PT AND CM Discharge planning: Patient would likely benefit from placement in a SNF or rehab.
[2018-02-10] MEDS: Docusate Sodium 100 MG Capsule PO SCH (20:50)
[2018-02-11] MEDS: Methocarbamol 500 MG Tablet PO SCH ×2 (05:02→13:39)
[2018-02-11] MEDS: oxyCODONE/Acetaminophen 10/325 Tablet PO PRN ×4 (05:03→23:07)
[2018-02-11] MEDS: Pantoprazole Sodium 20 MG DR Tablet PO SCH (08:04)
[2018-02-11] MEDS: guaiFENesin 600 MG ER Tablet PO SCH ×2 (08:05→20:51)
[2018-02-11] MEDS: Docusate Sodium 100 MG Capsule PO SCH ×2 (08:05→20:51)
[2018-02-11] MEDS: Lactobacillus Acidophilus/L. Spores Tablet PO SCH ×3 (08:05→17:26)
[2018-02-11] MEDS: levoFLOXacin 500 MG Tablet PO SCH (08:05)
[2018-02-11] MEDS: amLODIPine 5 MG Tablet PO SCH (08:05)
[2018-02-11] MEDS: predniSONE 20 MG Tablet PO SCH (08:05)
[2018-02-11] MEDS: Budesonide-Formoterol 160/4.5 MCG 6 GM Inhaler INH SCH ×2 (08:07→20:52)
[2018-02-11] MEDS: Insulin NovoLOG Aspart Correctional Sugar Inj SQ SCH ×4 (09:11→21:01)
[2018-02-11] MEDS ORDERED: Dextrose 5%/NaCl 0.9% Inj 1,000 ML IV.CONT SCH (12:45)
--- NOTE | 2018-02-11 13:06 | P.PN ---
Subjective Interval history: Follow-up on patient admitted with COPD exacerbation. Patient seen and examined. Patient states her breathing has improved. She denies any new medical complaints. She is not interested in going to rehab at the time of her discharge. Discussed with nursing staff, patient with low blood sugars. Physical Exam Vital signs: Vital Signs 02/10/18 14:27 02/10/18 14:30 02/10/18 16:00 Temperature Pulse Rate 109 H 98 H 114 H Respiratory Rate 22 Blood Pressure Pulse Oximetry 02/10/18 16:13 02/10/18 20:00 02/10/18 20:18 Temperature 97.9 F 97.9 F Pulse Rate 60 102 H Respiratory Rate 18 18 Blood Pressure 148/60 H 157/87 H Pulse Oximetry 96 100 100 02/10/18 20:19 02/10/18 22:30 02/11/18 00:00 Temperature 97.5 F L 98.5 F Pulse Rate 112 H 114 H 102 H Respiratory Rate 17 18 18 Blood Pressure 166/92 H 152/81 H Pulse Oximetry 99 95 02/11/18 00:39 02/11/18 01:52 02/11/18 01:54 Temperature Pulse Rate Respiratory Rate 18 16 16 Blood Pressure Pulse Oximetry 02/11/18 03:21 02/11/18 04:00 02/11/18 05:53 Temperature 98.6 F Pulse Rate 102 H Respiratory Rate 18 18 18 Blood Pressure 157/89 H Pulse Oximetry 100 02/11/18 06:00 02/11/18 08:00 02/11/18 08:24 Temperature 97.3 F L Pulse Rate 102 H 102 H Respiratory Rate 18 17 20 Blood Pressure 168/89 H Pulse Oximetry 100 02/11/18 09:56 02/11/18 11:53 Temperature Pulse Rate Respiratory Rate 20 Blood Pressure Pulse Oximetry 100 Intake & Output 02/10/18 02/11/18 02/11/18 18:59 06:59 18:59 Intake Total 240 / 240 Balance 240 / 240 Weight 31.9 kg Intake: Oral 240 / 240 Other: # Voids 2 2 Date of Last Bowel Movement 02/05/18 02/05/18 02/05/18 Narrative: GENERAL: Thin ill appearing female patient, INAD. Awake and alert. Sitting up eating lunch. SKIN: Warm and dry. HEAD: Atraumatic. Normocephalic. EYES: Pupils equal and round. No scleral icterus. No injection or drainage. ENT: No nasal bleeding or discharge. Mucous membranes pink and moist. NECK: Trachea midline. CARDIOVASCULAR: Regular rate and rhythm. RESPIRATORY: No accessory muscle use. Fair air entry. Breath sounds equal bilaterally. Mild expiratory wheezing noted. GASTROINTESTINAL: Abdomen soft, non-tender, nondistended. +BS. MUSCULOSKELETAL: Extremities without clubbing, cyanosis, or edema. No obvious deformities. NEUROLOGICAL: Awake and alert. No obvious cranial nerve deficits. Motor grossly within normal limits. Nonfocal. Normal speech. PSYCHIATRIC: Flat affect. Calm and cooperative. Results - Labs CBC & Chem 7: 02/10/18 06:00 02/10/18 06:00 Laboratory Results - last 24 hr 02/10/18 02/10/18 02/11/18 17:45 20:47 08:00 POC Glucose 99 110 50 L 02/11/18 02/11/18 02/11/18 08:15 08:58 11:59 POC Glucose 70 92 62 L 02/11/18 02/11/18 12:17 12:23 POC Glucose 65 L 80 - Procedures None Assessment and Plan - Assessment (1) COPD exacerbation Code(s): J44.1 - Chronic obstructive pulmonary disease with (acute) exacerbation Status: Acute (2) Bronchitis Code(s): J40 - Bronchitis, not specified as acute or chronic Status: Acute - Plan 57-year-old female admitted secondary to COPD exacerbation with bronchitis COPD exacerbation Bronchitis Continue oxygen supplements as needed Schedule duo nebs When necessary albuterol Levaquin Systemic steroids Follow for improvement in respiratory status Follow for improvement in exertional tolerance next Hypertension Continue baseline treatment Follow blood pressures Adjust treatments as needed Diabetes mellitus type 2 Hypoglycemic A1c 5.1 Blood sugar 50s and 60s Hold Metformin start on D5 continue accucheks Diabetic diet Coronary artery disease [place] Follow clinically No complaints of chest pain KHUSHBU creatinine went from 0.82 to 1.06 IVF hydration avoid nephrotoxic agents repeat BMP in am Electrolyte imbalance -Potassium and magnesium replaced; monitor -Phos low; check Vit D - low - started on replacement, continue DVT prophylaxis Heparin
[2018-02-11] MEDS ORDERED: Methocarbamol 500 MG Tablet PO PRN (16:31)
[2018-02-12] MEDS: oxyCODONE/Acetaminophen 10/325 Tablet PO PRN (04:51)
[2018-02-12 06:25] LABS: Anion Gap 13 meq/L (5-15); Blood Urea Nitrogen 17 mg/dL (7-18); Calcium 8.5 mg/dL (8.5-10.1); Carbon Dioxide 24.1 meq/L (21.0-32.0); Chloride 98 meq/L (98-107); Glomerular Filtration Rate Greater Than 89 mL/min (>89); Glucose,Random 84 mg/dL (74-106); Potassium 3.7 meq/L (3.5-5.1); Sodium 135 meq/L (136-145)
--- NOTE | 2018-02-12 07:29 | P.DCO ---
- Home Health Nursing Order: Medical education, Signs/symptoms of disease process, Medication education-adverse effect, Nursing assessment with vital signs - Certification I have seen patient Gertrudis Griggs on 02/12/18. My clinical findings support the need for the requested home health care services because: Patient has SOB, Deconditioned with increased weakness, Medication compliance is questionable, Limited ability to care for self I certify that my clinical findings support that this patient is homebound because: Hx COPD - exertion dyspnea/weakness, Unsafe to leave home unassisted, Unable to use public transportation
--- NOTE | 2018-02-12 07:49 | P.DS ---
Date of admission: 02/08/18 10:12 Primary care physician: Jamshid Braxton MD Attending physician on discharge: Destin Arriaga Anticipated date of discharge: 02/12/18 Brief History from admission: Mrs. Griggs is a 57-year-old female. She comes into the emergency department tonight complaining of shortness of breath. Shortness of breath has been progressive over the past 2 days. Tonight she came in wheezing and respiratory distress. At baseline she has COPD and asthma. In addition to these 2 conditions she is also complaining of productive cough. No pneumonia on imaging. Etiology is likely bronchitis related. No other complaints tonight. No reported fevers. DS: Diagnosis - Discharge Diagnosis (1) COPD exacerbation Status: Acute (2) Bronchitis Status: Acute (3) Acute kidney failure Status: Acute (4) Malnutrition Status: Acute (5) Diabetes mellitus with hypoglycemia Status: Acute (6) Vitamin D deficiency Status: Acute (7) Hypokalemia Status: Acute (8) Poor balance Status: Acute (9) Gait instability Status: Acute (10) Weakness Status: Acute (11) Impaired activities of daily living Status: Acute (12) Risk for falls Status: Acute (13) COPD (chronic obstructive pulmonary disease) Status: Acute DS: Medications - Discharge Medications Prescriptions: cholecalciferol (vitamin D3) 5,000 unit PO DAILY #30 cap guaifenesin [Mucinex] 600 mg PO BID #10 tab levofloxacin 500 mg PO DAILY #3 tab nicotine 1 patch TRANSDERMAL DAILY #7 ea nut.tx.gluc.intol,lac-free,soy [Glucerna Shake] 1 bottle PO 3XW #90 ml prednisone 10 mg PO DAILY #20 tab DS: Summary Hospital Course: 57-year-old female admitted secondary to COPD exacerbation with bronchitis COPD exacerbation Bronchitis Continue oxygen supplements as needed Scheduled duo nebs When necessary albuterol Levaquin Systemic steroids Follow for improvement in respiratory status Home oxygen walk test ordered/patient did not desat with exertion Hypertension Continue baseline treatment Follow blood pressures Adjust treatments as needed Diabetes mellitus type 2 Hypoglycemic A1c 5.1, out of diabetic window Blood sugar 50s and 60s Metformin discontinued, BS improved continue accucheks change to heart healthy diet. Have A1c rechecked in 3 mos. Coronary artery disease [place] Follow clinically No complaints of chest pain KHUSHBU creatinine went from 0.82 to 1.06 resolved with IVF hydration, Cr 0.77 avoid nephrotoxic agents repeat BMP in am Electrolyte imbalance -Potassium and magnesium replaced; monitor -Phos low; check Vit D - low - started on replacement, continue - Time Spent with Patient Total time spent providing and/or coordinating discharge services: Greater than 30 minutes - Quality: VTE Deep Vein Thrombosis/Pulmonary Embolism Present on Admission: No Exam Vital signs: Vital Signs 02/11/18 08:00 02/11/18 08:24 02/11/18 09:56 Temperature 97.3 F L Pulse Rate 102 H 102 H Respiratory Rate 17 20 Blood Pressure 168/89 H Pulse Oximetry 100 100 02/11/18 11:53 02/11/18 12:00 02/11/18 12:26 Temperature 98.1 F Pulse Rate 95 H 95 H Respiratory Rate 20 18 Blood Pressure 142/87 H Pulse Oximetry 100 02/11/18 14:10 02/11/18 16:00 02/11/18 17:33 Temperature 98.3 F Pulse Rate 91 H 99 H Respiratory Rate 20 18 Blood Pressure 147/70 H Pulse Oximetry 100 02/11/18 17:56 02/11/18 20:00 02/11/18 20:27 Temperature 98.2 F Pulse Rate 83 91 H Respiratory Rate 18 18 16 Blood Pressure 155/87 H Pulse Oximetry 98 100 02/12/18 00:00 02/12/18 04:00 Temperature 97.3 F L 97.5 F L Pulse Rate 90 88 Respiratory Rate 18 18 Blood Pressure 127/66 164/77 H Pulse Oximetry 94 L 100 Intake & Output 02/11/18 02/12/18 02/12/18 18:59 06:59 18:59 Intake Total 480 / 480 460 / 460 Balance 480 / 480 460 / 460 Weight 44.6 kg Intake: Oral 480 / 480 460 / 460 Other: # Voids 1 3 Date of Last Bowel Movement 02/05/18 02/11/18 # Bowel Movements 1 1 Narrative: GENERAL: Thin ill appearing female patient, INAD. Awake and alert. Sitting on side of bed eating breakfast. SKIN: Warm and dry. HEAD: Atraumatic. Normocephalic. EYES: Pupils equal and round. No scleral icterus. No injection or drainage. ENT: No nasal bleeding or discharge. Mucous membranes pink and moist. NECK: Trachea midline. CARDIOVASCULAR: Regular rate and rhythm. RESPIRATORY: No accessory muscle use. Fair air entry. Breath sounds equal bilaterally. No wheezing noted. GASTROINTESTINAL: Abdomen soft, non-tender, nondistended. +BS. MUSCULOSKELETAL: Extremities without clubbing, cyanosis, or edema. No obvious deformities. NEUROLOGICAL: Awake and alert. No obvious cranial nerve deficits. Motor grossly within normal limits. Nonfocal. Normal speech. PSYCHIATRIC: Flat affect. Calm and cooperative. Results Procedures completed during hospitalization: None Labs on day of discharge: Labs from last 24 hours 02/12/18 02/12/18 02/11/18 07:42 05:00 20:59 Sodium 135 L Potassium 3.7 D Chloride 98 D Carbon Dioxide 24.1 Anion Gap 13 BUN 17 Creatinine 0.77 Estimated GFR Greater than 89 POC Glucose 120 H 82 Random Glucose 84 Calcium 8.5 D 02/11/18 02/11/18 02/11/18 16:59 16:24 12:23 Sodium Potassium Chloride Carbon Dioxide Anion Gap BUN Creatinine Estimated GFR POC Glucose 174 H 159 H 80 Random Glucose Calcium 02/11/18 02/11/18 02/11/18 12:17 11:59 08:58 Sodium Potassium Chloride Carbon Dioxide Anion Gap BUN Creatinine Estimated GFR POC Glucose 65 L 62 L 92 Random Glucose Calcium 02/11/18 02/11/18 08:15 08:00 Sodium Potassium Chloride Carbon Dioxide Anion Gap BUN Creatinine Estimated GFR POC Glucose 70 50 L Random Glucose Calcium - Impressions ITS Impressions Chest X-Ray 02/07/18 00:36 CONCLUSION: No acute cardiopulmonary disease Hip X-Ray 02/07/18 02:22 CONCLUSION: Unremarkable right hip. No fracture. Discharge Plan - Discharge Disposition Patient Disposition: /Home Health Service - Discharge Condition Condition: Stable - Discharge Order Discharge Orders: Discharge Order (Routine); Ordered 02/12/18 Ordered By: Leyda Luo - Discharge Details Anticipated Discharge Date: 02/12/18 - Physicians Team Primary Care Provider: Jamshid Braxton Attending Provider: Destin Arriaga
[2018-02-12] MEDS: predniSONE 20 MG Tablet PO SCH (08:33)
[2018-02-12] MEDS: amLODIPine 5 MG Tablet PO SCH (08:33)
[2018-02-12] MEDS: levoFLOXacin 500 MG Tablet PO SCH (08:33)
[2018-02-12] MEDS: Pantoprazole Sodium 20 MG DR Tablet PO SCH (08:33)
[2018-02-12] MEDS: Lactobacillus Acidophilus/L. Spores Tablet PO SCH ×2 (08:33→12:21)
[2018-02-12] MEDS: guaiFENesin 600 MG ER Tablet PO SCH (08:33)
[2018-02-12] MEDS: Insulin NovoLOG Aspart Correctional Sugar Inj SQ SCH ×2 (08:34→12:21)
[2018-02-12] MEDS: Docusate Sodium 100 MG Capsule PO SCH (08:34)
[2018-02-12] MEDS: Budesonide-Formoterol 160/4.5 MCG 6 GM Inhaler INH SCH (08:34)
== END 2018-02-12 15:39 | disposition home health service (06) ==
LOC: NEDA 23:49 → NEPE 23:49 → NEDA 02-07 11:45 → NEPFCDU 02-07 11:57 → N06 02-10 22:18
PROVIDERS: ADMIT Hospitalist; ATTEND Hospitalist